=== PATIENT | female | born 1990 | race Two or more races ===

== ENCOUNTER 2018-09-12 17:07 | Inpatient (IN) | payer MEDICAID ==
[~2018-09-12] VITALS: Ht 157.5 cm; Wt 115.7 kg
[2018-09-12 17:20] VITALS: BP 163/92
--- NOTE | 2018-09-12 17:20 | NUR ---
ED Nurse Note: pt walked in c/o abd pain radiating to back x 5 days, pt reports n/v and pain on urination as well, denies diarrhea, states she can't have BM because she hasn't been eating. pt AA&ox4, gcs=15, skin warm and dry, resp even and unlabored on RA, active BS, abd soft tender, noted nausea, vss, will cont monitor.
[2018-09-12] MEDS ORDERED: Lidocaine 2% Visc 15ml soln ORAL ONE (17:45)
[2018-09-12] MEDS ORDERED: Dicyclomine HCl 10mg/5ml oral soln ORAL ONE (17:45)
--- NOTE | 2018-09-12 17:45 | Emergency Room Report ---
History of Present Illness General Chief Complaint: Abdominal Pain Source: Patient Present Illness HPI Patient is a 28-year-old female presented after increased epigastric pain for approximately sharp epigastric pain which radiates to her back for 5 days. Patient had not been vomiting. She reports having increased nausea. She states that she has not had bowel movements for several days. She denies any fever. She had not been having any diarrhea. She reports having prior history of hernia. 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 Allergies: Coded Allergies: No Known Allergies (Unverified , 09/12/18) Patient History Past Medical History: see triage record Last Menstrual Period: 08/31/18 Now: No Reviewed Nursing Documentation: PMH: Agreed; PSxH: Agreed Nursing Documentation-PMH Past Medical History: No History, Except For Review of Systems All Other Systems: negative except mentioned in HPI Physical Exam Vital Signs Date Time Temp Pulse Resp B/P (MAP) Pulse Ox O2 Delivery O2 Flow Rate FiO2 09/12/18 17:12 98.4 79 19 152/93 (112) 100 Room Air Sp02 EP Interpretation: reviewed, normal General Appearance: normal inspection, well appearing, no apparent distress, alert, GCS 15, obese Head: atraumatic ENT: normal ENT inspection, hearing grossly normal, normal voice Neck: normal inspection, full range of motion, supple, no bony tend Respiratory: normal inspection, lungs clear, normal breath sounds, no respiratory distress, no retraction, no wheezing Cardiovascular #1: regular rate, rhythm, no edema Gastrointestinal: normal inspection, normal bowel sounds, non tender, soft, no guarding, tenderness - epigastric tenderness Genitourinary: no CVA tenderness Musculoskeletal: normal inspection, back normal, normal range of motion Neurologic: normal inspection, alert, oriented x3, responsive, hide buffer III-XII nml as tested, speech normal Psychiatric: normal inspection, judgement/insight normal, mood/affect normal Skin: normal inspection, normal color, no rash Medical Decision Making Diagnostic Impression: Primary Impression: Abdominal pain Additional Impressions: Anemia Cholelithiasis ER Course Patient presented for abdominal pain. Differential diagnoses included ischemic bowel, appendicitis, perforated viscus, abdominal aortic aneurysm, inferior myocardial infarction, viral gastroenteritis among others. Because of complexity of patient's case laboratory testing and imaging studies were ordered.CT the abdomen pelvis read by radiology showed no acute findings. Patient was noted to have prior history of deep venous thrombosis. She apparently is hypotherapeutic on her anticoagulation with Coumadin due to noncompliance. Patient was given IV pain medications as well as acid blockers without any improvement. Patient was discussed with [facility] physician for further inpatient evaluation and treatment. Laboratory Tests Test 09/12/18 17:36 09/13/18 05:20 White Blood Count 10.7 K/UL (4.8-10.8) 9.5 K/UL (4.8-10.8) Red Blood Count 4.45 M/UL (4.20-5.40) 4.15 M/UL (4.20-5.40) L Hemoglobin 9.2 G/DL (12.0-16.0) L 8.7 G/DL (12.0-16.0) L Hematocrit 30.2 % (37.0-47.0) L 28.7 % (37.0-47.0) L Mean Corpuscular Volume 68 FL (80-99) L 69 FL (80-99) L Mean Corpuscular Hemoglobin 20.8 PG (27.0-31.0) L 20.9 PG (27.0-31.0) L Mean Corpuscular Hemoglobin Concent 30.6 G/DL (32.0-36.0) L 30.2 G/DL (32.0-36.0) L Red Cell Distribution Width 13.3 % (11.6-14.8) 14.4 % (11.6-14.8) Platelet Count 156 K/UL (150-450) 134 K/UL (150-450) L Mean Platelet Volume 7.3 FL (6.5-10.1) 8.7 FL (6.5-10.1) Neutrophils (%) (Auto) 86.8 % (45.0-75.0) H % (45.0-75.0) Lymphocytes (%) (Auto) 8.0 % (20.0-45.0) L % (20.0-45.0) Monocytes (%) (Auto) 4.6 % (1.0-10.0) % (1.0-10.0) Eosinophils (%) (Auto) 0.1 % (0.0-3.0) % (0.0-3.0) Basophils (%) (Auto) 0.6 % (0.0-2.0) % (0.0-2.0) Prothrombin Time 10.7 SEC (9.30-11.50) Prothrombin Time INR 1.0 (0.9-1.1) PTT 45 SEC (23-33) H D-Dimer 1.08 mg/L FEU (0.00-0.49) H Urine Color Pale yellow Urine Appearance Clear Urine pH 8 (4.5-8.0) Urine Specific [place]s 1.010 (1.005-1.035) Urine Protein 2+ (NEGATIVE) H Urine Glucose (UA) Negative (NEGATIVE) Urine Ketones 3+ (NEGATIVE) H Urine Blood Negative (NEGATIVE) Urine Nitrite Negative (NEGATIVE) Urine Bilirubin Negative (NEGATIVE) Urine Urobilinogen Normal MG/DL (0.0-1.0) Urine Leukocyte Esterase Negative (NEGATIVE) Urine RBC 0-2 /HPF (0 - 2) Urine WBC 2-4 /HPF (0 - 2) Urine Squamous Epithelial Cells Moderate /LPF (NONE/OCC) H Urine Bacteria Occasional /HPF (NONE) Urine HCG, Qualitative Negative (NEGATIVE) Sodium Level 134 MMOL/L (136-145) L 135 MMOL/L (136-145) L Potassium Level 3.5 MMOL/L (3.5-5.1) 3.4 MMOL/L (3.5-5.1) L Chloride Level 98 MMOL/L (98-107) 100 MMOL/L (98-107) Carbon Dioxide Level 22 MMOL/L (21-32) 24 MMOL/L (21-32) Anion Gap 14 mmol/L (5-15) 11 mmol/L (5-15) Blood Urea Nitrogen 6 mg/dL (7-18) L 7 mg/dL (7-18) Creatinine 0.7 MG/DL (0.55-1.30) 0.7 MG/DL (0.55-1.30) Estimate Glomerular Filtration Rate > 60 mL/min (>60) > 60 mL/min (>60) Glucose Level 123 MG/DL (74-106) H 126 MG/DL (74-106) H Calcium Level 9.6 MG/DL (8.5-10.1) 9.2 MG/DL (8.5-10.1) Total Bilirubin 0.7 MG/DL (0.2-1.0) Aspartate Amino Transferase (AST) 25 U/L (15-37) Alanine Aminotransferase (ALT) 31 U/L (12-78) Alkaline Phosphatase 132 U/L (46-116) H Total Protein 8.7 G/DL (6.4-8.2) H Albumin 4.2 G/DL (3.4-5.0) Globulin 4.5 g/dL Albumin/Globulin Ratio 0.9 (1.0-2.7) L Lipase 113 U/L (73-393) Differential Total Cells Counted 100 Neutrophils % (Manual) 84 % (45-75) H Lymphocytes % (Manual) 13 % (20-45) L Monocytes % (Manual) 3 % (1-10) Eosinophils % (Manual) 0 % (0-3) Basophils % (Manual) 0 % (0-2) Band Neutrophils 0 % (0-8) Platelet Estimate Decreased L Platelet Morphology Normal Hypochromasia 2+ Anisocytosis 1+ Microcytosis 2+ Last Vital Signs Date Time Temp Pulse Resp B/P (MAP) Pulse Ox O2 Delivery O2 Flow Rate FiO2 09/12/18 17:12 98.4 79 19 152/93 (112) 100 Room Air Status: unchanged Disposition: ADMITTED INPATIENT Condition: Stable Cornell Seaman MD September 12, 2018 17:45
[2018-09-12 17:59] LABS: HEMATOCRIT 30.2 % (37.0-47.0); HEMOGLOBIN 9.2 G/DL (12.0-16.0); MEAN CORPUSCULAR VOLUME 68 FL (80-99); PLATELET COUNT 156 K/UL (150-450); RED BLOOD COUNT 4.45 M/UL (4.20-5.40); RED CELL DISTRIBUTION WIDTH 13.3 % (11.6-14.8); WHITE BLOOD COUNT 10.7 K/UL (4.8-10.8)
[2018-09-12 18:00] LABS: APPEARANCE,URINE CLEAR; BILIRUBIN, URINE NEGATIVE (NEGATIVE); COLOR,URINE PALE YELLOW; GLUCOSE, URINE (UA) NEGATIVE (NEGATIVE); KETONES,URINE 3+ (NEGATIVE); LEUKOCYTE ESTERASE ,URINE NEGATIVE (NEGATIVE); NITRITE,URINE NEGATIVE (NEGATIVE); PH,URINE 8 (4.5-8.0); PROTEIN,URINE 2+ (NEGATIVE); UROBILINOGEN,URINE NORMAL MG/DL (0.0-1.0)
[2018-09-12] MEDS ORDERED: Morphine Sulfate 4mg/ml Inj (IV USE ONLY) IVP ONE ×2 (18:00→20:00)
--- NOTE | 2018-09-12 18:00 | NUR ---
ED Nurse Note: pt resting at this time, vss, resp even and unlabored on RA, iv intact and patent, provided extra blanket for comfort, advised pt to notify staff if needed assist.
[2018-09-12 18:01] LABS: BASOPHILS % (AUTO) 0.6 % (0.0-2.0); EOSINOPHILS % (AUTO) 0.1 % (0.0-3.0); MONOCYTES % (AUTO) 4.6 % (1.0-10.0); NEUTROPHILS % (AUTO) 86.8 % (45.0-75.0)
[2018-09-12 18:12] LABS: ANION GAP 14 mmol/L (5-15); BLOOD UREA NITROGEN 6 mg/dL (7-18); CALCIUM 9.6 MG/DL (8.5-10.1); CARBON DIOXIDE 22 MMOL/L (21-32); CHLORIDE 98 MMOL/L (98-107); CREATININE 0.7 MG/DL (0.55-1.30); POTASSIUM 3.5 MMOL/L (3.5-5.1); SODIUM 134 MMOL/L (136-145)
[2018-09-12 18:16] LABS: ALANINE AMINOTRANSFERASE 31 U/L (12-78); ALBUMIN 4.2 G/DL (3.4-5.0); ALBUMIN/GLOBULIN RATIO 0.9 (1.0-2.7); ALKALINE PHOSPHATASE 132 U/L (46-116); ASPARTATE AMINO TRANSFERASE 25 U/L (15-37); BILIRUBIN,TOTAL 0.7 MG/DL (0.2-1.0)
[2018-09-12 18:20] VITALS: BP 166/92
[2018-09-12] MEDS ORDERED: Isovue-300 100ml vial INJ PRN (18:30)
--- NOTE | 2018-09-12 19:05 | NUR ---
ED Nurse Note: pt back from CT.
--- NOTE | 2018-09-12 19:06 | NUR ---
ED Nurse Note: report given to RN jeet and endorsed care, pt vss, resp even and unlabored on RA, reports abd pain, notified ERMD.
[2018-09-12 19:28] VITALS: BP 167/96
--- NOTE | 2018-09-12 20:55 | NUR ---
ED Nurse Note: US AT THE BEDSIDE
--- NOTE | 2018-09-12 21:25 | NUR ---
NURSE NOTES: Report taken from FASHION PATTERNMAKERMalathi.
--- NOTE | 2018-09-12 21:25 | NUR ---
ED Nurse Note: TELEPHONE REPORT GIVEN TO ANTONIO MARTINEZ
[2018-09-12] MEDS ORDERED: WARFARIN SODIUM5 MG ORAL (21:27)
[2018-09-12 21:35] VITALS: BP 176/101
--- NOTE | 2018-09-12 21:35 | NUR ---
ED Nurse Note: PT SENT UP WITH JUAN ALBERTO NIEVES. PT BELONINGS SENT HOME WITH FAMILY MEMEBER, MEENA FITZPATRICK. PT IS AOX4, ON ROOM AIR, NO ACUTES SIGNS OF DISTRESS NOTABLE PRIOR TO DEPARTURE. PT SKIN INTACT.
--- NOTE | 2018-09-12 21:35 | NUR ---
NURSE NOTES: Patient brought to floor via hospital bed. Ambulatory. Awake and alert, speaks Bel[place]ian primarily, A&Ox4. Grimacing with guarding of abdominal pain site. Complaints of 10/10 pain, some minor radiating pain to her low back. No signs of distress on room air. Skin intact. IV c/d/i and patent. Called MD for admit orders, awaiting call back. Bed in lowest position, call light within reach.
[2018-09-12] MEDS ORDERED: HydrALAZINE 10mg Tab ORAL PRN (22:15)
[2018-09-12] MEDS: Morphine Sulfate 4mg/ml Inj (IV USE ONLY) IVP PRN (22:55)
--- NOTE | 2018-09-12 23:50 | History and Physical ---
History of Present Illness General Date patient seen: September 12, 2018 Time patient seen: 23:35 Reason for Hospitalization: Abdominal Pain Present Illness HPI Patient is a 28-year-old female presented after increased epigastric pain for approximately sharp epigastric pain which radiates to her back for 5 days. Patient had not been vomiting. She reports having increased nausea. She states that she has not had bowel movements for several days. She denies any fever. She had not been having any diarrhea. She reports having prior history of hernia. 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 seen with staff- namibian speaking but able to converse. no other abd surgeries except tubal ligation. has 4 boys/1 girl - 5 kids. last DVT in left leg 3 years ago Allergies: Coded Allergies: No Known Allergies (Unverified , 09/12/18) Medication History Scheduled Warfarin Sod* (Warfarin Sod*), 5 MG ORAL DAILY, (Reported) Patient History Limited by: language barrier, other History Provided By: Patient, Medical Record Healthcare decision maker Resuscitation status Full Code Advanced Directive on File Review of Systems Constitutional: Reports: malaise, other Eye: Reports: no symptoms ENT: Reports: no symptoms Respiratory: Reports: no symptoms Cardiovascular: Reports: no symptoms Gastrointestinal: Reports: abdominal pain, vomiting Genitourinary: Reports: no symptoms Musculoskeletal: Reports: no symptoms Skin: Reports: no symptoms Psychiatric: Reports: no symptoms Neurological: Reports: no symptoms Endocrine: Reports: no symptoms Hematologic/Lymphatic: Reports: no symptoms ROS Narrative abd pain gen for 4-5 days. some nausea/vomiting. no other symptoms. hx tubal ligation Physical Exam General Appearance: WD/WN, no apparent distress, alert Lines, tubes and drains: peripheral HEENT: normocephalic, atraumatic, anicteric, mucous membranes moist, PERRL, EOMI Neck: non-tender, supple Respiratory/Chest: chest wall non-tender, lungs clear, normal breath sounds Cardiovascular/Chest: normal rate, regular rhythm, no gallop/murmur, tachycardia Abdomen: normal bowel sounds, soft, no organomegaly, no mass, tender Extremities: normal range of motion, non-tender, no calf tenderness Skin Exam: normal pigmentation, warm/dry Neurologic: rn charge II-XII grossly normal, no motor/sensory deficits, alert, oriented x 3 Physical Exam Narrative obese female with no distress. abd pain generalized with no guarding or rigidity. no viramontes sign Last 24 Hour Vital Signs Date Time Temp Pulse Resp B/P (MAP) Pulse Ox O2 Delivery O2 Flow Rate FiO2 09/12/18 23:24 Room Air 09/12/18 21:35 97.9 79 18 176/101 (126) 100 09/12/18 21:32 98.4 09/12/18 21:30 98.4 98 22 155/104 99 Room Air 09/12/18 19:28 98.4 82 16 167/96 100 Room Air 09/12/18 19:26 98.4 09/12/18 18:20 98.4 91 19 166/92 100 Room Air 09/12/18 17:20 80 16 Room Air 09/12/18 17:20 98.4 97 19 163/92 100 Room Air 09/12/18 17:12 98.4 79 19 152/93 (112) 100 Room Air Laboratory Tests Test 09/12/18 17:36 White Blood Count 10.7 K/UL (4.8-10.8) Red Blood Count 4.45 M/UL (4.20-5.40) Hemoglobin 9.2 G/DL (12.0-16.0) L Hematocrit 30.2 % (37.0-47.0) L Mean Corpuscular Volume 68 FL (80-99) L Mean Corpuscular Hemoglobin 20.8 PG (27.0-31.0) L Mean Corpuscular Hemoglobin Concent 30.6 G/DL (32.0-36.0) L Red Cell Distribution Width 13.3 % (11.6-14.8) Platelet Count 156 K/UL (150-450) Mean Platelet Volume 7.3 FL (6.5-10.1) Neutrophils (%) (Auto) 86.8 % (45.0-75.0) H Lymphocytes (%) (Auto) 8.0 % (20.0-45.0) L Monocytes (%) (Auto) 4.6 % (1.0-10.0) Eosinophils (%) (Auto) 0.1 % (0.0-3.0) Basophils (%) (Auto) 0.6 % (0.0-2.0) Prothrombin Time 10.7 SEC (9.30-11.50) Prothromb Time International Ratio 1.0 (0.9-1.1) Activated Partial Thromboplast Time 45 SEC (23-33) H D-Dimer 1.08 mg/L FEU (0.00-0.49) H Urine Color Pale yellow Urine Appearance Clear Urine pH 8 (4.5-8.0) Urine Specific [place] 1.010 (1.005-1.035) Urine Protein 2+ (NEGATIVE) H Urine Glucose (UA) Negative (NEGATIVE) Urine Ketones 3+ (NEGATIVE) H Urine Blood Negative (NEGATIVE) Urine Nitrite Negative (NEGATIVE) Urine Bilirubin Negative (NEGATIVE) Urine Urobilinogen Normal MG/DL (0.0-1.0) Urine Leukocyte Esterase Negative (NEGATIVE) Urine RBC 0-2 /HPF (0 - 2) Urine WBC 2-4 /HPF (0 - 2) Urine Squamous Epithelial Cells Moderate /LPF (NONE/OCC) H Urine Bacteria Occasional /HPF (NONE) Urine HCG, Qualitative Negative (NEGATIVE) Sodium Level 134 MMOL/L (136-145) L Potassium Level 3.5 MMOL/L (3.5-5.1) Chloride Level 98 MMOL/L (98-107) Carbon Dioxide Level 22 MMOL/L (21-32) Anion Gap 14 mmol/L (5-15) Blood Urea Nitrogen 6 mg/dL (7-18) L Creatinine 0.7 MG/DL (0.55-1.30) Estimat Glomerular Filtration Rate > 60 mL/min (>60) Glucose Level 123 MG/DL (74-106) H Calcium Level 9.6 MG/DL (8.5-10.1) Total Bilirubin 0.7 MG/DL (0.2-1.0) Aspartate Amino Transf (AST/SGOT) 25 U/L (15-37) Alanine Aminotransferase (ALT/SGPT) 31 U/L (12-78) Alkaline Phosphatase 132 U/L (46-116) H Total Protein 8.7 G/DL (6.4-8.2) H Albumin 4.2 G/DL (3.4-5.0) Globulin 4.5 g/dL Albumin/Globulin Ratio 0.9 (1.0-2.7) L Lipase 113 U/L (73-393) Height (Feet): 5 Height (Inches): 2.00 Weight (Pounds): 260 Medications Current Medications Medications (Trade) Dose Ordered Sig/Makayla Route PRN Reason Start Time Stop Time Status Last Admin Dose Admin Al Hydroxide/Mg Hydroxide (Mylanta) 30 ml Q6H PRN ORAL Abdominal cramps 09/12/18 22:15 10/12/18 22:14 Heparin Sodium (Porcine) (Heparin 5000 units/ml) 5,000 units EVERY 12 HOURS SUBQ 09/13/18 09:00 10/13/18 08:59 Hydralazine HCl (Apresoline) 10 mg Q6HR PRN ORAL For High Blood Pressure 09/12/18 22:15 10/12/18 22:14 Morphine Sulfate (Morphine Sulfate) 4 mg Q4H PRN IVP For Pain 09/12/18 22:15 09/19/18 22:14 09/12/18 22:55 Ondansetron HCl (Zofran) 4 mg Q6H PRN IVP Nausea & Vomiting 09/12/18 22:15 10/12/18 22:14 09/12/18 22:54 Sodium Chloride 1,000 ml @ 100 mls/hr Q10H IV 09/12/18 22:15 10/12/18 22:14 09/12/18 22:15 Assessment/Plan Assessment/Plan: Patient is a 28-year-old female presented after increased epigastric pain for approximately sharp epigastric pain which radiates to her back for 5 days. Patient had not been vomiting. She reports having increased nausea. She states that she has not had bowel movements for several days. She denies any fever. She had not been having any diarrhea. She reports having prior history of hernia. 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 admitted for abd pain with US showing small wall adherent gallstone vs polyp. no wall thickening. CBD normal. Mild splenomegaly ?etiology. hx Hypercoagulable disorder- last DVT 3 years ago plan: admit to hospit keep npo iv ppi/ as protonix not available- pepcid. IV Fluids, pain management. denies any alcohol/smoking, GI consult for anemia/ abd pain - ER doc to call dr. Chi ok ?Cholelithiasis pain- NPO, consider surgery consult vs HIDA scan Hold coumadin with hx last DVT 3 years ago but keep DVT prophylaxis dose- closely monitor. resume as soon when stable no gross need antibiotics as normal wbc anemia workup Ed Garcia MD September 12, 2018 23:50
[2018-09-13] VITALS (9 sets, daily range): BP systolic 167–182; BP diastolic 95–113
[2018-09-13] MEDS: Morphine Sulfate 4mg/ml Inj (IV USE ONLY) IVP PRN ×6 (02:57→23:49)
--- NOTE | 2018-09-13 04:33 | NUR ---
NURSE NOTES: Patient continues to have elevated BP, most recent reading 171/104. Given hydralizine at 0046 for elevated pressure. Contacted MD awaiting return call.
[2018-09-13] MEDS ORDERED: HydrALAZINE 10mg Tab ORAL PRN (04:45)
[2018-09-13] MEDS: HydrALAZINE 10mg Tab ORAL PRN ×4 (05:10→21:10)
[2018-09-13 06:27] LABS: HEMATOCRIT 28.7 % (37.0-47.0); HEMOGLOBIN 8.7 G/DL (12.0-16.0); MEAN CORPUSCULAR VOLUME 69 FL (80-99); PLATELET COUNT 134 K/UL (150-450); RED BLOOD COUNT 4.15 M/UL (4.20-5.40); RED CELL DISTRIBUTION WIDTH 14.4 % (11.6-14.8); WHITE BLOOD COUNT 9.5 K/UL (4.8-10.8)
[2018-09-13 06:56] LABS: ANION GAP 11 mmol/L (5-15); BLOOD UREA NITROGEN 7 mg/dL (7-18); CALCIUM 9.2 MG/DL (8.5-10.1); CARBON DIOXIDE 24 MMOL/L (21-32); CHLORIDE 100 MMOL/L (98-107); CREATININE 0.7 MG/DL (0.55-1.30); POTASSIUM 3.4 MMOL/L (3.5-5.1); SODIUM 135 MMOL/L (136-145)
--- NOTE | 2018-09-13 07:30 | NUR ---
NURSE NOTES: Report received from Mark ALVAREZ, rounds made. Patient sleeping in high fowlers position in bed, easily arousable. IVF infusing to LAC at 100 ml/hr, site asymptomatic. Denies NV or SOB on RA or pain at this time. Call light in reach, bed in lowest position, will continue to monitor.
--- NOTE | 2018-09-13 07:30 | NUR ---
HAND-OFF: Report given to ANTONIO Lambert. Patient is fatigued in bed, VS stable. US called will be up to take more images.
--- NOTE | 2018-09-13 08:39 | Diagnostic Imaging Report ---
Indication: Abdominal pain Technique: Grayscale and duplex Doppler imaging of the abdomen performed. Comparison: None Findings: The liver is echogenic consistent with fatty infiltration. There is a 2.3 cm hyperechogenic focus in the right lobe consistent with a hemangioma. This was confirmed by CT. Doppler interrogation of the main portal vein shows patency with hepatopedal, monophasic flow. There is no biliary ductal dilitation identified. The gallbladder is notable for a small gallbladder polyp versus wall adherent stone. Sonographic viramontes's sign was negative per technologist. The demonstrated part of the pancreas, aorta and IVC show no abnormalities. Both kidneys appear unremarkable. There is no hydronephrosis. The spleen is prominent but normal in contour and echogenicity. There is no free fluid identified. IMPRESSION: Fatty liver. Mild spinal ligaments Hemangioma in the liver Gallbladder polyp versus wall adherent stone
--- NOTE | 2018-09-13 09:20 | NUR ---
NURSE NOTES: Dr. Bangura notified that patient complains of abdominal pain 01/23, last dose of Morphine was at 0703, requesting additional pain medication, no further orders received. Notified Dr. Bangura of K level 3.4 and platelets 134, see order for okay to give Heparin SQ.
[2018-09-13] MEDS: Heparin 5000 units/ml inj SUBQ SCH ×2 (09:24→21:00)
--- NOTE | 2018-09-13 09:25 | Diagnostic Imaging Report ---
Indication: Chest and abdominal pain Technique: Continuous helical transaxial imaging of the chest, abdomen and pelvis was obtained from the lung bases to the pubic symphysis during intravenous contrast administration. Multiple phases of enhancement obtained. Coronal 2-D reformats were also obtained. Study obtained in a Siemens sensation [address] Automatic Exposure Control was utilized. Total Dose length Product (DLP): 2014.[address] Dose Index Volume (CTDIvol): 21.4,24.91 mGy Comparison: None Findings: CT chest: The lungs are clear. No adenopathy, pleural effusion identified. The heart is unremarkable. There is mild posterior basal atelectasis. Aorta appears unremarkable. CT abdomen pelvis: There is a 2.5 cm hypodensity in the right lobe of the liver. This shows nodular enhancement at the periphery of the lesion and is consistent with a hemangioma. The spleen is borderline enlarged measures about 13 cm on this exam. Gallbladder is unremarkable. Pancreas kidneys appear unremarkable. There is no hydronephrosis. Bowel gas pattern is nonobstructive. There is a small umbilical hernia containing fat. Bladder is unremarkable. There is no free fluid. Uterus is unremarkable. Normal appendix noted. IMPRESSION: No acute findings within the chest, abdomen or pelvis. Borderline splenomegaly. Liver hemangioma. The CT scanner at [facility] is accredited by the [employer] and the scans are performed using dose optimization techniques as appropriate to a performed exam including Automatic Exposure control.
--- NOTE | 2018-09-13 11:02 | GI Initial Consult Note ---
History of Present Illness General Date patient seen: September 13, 2018 Time patient seen: 11:01 Reason for Hospitalization: Abdominal Pain Referring physician: GIORGI Reason for Consultation: ABDOMINAL PAIN Present Illness HPI Patient is a 28-year-old female presented after increased epigastric pain for approximately sharp epigastric pain which radiates to her back for 5 days. Patient had not been vomiting. She reports having increased nausea. She states that she has not had bowel movements for several days. She denies any fever. She had not been having any diarrhea. She reports having prior history of hernia. 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 GI consulted for abdominal pain. Patient seen, awake alert and oriented x4. The patient has complaint of generalized abdominal pain. The abdomen is soft, nontender, nondistended. The patient reported earlier episodes of vomiting. She denied any coffee grounds or amount of emesis. The patient denies any diarrhea. Patient denies any recent travels or changes in dietary habits. The patient denies any alcohol, drug, tobacco use. 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 Abdominal pelvic CT was negative. Patient presents today with hemoglobin 8.7 and alkaline phosphatase of 132. No leukocytosis and no transaminitis. Lipase levels within normal limits. The patient has no history of endoscopic or colonoscopy. Home Meds Reported Medications Warfarin Sod* (WARFARIN SOD*) 5 Mg Tablet, 5 MG ORAL DAILY, TAB 09/12/18 Med list reviewed/reconciled: Yes Allergies: Coded Allergies: No Known Allergies (Unverified , 09/12/18) Patient History History Provided By: Patient, Medical Record PMH Narrative Past Medical History: see triage record Last Menstrual Period: 08/31/18 Now: No Reviewed Nursing Documentation: PMH: Agreed; PSxH: Agreed Nursing Documentation-PMH Past Medical History: No History, Except For Past Surgical History: none Social History: Denies: smoking, alcohol use, drug use, other Review of Systems All Other Systems: negative except mentioned in HPI Physical Exam Vital Signs Date Time Temp Pulse Resp B/P (MAP) Pulse Ox O2 Delivery O2 Flow Rate FiO2 09/12/18 17:12 98.4 79 19 152/93 (112) 100 Room Air Sp02 EP Interpretation: reviewed, normal Labs Laboratory Tests Test 09/12/18 17:36 09/13/18 05:20 White Blood Count 10.7 K/UL (4.8-10.8) 9.5 K/UL (4.8-10.8) Red Blood Count 4.45 M/UL (4.20-5.40) 4.15 M/UL (4.20-5.40) L Hemoglobin 9.2 G/DL (12.0-16.0) L 8.7 G/DL (12.0-16.0) L Hematocrit 30.2 % (37.0-47.0) L 28.7 % (37.0-47.0) L Mean Corpuscular Volume 68 FL (80-99) L 69 FL (80-99) L Mean Corpuscular Hemoglobin 20.8 PG (27.0-31.0) L 20.9 PG (27.0-31.0) L Mean Corpuscular Hemoglobin Concent 30.6 G/DL (32.0-36.0) L 30.2 G/DL (32.0-36.0) L Red Cell Distribution Width 13.3 % (11.6-14.8) 14.4 % (11.6-14.8) Platelet Count 156 K/UL (150-450) 134 K/UL (150-450) L Mean Platelet Volume 7.3 FL (6.5-10.1) 8.7 FL (6.5-10.1) Neutrophils (%) (Auto) 86.8 % (45.0-75.0) H % (45.0-75.0) Lymphocytes (%) (Auto) 8.0 % (20.0-45.0) L % (20.0-45.0) Monocytes (%) (Auto) 4.6 % (1.0-10.0) % (1.0-10.0) Eosinophils (%) (Auto) 0.1 % (0.0-3.0) % (0.0-3.0) Basophils (%) (Auto) 0.6 % (0.0-2.0) % (0.0-2.0) Prothrombin Time 10.7 SEC (9.30-11.50) Prothromb Time International Ratio 1.0 (0.9-1.1) Activated Partial Thromboplast Time 45 SEC (23-33) H D-Dimer 1.08 mg/L FEU (0.00-0.49) H Urine Color Pale yellow Urine Appearance Clear Urine pH 8 (4.5-8.0) Urine Specific [place] 1.010 (1.005-1.035) Urine Protein 2+ (NEGATIVE) H Urine Glucose (UA) Negative (NEGATIVE) Urine Ketones 3+ (NEGATIVE) H Urine Blood Negative (NEGATIVE) Urine Nitrite Negative (NEGATIVE) Urine Bilirubin Negative (NEGATIVE) Urine Urobilinogen Normal MG/DL (0.0-1.0) Urine Leukocyte Esterase Negative (NEGATIVE) Urine RBC 0-2 /HPF (0 - 2) Urine WBC 2-4 /HPF (0 - 2) Urine Squamous Epithelial Cells Moderate /LPF (NONE/OCC) H Urine Bacteria Occasional /HPF (NONE) Urine HCG, Qualitative Negative (NEGATIVE) Sodium Level 134 MMOL/L (136-145) L 135 MMOL/L (136-145) L Potassium Level 3.5 MMOL/L (3.5-5.1) 3.4 MMOL/L (3.5-5.1) L Chloride Level 98 MMOL/L (98-107) 100 MMOL/L (98-107) Carbon Dioxide Level 22 MMOL/L (21-32) 24 MMOL/L (21-32) Anion Gap 14 mmol/L (5-15) 11 mmol/L (5-15) Blood Urea Nitrogen 6 mg/dL (7-18) L 7 mg/dL (7-18) Creatinine 0.7 MG/DL (0.55-1.30) 0.7 MG/DL (0.55-1.30) Estimat Glomerular Filtration Rate > 60 mL/min (>60) > 60 mL/min (>60) Glucose Level 123 MG/DL (74-106) H 126 MG/DL (74-106) H Calcium Level 9.6 MG/DL (8.5-10.1) 9.2 MG/DL (8.5-10.1) Total Bilirubin 0.7 MG/DL (0.2-1.0) Aspartate Amino Transf (AST/SGOT) 25 U/L (15-37) Alanine Aminotransferase (ALT/SGPT) 31 U/L (12-78) Alkaline Phosphatase 132 U/L (46-116) H Total Protein 8.7 G/DL (6.4-8.2) H Albumin 4.2 G/DL (3.4-5.0) Globulin 4.5 g/dL Albumin/Globulin Ratio 0.9 (1.0-2.7) L Lipase 113 U/L (73-393) Differential Total Cells Counted 100 Neutrophils % (Manual) 84 % (45-75) H Lymphocytes % (Manual) 13 % (20-45) L Monocytes % (Manual) 3 % (1-10) Eosinophils % (Manual) 0 % (0-3) Basophils % (Manual) 0 % (0-2) Band Neutrophils 0 % (0-8) Platelet Estimate Decreased L Platelet Morphology Normal Hypochromasia 2+ Anisocytosis 1+ Microcytosis 2+ General Appearance: well appearing, no apparent distress, alert, obese Head: normocephalic EENT: PERRL/EOMI, normal ENT inspection Neck: supple Respiratory: normal breath sounds, no respiratory distress Cardiovascular: normal rate Gastrointestinal: normal inspection, non tender, soft, normal bowel sounds, non -distended Rectal: deferred Genitourinary: no CVA tenderness Musculoskeletal: normal inspection, back normal Neurologic: normal inspection, alert, oriented x3, responsive Psychiatric: normal inspection, judgement/insight normal, memory normal Skin: normal inspection, normal color, no rash, warm/dry, palpation normal, well hydrated Lymphatic: normal inspection, no adenopathy Current Medications Current Medications Medications (Trade) Dose Ordered Sig/Makayla Route PRN Reason Start Time Stop Time Status Last Admin Dose Admin Al Hydroxide/Mg Hydroxide (Mylanta) 30 ml Q6H PRN ORAL Abdominal cramps 09/12/18 22:15 10/12/18 22:14 Heparin Sodium (Porcine) (Heparin 5000 units/ml) 5,000 units EVERY 12 HOURS SUBQ 09/13/18 09:00 10/13/18 08:59 09/13/18 09:24 Hydralazine HCl (Apresoline) 10 mg Q4H PRN ORAL For High Blood Pressure 09/13/18 04:45 10/13/18 04:44 09/13/18 09:24 Morphine Sulfate (Morphine Sulfate) 4 mg Q4H PRN IVP For Pain 09/12/18 22:15 09/19/18 22:14 09/13/18 07:03 Ondansetron HCl (Zofran) 4 mg Q6H PRN IVP Nausea & Vomiting 09/12/18 22:15 10/12/18 22:14 09/12/18 22:54 Sodium Chloride 1,000 ml @ 100 mls/hr Q10H IV 09/12/18 22:15 10/12/18 22:14 09/13/18 09:24 GI: Plan Problems: (1) Abdominal pain (2) Anemia Plan Abdominal ultrasound reviewed, fatty liver. Abdominal pelvis CT reviewed, negative findings. Microcytic anemia Elevated alkaline phosphatase No plans for GI procedures at this time Symptomatic treatment Pain management Zofran as needed Clear liquid diet, advance as tolerated anemia work up OB stool r/o GI bleed monitor H&H, prn transfusions bowel regimen ppi fu labs Discussed with Dr. Phillip. Thank you for this patient referral, we will follow. The patient was seen and examined at bedside and all new and available data was reviewed in the patients chart. I agree with the above findings, impression and plan. (Patient seen earlier today. Signature stamp does not reflect patient encounter time.). - MD Paula Smith,[facility] AD OPERATIONS SPECIALIST September 13, 2018 11:02
--- NOTE | 2018-09-13 11:36 | Consultation ---
History of Present Illness General Date patient seen: September 13, 2018 Chief Complaint: Abdominal Pain Referring physician: GIORGI Reason for Consultation: ABDOMINAL PAIN Present Illness Allergies: Coded Allergies: No Known Allergies (Unverified , 09/12/18) Medication History Scheduled Warfarin Sod* (Warfarin Sod*), 5 MG ORAL DAILY, (Reported) Patient History Healthcare decision maker Resuscitation status Full Code Advanced Directive on File Physical Exam Last 24 Hour Vital Signs Date Time Temp Pulse Resp B/P (MAP) Pulse Ox O2 Delivery O2 Flow Rate FiO2 09/13/18 09:24 182/95 09/13/18 08:00 98.1 89 19 182/95 (124) 97 09/13/18 05:10 171/104 09/13/18 04:00 98.4 88 20 171/104 (126) 100 09/13/18 00:46 172/102 09/13/18 00:00 98.7 96 18 172/102 (125) 100 09/12/18 23:24 Room Air 09/12/18 21:35 97.9 79 18 176/101 (126) 100 09/12/18 21:32 98.4 09/12/18 21:30 98.4 98 22 155/104 99 Room Air 09/12/18 19:28 98.4 82 16 167/96 100 Room Air 09/12/18 19:26 98.4 09/12/18 18:20 98.4 91 19 166/92 100 Room Air 09/12/18 17:20 80 16 Room Air 09/12/18 17:20 98.4 97 19 163/92 100 Room Air 09/12/18 17:12 98.4 79 19 152/93 (112) 100 Room Air Intake and Output 09/12/18 09/13/18 19:00 07:00 Intake Total 10 ml 100 ml Balance 10 ml 100 ml Intake Oral 0 ml IV Total 10 ml 100 ml # Voids 2 Laboratory Tests Test 09/12/18 17:36 09/13/18 05:20 White Blood Count 10.7 K/UL (4.8-10.8) 9.5 K/UL (4.8-10.8) Red Blood Count 4.45 M/UL (4.20-5.40) 4.15 M/UL (4.20-5.40) L Hemoglobin 9.2 G/DL (12.0-16.0) L 8.7 G/DL (12.0-16.0) L Hematocrit 30.2 % (37.0-47.0) L 28.7 % (37.0-47.0) L Mean Corpuscular Volume 68 FL (80-99) L 69 FL (80-99) L Mean Corpuscular Hemoglobin 20.8 PG (27.0-31.0) L 20.9 PG (27.0-31.0) L Mean Corpuscular Hemoglobin Concent 30.6 G/DL (32.0-36.0) L 30.2 G/DL (32.0-36.0) L Red Cell Distribution Width 13.3 % (11.6-14.8) 14.4 % (11.6-14.8) Platelet Count 156 K/UL (150-450) 134 K/UL (150-450) L Mean Platelet Volume 7.3 FL (6.5-10.1) 8.7 FL (6.5-10.1) Neutrophils (%) (Auto) 86.8 % (45.0-75.0) H % (45.0-75.0) Lymphocytes (%) (Auto) 8.0 % (20.0-45.0) L % (20.0-45.0) Monocytes (%) (Auto) 4.6 % (1.0-10.0) % (1.0-10.0) Eosinophils (%) (Auto) 0.1 % (0.0-3.0) % (0.0-3.0) Basophils (%) (Auto) 0.6 % (0.0-2.0) % (0.0-2.0) Prothrombin Time 10.7 SEC (9.30-11.50) Prothromb Time International Ratio 1.0 (0.9-1.1) Activated Partial Thromboplast Time 45 SEC (23-33) H D-Dimer 1.08 mg/L FEU (0.00-0.49) H Urine Color Pale yellow Urine Appearance Clear Urine pH 8 (4.5-8.0) Urine Specific [place] 1.010 (1.005-1.035) Urine Protein 2+ (NEGATIVE) H Urine Glucose (UA) Negative (NEGATIVE) Urine Ketones 3+ (NEGATIVE) H Urine Blood Negative (NEGATIVE) Urine Nitrite Negative (NEGATIVE) Urine Bilirubin Negative (NEGATIVE) Urine Urobilinogen Normal MG/DL (0.0-1.0) Urine Leukocyte Esterase Negative (NEGATIVE) Urine RBC 0-2 /HPF (0 - 2) Urine WBC 2-4 /HPF (0 - 2) Urine Squamous Epithelial Cells Moderate /LPF (NONE/OCC) H Urine Bacteria Occasional /HPF (NONE) Urine HCG, Qualitative Negative (NEGATIVE) Sodium Level 134 MMOL/L (136-145) L 135 MMOL/L (136-145) L Potassium Level 3.5 MMOL/L (3.5-5.1) 3.4 MMOL/L (3.5-5.1) L Chloride Level 98 MMOL/L (98-107) 100 MMOL/L (98-107) Carbon Dioxide Level 22 MMOL/L (21-32) 24 MMOL/L (21-32) Anion Gap 14 mmol/L (5-15) 11 mmol/L (5-15) Blood Urea Nitrogen 6 mg/dL (7-18) L 7 mg/dL (7-18) Creatinine 0.7 MG/DL (0.55-1.30) 0.7 MG/DL (0.55-1.30) Estimat Glomerular Filtration Rate > 60 mL/min (>60) > 60 mL/min (>60) Glucose Level 123 MG/DL (74-106) H 126 MG/DL (74-106) H Calcium Level 9.6 MG/DL (8.5-10.1) 9.2 MG/DL (8.5-10.1) Total Bilirubin 0.7 MG/DL (0.2-1.0) Aspartate Amino Transf (AST/SGOT) 25 U/L (15-37) Alanine Aminotransferase (ALT/SGPT) 31 U/L (12-78) Alkaline Phosphatase 132 U/L (46-116) H Total Protein 8.7 G/DL (6.4-8.2) H Albumin 4.2 G/DL (3.4-5.0) Globulin 4.5 g/dL Albumin/Globulin Ratio 0.9 (1.0-2.7) L Lipase 113 U/L (73-393) Differential Total Cells Counted 100 Neutrophils % (Manual) 84 % (45-75) H Lymphocytes % (Manual) 13 % (20-45) L Monocytes % (Manual) 3 % (1-10) Eosinophils % (Manual) 0 % (0-3) Basophils % (Manual) 0 % (0-2) Band Neutrophils 0 % (0-8) Platelet Estimate Decreased L Platelet Morphology Normal Hypochromasia 2+ Anisocytosis 1+ Microcytosis 2+ Height (Feet): 5 Height (Inches): 2.00 Weight (Pounds): 260 Medications Current Medications Medications (Trade) Dose Ordered Sig/Makayla Route PRN Reason Start Time Stop Time Status Last Admin Dose Admin Al Hydroxide/Mg Hydroxide (Mylanta) 30 ml Q6H PRN ORAL Abdominal cramps 09/12/18 22:15 10/12/18 22:14 Heparin Sodium (Porcine) (Heparin 5000 units/ml) 5,000 units EVERY 12 HOURS SUBQ 09/13/18 09:00 10/13/18 08:59 09/13/18 09:24 Hydralazine HCl (Apresoline) 10 mg Q4H PRN ORAL For High Blood Pressure 09/13/18 04:45 10/13/18 04:44 09/13/18 09:24 Morphine Sulfate (Morphine Sulfate) 4 mg Q4H PRN IVP For Pain 09/12/18 22:15 09/19/18 22:14 09/13/18 11:09 Ondansetron HCl (Zofran) 4 mg Q6H PRN IVP Nausea & Vomiting 09/12/18 22:15 10/12/18 22:14 09/12/18 22:54 Pantoprazole (Protonix) 40 mg DAILY ORAL 09/14/18 09:00 10/14/18 08:59 UNV Sodium Chloride 1,000 ml @ 100 mls/hr Q10H IV 09/12/18 22:15 10/12/18 22:14 09/13/18 09:24 Assessment/Plan Status: stable Assessment/Plan: HEMATOLOGY/ONCOLOGY CONSULTATION DATE OF CONSULT: 09/13/2018 REFERRING PHYSICIAN: Ronnell Smith REASON FOR CONSULT: R/O DVT, anemia, thrombocytopenia HPI Patient is a 28-year-old female presented after increased epigastric pain for approximately sharp epigastric pain which radiates to her back for 5 days. Patient had not been vomiting. She reports having increased nausea. She states that she has not had bowel movements for several days. She denies any fever. She had not been having any diarrhea. She reports having prior history of hernia. 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 CBC revealed an Hgb of 8.7 and Plt count of 134k. Hematology services have been consulted for the evaluation of anemia and thrombocytopenia. Past Medical History: DVT Past Surgical History: None Social History: Denies: smoking, alcohol use, drug use, other Family History: Noncontributory Allergies: Coded Allergies: No Known Allergies (Unverified , 09/12/18) Medication History Scheduled Warfarin Sod* (Warfarin Sod*), 5 MG ORAL DAILY, (Reported) Review of Systems Constitutional: Reports: malaise, other Eye: Reports: no symptoms ENT: Reports: no symptoms Respiratory: Reports: no symptoms Cardiovascular: Reports: no symptoms Gastrointestinal: Reports: abdominal pain, vomiting Genitourinary: Reports: no symptoms Musculoskeletal: Reports: no symptoms Skin: Reports: no symptoms Psychiatric: Reports: no symptoms Neurological: Reports: no symptoms Endocrine: Reports: no symptoms Hematologic/Lymphatic: Reports: no symptoms ROS Narrative abd pain gen for 4-5 days. some nausea/vomiting. no other symptoms. hx tubal ligation Physical Exam General Appearance: WD/WN, no apparent distress, alert Lines, tubes and drains: peripheral HEENT: normocephalic, atraumatic, anicteric, mucous membranes moist, PERRL, EOMI Neck: non-tender, supple Respiratory/Chest: chest wall non-tender, lungs clear, normal breath sounds Cardiovascular/Chest: normal rate, regular rhythm, no gallop/murmur, tachycardia Abdomen: normal bowel sounds, soft, no organomegaly, no mass, tender Extremities: normal range of motion, non-tender, no calf tenderness Skin Exam: normal pigmentation, warm/dry Neurologic: glass presser II-XII grossly normal, no motor/sensory deficits, alert, oriented x 3 Physical Exam Narrative obese female with no distress. abd pain generalized with no guarding or rigidity. no viramontes sign Imagin/30: US abd --> Fatty liver. Mild spinal ligaments. Hemangioma in the liver. Gallbladder polyp versus wall adherent stone. 09/12: CT abd --> No acute findings within the chest, abdomen or pelvis. Borderline splenomegaly. Liver hemangioma. Labs: 09/13: wbc 9.5 hgb 8.7 plt 134 INR 1 Assessment/Plan: # Anemia of chronic disease (or of iron deficiency) due to underlying chronic medical issues, multifactorial --> Anemia workup has been ordered, rule out gi bleed --> No evidence of hemolysis is noted, peripheral smear has been reviewed. --> Hgb goal >7. Transfuse prn. --> Epogen or iron at this time is not particularly indicated --> Medications have been reviewed --> low threshold for gi evaluation in case has occult + --> bone marrow biopsy is not indicated given the other more likely causes # Thrombocytopenia - potential causes multifactorial, evaluate liver and viral etiologies to begin, also could be related to underlying medications patient has received. --> Hep panel and HIV ordered --> US abd --> Fatty liver. Mild spinal ligaments. Hemangioma in the liver. Gallbladder polyp versus wall adherent stone. --> CT abd --> No acute findings within the chest, abdomen or pelvis. Borderline splenomegaly. Liver hemangioma. --> Peripheral smear ordered to evaluate for blasts /schistocytes --> abx and other meds have been reviewed --> ok for ppx if plt >50k w/ either heparin or lovenox --> Transfuse if Plt < 20k and fever, or if Plt < 10k without fever # Abd pain. GI is following, appreciate recs. --> Abdominal ultrasound reviewed, fatty liver. --> Abdominal pelvis CT reviewed, negative findings. --> No plans for GI procedures at this time --> Symptomatic treatment --> Clear liquid diet, advance as tolerated --> OB stool r/o GI bleed # Elevated alk phosphatase # Hypokalemia Time note entered does not reflect time of patient examination. GREATLY APPRECIATE CONSULTATION. Ha Avila MD September 13, 2018 11:36
--- NOTE | 2018-09-13 16:23 | General Progress Note ---
Assessment/Plan Status: stable Assessment/Plan: #Abdominal pain, nausea with constipation. Negative CT C/A/P -continue symptomatic care -GI eval -Bowel regimen #Chronic anemia #Thrombocytopenia #History of anti-phospholipid antibody with 3 prior DVTs #Subtherapeutic INR -Hematology eval -May need to be bridged with Lovenox, defer to Hemeatology VTE PPx SCD Full Code Subjective Date patient seen: September 13, 2018 Time patient seen: 13:22 ROS Limited/Unobtainable: No Constitutional: Denies: chills, fever Cardiovascular: Denies: chest pain Respiratory: Denies: cough Gastrointestinal/Abdominal: Denies: abdomen distended, abdominal pain, black stools Allergies: Coded Allergies: No Known Allergies (Unverified , 09/12/18) Subjective Medicine follow up for abdominal pain, anti-phospholipid syndrome with subtherapeutic INR Pain better control Constipation reported Objective Last 24 Hour Vital Signs Date Time Temp Pulse Resp B/P (MAP) Pulse Ox O2 Delivery O2 Flow Rate FiO2 09/13/18 15:24 174/106 09/13/18 12:00 98.0 92 20 177/113 (134) 97 09/13/18 09:24 182/95 09/13/18 09:00 Room Air 09/13/18 08:00 98.1 89 19 182/95 (124) 97 09/13/18 05:10 171/104 09/13/18 04:00 98.4 88 20 171/104 (126) 100 09/13/18 00:46 172/102 09/13/18 00:00 98.7 96 18 172/102 (125) 100 09/12/18 23:24 Room Air 09/12/18 21:35 97.9 79 18 176/101 (126) 100 09/12/18 21:32 98.4 09/12/18 21:30 98.4 98 22 155/104 99 Room Air 09/12/18 19:28 98.4 82 16 167/96 100 Room Air 09/12/18 19:26 98.4 09/12/18 18:20 98.4 91 19 166/92 100 Room Air 09/12/18 17:20 80 16 Room Air 09/12/18 17:20 98.4 97 19 163/92 100 Room Air 09/12/18 17:12 98.4 79 19 152/93 (112) 100 Room Air Intake and Output 09/12/18 09/13/18 19:00 07:00 Intake Total 10 ml 100 ml Balance 10 ml 100 ml Intake Oral 0 ml IV Total 10 ml 100 ml # Voids 2 Laboratory Tests 09/12/18 17:36: White Blood Count 10.7, Red Blood Count 4.45, Hemoglobin 9.2L, Hematocrit 30.2L , Mean Corpuscular Volume 68L, Mean Corpuscular Hemoglobin 20.8L, Mean Corpuscular Hemoglobin Concent 30.6L, Red Cell Distribution Width 13.3, Platelet Count 156, Mean Platelet Volume 7.3, Neutrophils (%) (Auto) 86.8H, Lymphocytes (%) (Auto) 8.0L, Monocytes (%) (Auto) 4.6, Eosinophils (%) (Auto) 0.1, Basophils (%) (Auto) 0.6, Prothrombin Time 10.7, Prothromb Time International Ratio 1.0, Activated Partial Thromboplast Time 45H, D-Dimer 1.08H , Urine Color Pale yellow, Urine Appearance Clear, Urine pH 8, Urine Specific [place] 1.010, Urine Protein 2+H, Urine Glucose (UA) Negative, Urine Ketones 3+H , Urine Blood Negative, Urine Nitrite Negative, Urine Bilirubin Negative, Urine Urobilinogen Normal, Urine Leukocyte Esterase Negative, Urine RBC 0-2, Urine WBC 2-4, Urine Squamous Epithelial Cells ModerateH, Urine Bacteria Occasional, Urine HCG, Qualitative Negative, Sodium Level 134L, Potassium Level 3.5, Chloride Level 98, Carbon Dioxide Level 22, Anion Gap 14, Blood Urea Nitrogen 6L , Creatinine 0.7, Estimat Glomerular Filtration Rate > 60, Glucose Level 123H, Calcium Level 9.6, Total Bilirubin 0.7, Aspartate Amino Transf (AST/SGOT) 25, Alanine Aminotransferase (ALT/SGPT) 31, Alkaline Phosphatase 132H, Total Protein 8.7H, Albumin 4.2, Globulin 4.5, Albumin/Globulin Ratio 0.9L, Lipase 113 09/13/18 05:20: White Blood Count 9.5, Red Blood Count 4.15L, Hemoglobin 8.7L, Hematocrit 28.7L , Mean Corpuscular Volume 69L, Mean Corpuscular Hemoglobin 20.9L, Mean Corpuscular Hemoglobin Concent 30.2L, Red Cell Distribution Width 14.4, Platelet Count 134L, Mean Platelet Volume 8.7, Neutrophils (%) (Auto) , Lymphocytes (%) (Auto) , Monocytes (%) (Auto) , Eosinophils (%) (Auto) , Basophils (%) (Auto) , Sodium Level 135L, Potassium Level 3.4L, Chloride Level 100, Carbon Dioxide Level 24, Anion Gap 11, Blood Urea Nitrogen 7, Creatinine 0.7, Estimat Glomerular Filtration Rate > 60, Glucose Level 126H, Calcium Level 9.2, Differential Total Cells Counted 100, Neutrophils % (Manual) 84H, Lymphocytes % (Manual) 13L, Monocytes % (Manual) 3, Eosinophils % (Manual) 0, Basophils % (Manual) 0, Band Neutrophils 0, Platelet Estimate DecreasedL, Platelet Morphology Normal, Hypochromasia 2+, Anisocytosis 1+, Microcytosis 2+ 09/13/18 15:20: Lupus Anticoagulant [Pending], Lupus Anticoagulant PTT Baseline [Pending], Lupus Anticoag DRVVT Screen Ratio [Pending], DRVVT Confirmation Interpretation [ Pending], Hexagonal Phase Comment [Pending], Lactate Dehydrogenase 293H, Anti- Cardiolipin IgM Antibody [Pending], Hepatitis A IgM Antibody [Pending], Hepatitis B Surface Antigen [Pending], Hepatitis B Core IgM Antibody [Pending], Hepatitis C Antibody [Pending] Height (Feet): 5 Height (Inches): 2.00 Weight (Pounds): 260 General Appearance: no apparent distress, alert Neck: normal alignment, supple Cardiovascular: normal rate, regular rhythm Respiratory/Chest: lungs clear, normal breath sounds Abdomen: non tender, soft, no organomegaly, no mass Extremities: normal range of motion, non-tender Neurologic: interpreter II-XII grossly normal, no motor/sensory deficits, alert Matthew Govea MD September 13, 2018 16:23
--- NOTE | 2018-09-13 16:30 | NUR ---
NURSE NOTES: Patient reported that she was unable to move bilateral arms and was having pain 10/10 with tingling sensation and tightness to her arms. Upon assessment, generalized skin warm, all pulses palpable, bilateral hands with slight wiggle, hand grasps equal/weak 3/5, pedal pushes equal/strong 5/5. Able to move bilateral legs and feet. Speech clear. Swallow is intact. No edema noted. No visual impairment. Smile is equal. Vitals obtained T 98.1 P 95 R 18 BP 174/106 98% RA. Medicated with Morphine 4 mg IV and Hydralazine PO. Reassessed pain 8/10, patient able to move arms up, slowly, weak, and can touch her face. Messaged left for Dr. Bangura, awaiting further orders. Will continue to monitor.
--- NOTE | 2018-09-13 16:42 | NUR ---
CASE MANAGEMENT:REVIEW 28 YR OLD FEMALE PRESENTED TO ER CC; ABDOMINAL PAIN AND VOMITING SI: ABDOMINAL PAIN. ANEMIA 98.5 79 19 152/93 100% ON RA H/H-8.7/28.7 PLT-134 IS: IV ZOFRAN MYLANTA PO DICYCLOMINE PO LIDOCAINE PO IV MORPHINE X2 IV PEPCID CT CHEST/ABDOMEN NPO : TO MED/SURG 3 EAST INTERQUAL CRITERIA MET
--- NOTE | 2018-09-13 18:20 | NUR ---
CHARGE NURSE NOTES: LEFT MESSAGE TO DR OSMAN, FOLLOW-UP FOR ANY ORDERS REGARDING THE PT'S CONDITION W/C PT CAN'T MOVE HER BILATERAL ARMS ACTIVELY.
--- NOTE | 2018-09-13 19:17 | Consultation ---
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 She reports increased nausea and constipation but denies vomiting, fever, or diarrhea. She has previously been on anticoagulation for deep venous thrombosis secondary to antiphospholipid antibodies but is not currently taking anything. Her last DVT was 3 years ago. She is hypertensive and tachycardic and has also developed bilateral upper extremity weakness for which a neurological consultation has been ordered. Allergies: Coded Allergies: No Known Allergies (Unverified , 09/12/18) Medication History Scheduled Warfarin Sod* (Warfarin Sod*), 5 MG ORAL DAILY, (Reported) Patient History Healthcare decision maker Resuscitation status Full Code Advanced Directive on File Review of Systems Constitutional: Reports: malaise, weakness; Denies: no symptoms, see HPI, chills, sweats, fever, other Eye: Denies: no symptoms, see HPI, eye pain, blurred vision, tearing, double vision, nose pain, nose congestion, acuity changes, discharge, other ENT: Denies: no symptoms, see HPI, ear pain, ear discharge, nose pain, nose congestion, throat pain, throat swelling, mouth pain, hearing loss, nasal discharge, other Respiratory: Denies: no symptoms, see HPI, cough, orthopnea, shortness of breath, stridor, wheezing, BRADLEY, sputum, other Cardiovascular: Denies: no symptoms, see HPI, chest pain, edema, palpitations, syncope, PND, other Gastrointestinal: Reports: abdominal pain; Denies: no symptoms, see HPI, constipation, diarrhea, nausea, vomiting, melena, hematemesis, other Genitourinary: Denies: no symptoms, see HPI, discharge, dysuria, frequency, hematuria, pain, retention, incontinence, urgency, vag bleed/dc, other Musculoskeletal: Reports: other; Denies: no symptoms, see HPI, back pain, gout , joint pain, joint swelling, muscle pain, muscle stiffness Skin: Denies: no symptoms, see HPI, rash, change in color, change in hair/nails , dryness, lesions, other Psychiatric: Denies: no symptoms, see HPI, prior hx, anxiety, depressed feelings, emotional problems, SI, HI, hallucinations, other Neurological: Denies: no symptoms, see HPI, headache, numbness, paresthesia, seizure, tingling, tremors, focal weakness, syncope, dizziness, other Endocrine: Denies: no symptoms, see HPI, excessive sweating, flushing, intolerance to temperature, increased thirst, increased urine, unexplained weight loss, other Hematologic/Lymphatic: Denies: no symptoms, see HPI, anemia, blood clots, easy bleeding, easy bruising, swollen glands, diathesis, other Physical Exam General Appearance: WD/WN, alert, mild distress, moderate distress, overweight Lines, tubes and drains: peripheral HEENT: normocephalic, atraumatic, anicteric, mucous membranes moist, PERRL Neck: normal alignment, supple, normal inspection Respiratory/Chest: lungs clear, normal breath sounds, no respiratory distress, no accessory muscle use Cardiovascular/Chest: tachycardia Abdomen: hernia Extremities: non-tender, normal inspection, no calf tenderness, normal capillary refill, non-pitting Skin Exam: normal pigmentation, warm/dry 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, alert, oriented x 3, responsive, no Babinski, motor weakness Musculoskeletal: normal muscle bulk, no effusion Last 24 Hour Vital Signs Date Time Temp Pulse Resp B/P (MAP) Pulse Ox O2 Delivery O2 Flow Rate FiO2 09/13/18 16:00 98.1 95 20 174/106 (128) 97 09/13/18 15:24 174/106 09/13/18 12:00 98.0 92 20 177/113 (134) 97 09/13/18 09:24 182/95 09/13/18 09:00 Room Air 09/13/18 08:00 98.1 89 19 182/95 (124) 97 09/13/18 05:10 171/104 09/13/18 04:00 98.4 88 20 171/104 (126) 100 09/13/18 00:46 172/102 09/13/18 00:00 98.7 96 18 172/102 (125) 100 09/12/18 23:24 Room Air 09/12/18 21:35 97.9 79 18 176/101 (126) 100 09/12/18 21:32 98.4 09/12/18 21:30 98.4 98 22 155/104 99 Room Air 09/12/18 19:28 98.4 82 16 167/96 100 Room Air 09/12/18 19:26 98.4 Intake and Output 09/12/18 09/13/18 19:00 07:00 Intake Total 10 ml 100 ml Balance 10 ml 100 ml Intake Oral 0 ml IV Total 10 ml 100 ml # Voids 2 Laboratory Tests Test 09/13/18 05:20 09/13/18 15:20 White Blood Count 9.5 K/UL (4.8-10.8) Red Blood Count 4.15 M/UL (4.20-5.40) L Hemoglobin 8.7 G/DL (12.0-16.0) L Hematocrit 28.7 % (37.0-47.0) L Mean Corpuscular Volume 69 FL (80-99) L Mean Corpuscular Hemoglobin 20.9 PG (27.0-31.0) L Mean Corpuscular Hemoglobin Concent 30.2 G/DL (32.0-36.0) L Red Cell Distribution Width 14.4 % (11.6-14.8) Platelet Count 134 K/UL (150-450) L Mean Platelet Volume 8.7 FL (6.5-10.1) Neutrophils (%) (Auto) % (45.0-75.0) Lymphocytes (%) (Auto) % (20.0-45.0) Monocytes (%) (Auto) % (1.0-10.0) Eosinophils (%) (Auto) % (0.0-3.0) Basophils (%) (Auto) % (0.0-2.0) Differential Total Cells Counted 100 Neutrophils % (Manual) 84 % (45-75) H Lymphocytes % (Manual) 13 % (20-45) L Monocytes % (Manual) 3 % (1-10) Eosinophils % (Manual) 0 % (0-3) Basophils % (Manual) 0 % (0-2) Band Neutrophils 0 % (0-8) Platelet Estimate Decreased L Platelet Morphology Normal Hypochromasia 2+ Anisocytosis 1+ Microcytosis 2+ Sodium Level 135 MMOL/L (136-145) L Potassium Level 3.4 MMOL/L (3.5-5.1) L Chloride Level 100 MMOL/L (98-107) Carbon Dioxide Level 24 MMOL/L (21-32) Anion Gap 11 mmol/L (5-15) Blood Urea Nitrogen 7 mg/dL (7-18) Creatinine 0.7 MG/DL (0.55-1.30) Estimat Glomerular Filtration Rate > 60 mL/min (>60) Glucose Level 126 MG/DL (74-106) H Calcium Level 9.2 MG/DL (8.5-10.1) Lupus Anticoagulant Pending Lupus Anticoagulant PTT Baseline Pending Lupus Anticoag DRVVT Screen Ratio Pending DRVVT Confirmation Interpretation Pending Hexagonal Phase Comment Pending Lactate Dehydrogenase 293 U/L (81-234) H Anti-Cardiolipin IgM Antibody Pending Hepatitis A IgM Antibody Pending Hepatitis B Surface Antigen Pending Hepatitis B Core IgM Antibody Pending Hepatitis C Antibody Pending Height (Feet): 5 Height (Inches): 2.00 Weight (Pounds): 260 Medications Current Medications Medications (Trade) Dose Ordered Sig/Makayla Route PRN Reason Start Time Stop Time Status Last Admin Dose Admin Al Hydroxide/Mg Hydroxide (Mylanta) 30 ml Q6H PRN ORAL Abdominal cramps 09/12/18 22:15 10/12/18 22:14 Bisacodyl (Dulcolax) 10 mg DAILYPRN PRN RECTAL Constipation 09/13/18 16:30 10/13/18 16:29 Heparin Sodium (Porcine) (Heparin 5000 units/ml) 5,000 units EVERY 12 HOURS SUBQ 09/13/18 09:00 10/13/18 08:59 09/13/18 09:24 Hydralazine HCl (Apresoline) 10 mg Q4H PRN ORAL For High Blood Pressure 09/13/18 04:45 10/13/18 04:44 09/13/18 15:24 Morphine Sulfate (Morphine Sulfate) 4 mg Q4H PRN IVP For Pain 09/12/18 22:15 09/19/18 22:14 09/13/18 15:24 Ondansetron HCl (Zofran) 4 mg Q6H PRN IVP Nausea & Vomiting 09/12/18 22:15 10/12/18 22:14 09/12/18 22:54 Pantoprazole (Protonix) 40 mg ACBREAKFAST ORAL 09/14/18 06:30 10/14/18 06:29 Sodium Chloride 1,000 ml @ 100 mls/hr Q10H IV 09/12/18 22:15 10/12/18 22:14 09/13/18 09:24 Assessment/Plan Problem List: (1) Weakness of both arms ICD Codes: R29.898 - Other symptoms and signs involving the musculoskeletal system SNOMED: 65060492482455472 (2) Antiphospholipid antibody positive ICD Codes: R76.0 - Raised antibody titer SNOMED: 566478552 (3) Hyponatremia ICD Codes: E87.1 - Hypo-osmolality and hyponatremia SNOMED: 34483352 (4) Fatty liver ICD Codes: K76.0 - Fatty (change of) liver, not elsewhere classified SNOMED: 141548382 (5) Abdominal pain ICD Codes: R10.9 - Unspecified abdominal pain SNOMED: 33148827 (6) Anemia ICD Codes: D64.9 - Anemia, unspecified SNOMED: 092690124 Status: deteriorating Assessment/Plan: Q4 Hour Neuro Obs SBP<140 Add IV hydralazine as needed and move to telemetry Track / Trend CBC Maintain normothermia Maintain normoglycemia with ISS MRI Brain Echocardiogram. Check TSH Check LFTs Consider EEG Haley Dc N.P. September 13, 2018 19:17
--- NOTE | 2018-09-13 19:49 | NUR ---
NURSE NOTES: Patient was given pain med by day shift nurse, going now to MRI via bed. Received report from ANTONIO Lambert. Patient has been complaining of bilat arm pain, describes it as constant pressure. Note high BP, physician was notified by day shift and orders received. Patient is alert, oriented, coherent. bilat arm strength 3/5, equal. Will continue to monitor.
--- NOTE | 2018-09-13 20:30 | NUR ---
HAND-OFF: Report given to Luisa ALVAREZ.
--- NOTE | 2018-09-13 20:40 | Diagnostic Imaging Report ---
EXAM: MR Head Without Intravenous Contrast CLINICAL HISTORY: WEAK TECHNIQUE: Magnetic resonance images of the head/brain without intravenous contrast in multiple planes. COMPARISON: No relevant prior studies available. FINDINGS: Brain: Unremarkable. No mass. No hemorrhage. No acute infarct. Ventricles: Unremarkable. No ventriculomegaly. Bones/joints: Unremarkable. Sinuses: Mucous retention cyst noted in the maxillary sinuses bilaterally Mastoid air cells: Unremarkable as visualized. No mastoid effusion. Orbits: Unremarkable as visualized. IMPRESSION: Unremarkable MRI the brain
--- NOTE | 2018-09-13 21:15 | NUR ---
NURSE NOTES: Given report to ANTONIO Junior. Patient will be transferred to [facility].
--- NOTE | 2018-09-13 21:40 | NUR ---
NURSE NOTES: Assisted with bedpan, voided 400 cc clear yellow urine without difficulty. Linen and gown changed. Family at bedside. Aware of transfer.
--- NOTE | 2018-09-13 21:55 | NUR ---
HAND-OFF: Transferred to [facility] via bed accompanied by nurse and charge nurse. Report was previously given to ANTONIO Junior.
--- NOTE | 2018-09-13 22:00 | NUR ---
NURSE NOTES: BEDSIDE REPORT RECEIVED FROM ANTONIO CASON. PT IS X4, ABLE TO MAKE NEEDS KNOWN. SINUS TACHY ON THE MONITOR, PT STATES 10/10 PAIN, MORPHINE NOT DUE FOR A FEW HOURS, SEE EMAR. WILL CONTACT DOCTOR AFTER NEXT DOSE IF NOT THERAPEUTIC. SKIN IS CLEAN, DRY, INTACT. NO BOWEL MOVEMENT FOR SEVERAL DAYS, WILL FOLLOW UP ON PRN MEDS, AND CONTACT PHYSICIAN, SEE NOTE TO FOLLOW. LAC 20 ASYMPTOMATIC. BED IS LOCKED IN LOWEST POSITION, SR X3, CALL PURI W/ IN REACH, BED ALARM ON. WILL CONTINUE TO MONITOR AND FOLLOW W/ PLAN OF CARE.
--- NOTE | 2018-09-13 22:17 | Diagnostic Imaging Report ---
EXAM: CT Thoracic Spine Without Intravenous Contrast CLINICAL HISTORY: WEAK TECHNIQUE: Axial computed tomography images of the thoracic spine without intravenous contrast. CTDI is 35.0 mGy and DLP is 1183 mGy-cm. One or more of the following dose reduction techniques were used: automated exposure control, adjustment of the mA and/or kV according to patient size, use of iterative reconstruction technique. COMPARISON: No relevant prior studies available. FINDINGS: Vertebrae: Unremarkable. No acute fracture. Incidental note made of vertebral body hemangioma at T9 vertebral body Discs/spinal canal/neural foramina: No acute findings. No spinal canal stenosis. Soft tissues: Unremarkable. IMPRESSION: No evidence for fracture or malalignment of the thoracic spine
--- NOTE | 2018-09-13 22:55 | Diagnostic Imaging Report ---
EXAM: CT Cervical Spine Without Intravenous Contrast CLINICAL HISTORY: WEAK TECHNIQUE: Axial computed tomography images of the cervical spine without intravenous contrast. CTDI is 23.4 mGy and DLP is 5.6.2 mGy-cm. One or more of the following dose reduction techniques were used: automated exposure control, adjustment of the mA and/or kV according to patient size, use of iterative reconstruction technique. Coronal and sagittal reformatted images were created and reviewed. COMPARISON: No relevant prior studies available. FINDINGS: Vertebrae: Unremarkable. No acute fracture. Discs/spinal canal/neural foramina: No acute findings. No spinal canal stenosis. Soft tissues: Unremarkable. IMPRESSION: No evidence for fracture or malalignment of the cervical spine
[2018-09-14] VITALS: BP 171/100
[2018-09-14] MEDS ORDERED: HYDROmorphone 1mg/ml Carpuject IM PRN (00:15)
[2018-09-14] MEDS ORDERED: Lactulose 20gm/30ml UDC ORAL PRN (00:15)
[2018-09-14] MEDS ORDERED: HydrALAZINE 10mg Tab ORAL PRN (00:45)
[2018-09-14] MEDS ORDERED: Fleet's Mineral Oil Enema RECTAL SCH (01:00)
[2018-09-14] MEDS: HYDROmorphone 1mg/ml Carpuject IVP PRN ×5 (01:02→22:57)
[2018-09-14] MEDS: Morphine Sulfate 4mg/ml Inj (IV USE ONLY) IVP PRN ×4 (03:50→21:39)
[2018-09-14 04:00] VITALS: BP 158/71
--- NOTE | 2018-09-14 07:06 | NUR ---
HAND-OFF: Report given to ANTONIO COOK.
--- NOTE | 2018-09-14 07:24 | NUR ---
NURSE NOTES: Report received from ANTONIO Junior. Pt is lying comfortably in semi-fowlers with no signs of distress. A+Ox4, denies pain/SOB. Respirations are even and unlabored on room air. IV site is patent and running fluids at prescribed rate. Bed is at lowest position, brakes engaged, siderails x3, bed alarm on, and call light within reach. Pt is in stable condition; will continue to monitor.
--- NOTE | 2018-09-14 07:46 | General Progress Note ---
Assessment/Plan Problem List: (1) Fatty liver ICD Codes: K76.0 - Fatty (change of) liver, not elsewhere classified SNOMED: 265163446 (2) eleavted AP (3) Abdominal pain ICD Codes: R10.9 - Unspecified abdominal pain SNOMED: 54627719 (4) Anemia ICD Codes: D64.9 - Anemia, unspecified SNOMED: 674071058 Status: stable Assessment/Plan: anemia work up fu hem advance diet repeat LFTS in am Subjective ROS Limited/Unobtainable: Yes Allergies: Coded Allergies: No Known Allergies (Unverified , 09/12/18) Objective Last 24 Hour Vital Signs Date Time Temp Pulse Resp B/P (MAP) Pulse Ox O2 Delivery O2 Flow Rate FiO2 09/14/18 06:09 97.8 09/14/18 04:20 97.8 09/14/18 04:00 123 09/14/18 04:00 97.8 100 18 158/71 (100) 98 09/14/18 00:00 101 09/14/18 00:00 98.9 109 18 171/100 (123) 96 09/13/18 22:00 102 09/13/18 21:10 92 19 173/102 (125) 97 09/13/18 21:10 173/102 09/13/18 21:00 Room Air 09/13/18 19:45 98.1 108 18 173/99 (123) 97 09/13/18 16:00 98.1 95 20 174/106 (128) 97 09/13/18 15:24 174/106 09/13/18 12:00 98.0 92 20 177/113 (134) 97 09/13/18 11:10 84 167/102 (123) 09/13/18 09:24 182/95 09/13/18 09:00 Room Air 09/13/18 08:00 98.1 89 19 182/95 (124) 97 Intake and Output 09/13/18 09/14/18 18:59 06:59 Intake Total 2254 ml Output Total 400 ml Balance 2254 ml -400 ml Intake Oral 1254 ml IV Total 1000 ml Output Urine Total 400 ml # Voids 3 3 Laboratory Tests 09/13/18 15:20: Lupus Anticoagulant [Pending], Lupus Anticoagulant PTT Baseline [Pending], Lupus Anticoag DRVVT Screen Ratio [Pending], DRVVT Confirmation Interpretation [ Pending], Hexagonal Phase Comment [Pending], Lactate Dehydrogenase 293H, Anti- Cardiolipin IgM Antibody [Pending], Hepatitis A IgM Antibody Negative, Hepatitis B Surface Antigen Negative, Hepatitis B Core IgM Antibody Negative, Hepatitis C Antibody 0.1 Height (Feet): 5 Height (Inches): 2.00 Weight (Pounds): 260 General Appearance: alert EENT: normal ENT inspection Neck: supple Cardiovascular: normal rate Respiratory/Chest: decreased breath sounds Abdomen: normal bowel sounds, non tender, soft Extremities: non-tender Lorenzo Phillip MD Sep 14, 2018 07:46
[2018-09-14 08:00] VITALS: BP 169/105
[2018-09-14 08:12] LABS: HEMATOCRIT 31.3 % (37.0-47.0); HEMOGLOBIN 9.7 G/DL (12.0-16.0); MEAN CORPUSCULAR VOLUME 68 FL (80-99); PLATELET COUNT 133 K/UL (150-450); RED BLOOD COUNT 4.59 M/UL (4.20-5.40); RED CELL DISTRIBUTION WIDTH 14.1 % (11.6-14.8); WHITE BLOOD COUNT 13.3 K/UL (4.8-10.8)
[2018-09-14] MEDS: Docusate 100mg cap ORAL SCH ×3 (08:22→18:08)
[2018-09-14 08:40] LABS: ALANINE AMINOTRANSFERASE 82 U/L (12-78); ALBUMIN 3.5 G/DL (3.4-5.0); ALBUMIN/GLOBULIN RATIO 0.7 (1.0-2.7); ALKALINE PHOSPHATASE 132 U/L (46-116); ANION GAP 11 mmol/L (5-15); ASPARTATE AMINO TRANSFERASE 68 U/L (15-37); BILIRUBIN,TOTAL 0.8 MG/DL (0.2-1.0); BLOOD UREA NITROGEN 8 mg/dL (7-18); CALCIUM 9.6 MG/DL (8.5-10.1); CARBON DIOXIDE 25 MMOL/L (21-32); CHLORIDE 96 MMOL/L (98-107); CREATININE 0.8 MG/DL (0.55-1.30); FERRITIN 24 NG/ML (8-388); POTASSIUM 3.3 MMOL/L (3.5-5.1); SODIUM 132 MMOL/L (136-145)
[2018-09-14] MEDS ORDERED: Heparin 5000 units/ml inj SUBQ SCH (09:00)
--- NOTE | 2018-09-14 09:00 | NUR ---
NURSE NOTES: Pt complaining of bilateral arm pain. She also has increased resting heart rate at 130. With exertion, pt's heart rate is in the 170s. Made Dr. Jennings aware of patient's condition and he ordered STAT CTA.
[2018-09-14 09:05] LABS: % IRON SATURATION 4 % (15-50); IRON 11 ug/dL (50-175); TOTAL IRON BINDING CAPACITY 292 ug/dL (250-450)
--- NOTE | 2018-09-14 09:10 | NUR ---
NURSE NOTES: Consent for contrast received from patient with underground repairer at bedside.
[2018-09-14] MEDS ORDERED: Isovue-370 150ml vial INJ PRN ×2 (09:15→13:45)
--- NOTE | 2018-09-14 10:20 | NUR ---
NURSE NOTES: CT called to say IV is infiltrated. Went down to attempt IV insertion. Two nurses attempted insertion of 20 g needle needed for contrast and were unsuccessful. Let Dr. Jennings know and he said he would treat as if the test were positive. He ordered a VQ scan. Will try to insert smaller gauge IV.
[2018-09-14] MEDS: Enoxaparin 120 mg inj SUBQ SCH ×2 (11:05→21:38)
--- NOTE | 2018-09-14 11:35 | NUR ---
NURSE NOTES: Pt's heart rate and blood pressure continue to be eleveated. She is also complaining of chest pressure. Left message with Dr. Smith. He told me he is on his way to see the patient now. Addendum: 09/14/18 at 1136 by JOEY BRAND RN No new orders given.
[2018-09-14 12:00] VITALS: BP 170/100
--- NOTE | 2018-09-14 12:08 | Consultation ---
History of Present Illness General Date patient seen: Sep 14, 2018 Time patient seen: 11:48 Chief Complaint: Abdominal Pain Referring physician: GIORGI Reason for Consultation: ABDOMINAL PAIN Present Illness HPI Patient walked in c/o abd pain radiating to back x 5 days, pt reports n/v and pain on urination as well. She denies any fever. She had not been having any diarrhea. She reports having prior history of hernia. 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 No other abd surgeries except tubal ligation. has 4 boys/1 girl - 5 kids. last DVT in left leg [address] No acute findings within the chest, abdomen or pelvis. Borderline splenomegaly.Liver hemangioma. Unremarkable MRI the brain Allergies: Coded Allergies: No Known Allergies (Unverified , 09/12/18) Medication History Scheduled Warfarin Sod* (Warfarin Sod*), 5 MG ORAL DAILY, (Reported) Patient History Healthcare decision maker Resuscitation status Full Code Advanced Directive on File Review of Systems Constitutional: Reports: no symptoms Eye: Reports: no symptoms ENT: Reports: no symptoms Respiratory: Reports: no symptoms Cardiovascular: Reports: palpitations Gastrointestinal: Reports: abdominal pain Genitourinary: Reports: no symptoms Musculoskeletal: Reports: no symptoms Skin: Reports: no symptoms Psychiatric: Reports: no symptoms Neurological: Reports: no symptoms Endocrine: Reports: no symptoms Hematologic/Lymphatic: Reports: no symptoms Physical Exam General Appearance: no apparent distress, alert Lines, tubes and drains: peripheral HEENT: normocephalic, atraumatic, anicteric, mucous membranes moist, PERRL Neck: non-tender, normal alignment, supple, normal inspection Respiratory/Chest: chest wall non-tender, lungs clear Cardiovascular/Chest: tachycardia Abdomen: normal bowel sounds, non tender, soft, no organomegaly, no mass Extremities: normal range of motion, non-tender Skin Exam: normal pigmentation 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 normal, no motor/sensory deficits Last 24 Hour Vital Signs Date Time Temp Pulse Resp B/P (MAP) Pulse Ox O2 Delivery O2 Flow Rate FiO2 09/14/18 11:06 174/106 09/14/18 08:00 98.3 112 18 169/105 (126) 98 09/14/18 06:09 97.8 09/14/18 04:20 97.8 09/14/18 04:00 123 09/14/18 04:00 97.8 100 18 158/71 (100) 98 09/14/18 00:00 101 09/14/18 00:00 98.9 109 18 171/100 (123) 96 09/13/18 22:00 102 09/13/18 21:10 92 19 173/102 (125) 97 09/13/18 21:10 173/102 09/13/18 21:00 Room Air 09/13/18 19:45 98.1 108 18 173/99 (123) 97 09/13/18 16:00 98.1 95 20 174/106 (128) 97 09/13/18 15:24 174/106 09/13/18 12:00 98.0 92 20 177/113 (134) 97 Intake and Output 09/13/18 09/14/18 19:00 07:00 Intake Total 2154 ml Output Total 400 ml Balance 2154 ml -400 ml Intake Oral 1254 ml IV Total 900 ml Output Urine Total 400 ml # Voids 3 3 Laboratory Tests Test 09/13/18 15:20 09/14/18 07:45 Lupus Anticoagulant Pending Lupus Anticoagulant PTT Baseline Pending Lupus Anticoag DRVVT Screen Ratio Pending DRVVT Confirmation Interpretation Pending Hexagonal Phase Comment Pending Lactate Dehydrogenase 293 U/L (81-234) H Anti-Cardiolipin IgM Antibody Pending Hepatitis A IgM Antibody Negative (Negative) Hepatitis B Surface Antigen Negative (Negative) Hepatitis B Core IgM Antibody Negative (Negative) Hepatitis C Antibody 0.1 s/co ratio (0.0-0.9) White Blood Count 13.3 K/UL (4.8-10.8) H Red Blood Count 4.59 M/UL (4.20-5.40) Hemoglobin 9.7 G/DL (12.0-16.0) L Hematocrit 31.3 % (37.0-47.0) L Mean Corpuscular Volume 68 FL (80-99) L Mean Corpuscular Hemoglobin 21.1 PG (27.0-31.0) L Mean Corpuscular Hemoglobin Concent 31.0 G/DL (32.0-36.0) L Red Cell Distribution Width 14.1 % (11.6-14.8) Platelet Count 133 K/UL (150-450) L Mean Platelet Volume 8.3 FL (6.5-10.1) Neutrophils (%) (Auto) % (45.0-75.0) Lymphocytes (%) (Auto) % (20.0-45.0) Monocytes (%) (Auto) % (1.0-10.0) Eosinophils (%) (Auto) % (0.0-3.0) Basophils (%) (Auto) % (0.0-2.0) Differential Total Cells Counted 100 Neutrophils % (Manual) 88 % (45-75) H Lymphocytes % (Manual) 8 % (20-45) L Monocytes % (Manual) 3 % (1-10) Eosinophils % (Manual) 1 % (0-3) Basophils % (Manual) 0 % (0-2) Band Neutrophils 0 % (0-8) Platelet Estimate Decreased L Platelet Morphology Normal Polychromasia 1+ Hypochromasia 1+ Anisocytosis 1+ Reticulocyte Count 2.3 % (0.5-2.0) H Prothrombin Time 11.0 SEC (9.30-11.50) Prothromb Time International Ratio 1.0 (0.9-1.1) Activated Partial Thromboplast Time 54 SEC (23-33) H Sodium Level 132 MMOL/L (136-145) L Potassium Level 3.3 MMOL/L (3.5-5.1) L Chloride Level 96 MMOL/L (98-107) L Carbon Dioxide Level 25 MMOL/L (21-32) Anion Gap 11 mmol/L (5-15) Blood Urea Nitrogen 8 mg/dL (7-18) Creatinine 0.8 MG/DL (0.55-1.30) Estimat Glomerular Filtration Rate > 60 mL/min (>60) Glucose Level 137 MG/DL (74-106) H Calcium Level 9.6 MG/DL (8.5-10.1) Iron Level 11 ug/dL (50-175) L Total Iron Binding Capacity 292 ug/dL (250-450) Percent Iron Saturation 4 % (15-50) L Unsaturated Iron Binding 281 ug/dL (112-346) Ferritin 24 NG/ML (8-388) Total Bilirubin 0.8 MG/DL (0.2-1.0) Aspartate Amino Transf (AST/SGOT) 68 U/L (15-37) H Alanine Aminotransferase (ALT/SGPT) 82 U/L (12-78) H Alkaline Phosphatase 132 U/L (46-116) H Total Protein 8.3 G/DL (6.4-8.2) H Albumin 3.5 G/DL (3.4-5.0) Globulin 4.8 g/dL Albumin/Globulin Ratio 0.7 (1.0-2.7) L Vitamin B12 Level 1027 PG/ML (193-986) H Folate 12.2 NG/ML (8.6-58.9) Thyroid Stimulating Hormone (TSH) 0.650 uiU/mL (0.358-3.740) Free Thyroxine 1.04 NG/DL (0.76-1.46) Height (Feet): 5 Height (Inches): 2.00 Weight (Pounds): 260 Medications Current Medications Medications (Trade) Dose Ordered Sig/Makayla Route PRN Reason Start Time Stop Time Status Last Admin Dose Admin Al Hydroxide/Mg Hydroxide (Mylanta) 30 ml Q6H PRN ORAL Abdominal cramps 09/13/18 22:15 10/12/18 22:14 Bisacodyl (Dulcolax) 10 mg DAILYPRN PRN RECTAL Constipation 09/14/18 00:27 10/13/18 00:26 Docusate Sodium (Colace) 200 mg THREE TIMES A DAY ORAL 09/14/18 09:00 10/14/18 08:59 09/14/18 08:22 Enoxaparin Sodium (Lovenox) 120 mg EVERY 12 HOURS SUBQ 09/14/18 10:45 10/14/18 10:44 09/14/18 11:05 Hydralazine HCl (Apresoline) 10 mg Q4H PRN ORAL For High Blood Pressure 09/14/18 00:45 10/13/18 04:44 09/14/18 11:06 Hydromorphone HCl (Dilaudid) 0.5 mg Q4H PRN IVP For Pain 09/14/18 01:00 09/21/18 00:59 09/14/18 11:14 Iopamidol (Isovue-370 150ml) 150 ml NOW PRN INJ Radiology Procedure 09/14/18 09:15 09/16/18 09:07 Lactulose (Cephulac) 30 gm THREE TIMES A DAY PRN ORAL Constipation 09/14/18 00:15 10/14/18 00:14 09/14/18 00:37 Morphine Sulfate (Morphine Sulfate) 4 mg Q4H PRN IVP For Pain 09/13/18 22:15 09/19/18 22:14 09/14/18 08:22 Ondansetron HCl (Zofran) 4 mg Q6H PRN IVP Nausea & Vomiting 09/13/18 22:15 10/12/18 22:14 Pantoprazole (Protonix) 40 mg ACBREAKFAST ORAL 09/14/18 06:30 10/14/18 06:29 09/14/18 05:38 Sodium Chloride 1,000 ml @ 100 mls/hr Q10H IV 09/13/18 22:15 10/12/18 22:14 Assessment/Plan Status: stable Assessment/Plan: Assessment/Plan Abdominal pain, nausea with constipation. Negative CT C/A/P Chronic anemia Thrombocytopenia History of anti-phospholipid antibody with 3 prior DVTs Subtherapeutic INR Tachycardia Hypertension Recommendations CTA to evaluate for PE given hx of APA Lovenox - transition to Coumadin Start losartan for hypertension Check echocardiogram Anthony Smith MD Sep 14, 2018 12:08
--- NOTE | 2018-09-14 13:36 | General Progress Note ---
Assessment/Plan Status: stable Assessment/Plan: #Abdominal pain, nausea with constipation. Negative CT C/A/P -continue symptomatic care -GI following #Sinus tachy with pleuritic chest pain, need to rule out PE given history of anti-phospholipid and subtherapeutic INR -start Lovenox 1 mg/Kg bid -VQ scan as nursing unable to obtain 20g IV in the AC #Bilateral upper extremity weakness, MRI brain negative -neurology following #Chronic anemia #Thrombocytopenia #Subtherapeutic INR -Hematology following VTE PPx Lovenox Full Code Subjective Date patient seen: Sep 14, 2018 Time patient seen: 10:35 ROS Limited/Unobtainable: No Cardiovascular: Reports: chest pain Respiratory: Denies: cough, orthopnea, shortness of breath Gastrointestinal/Abdominal: Denies: abdomen distended, abdominal pain Allergies: Coded Allergies: No Known Allergies (Unverified , 09/12/18) Subjective Medicine follow up for abdominal pain, anti-phospholipid syndrome with subtherapeutic INR. Yesterday afternoon developed bilateral UE weakness, hypertensive urgency and sinus tachycardia. Transferred to telemetry. Today she reports pleuritic chest pain. Still with elevated blood pressure and sinus tachycardia Objective Last 24 Hour Vital Signs Date Time Temp Pulse Resp B/P (MAP) Pulse Ox O2 Delivery O2 Flow Rate FiO2 09/14/18 12:00 99.7 114 20 170/100 (123) 98 09/14/18 11:06 174/106 09/14/18 09:00 Room Air 09/14/18 08:00 98.3 112 18 169/105 (126) 98 09/14/18 06:09 97.8 09/14/18 04:20 97.8 09/14/18 04:00 123 09/14/18 04:00 97.8 100 18 158/71 (100) 98 09/14/18 00:00 101 09/14/18 00:00 98.9 109 18 171/100 (123) 96 09/13/18 22:00 102 09/13/18 21:10 92 19 173/102 (125) 97 09/13/18 21:10 173/102 09/13/18 21:00 Room Air 09/13/18 19:45 98.1 108 18 173/99 (123) 97 09/13/18 16:00 98.1 95 20 174/106 (128) 97 09/13/18 15:24 174/106 Intake and Output 09/13/18 09/14/18 19:00 07:00 Intake Total 2154 ml Output Total 400 ml Balance 2154 ml -400 ml Intake Oral 1254 ml IV Total 900 ml Output Urine Total 400 ml # Voids 3 3 Laboratory Tests 09/13/18 15:20: Lupus Anticoagulant [Pending], Lupus Anticoagulant PTT Baseline [Pending], Lupus Anticoag DRVVT Screen Ratio [Pending], DRVVT Confirmation Interpretation [ Pending], Hexagonal Phase Comment [Pending], Lactate Dehydrogenase 293H, Anti- Cardiolipin IgM Antibody [Pending], Hepatitis A IgM Antibody Negative, Hepatitis B Surface Antigen Negative, Hepatitis B Core IgM Antibody Negative, Hepatitis C Antibody 0.1 09/14/18 07:45: White Blood Count 13.3H, Red Blood Count 4.59, Hemoglobin 9.7L, Hematocrit 31.3L , Mean Corpuscular Volume 68L, Mean Corpuscular Hemoglobin 21.1L, Mean Corpuscular Hemoglobin Concent 31.0L, Red Cell Distribution Width 14.1, Platelet Count 133L, Mean Platelet Volume 8.3, Neutrophils (%) (Auto) , Lymphocytes (%) (Auto) , Monocytes (%) (Auto) , Eosinophils (%) (Auto) , Basophils (%) (Auto) , Differential Total Cells Counted 100, Neutrophils % ( Manual) 88H, Lymphocytes % (Manual) 8L, Monocytes % (Manual) 3, Eosinophils % ( Manual) 1, Basophils % (Manual) 0, Band Neutrophils 0, Platelet Estimate DecreasedL, Platelet Morphology Normal, Polychromasia 1+, Hypochromasia 1+, Anisocytosis 1+, Reticulocyte Count 2.3H, Prothrombin Time 11.0, Prothromb Time International Ratio 1.0, Activated Partial Thromboplast Time 54H, Sodium Level 132L, Potassium Level 3.3L, Chloride Level 96L, Carbon Dioxide Level 25, Anion Gap 11, Blood Urea Nitrogen 8, Creatinine 0.8, Estimat Glomerular Filtration Rate > 60, Glucose Level 137H, Calcium Level 9.6, Iron Level 11L, Total Iron Binding Capacity 292, Percent Iron Saturation 4L, Unsaturated Iron Binding 281, Ferritin 24, Total Bilirubin 0.8, Aspartate Amino Transf (AST/SGOT) 68H, Alanine Aminotransferase (ALT/SGPT) 82H, Alkaline Phosphatase 132H, Total Protein 8.3H, Albumin 3.5, Globulin 4.8, Albumin/Globulin Ratio 0.7L, Vitamin B12 Level 1027H, Folate 12.2, Thyroid Stimulating Hormone (TSH) 0.650, Free Thyroxine 1.04 Height (Feet): 5 Height (Inches): 2.00 Weight (Pounds): 260 General Appearance: no apparent distress, alert Neck: normal alignment, supple Cardiovascular: regular rhythm, tachycardia Respiratory/Chest: lungs clear, normal breath sounds, no respiratory distress Abdomen: non tender, soft Matthew Govea MD Sep 14, 2018 13:36
--- NOTE | 2018-09-14 16:03 | NUR ---
CASE MANAGEMENT: REVIEW 09/14/2018 SI: ABDOMINAL PAIN. ANEMIA T 99.7 HR 114 RR 20 B/P 170/100 SATS 98% ON TA WBC 13.3 NA 132 K 3.3 CL 96 GLU 137 AST 68 ALT 82 ALP 132 IS: IVF @ 100 mL/HR COZAAR PO Q12H PROTONIX PO QAM TELE STATUS
[2018-09-14 16:30] VITALS: BP 148/103
--- NOTE | 2018-09-14 17:29 | NUR ---
NURSE NOTES: Made Dr. Smith aware of patient's resting heart rate in the 150s and chest pain. He ordered metoprolol PO 50 mg BID. Order noted and carried out. Let Dr. Jennings know about pt's increasing pain in abdomen and chest and increased heart rate. He ordered one time dose of 1 mg dilaudid. Order noted and carried out.
[2018-09-14] MEDS ORDERED: HYDROmorphone 1mg/ml Carpuject IVP SCH (17:30)
--- NOTE | 2018-09-14 19:08 | NUR ---
NURSE NOTES: Left message with SIGIFREDO Dc about no [address]; awaiting response.
--- NOTE | 2018-09-14 19:12 | NUR ---
NURSE NOTES: Report given to ANTONIO Richards. Plan of care endorsed; plan of care endorsed.
--- NOTE | 2018-09-14 19:25 | Diagnostic Imaging Report ---
EXAM: NM Lung Perfusion and Ventilation Scan CLINICAL HISTORY: CP TECHNIQUE: Nuclear Medicine ventilation and perfusion images of the lungs were obtained in multiple projections following radiopharmaceutical inhalation followed by injection of Tc99m MAA. COMPARISON: No relevant prior studies available. FINDINGS: Ventilation: Unremarkable. No ventilation defects. Perfusion: Unremarkable. No perfusion defects. IMPRESSION: No findings to suggest pulmonary embolism.
--- NOTE | 2018-09-14 19:30 | NUR ---
NURSE NOTES: received pt form day shift nurse. pt in bed. no acute distress noted. bed locked and lowest position, bed side rail up x2. call light within reach. will monitor pt to ensure pt's safety and monitor for any change in condition.
[2018-09-14 20:00] VITALS: BP 156/111
[2018-09-14] MEDS: Losartan 50mg tab ORAL SCH (21:36)
[2018-09-14] MEDS: Metoprolol Tartrate 50mg tab ORAL SCH (21:36)
[2018-09-15] VITALS: BP 155/113
--- NOTE | 2018-09-15 00:24 | NUR ---
NURSE NOTES: pt in bed resting, no change in condition, will continue to monitor pt for any change in condition.
[2018-09-15] MEDS: Morphine Sulfate 4mg/ml Inj (IV USE ONLY) IVP PRN ×2 (02:49→09:49)
[2018-09-15 04:00] VITALS: BP 126/73
--- NOTE | 2018-09-15 04:00 | NUR ---
NURSE NOTES: no change in condition. will continue to monitor for any change in condition
[2018-09-15] MEDS: HYDROmorphone 1mg/ml Carpuject IVP PRN (04:01)
--- NOTE | 2018-09-15 06:56 | NUR ---
pt remains stable, no change in condition. all needs met during my shift. bed locked and lowest position. side rail upx2. call light within reach. will endorse plan of care to incoming nurse.
--- NOTE | 2018-09-15 06:56 | NUR ---
NURSE NOTES: pt remains stable, will continue to monitor for any change in condition.
--- NOTE | 2018-09-15 07:09 | General Progress Note ---
Assessment/Plan Problem List: (1) Fatty liver ICD Codes: K76.0 - Fatty (change of) liver, not elsewhere classified SNOMED: 284340161 (2) eleavted AP (3) Abdominal pain ICD Codes: R10.9 - Unspecified abdominal pain SNOMED: 12048980 (4) Anemia ICD Codes: D64.9 - Anemia, unspecified SNOMED: 786201630 Status: stable Assessment/Plan: anemia work up>>iron def start iv iron fu hem CT and us reviewed neg hepatitis panel repeat LFTS in am EGD if needed Subjective ROS Limited/Unobtainable: Yes Allergies: Coded Allergies: No Known Allergies (Unverified , 09/12/18) Objective Last 24 Hour Vital Signs Date Time Temp Pulse Resp B/P (MAP) Pulse Ox O2 Delivery O2 Flow Rate FiO2 09/15/18 04:00 134 09/15/18 04:00 98.6 128 20 126/73 (90) 100 09/15/18 00:00 99.0 158 20 155/113 (127) 96 09/15/18 00:00 100.0 158 20 155/113 (127) 96 09/15/18 00:00 141 09/14/18 21:36 143 156/111 09/14/18 21:36 156/111 09/14/18 21:00 Room Air 09/14/18 20:00 98.4 147 19 156/111 (126) 96 09/14/18 20:00 143 09/14/18 17:54 119 09/14/18 16:30 97.3 125 20 148/103 (118) 99 09/14/18 14:01 174/119 09/14/18 12:00 119 09/14/18 12:00 99.7 114 20 170/100 (123) 98 09/14/18 11:06 174/106 09/14/18 09:00 Room Air 09/14/18 08:00 134 09/14/18 08:00 98.3 112 18 169/105 (126) 98 Intake and Output 09/14/18 09/15/18 18:59 06:59 Intake Total 360 ml Output Total 500 ml Balance -140 ml Intake Oral 360 ml Output Urine Total 500 ml # Voids 1 1 Laboratory Tests 09/14/18 07:45: White Blood Count 13.3H, Red Blood Count 4.59, Hemoglobin 9.7L, Hematocrit 31.3L , Mean Corpuscular Volume 68L, Mean Corpuscular Hemoglobin 21.1L, Mean Corpuscular Hemoglobin Concent 31.0L, Red Cell Distribution Width 14.1, Platelet Count 133L, Mean Platelet Volume 8.3, Neutrophils (%) (Auto) , Lymphocytes (%) (Auto) , Monocytes (%) (Auto) , Eosinophils (%) (Auto) , Basophils (%) (Auto) , Differential Total Cells Counted 100, Neutrophils % ( Manual) 88H, Lymphocytes % (Manual) 8L, Monocytes % (Manual) 3, Eosinophils % ( Manual) 1, Basophils % (Manual) 0, Band Neutrophils 0, Platelet Estimate DecreasedL, Platelet Morphology Normal, Polychromasia 1+, Hypochromasia 1+, Anisocytosis 1+, Reticulocyte Count 2.3H, Prothrombin Time 11.0, Prothromb Time International Ratio 1.0, Activated Partial Thromboplast Time 54H, Sodium Level 132L, Potassium Level 3.3L, Chloride Level 96L, Carbon Dioxide Level 25, Anion Gap 11, Blood Urea Nitrogen 8, Creatinine 0.8, Estimat Glomerular Filtration Rate > 60, Glucose Level 137H, Calcium Level 9.6, Iron Level 11L, Total Iron Binding Capacity 292, Percent Iron Saturation 4L, Unsaturated Iron Binding 281, Ferritin 24, Total Bilirubin 0.8, Aspartate Amino Transf (AST/SGOT) 68H, Alanine Aminotransferase (ALT/SGPT) 82H, Alkaline Phosphatase 132H, Total Protein 8.3H, Albumin 3.5, Globulin 4.8, Albumin/Globulin Ratio 0.7L, Vitamin B12 Level 1027H, Folate 12.2, Thyroid Stimulating Hormone (TSH) 0.650, Free Thyroxine 1.04 Procedure: US ABD Complete Indication: Abdominal pain Technique: Grayscale and duplex Doppler imaging of the abdomen performed. Comparison: None Findings: The liver is echogenic consistent with fatty infiltration. There is a 2.3 cm hyperechogenic focus in the right lobe consistent with a hemangioma. This was confirmed by CT. Doppler interrogation of the main portal vein shows patency with hepatopedal, monophasic flow. There is no biliary ductal dilitation identified. The gallbladder is notable for a small gallbladder polyp versus wall adherent stone. Sonographic viramontes's sign was negative per technologist. The demonstrated part of the pancreas, aorta and IVC show no abnormalities. Both kidneys appear unremarkable. There is no hydronephrosis. The spleen is prominent but normal in contour and echogenicity. There is no free fluid identified. IMPRESSION: Fatty liver. Mild spinal ligaments Hemangioma in the liver Gallbladder polyp versus wall adherent stone Height (Feet): 5 Height (Inches): 2.00 Weight (Pounds): 260 General Appearance: alert EENT: normal ENT inspection Neck: supple Cardiovascular: normal rate Respiratory/Chest: decreased breath sounds Abdomen: normal bowel sounds, non tender, soft Lorenzo Phillip MD Sep 15, 2018 07:09
--- NOTE | 2018-09-15 07:28 | NUR ---
HAND-OFF: Report given to ANTONIO Daly.
--- NOTE | 2018-09-15 07:28 | NUR ---
NURSE NOTES: Received report from Donna ALVAREZ. AO X4. Pt lying in bed. IV in right wrist with 22G SL intact and patent able to flush well. On room air. No signs of distress noted. Bed in its lowest position and locked. Bilateral side rails x2 up. Call light within easy reach. Will continue to plan of care.
[2018-09-15 08:00] VITALS: BP_SYST 134; BP_SYST 154; BP_DIAS 84; BP_DIAS 99
[2018-09-15 08:40] LABS: BASOPHILS % (AUTO) 0.5 % (0.0-2.0); EOSINOPHILS % (AUTO) 0.2 % (0.0-3.0); HEMATOCRIT 31.9 % (37.0-47.0); HEMOGLOBIN 9.9 G/DL (12.0-16.0); LYMPHOCYTES % (AUTO) 7.2 % (20.0-45.0); MEAN CORPUSCULAR VOLUME 68 FL (80-99); MONOCYTES % (AUTO) 7.1 % (1.0-10.0); NEUTROPHILS % (AUTO) 84.9 % (45.0-75.0); PLATELET COUNT 109 K/UL (150-450); RED BLOOD COUNT 4.71 M/UL (4.20-5.40); RED CELL DISTRIBUTION WIDTH 14.4 % (11.6-14.8); WHITE BLOOD COUNT 15.6 K/UL (4.8-10.8)
[2018-09-15] MEDS: Docusate 100mg cap ORAL SCH ×3 (09:00→17:42)
[2018-09-15 09:11] LABS: ALANINE AMINOTRANSFERASE 117 U/L (12-78); ALBUMIN/GLOBULIN RATIO 0.6 (1.0-2.7); ALKALINE PHOSPHATASE 138 U/L (46-116); ANION GAP 11 mmol/L (5-15); ASPARTATE AMINO TRANSFERASE 73 U/L (15-37); BILIRUBIN,TOTAL 0.8 MG/DL (0.2-1.0); BLOOD UREA NITROGEN 11 mg/dL (7-18); CALCIUM 9.4 MG/DL (8.5-10.1); CARBON DIOXIDE 25 MMOL/L (21-32); CHLORIDE 93 MMOL/L (98-107); CREATININE 0.7 MG/DL (0.55-1.30); POTASSIUM 3.7 MMOL/L (3.5-5.1); SODIUM 129 MMOL/L (136-145)
[2018-09-15] MEDS: Losartan 50mg tab ORAL SCH (09:15)
[2018-09-15] MEDS: Metoprolol Tartrate 50mg tab ORAL SCH ×2 (09:15→20:12)
[2018-09-15 09:17] LABS: % IRON SATURATION 6 % (15-50); IRON 14 ug/dL (50-175); TOTAL IRON BINDING CAPACITY 248 ug/dL (250-450)
[2018-09-15] MEDS: Enoxaparin 120 mg inj SUBQ SCH ×2 (09:17→20:16)
--- NOTE | 2018-09-15 10:05 | Cardiology Progress Note ---
Assessment/Plan Status: stable Assessment/Plan Assessment/Plan Status: stable Assessment/Plan: Assessment/Plan Abdominal pain, nausea with constipation. Negative CT C/A/P Chronic anemia Thrombocytopenia History of anti-phospholipid antibody with 3 prior DVTs Subtherapeutic INR Tachycardia Hypertension Recommendations V/Q negative d/c anticoagulation Continue losartan - BP stable Patient remains tachycardic Transfer to [facility] for closer observation TTE reviewed, normal LV function and mild PAH Check ESR/CRP for pericarditis Subjective Cardiovascular: Reports: no symptoms Respiratory: Reports: no symptoms Gastrointestinal/Abdominal: Reports: no symptoms Genitourinary: Reports: no symptoms Subjective BP stable but tachycardic, c/o sob and pain. VQ negative for PE. Has rub on exam. Low grade fever Objective Last 24 Hour Vital Signs Date Time Temp Pulse Resp B/P (MAP) Pulse Ox O2 Delivery O2 Flow Rate FiO2 09/15/18 09:15 125 134/84 09/15/18 09:15 134/84 09/15/18 08:00 97.7 125 18 134/84 (101) 97 09/15/18 04:00 134 09/15/18 04:00 98.6 128 20 126/73 (90) 100 09/15/18 00:00 99.0 158 20 155/113 (127) 96 09/15/18 00:00 100.0 158 20 155/113 (127) 96 09/15/18 00:00 141 09/14/18 21:36 143 156/111 09/14/18 21:36 156/111 09/14/18 21:00 Room Air 09/14/18 20:00 98.4 147 19 156/111 (126) 96 09/14/18 20:00 143 09/14/18 17:54 119 09/14/18 16:30 97.3 125 20 148/103 (118) 99 09/14/18 14:01 174/119 09/14/18 12:00 119 09/14/18 12:00 99.7 114 20 170/100 (123) 98 09/14/18 11:06 174/106 General Appearance: mild distress EENT: PERRL/EOMI, normal ENT inspection Neck: non-tender, normal alignment, supple, normal inspection, no JVD Rhythm: ST Cardiovascular: tachycardia Respiratory/Chest: chest wall non-tender, lungs clear Abdomen: normal bowel sounds, non tender Extremities: normal range of motion, non-tender 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, no motor/sensory deficits Intake and Output 09/14/18 09/15/18 18:59 06:59 Intake Total 360 ml Output Total 500 ml Balance -140 ml Intake Oral 360 ml Output Urine Total 500 ml # Voids 1 1 Laboratory Tests Test 09/15/18 07:57 White Blood Count 15.6 K/UL (4.8-10.8) H Red Blood Count 4.71 M/UL (4.20-5.40) Hemoglobin 9.9 G/DL (12.0-16.0) L Hematocrit 31.9 % (37.0-47.0) L Mean Corpuscular Volume 68 FL (80-99) L Mean Corpuscular Hemoglobin 21.1 PG (27.0-31.0) L Mean Corpuscular Hemoglobin Concent 31.1 G/DL (32.0-36.0) L Red Cell Distribution Width 14.4 % (11.6-14.8) Platelet Count 109 K/UL (150-450) L Mean Platelet Volume 9.1 FL (6.5-10.1) Neutrophils (%) (Auto) 84.9 % (45.0-75.0) H Lymphocytes (%) (Auto) 7.2 % (20.0-45.0) L Monocytes (%) (Auto) 7.1 % (1.0-10.0) Eosinophils (%) (Auto) 0.2 % (0.0-3.0) Basophils (%) (Auto) 0.5 % (0.0-2.0) Sodium Level 129 MMOL/L (136-145) L Potassium Level 3.7 MMOL/L (3.5-5.1) Chloride Level 93 MMOL/L (98-107) L Carbon Dioxide Level 25 MMOL/L (21-32) Anion Gap 11 mmol/L (5-15) Blood Urea Nitrogen 11 mg/dL (7-18) Creatinine 0.7 MG/DL (0.55-1.30) Estimat Glomerular Filtration Rate > 60 mL/min (>60) Glucose Level 127 MG/DL (74-106) H Calcium Level 9.4 MG/DL (8.5-10.1) Iron Level 14 ug/dL (50-175) L Total Iron Binding Capacity 248 ug/dL (250-450) L Percent Iron Saturation 6 % (15-50) L Unsaturated Iron Binding 234 ug/dL (112-346) Total Bilirubin 0.8 MG/DL (0.2-1.0) Aspartate Amino Transf (AST/SGOT) 73 U/L (15-37) H Alanine Aminotransferase (ALT/SGPT) 117 U/L (12-78) H Alkaline Phosphatase 138 U/L (46-116) H Total Protein 8.0 G/DL (6.4-8.2) Albumin 3.0 G/DL (3.4-5.0) L Globulin 5.0 g/dL Albumin/Globulin Ratio 0.6 (1.0-2.7) L Anthony Smith MD Sep 15, 2018 10:05
[2018-09-15] MEDS ORDERED: Heparin1,000 units/500ml Premix(Conc:2 units/ml) IV PRN ×2 (10:30→12:45)
[2018-09-15] MEDS ORDERED: Lidocaine 1% Plain 30 ml INJ PRN ×2 (10:39→12:45)
--- NOTE | 2018-09-15 11:28 | General Progress Note ---
Assessment/Plan Status: stable Assessment/Plan: #Abdominal pain, nausea with constipation. Negative CT C/A/P. Pain improved after having BM this morning -continue symptomatic care -GI following #Sinus tachy with pleuritic chest pain. VQ scan negative #Elevated CRP, ? pericarditis -Cardiology follow up appreciated, may benefit from NSAIDS -Will order TTE #Hyponatremia -IV hydration -Nephrology eval #Bilateral upper extremity weakness, MRI brain negative -neurology following #Chronic anemia #Thrombocytopenia #Subtherapeutic INR -Hematology following VTE PPx Lovenox Full Code Subjective Date patient seen: Sep 15, 2018 Time patient seen: 11:22 ROS Limited/Unobtainable: No Constitutional: Denies: chills, fever Cardiovascular: Reports: chest pain Respiratory: Denies: cough, orthopnea Gastrointestinal/Abdominal: Reports: abdominal pain Neurologic/Psychiatric: Denies: anxiety Allergies: Coded Allergies: No Known Allergies (Unverified , 09/12/18) Subjective Medicine follow up for chest and abdominal pain, anti-phospholipid syndrome with subtherapeutic INR. Also with bilateral UE weakness, hypertensive urgency and sinus tachycardia. Today she reports pleuritic chest pain. BP better controlled. Objective Last 24 Hour Vital Signs Date Time Temp Pulse Resp B/P (MAP) Pulse Ox O2 Delivery O2 Flow Rate FiO2 09/15/18 09:15 125 134/84 09/15/18 09:15 134/84 09/15/18 09:00 Room Air 09/15/18 08:00 97.7 125 18 134/84 (101) 97 09/15/18 08:00 144 09/15/18 04:00 134 09/15/18 04:00 98.6 128 20 126/73 (90) 100 09/15/18 00:00 99.0 158 20 155/113 (127) 96 09/15/18 00:00 100.0 158 20 155/113 (127) 96 09/15/18 00:00 141 09/14/18 21:36 143 156/111 09/14/18 21:36 156/111 09/14/18 21:00 Room Air 09/14/18 20:00 98.4 147 19 156/111 (126) 96 09/14/18 20:00 143 09/14/18 17:54 119 09/14/18 16:30 97.3 125 20 148/103 (118) 99 09/14/18 14:01 174/119 09/14/18 12:00 119 09/14/18 12:00 99.7 114 20 170/100 (123) 98 Intake and Output 09/14/18 09/15/18 18:59 06:59 Intake Total 360 ml Output Total 500 ml Balance -140 ml Intake Oral 360 ml Output Urine Total 500 ml # Voids 1 1 Laboratory Tests 09/15/18 07:57: White Blood Count 15.6H, Red Blood Count 4.71, Hemoglobin 9.9L, Hematocrit 31.9L , Mean Corpuscular Volume 68L, Mean Corpuscular Hemoglobin 21.1L, Mean Corpuscular Hemoglobin Concent 31.1L, Red Cell Distribution Width 14.4, Platelet Count 109L, Mean Platelet Volume 9.1, Neutrophils (%) (Auto) 84.9H, Lymphocytes (%) (Auto) 7.2L, Monocytes (%) (Auto) 7.1, Eosinophils (%) (Auto) 0.2, Basophils (%) (Auto) 0.5, Erythrocyte Sedimentation Rate [Pending], Sodium Level 129L, Potassium Level 3.7, Chloride Level 93L, Carbon Dioxide Level 25, Anion Gap 11, Blood Urea Nitrogen 11, Creatinine 0.7, Estimat Glomerular Filtration Rate > 60, Glucose Level 127H, Calcium Level 9.4, Iron Level 14L, Total Iron Binding Capacity 248L, Percent Iron Saturation 6L, Unsaturated Iron Binding 234, Total Bilirubin 0.8, Aspartate Amino Transf (AST/SGOT) 73H, Alanine Aminotransferase (ALT/SGPT) 117H, Alkaline Phosphatase 138H, C-Reactive Protein, Quantitative 27.1H, Total Protein 8.0, Albumin 3.0L, Globulin 5.0, Albumin/Globulin Ratio 0.6L Height (Feet): 5 Height (Inches): 2.00 Weight (Pounds): 260 General Appearance: no apparent distress, alert Neck: normal alignment, supple Cardiovascular: regular rhythm, tachycardia Respiratory/Chest: lungs clear, normal breath sounds Abdomen: non tender, soft, no organomegaly, no mass 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
[2018-09-15] MEDS ORDERED: Ketorolac 30mg Inj IM SCH (11:30)
[2018-09-15 12:00] VITALS: BP 122/64
--- NOTE | 2018-09-15 12:15 | NUR ---
NURSE NOTES: Addendum: 09/15/18 at 1244 by Traci Daly RN NURSE NOTES: Patient returned back from radiology dept. C/o pain in chest. IM ketorac 30mg given as ordered.
--- NOTE | 2018-09-15 12:35 | NUR ---
HAND-OFF: Report given to Lucía ALVAREZ. pt remains stable,
--- NOTE | 2018-09-15 12:36 | NUR ---
NURSE NOTES: RECEIVED PATIENT FROM Yasmin PALACIO RN. PATIENT IS LYING IN BED, AWAKE, ALERT, UZBEK SPEAKING. 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 ON ROOM AIR. IV ON R W G22 WITH IVF RUNNING NS AT 100ML/HR AN DL AC G20, SL. CALL LIGHT WITHIN REACH. BED AT LOWEST POSITION. SIDE RAIL SUP. WILL CONTINUE TO MONITOR.
--- NOTE | 2018-09-15 12:40 | NUR ---
NURSE NOTES: Made Dr. Jennings aware of T: 99.6F and no order for ABX for the patient regarding leukocytosis and elevated ESR/CRP. No new order noted. Per doctor Michaela, he will directly speak to nurse at [facility] since patient transferred to [facility] already.
[2018-09-15] MEDS ORDERED: Isovue-370 150ml vial INJ PRN ×2 (12:45→13:45)
[2018-09-15] MEDS ORDERED: Ketorolac 30mg Inj IM ONE (12:45)
--- NOTE | 2018-09-15 12:45 | Cardiology Report ---
APPROVED REPORT EXAM: Two-dimensional and M-mode echocardiogram with Doppler and color Doppler. INDICATION LV FUNCTION M-Mode DIMENSIONS IVSd1.3 (0.7-1.1cm)Left Atrium (MM)3.2 (1.6-4.0cm) LVDd4.9 (3.5-5.6cm)Aortic Root3.2 (2.0-3.7cm) PWd0.9 (0.7-1.1cm)Aortic Cusp Exc.2.6 (1.5-2.0cm) IVSs1.5 cm LVDs2.9 (2.5-4.0cm) PWs1.2 cm Normal left ventricular chamber size, systolic function and wall motion . Left ventricular ejection fraction estimated to be 60-65%. No evidence of left ventricular hypertrophy . No evidence of pericardial effusion . All other cardiac chamber sizes are within normal limits. Aortic valve calcification with normal cusp excursion . Mildly thickened mitral valve leaflets with normal excursion. Mild mitral annulus and aortic root calcification. Pulmonic valve not well visualized. A color flow and spectral Doppler study was performed and revealed: No aortic insufficiency . Mitral diastolic velocities suggest reduced left ventricular relaxation c/w mild LV diastolic dysfunction (Grade I ). Trace mitral regurgitation. Mild tricuspid regurgitation. Tricuspid systolic velocities suggests peak right ventricular systolic pressure of 43mmHg,consistent with mild pulmonary HTN.
[2018-09-15 12:49] LABS: CHOLESTEROL 180 MG/DL (< 200); HDL CHOLESTEROL 72 MG/DL (40-60); TRIGLYCERIDES 63 MG/DL (30-150)
[2018-09-15] MEDS: Hydromorphone 0.5mg/0.5ml inj IVP PRN ×2 (12:55→20:16)
[2018-09-15] MEDS ORDERED: Lactulose 20gm/30ml UDC ORAL PRN (13:00)
[2018-09-15] MEDS ORDERED: HydrALAZINE 10mg Tab ORAL PRN (13:00)
--- NOTE | 2018-09-15 13:30 | NUR ---
NURSE NOTES: DR MERCEDES SEEN AND EXAMINED PATIENT WITH NEW ORDERS AND CARRIED OUT. DR NÚÑEZ MADE AWARE OF TEMP BUT MO NEW ORDER. WILL CONTINUE TO MONITOR.
--- NOTE | 2018-09-15 13:30 | NUR ---
NURSE NOTES: FRITZ CATHETER F16 INSERTED PER MD REQUEST.
--- NOTE | 2018-09-15 13:31 | Diagnostic Imaging Report ---
CT Angiogram of the Head INDICATION: Weakness COMPARISON: None TECHNIQUE: Multiple contiguous axial images were obtained from the skull base through vertex following the administration of IV contrast. Multiplanar maximal intensity projection and 3-D reformatted images were generated. One or more of the following dose reduction techniques were used: automated exposure control, adjustment of the mA and/or kV according to patient size, use of iterative reconstruction technique. FINDINGS: Bilateral vertebral arteries are normal in size, course and caliber. The basilar artery is normal in size, course and caliber. There is origin of the left posterior cerebral artery. The Bilateral internal carotid arteries to are normal in size, course and caliber. Bilateral middle and anterior cerebral arteries are normal in size, course and caliber. No aneurysm or vascular malformation. Bilateral maxillary sinus mucous retention cysts are seen measuring 22 mm maximally on the right. IMPRESSION: No stenosis. No aneurysm or vascular malformation. CTDI: 66.02 mGy DLP: 3428 mGycm
--- NOTE | 2018-09-15 13:53 | Hematology/Onc Progress Note ---
Assessment/Plan Assessment/Plan Assessment/Plan: # Anemia of iron deficiency due to underlying chronic medical issues, multifactorial --> Anemia workup has been reviewed, rule out gi bleed. Ferritin 24 --> No evidence of hemolysis is noted, peripheral smear has been reviewed. --> Hgb goal >7. Transfuse prn. --> Epogen or iron at this time is not particularly indicated --> Medications have been reviewed --> low threshold for gi evaluation in case has occult + --> bone marrow biopsy is not indicated given the other more likely causes --> Hgb trend: 9.9 # Leukocytosis/elevated white blood cell count, unspecified likely related to underlying stress reaction, smoking v more likely infection --> have reviewed peripheral smear and bandemia/neutrophilia noted --> continue antibiotics if they have been started by ID team --> monitor for resolution --> WBC trend: 15.6 # Thrombocytopenia - potential causes multifactorial, evaluate liver and viral etiologies to begin, also could be related to underlying medications patient has received. --> Hep panel negative and HIV pending --> US abd --> Fatty liver. Mild spinal ligaments. Hemangioma in the liver. Gallbladder polyp versus wall adherent stone. --> CT abd --> No acute findings within the chest, abdomen or pelvis. Borderline splenomegaly. Liver hemangioma. --> Peripheral smear ordered to evaluate for blasts /schistocytes --> abx and other meds have been reviewed --> ok for ppx if plt >50k w/ either heparin or lovenox --> Transfuse if Plt < 20k and fever, or if Plt < 10k without fever --> Plt trend: 109k # Abd pain. GI is following, appreciate recs. --> Abdominal ultrasound reviewed, fatty liver. --> Abdominal pelvis CT reviewed, negative findings. --> No plans for GI procedures at this time --> Symptomatic treatment --> Clear liquid diet, advance as tolerated --> OB stool r/o GI bleed # Elevated alk phosphatase # Hypokalemia Time note entered does not reflect time of patient examination. GREATLY APPRECIATE CONSULTATION. Subjective Allergies: Coded Allergies: No Known Allergies (Unverified , 09/12/18) All Systems: reviewed and negative except above Subjective 09/15: Pt awake and alert. T: 99.6F and no order for ABX for the patient regarding leukocytosis and elevated ESR/CRP. Objective Objective Current Medications Medications (Trade) Dose Ordered Sig/Makayla Route PRN Reason Start Time Stop Time Status Last Admin Dose Admin Al Hydroxide/Mg Hydroxide (Mylanta) 30 ml Q6H PRN ORAL Abdominal cramps 09/15/18 16:15 10/12/18 22:14 Bisacodyl (Dulcolax) 10 mg DAILYPRN PRN RECTAL Constipation 09/15/18 13:00 10/15/18 12:59 Chlorhexidine Gluconate (Jannette-Hex 2%) 1 applic DAILY@1999 TOPIC 09/15/18 20:00 10/15/18 19:59 Colchicine (Colchicine) 0.6 mg BID ORAL 09/15/18 18:00 10/15/18 11:44 Docusate Sodium (Colace) 200 mg THREE TIMES A DAY ORAL 09/15/18 13:00 10/14/18 08:59 09/15/18 12:55 Enoxaparin Sodium (Lovenox) 120 mg EVERY 12 HOURS SUBQ 09/15/18 21:00 10/14/18 10:44 Heparin Sodium/ Sodium Chloride (Heparin 1000 units/500ml Premix) 1,000 unit ONCE PRN IV PICC LINE 09/15/18 12:45 09/16/18 18:00 Hydralazine HCl (Apresoline) 10 mg Q4H PRN IV SBP > 160 09/15/18 13:00 10/14/18 12:59 Hydralazine HCl (Apresoline) 10 mg Q4H PRN ORAL For High Blood Pressure 09/15/18 13:00 10/13/18 12:59 Hydromorphone HCl (Dilaudid) 0.5 mg Q4H PRN IVP For Pain 09/15/18 13:00 09/21/18 00:59 09/15/18 12:55 Iopamidol (Isovue-370 150ml) 150 ml NOW PRN INJ radiology 09/15/18 12:45 09/16/18 18:00 Iopamidol (Isovue-370 150ml) 150 ml NOW PRN INJ Radiology Procedure 09/15/18 13:45 09/16/18 18:00 Lactulose (Cephulac) 30 gm TIDPRN PRN ORAL Constipation 09/15/18 13:00 10/15/18 12:59 Lidocaine HCl (Xylocaine 1% 30ml) 30 ml ONCE PRN INJ PICC LINE 09/15/18 12:45 09/16/18 18:00 Losartan Potassium (Cozaar) 50 mg EVERY 12 HOURS ORAL 09/15/18 21:00 10/14/18 20:59 Metoprolol Tartrate (Lopressor) 50 mg Q12HR ORAL 09/15/18 21:00 10/14/18 20:59 Morphine Sulfate (Morphine Sulfate) 4 mg Q4H PRN IVP For Pain 09/15/18 14:15 09/19/18 22:14 Ondansetron HCl (Zofran) 4 mg Q6H PRN IVP Nausea & Vomiting 09/15/18 13:00 10/12/18 12:59 Pantoprazole (Protonix) 40 mg ACBREAKFAST ORAL 09/16/18 06:30 10/14/18 06:29 Sodium Chloride 1,000 ml @ 100 mls/hr Q10H IV 09/15/18 13:00 10/12/18 12:59 09/15/18 12:58 Last 24 Hour Vital Signs Date Time Temp Pulse Resp B/P (MAP) Pulse Ox O2 Delivery O2 Flow Rate FiO2 09/15/18 12:00 110 09/15/18 12:00 99.6 122 18 122/64 (83) 96 09/15/18 09:15 125 134/84 09/15/18 09:15 134/84 09/15/18 09:00 Room Air 09/15/18 08:00 97.7 125 18 134/84 (101) 97 09/15/18 08:00 144 09/15/18 04:00 134 09/15/18 04:00 98.6 128 20 126/73 (90) 100 09/15/18 00:00 99.0 158 20 155/113 (127) 96 09/15/18 00:00 100.0 158 20 155/113 (127) 96 09/15/18 00:00 141 09/14/18 21:36 143 156/111 09/14/18 21:36 156/111 09/14/18 21:00 Room Air 09/14/18 20:00 98.4 147 19 156/111 (126) 96 09/14/18 20:00 143 09/14/18 17:54 119 09/14/18 16:30 97.3 125 20 148/103 (118) 99 09/14/18 14:01 174/119 09/14/18 12:00 119 09/14/18 12:00 99.7 114 20 170/100 (123) 98 09/14/18 11:06 174/106 09/14/18 09:00 Room Air 09/14/18 08:00 134 09/14/18 08:00 98.3 112 18 169/105 (126) 98 09/14/18 06:09 97.8 09/14/18 04:20 97.8 09/14/18 04:00 123 09/14/18 04:00 97.8 100 18 158/71 (100) 98 09/14/18 00:00 101 09/14/18 00:00 98.9 109 18 171/100 (123) 96 09/13/18 22:00 102 09/13/18 21:10 92 19 173/102 (125) 97 09/13/18 21:10 173/102 09/13/18 21:00 Room Air 09/13/18 19:45 98.1 108 18 173/99 (123) 97 09/13/18 16:00 98.1 95 20 174/106 (128) 97 09/13/18 15:24 174/106 Intake and Output 09/14/18 09/15/18 18:59 06:59 Intake Total 360 ml Output Total 500 ml Balance -140 ml Intake Oral 360 ml Output Urine Total 500 ml # Voids 1 1 Labs Test 09/12/18 17:36 09/13/18 05:20 09/13/18 15:20 09/14/18 07:45 White Blood Count 10.7 K/UL (4.8-10.8) 9.5 K/UL (4.8-10.8) 13.3 K/UL (4.8-10.8) Red Blood Count 4.45 M/UL (4.20-5.40) 4.15 M/UL (4.20-5.40) 4.59 M/UL (4.20-5.40) Hemoglobin 9.2 G/DL (12.0-16.0) 8.7 G/DL (12.0-16.0) 9.7 G/DL (12.0-16.0) Hematocrit 30.2 % (37.0-47.0) 28.7 % (37.0-47.0) 31.3 % (37.0-47.0) Mean Corpuscular Volume 68 FL (80-99) 69 FL (80-99) 68 FL (80-99) Mean Corpuscular Hemoglobin 20.8 PG (27.0-31.0) 20.9 PG (27.0-31.0) 21.1 PG (27.0-31.0) Mean Corpuscular Hemoglobin Concent 30.6 G/DL (32.0-36.0) 30.2 G/DL (32.0-36.0) 31.0 G/DL (32.0-36.0) Red Cell Distribution Width 13.3 % (11.6-14.8) 14.4 % (11.6-14.8) 14.1 % (11.6-14.8) Platelet Count 156 K/UL (150-450) 134 K/UL (150-450) 133 K/UL (150-450) Mean Platelet Volume 7.3 FL (6.5-10.1) 8.7 FL (6.5-10.1) 8.3 FL (6.5-10.1) Neutrophils (%) (Auto) 86.8 % (45.0-75.0) % (45.0-75.0) % (45.0-75.0) Lymphocytes (%) (Auto) 8.0 % (20.0-45.0) % (20.0-45.0) % (20.0-45.0) Monocytes (%) (Auto) 4.6 % (1.0-10.0) % (1.0-10.0) % (1.0-10.0) Eosinophils (%) (Auto) 0.1 % (0.0-3.0) % (0.0-3.0) % (0.0-3.0) Basophils (%) (Auto) 0.6 % (0.0-2.0) % (0.0-2.0) % (0.0-2.0) Prothrombin Time 10.7 SEC (9.30-11.50) 11.0 SEC (9.30-11.50) Prothromb Time International Ratio 1.0 (0.9-1.1) 1.0 (0.9-1.1) Activated Partial Thromboplast Time 45 SEC (23-33) 54 SEC (23-33) D-Dimer 1.08 mg/L FEU (0.00-0.49) Urine Color Pale yellow Urine Appearance Clear Urine pH 8 (4.5-8.0) Urine Specific Lafe 1.010 (1.005-1.035) Urine Protein 2+ (NEGATIVE) Urine Glucose (UA) Negative (NEGATIVE) Urine Ketones 3+ (NEGATIVE) Urine Blood Negative (NEGATIVE) Urine Nitrite Negative (NEGATIVE) Urine Bilirubin Negative (NEGATIVE) Urine Urobilinogen Normal MG/DL (0.0-1.0) Urine Leukocyte Esterase Negative (NEGATIVE) Urine RBC 0-2 /HPF (0 - 2) Urine WBC 2-4 /HPF (0 - 2) Urine Squamous Epithelial Cells Moderate /LPF (NONE/OCC) Urine Bacteria Occasional /HPF (NONE) Urine HCG, Qualitative Negative (NEGATIVE) Sodium Level 134 MMOL/L (136-145) 135 MMOL/L (136-145) 132 MMOL/L (136-145) Potassium Level 3.5 MMOL/L (3.5-5.1) 3.4 MMOL/L (3.5-5.1) 3.3 MMOL/L (3.5-5.1) Chloride Level 98 MMOL/L (98-107) 100 MMOL/L (98-107) 96 MMOL/L (98-107) Carbon Dioxide Level 22 MMOL/L (21-32) 24 MMOL/L (21-32) 25 MMOL/L (21-32) Anion Gap 14 mmol/L (5-15) 11 mmol/L (5-15) 11 mmol/L (5-15) Blood Urea Nitrogen 6 mg/dL (7-18) 7 mg/dL (7-18) 8 mg/dL (7-18) Creatinine 0.7 MG/DL (0.55-1.30) 0.7 MG/DL (0.55-1.30) 0.8 MG/DL (0.55-1.30) Estimat Glomerular Filtration Rate > 60 mL/min (>60) > 60 mL/min (>60) > 60 mL/min (>60) Glucose Level 123 MG/DL (74-106) 126 MG/DL (74-106) 137 MG/DL (74-106) Calcium Level 9.6 MG/DL (8.5-10.1) 9.2 MG/DL (8.5-10.1) 9.6 MG/DL (8.5-10.1) Total Bilirubin 0.7 MG/DL (0.2-1.0) 0.8 MG/DL (0.2-1.0) Aspartate Amino Transf (AST/SGOT) 25 U/L (15-37) 68 U/L (15-37) Alanine Aminotransferase (ALT/SGPT) 31 U/L (12-78) 82 U/L (12-78) Alkaline Phosphatase 132 U/L (46-116) 132 U/L (46-116) Total Protein 8.7 G/DL (6.4-8.2) 8.3 G/DL (6.4-8.2) Albumin 4.2 G/DL (3.4-5.0) 3.5 G/DL (3.4-5.0) Globulin 4.5 g/dL 4.8 g/dL Albumin/Globulin Ratio 0.9 (1.0-2.7) 0.7 (1.0-2.7) Lipase 113 U/L (73-393) Differential Total Cells Counted 100 100 Neutrophils % (Manual) 84 % (45-75) 88 % (45-75) Lymphocytes % (Manual) 13 % (20-45) 8 % (20-45) Monocytes % (Manual) 3 % (1-10) 3 % (1-10) Eosinophils % (Manual) 0 % (0-3) 1 % (0-3) Basophils % (Manual) 0 % (0-2) 0 % (0-2) Band Neutrophils 0 % (0-8) 0 % (0-8) Platelet Estimate Decreased Decreased Platelet Morphology Normal Normal Hypochromasia 2+ 1+ Anisocytosis 1+ 1+ Microcytosis 2+ Lactate Dehydrogenase 293 U/L (81-234) Hepatitis A IgM Antibody Negative (Negative) Hepatitis B Surface Antigen Negative (Negative) Hepatitis B Core IgM Antibody Negative (Negative) Hepatitis C Antibody 0.1 s/co ratio (0.0-0.9) Polychromasia 1+ Reticulocyte Count 2.3 % (0.5-2.0) Iron Level 11 ug/dL (50-175) Total Iron Binding Capacity 292 ug/dL (250-450) Percent Iron Saturation 4 % (15-50) Unsaturated Iron Binding 281 ug/dL (112-346) Ferritin 24 NG/ML (8-388) Vitamin B12 Level 1027 PG/ML (193-986) Folate 12.2 NG/ML (8.6-58.9) Thyroid Stimulating Hormone (TSH) 0.650 uiU/mL (0.358-3.740) Free Thyroxine 1.04 NG/DL (0.76-1.46) Test 09/15/18 07:57 09/15/18 09:00 White Blood Count 15.6 K/UL (4.8-10.8) Red Blood Count 4.71 M/UL (4.20-5.40) Hemoglobin 9.9 G/DL (12.0-16.0) Hematocrit 31.9 % (37.0-47.0) Mean Corpuscular Volume 68 FL (80-99) Mean Corpuscular Hemoglobin 21.1 PG (27.0-31.0) Mean Corpuscular Hemoglobin Concent 31.1 G/DL (32.0-36.0) Red Cell Distribution Width 14.4 % (11.6-14.8) Platelet Count 109 K/UL (150-450) Mean Platelet Volume 9.1 FL (6.5-10.1) Neutrophils (%) (Auto) 84.9 % (45.0-75.0) Lymphocytes (%) (Auto) 7.2 % (20.0-45.0) Monocytes (%) (Auto) 7.1 % (1.0-10.0) Eosinophils (%) (Auto) 0.2 % (0.0-3.0) Basophils (%) (Auto) 0.5 % (0.0-2.0) Erythrocyte Sedimentation Rate 48 MM/HR (0-20) Sodium Level 129 MMOL/L (136-145) Potassium Level 3.7 MMOL/L (3.5-5.1) Chloride Level 93 MMOL/L (98-107) Carbon Dioxide Level 25 MMOL/L (21-32) Anion Gap 11 mmol/L (5-15) Blood Urea Nitrogen 11 mg/dL (7-18) Creatinine 0.7 MG/DL (0.55-1.30) Estimat Glomerular Filtration Rate > 60 mL/min (>60) Glucose Level 127 MG/DL (74-106) Osmolality 269 mOsm/kg (297-317) Uric Acid 2.5 MG/DL (2.6-7.2) Calcium Level 9.4 MG/DL (8.5-10.1) Iron Level 14 ug/dL (50-175) Total Iron Binding Capacity 248 ug/dL (250-450) Percent Iron Saturation 6 % (15-50) Unsaturated Iron Binding 234 ug/dL (112-346) Total Bilirubin 0.8 MG/DL (0.2-1.0) Aspartate Amino Transf (AST/SGOT) 73 U/L (15-37) Alanine Aminotransferase (ALT/SGPT) 117 U/L (12-78) Alkaline Phosphatase 138 U/L (46-116) C-Reactive Protein, Quantitative 27.1 mg/dL (0.00-0.90) Total Protein 8.0 G/DL (6.4-8.2) Albumin 3.0 G/DL (3.4-5.0) Globulin 5.0 g/dL Albumin/Globulin Ratio 0.6 (1.0-2.7) Triglycerides Level 63 MG/DL (30-150) Cholesterol Level 180 MG/DL (< 200) LDL Cholesterol 80 mg/dL (<100) HDL Cholesterol 72 MG/DL (40-60) Cholesterol/HDL Ratio 2.5 (3.3-4.4) Height (Feet): 5 Height (Inches): 2.00 Weight (Pounds): 260 Objective General Appearance: WD/WN, no apparent distress, alert Lines, tubes and drains: peripheral HEENT: normocephalic, atraumatic, anicteric, mucous membranes moist, PERRL, EOMI Neck: non-tender, supple Respiratory/Chest: chest wall non-tender, lungs clear, normal breath sounds Cardiovascular/Chest: normal rate, regular rhythm, no gallop/murmur, tachycardia Abdomen: normal bowel sounds, soft, no organomegaly, no mass, tender Extremities: normal range of motion, non-tender, no calf tenderness Skin Exam: normal pigmentation, warm/dry Neurologic: cigarette tipper II-XII grossly normal, no motor/sensory deficits, alert, oriented x 3 Physical Exam Narrative obese female with no distress. abd pain generalized with no guarding or rigidity. no viramontes sign Ha Avila MD Sep 15, 2018 13:53
--- NOTE | 2018-09-15 14:30 | Consultation ---
Consult Note Consult Note asked to evaluate at the request of Dr Jennings ( [facility]) for hyponatremia patient romansh speaker ER note: Patient is a 28-year-old female presented after increased epigastric pain for approximately sharp epigastric pain which radiates to her back for 5 days. Patient had not been vomiting. She reports having increased nausea. She states that she has not had bowel movements for several days. She denies any fever. She had not been having any diarrhea. She reports having prior history of hernia. 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 patient examined data reviewed no edema tachycardic . Assessment/Plan HypoNatremia , likely SIADH further comments after lab results #Abdominal pain, nausea with constipation. Negative CT C/A/P. Sinus tachy with pleuritic chest pain. VQ scan negative Elevated CRP, ? pericarditis Bilateral upper extremity weakness, MRI brain negative Chronic anemia Thrombocytopenia Subtherapeutic INR U Os S Os Uric Acid Lipid panel Keep I&O negative per consultants BP parameters rFancisco Javier Cervantes MD Sep 15, 2018 14:30
--- NOTE | 2018-09-15 15:10 | NUR ---
NURSE NOTES: MD MADE AWARE OF TROPONIN RESULT. NO NEW ORDER. WILL CONTINUE TO MONITOR.
[2018-09-15 16:00] VITALS: BP 95/46
--- NOTE | 2018-09-15 16:45 | Electroencephalogram ---
DATE OF TRACIN09/14/2018 REQUESTING PHYSICIAN: Ravin Jeff M.D. READING PHYSICIAN: Hany North M.D. PROCEDURE PERFORMED: Electroencephalogram. HISTORY: This EEG was performed on a 28-year-old lady with a history of multiple medical problems including an alteration in her mental state. The purpose of this EEG was to evaluate the patient for the degree and type of cerebral dysfunction. TECHNICAL NOTE: This EEG was performed on 32-channel [employer] Unit with electrodes placed on the scalp according to the International 10-20 system. [id number] and [id number] montages were used. The EEG was technically satisfactory and was performed in the awake, drowsy, and sleep states. OBSERVATIONS: In the best awake state, the background activity consisted of 6.5-7 Hz rhythmic theta activity. Drowsiness was characterized by irregular 4-5 Hz theta with intermixed delta frequencies. Stage II sleep was characterized by further slowing of the background in the delta and theta range, the presence of vertex waves, and 12 Hz sleep spindles. No definite focal abnormalities or epileptiform discharges were seen. IMPRESSION: This is an abnormal EEG characterized by slowing of the background in the 6.5-7 Hz theta range in the best awake state. COMMENT: This study is consistent with an encephalopathy of a moderate degree. Clinical correlation is recommended. Hany North M.D., M.S.P.H. DR: WARD JOB#: [id number] [facility] HOSPITALNicanor
--- NOTE | 2018-09-15 19:06 | NUR ---
HAND-OFF: Report given to Vinh Murillo RN.
--- NOTE | 2018-09-15 19:07 | NUR ---
NURSE NOTES: Received bedside report from ANTONIO Castrejon.Patient stable,A&O x4,no respiratory distress noted,Lungs diminished sound in an auscultation,BS active in all quadrants,IV asymptomatic,intact R wrist 22G SL and L AC G 20 running with NS @ 100ml/hr,troponin 0.772 MD aware,bed secured in a low safety position,call light within a reach,sister at bedside,will continue to monitor and follow POC.
[2018-09-15 20:00] VITALS: BP 86/50
[2018-09-15] MEDS ORDERED: Dyna-Hex 2% Top Sol 2oz TOPIC SCH ×2 (20:00)
[2018-09-15] MEDS ORDERED: Losartan 50mg tab ORAL SCH ×2 (21:00)
--- NOTE | 2018-09-15 22:00 | NUR ---
NURSE NOTES: Received bedside report from ANTONIO Flowers. A&OX4. In no apparent distress. IV to Rt wrist G#22 SL and Lt AC G#20 running NS @ 100ml/hr. Call light within a reach. [facility] on campus monitor. Denies pain or discomfort. Will continue POC.
--- NOTE | 2018-09-15 22:45 | NUR ---
HAND-OFF: Report given to Grupo Velasco RN.Patient stable,sleeping.
--- NOTE | 2018-09-15 23:49 | Neurology Progress Note ---
Interim History Interim History ROS Limited/Unobtainable: No Complaints: Weakness/ Pain Events: Still very HTN with Tachycardia and arm weakness / pain Interim History This visit was performed on September 14, [address] Ravin Jeff. Objective Physical Exam Last Vital Signs Date Time Temp Pulse Resp B/P (MAP) Pulse Ox O2 Delivery O2 Flow Rate FiO2 09/15/18 21:00 Room Air 09/15/18 20:12 110 83/56 09/15/18 20:00 98.4 18 96 Laboratory Tests Test 09/15/18 07:57 09/15/18 09:00 09/15/18 14:25 09/15/18 14:30 White Blood Count 15.6 K/UL (4.8-10.8) H Red Blood Count 4.71 M/UL (4.20-5.40) Hemoglobin 9.9 G/DL (12.0-16.0) L Hematocrit 31.9 % (37.0-47.0) L Mean Corpuscular Volume 68 FL (80-99) L Mean Corpuscular Hemoglobin 21.1 PG (27.0-31.0) L Mean Corpuscular Hemoglobin Concent 31.1 G/DL (32.0-36.0) L Red Cell Distribution Width 14.4 % (11.6-14.8) Platelet Count 109 K/UL (150-450) L Mean Platelet Volume 9.1 FL (6.5-10.1) Neutrophils (%) (Auto) 84.9 % (45.0-75.0) H Lymphocytes (%) (Auto) 7.2 % (20.0-45.0) L Monocytes (%) (Auto) 7.1 % (1.0-10.0) Eosinophils (%) (Auto) 0.2 % (0.0-3.0) Basophils (%) (Auto) 0.5 % (0.0-2.0) Erythrocyte Sedimentation Rate 48 MM/HR (0-20) H Sodium Level 129 MMOL/L (136-145) L Potassium Level 3.7 MMOL/L (3.5-5.1) Chloride Level 93 MMOL/L (98-107) L Carbon Dioxide Level 25 MMOL/L (21-32) Anion Gap 11 mmol/L (5-15) Blood Urea Nitrogen 11 mg/dL (7-18) Creatinine 0.7 MG/DL (0.55-1.30) Estimat Glomerular Filtration Rate > 60 mL/min (>60) Glucose Level 127 MG/DL (74-106) H Osmolality 269 mOsm/kg (297-317) L Uric Acid 2.5 MG/DL (2.6-7.2) L Calcium Level 9.4 MG/DL (8.5-10.1) Iron Level 14 ug/dL (50-175) L Total Iron Binding Capacity 248 ug/dL (250-450) L Percent Iron Saturation 6 % (15-50) L Unsaturated Iron Binding 234 ug/dL (112-346) Total Bilirubin 0.8 MG/DL (0.2-1.0) Aspartate Amino Transf (AST/SGOT) 73 U/L (15-37) H Alanine Aminotransferase (ALT/SGPT) 117 U/L (12-78) H Alkaline Phosphatase 138 U/L (46-116) H C-Reactive Protein, Quantitative 27.1 mg/dL (0.00-0.90) H Total Protein 8.0 G/DL (6.4-8.2) Albumin 3.0 G/DL (3.4-5.0) L Globulin 5.0 g/dL Albumin/Globulin Ratio 0.6 (1.0-2.7) L Triglycerides Level 63 MG/DL (30-150) Cholesterol Level 180 MG/DL (< 200) LDL Cholesterol 80 mg/dL (<100) HDL Cholesterol 72 MG/DL (40-60) H Cholesterol/HDL Ratio 2.5 (3.3-4.4) L Stool Occult Blood Pending Lactic Acid Level 1.50 mmol/L (0.4-2.0) Troponin I 0.772 ng/mL (0.000-0.056) Urine Osmolality 526 mOsm/kg (429-449) H Urine Random Sodium < 20 mmol/L (20-110) L General: well developed, well nourished Head: normocophalic Neck: no rigidity EENT: benign Neurologic Exam Mental Status: awake, alert, oriented x4 Speech: normal speech, no dysarthia Language: normal language, no aphasia Cranial Nerve II: fundus normal, visual izaguirre, no papilledema Cranial Nerves III, IV, : PERRLA, EOMI, pupils Cranial Nerve V: normal facial sensations, temporales function normal, masseters function normal, pterygoids function normal Cranial Nerve VII: no facial asymmetry, normal facial expressions Cranial Nerve VIII: normal hearing, no nystagmus Cranial Nerve IX: normal palate elevation, gag response Cranial Nerve X: no voice hoarseness Cranial Nerve XI: SCM symmetric, trapezii function normal Cranial Nerve XII: tongue midline, no tongue atrophy/fasciculations Motor System: normal muscle tone, no involuntary movement, no muscle wasting Sensory: normal pinprick, normal light touch, normal position sense, normal graphesthesia Deep Tendon Reflexes: 1+ bicep (L), 1+ bicep (R), 1+ tricep (L), 1+ tricep (R) , 1+ brachioradialis (L), 1+ brachioradialis (R); 2+ knee (L), 2+ knee (R), 2+ ankle (L), 2+ ankle (R) Reflexes: flexor plantar (L), flexor plantar (R); extensor plantar (L), extensor plantar (R) Gait: other Impression/Recommendations Problems: (1) Anemia (2) Abdominal pain (3) Fatty liver (4) eleavted AP (5) Hyponatremia (6) Antiphospholipid antibody positive (7) Weakness of both arms Status: stable Haley Dc N.P. Sep 15, 2018 23:49
--- NOTE | 2018-09-15 23:50 | Neurology Progress Note ---
Interim History Interim History ROS Limited/Unobtainable: No Interim History This visit was performed on September 15, [address] Ravin Jeff. Objective Physical Exam Last Vital Signs Date Time Temp Pulse Resp B/P (MAP) Pulse Ox O2 Delivery O2 Flow Rate FiO2 09/15/18 21:00 Room Air 09/15/18 20:12 110 83/56 09/15/18 20:00 98.4 18 96 Laboratory Tests Test 09/15/18 07:57 09/15/18 09:00 09/15/18 14:25 09/15/18 14:30 White Blood Count 15.6 K/UL (4.8-10.8) H Red Blood Count 4.71 M/UL (4.20-5.40) Hemoglobin 9.9 G/DL (12.0-16.0) L Hematocrit 31.9 % (37.0-47.0) L Mean Corpuscular Volume 68 FL (80-99) L Mean Corpuscular Hemoglobin 21.1 PG (27.0-31.0) L Mean Corpuscular Hemoglobin Concent 31.1 G/DL (32.0-36.0) L Red Cell Distribution Width 14.4 % (11.6-14.8) Platelet Count 109 K/UL (150-450) L Mean Platelet Volume 9.1 FL (6.5-10.1) Neutrophils (%) (Auto) 84.9 % (45.0-75.0) H Lymphocytes (%) (Auto) 7.2 % (20.0-45.0) L Monocytes (%) (Auto) 7.1 % (1.0-10.0) Eosinophils (%) (Auto) 0.2 % (0.0-3.0) Basophils (%) (Auto) 0.5 % (0.0-2.0) Erythrocyte Sedimentation Rate 48 MM/HR (0-20) H Sodium Level 129 MMOL/L (136-145) L Potassium Level 3.7 MMOL/L (3.5-5.1) Chloride Level 93 MMOL/L (98-107) L Carbon Dioxide Level 25 MMOL/L (21-32) Anion Gap 11 mmol/L (5-15) Blood Urea Nitrogen 11 mg/dL (7-18) Creatinine 0.7 MG/DL (0.55-1.30) Estimat Glomerular Filtration Rate > 60 mL/min (>60) Glucose Level 127 MG/DL (74-106) H Osmolality 269 mOsm/kg (297-317) L Uric Acid 2.5 MG/DL (2.6-7.2) L Calcium Level 9.4 MG/DL (8.5-10.1) Iron Level 14 ug/dL (50-175) L Total Iron Binding Capacity 248 ug/dL (250-450) L Percent Iron Saturation 6 % (15-50) L Unsaturated Iron Binding 234 ug/dL (112-346) Total Bilirubin 0.8 MG/DL (0.2-1.0) Aspartate Amino Transf (AST/SGOT) 73 U/L (15-37) H Alanine Aminotransferase (ALT/SGPT) 117 U/L (12-78) H Alkaline Phosphatase 138 U/L (46-116) H C-Reactive Protein, Quantitative 27.1 mg/dL (0.00-0.90) H Total Protein 8.0 G/DL (6.4-8.2) Albumin 3.0 G/DL (3.4-5.0) L Globulin 5.0 g/dL Albumin/Globulin Ratio 0.6 (1.0-2.7) L Triglycerides Level 63 MG/DL (30-150) Cholesterol Level 180 MG/DL (< 200) LDL Cholesterol 80 mg/dL (<100) HDL Cholesterol 72 MG/DL (40-60) H Cholesterol/HDL Ratio 2.5 (3.3-4.4) L Stool Occult Blood Pending Lactic Acid Level 1.50 mmol/L (0.4-2.0) Troponin I 0.772 ng/mL (0.000-0.056) Urine Osmolality 526 mOsm/kg (429-449) H Urine Random Sodium < 20 mmol/L (20-110) L Impression/Recommendations Status: stable Haley Dc N.P. Sep 15, 2018 23:50
[2018-09-16] VITALS: BP 85/41
[2018-09-16 04:00] VITALS: BP 102/65
[2018-09-16 04:49] LABS: BASOPHILS % (AUTO) 0.9 % (0.0-2.0); EOSINOPHILS % (AUTO) 2.5 % (0.0-3.0); HEMATOCRIT 28.2 % (37.0-47.0); HEMOGLOBIN 8.6 G/DL (12.0-16.0); LYMPHOCYTES % (AUTO) 33.3 % (20.0-45.0); MEAN CORPUSCULAR VOLUME 68 FL (80-99); MONOCYTES % (AUTO) 6.7 % (1.0-10.0); NEUTROPHILS % (AUTO) 56.6 % (45.0-75.0); PLATELET COUNT 116 K/UL (150-450); RED BLOOD COUNT 4.14 M/UL (4.20-5.40); RED CELL DISTRIBUTION WIDTH 14.4 % (11.6-14.8); WHITE BLOOD COUNT 8.6 K/UL (4.8-10.8)
[2018-09-16] MEDS: Hydromorphone 0.5mg/0.5ml inj IVP PRN ×2 (04:51→22:33)
[2018-09-16 05:39] LABS: ALANINE AMINOTRANSFERASE 82 U/L (12-78); ALBUMIN 2.6 G/DL (3.4-5.0); ALBUMIN/GLOBULIN RATIO 0.6 (1.0-2.7); ALKALINE PHOSPHATASE 115 U/L (46-116); ANION GAP 9 mmol/L (5-15); ASPARTATE AMINO TRANSFERASE 40 U/L (15-37); BILIRUBIN,TOTAL 0.3 MG/DL (0.2-1.0); BLOOD UREA NITROGEN 28 mg/dL (7-18); CALCIUM 8.8 MG/DL (8.5-10.1); CARBON DIOXIDE 25 MMOL/L (21-32); CHLORIDE 99 MMOL/L (98-107); CREATININE 1.1 MG/DL (0.55-1.30); POTASSIUM 3.4 MMOL/L (3.5-5.1); SODIUM 133 MMOL/L (136-145)
[2018-09-16 07:24] LABS: PHOSPHORUS 3.6 MG/DL (2.5-4.9)
--- NOTE | 2018-09-16 07:50 | NUR ---
NURSE NOTES: Report received from Grupo Velasco RN.Pt resting quietly in bed asleep ,awakens easily with verbal command ,in no resp distress,states she's still with CP but not much, denies any abdominal pain,SR on the monitor,IV sites x2 RH Heplock and LAC with NS at 100ml/hr,both intact,skin warm and dry,SR up x2 HOB elevated,call blandon within reach at bedside,bed lock in lowest position,will continue with plans of care.
[2018-09-16 08:00] VITALS: BP 109/59
--- NOTE | 2018-09-16 08:35 | Cardiology Progress Note ---
Assessment/Plan Assessment/Plan Assessment/Plan Status: stable Assessment/Plan: Assessment/Plan Abdominal pain, nausea with constipation. Negative CT C/A/P Chronic anemia Thrombocytopenia History of anti-phospholipid antibody with 3 prior DVTs Subtherapeutic INR Tachycardia Hypertension Recommendations V/Q negative d/c anticoagulation Continue losartan - BP stable Patient remains tachycardic Transfer to [facility] for closer observation TTE reviewed, normal LV function and mild PAH Check ESR/CRP for pericarditis Subjective Cardiovascular: Reports: no symptoms Respiratory: Reports: no symptoms Gastrointestinal/Abdominal: Reports: no symptoms Genitourinary: Reports: no symptoms Subjective No acute events, no fevers, BP low, heart rate now normal. ESR elevated, colchicine started. CTA no abnormalities, still has chest pain Objective Last 24 Hour Vital Signs Date Time Temp Pulse Resp B/P (MAP) Pulse Ox O2 Delivery O2 Flow Rate FiO2 09/16/18 04:00 97.9 96 18 102/65 (77) 99 09/16/18 04:00 95 09/16/18 00:00 97.6 93 18 85/41 (56) 96 09/16/18 00:00 93 09/15/18 21:00 Room Air 09/15/18 20:12 110 83/56 09/15/18 20:11 83/56 09/15/18 20:00 98.4 110 18 86/50 (62) 96 09/15/18 19:35 116 09/15/18 16:00 98.4 103 20 95/46 (62) 99 09/15/18 16:00 105 09/15/18 16:00 Room Air 09/15/18 12:00 110 09/15/18 12:00 99.6 122 18 122/64 (83) 96 09/15/18 09:15 125 134/84 09/15/18 09:15 134/84 09/15/18 09:00 Room Air Intake and Output 09/15/18 09/16/18 19:00 07:00 Intake Total 2020 ml 1200 ml Output Total 500 ml 350 ml Balance 1520 ml 850 ml Intake Oral 220 ml IV Total 1800 ml 1200 ml Output Urine Total 500 ml 350 ml # Bowel Movements 3 Laboratory Tests Test 09/15/18 09:00 09/15/18 14:25 09/15/18 14:30 09/16/18 03:45 Stool Occult Blood Pending Lactic Acid Level 1.50 mmol/L (0.4-2.0) Troponin I 0.772 ng/mL (0.000-0.056) Urine Osmolality 526 mOsm/kg (429-449) H Urine Random Sodium < 20 mmol/L (20-110) L White Blood Count 8.6 K/UL (4.8-10.8) Red Blood Count 4.14 M/UL (4.20-5.40) L Hemoglobin 8.6 G/DL (12.0-16.0) L Hematocrit 28.2 % (37.0-47.0) L Mean Corpuscular Volume 68 FL (80-99) L Mean Corpuscular Hemoglobin 20.7 PG (27.0-31.0) L Mean Corpuscular Hemoglobin Concent 30.3 G/DL (32.0-36.0) L Red Cell Distribution Width 14.4 % (11.6-14.8) Platelet Count 116 K/UL (150-450) L Mean Platelet Volume 12.5 FL (6.5-10.1) H Neutrophils (%) (Auto) 56.6 % (45.0-75.0) Lymphocytes (%) (Auto) 33.3 % (20.0-45.0) Monocytes (%) (Auto) 6.7 % (1.0-10.0) Eosinophils (%) (Auto) 2.5 % (0.0-3.0) Basophils (%) (Auto) 0.9 % (0.0-2.0) Sodium Level 133 MMOL/L (136-145) L Potassium Level 3.4 MMOL/L (3.5-5.1) L Chloride Level 99 MMOL/L (98-107) Carbon Dioxide Level 25 MMOL/L (21-32) Anion Gap 9 mmol/L (5-15) Blood Urea Nitrogen 28 mg/dL (7-18) H Creatinine 1.1 MG/DL (0.55-1.30) # Estimat Glomerular Filtration Rate 58.3 mL/min (>60) Glucose Level 87 MG/DL (74-106) Uric Acid 5.0 MG/DL (2.6-7.2) Calcium Level 8.8 MG/DL (8.5-10.1) Phosphorus Level 3.6 MG/DL (2.5-4.9) Magnesium Level 2.5 MG/DL (1.8-2.4) H Total Bilirubin 0.3 MG/DL (0.2-1.0) Aspartate Amino Transf (AST/SGOT) 40 U/L (15-37) H Alanine Aminotransferase (ALT/SGPT) 82 U/L (12-78) H Alkaline Phosphatase 115 U/L (46-116) Total Protein 6.9 G/DL (6.4-8.2) Albumin 2.6 G/DL (3.4-5.0) L Globulin 4.3 g/dL Albumin/Globulin Ratio 0.6 (1.0-2.7) L Anthony Smith MD Sep 16, 2018 08:35
[2018-09-16] MEDS ORDERED: Nitroglycerin 50mg/250ml btl 250 ML IV SCH (09:00)
[2018-09-16] MEDS: Metoprolol Tartrate 50mg tab ORAL SCH ×2 (09:07→21:21)
[2018-09-16] MEDS: Docusate 100mg cap ORAL SCH ×3 (09:07→18:31)
[2018-09-16] MEDS: Enoxaparin 120 mg inj SUBQ SCH ×2 (09:08→21:23)
--- NOTE | 2018-09-16 09:24 | Nephrology Progress Note ---
Assessment/Plan Problem List: (1) Hyponatremia (2) eleavted AP (3) Anemia (4) Abdominal pain (5) Fatty liver Assessment HypoNatremia , likely SIADH further comments after lab results HTN , today BP low #Abdominal pain, nausea with constipation. Negative CT C/A/P. Sinus tachy with pleuritic chest pain. VQ scan negative Elevated CRP, ? pericarditis Bilateral upper extremity weakness, MRI brain negative Chronic anemia Thrombocytopenia Subtherapeutic INR Plan U Os, S Os, Uric Acid, Lipid panel Keep I&O negative per consultants BP parameters- adjust BP meds 3% saline and Lasix K supplements Subjective ROS Limited/Unobtainable: No Constitutional: Reports: malaise Objective Objective Last 24 Hour Vital Signs Date Time Temp Pulse Resp B/P (MAP) Pulse Ox O2 Delivery O2 Flow Rate FiO2 09/16/18 09:07 107 109/59 09/16/18 08:00 98.9 107 20 109/59 (76) 96 107 09/16/18 04:00 97.9 96 18 102/65 (77) 99 09/16/18 04:00 95 09/16/18 00:00 97.6 93 18 85/41 (56) 96 09/16/18 00:00 93 09/15/18 21:00 Room Air 09/15/18 20:12 110 83/56 09/15/18 20:11 83/56 09/15/18 20:00 98.4 110 18 86/50 (62) 96 09/15/18 19:35 116 09/15/18 16:00 98.4 103 20 95/46 (62) 99 09/15/18 16:00 105 09/15/18 16:00 Room Air 09/15/18 12:00 110 09/15/18 12:00 99.6 122 18 122/64 (83) 96 Intake and Output 09/15/18 09/16/18 19:00 07:00 Intake Total 2020 ml 1200 ml Output Total 500 ml 350 ml Balance 1520 ml 850 ml Intake Oral 220 ml IV Total 1800 ml 1200 ml Output Urine Total 500 ml 350 ml # Bowel Movements 3 Laboratory Tests 09/15/18 14:25: Lactic Acid Level 1.50, Troponin I 0.772H 09/15/18 14:30: Urine Osmolality 526H, Urine Random Sodium < 20L 09/16/18 03:45: White Blood Count 8.6, Red Blood Count 4.14L, Hemoglobin 8.6L, Hematocrit 28.2L , Mean Corpuscular Volume 68L, Mean Corpuscular Hemoglobin 20.7L, Mean Corpuscular Hemoglobin Concent 30.3L, Red Cell Distribution Width 14.4, Platelet Count 116L, Mean Platelet Volume 12.5H, Neutrophils (%) (Auto) 56.6, Lymphocytes (%) (Auto) 33.3, Monocytes (%) (Auto) 6.7, Eosinophils (%) (Auto) 2.5, Basophils (%) (Auto) 0.9, Sodium Level 133L, Potassium Level 3.4L, Chloride Level 99, Carbon Dioxide Level 25, Anion Gap 9, Blood Urea Nitrogen 28H , Creatinine 1.1#, Estimat Glomerular Filtration Rate 58.3, Glucose Level 87, Uric Acid 5.0, Calcium Level 8.8, Phosphorus Level 3.6, Magnesium Level 2.5H, Total Bilirubin 0.3, Aspartate Amino Transf (AST/SGOT) 40H, Alanine Aminotransferase (ALT/SGPT) 82H, Alkaline Phosphatase 115, Total Protein 6.9, Albumin 2.6L, Globulin 4.3, Albumin/Globulin Ratio 0.6L Height (Feet): 5 Height (Inches): 2.00 Weight (Pounds): 260 General Appearance: no apparent distress Cardiovascular: tachycardia Respiratory/Chest: decreased breath sounds Abdomen: soft Francisco Javier Cervantes MD Sep 16, 2018 09:24
[2018-09-16] MEDS: Morphine Sulfate 4mg/ml Inj (IV USE ONLY) IVP PRN ×2 (09:25→14:46)
--- NOTE | 2018-09-16 09:42 | GI Progress Note ---
Assessment/Plan Problems: (1) Fatty liver ICD Codes: K76.0 - Fatty (change of) liver, not elsewhere classified SNOMED: 131816204 (2) eleavted AP (3) Abdominal pain ICD Codes: R10.9 - Unspecified abdominal pain SNOMED: 97884080 (4) Anemia ICD Codes: D64.9 - Anemia, unspecified SNOMED: 996299659 (5) Cholelithiasis ICD Codes: K80.20 - Calculus of gallbladder without cholecystitis without obstruction SNOMED: 545862218 Status: unchanged Status Narrative Discussed with Dr. Phillip. Assessment/Plan CT and us reviewed neg hepatitis panel iron deficient start iv iron fu hem ppi repeat LFTS in am, downtrending EGD if patient has persistent abdominal pain The patient was seen and examined at bedside and all new and available data was reviewed in the patients chart. I agree with the above findings, impression and plan. (Patient seen earlier today. Signature stamp does not reflect patient encounter time.). - Lorenzo Phillip MD Subjective Subjective c/o of CP, denies abdominal pain Objective Last 24 Hour Vital Signs Date Time Temp Pulse Resp B/P (MAP) Pulse Ox O2 Delivery O2 Flow Rate FiO2 09/16/18 09:07 107 109/59 09/16/18 08:00 98.9 107 20 109/59 (76) 96 107 09/16/18 04:00 97.9 96 18 102/65 (77) 99 09/16/18 04:00 95 09/16/18 00:00 97.6 93 18 85/41 (56) 96 09/16/18 00:00 93 09/15/18 21:00 Room Air 09/15/18 20:12 110 83/56 09/15/18 20:11 83/56 09/15/18 20:00 98.4 110 18 86/50 (62) 96 09/15/18 19:35 116 09/15/18 16:00 98.4 103 20 95/46 (62) 99 09/15/18 16:00 105 09/15/18 16:00 Room Air 09/15/18 12:00 110 09/15/18 12:00 99.6 122 18 122/64 (83) 96 Intake and Output 09/15/18 09/16/18 18:59 06:59 Intake Total 1920 ml 1300 ml Output Total 500 ml 350 ml Balance 1420 ml 950 ml Intake Oral 220 ml IV Total 1700 ml 1300 ml Output Urine Total 500 ml 350 ml # Bowel Movements 3 Laboratory Tests Test 09/15/18 14:25 09/15/18 14:30 09/16/18 03:45 Lactic Acid Level 1.50 mmol/L (0.4-2.0) Troponin I 0.772 ng/mL (0.000-0.056) Urine Osmolality 526 mOsm/kg (429-449) H Urine Random Sodium < 20 mmol/L (20-110) L White Blood Count 8.6 K/UL (4.8-10.8) Red Blood Count 4.14 M/UL (4.20-5.40) L Hemoglobin 8.6 G/DL (12.0-16.0) L Hematocrit 28.2 % (37.0-47.0) L Mean Corpuscular Volume 68 FL (80-99) L Mean Corpuscular Hemoglobin 20.7 PG (27.0-31.0) L Mean Corpuscular Hemoglobin Concent 30.3 G/DL (32.0-36.0) L Red Cell Distribution Width 14.4 % (11.6-14.8) Platelet Count 116 K/UL (150-450) L Mean Platelet Volume 12.5 FL (6.5-10.1) H Neutrophils (%) (Auto) 56.6 % (45.0-75.0) Lymphocytes (%) (Auto) 33.3 % (20.0-45.0) Monocytes (%) (Auto) 6.7 % (1.0-10.0) Eosinophils (%) (Auto) 2.5 % (0.0-3.0) Basophils (%) (Auto) 0.9 % (0.0-2.0) Sodium Level 133 MMOL/L (136-145) L Potassium Level 3.4 MMOL/L (3.5-5.1) L Chloride Level 99 MMOL/L (98-107) Carbon Dioxide Level 25 MMOL/L (21-32) Anion Gap 9 mmol/L (5-15) Blood Urea Nitrogen 28 mg/dL (7-18) H Creatinine 1.1 MG/DL (0.55-1.30) # Estimat Glomerular Filtration Rate 58.3 mL/min (>60) Glucose Level 87 MG/DL (74-106) Uric Acid 5.0 MG/DL (2.6-7.2) Calcium Level 8.8 MG/DL (8.5-10.1) Phosphorus Level 3.6 MG/DL (2.5-4.9) Magnesium Level 2.5 MG/DL (1.8-2.4) H Total Bilirubin 0.3 MG/DL (0.2-1.0) Aspartate Amino Transf (AST/SGOT) 40 U/L (15-37) H Alanine Aminotransferase (ALT/SGPT) 82 U/L (12-78) H Alkaline Phosphatase 115 U/L (46-116) Total Protein 6.9 G/DL (6.4-8.2) Albumin 2.6 G/DL (3.4-5.0) L Globulin 4.3 g/dL Albumin/Globulin Ratio 0.6 (1.0-2.7) L Height (Feet): 5 Height (Inches): 2.00 Weight (Pounds): 260 General Appearance: WD/WN, no apparent distress, alert Cardiovascular: normal rate Respiratory/Chest: normal breath sounds, no respiratory distress Abdominal Exam: normal bowel sounds, non tender, soft Extremities: normal range of motion, non-tender Ashley Mitchell NP Sep 16, 2018 09:42
[2018-09-16] MEDS ORDERED: NaCl 3% 500ml 500 ML IV ONE (10:00)
--- NOTE | 2018-09-16 10:00 | NUR ---
NURSE NOTES: Pt noted with little blood coming from rectum when she tried to do bowel movement,denies that she is on her menses.
--- NOTE | 2018-09-16 11:45 | General Progress Note ---
Assessment/Plan Status: unchanged Assessment/Plan: #Abdominal pain, nausea with constipation. Resolved -continue symptomatic care -GI following #Sinus tachy with pleuritic chest pain. VQ scan negative #Presumptive acute paericarditis -continue colchicine + Indocin #Hyponatremia -continue to monitor -Nephrology eval appreciated #Bilateral upper extremity weakness, MRI brain negative -neurology following #Antiphospholipid antibody syndrome #Chronic anemia #Thrombocytopenia #Subtherapeutic INR -Hematology following -resume warfarin with Lovenox bridge VTE PPx Lovenox Full Code Subjective Date patient seen: Sep 16, 2018 Time patient seen: 08:12 ROS Limited/Unobtainable: No Constitutional: Denies: chills, fever Cardiovascular: Denies: chest pain Respiratory: Denies: cough Gastrointestinal/Abdominal: Denies: abdominal pain Allergies: Coded Allergies: No Known Allergies (Unverified , 09/12/18) Subjective Medicine follow up for chest pain, presumptive acute pericarditis. Feels better today, less chest pain Objective Last 24 Hour Vital Signs Date Time Temp Pulse Resp B/P (MAP) Pulse Ox O2 Delivery O2 Flow Rate FiO2 09/16/18 09:07 107 109/59 09/16/18 08:00 98.9 107 20 109/59 (76) 96 107 09/16/18 04:00 97.9 96 18 102/65 (77) 99 09/16/18 04:00 95 09/16/18 00:00 97.6 93 18 85/41 (56) 96 09/16/18 00:00 93 09/15/18 21:00 Room Air 09/15/18 20:12 110 83/56 09/15/18 20:11 83/56 09/15/18 20:00 98.4 110 18 86/50 (62) 96 09/15/18 19:35 116 09/15/18 16:00 98.4 103 20 95/46 (62) 99 09/15/18 16:00 105 09/15/18 16:00 Room Air 09/15/18 12:00 110 09/15/18 12:00 99.6 122 18 122/64 (83) 96 Intake and Output 09/15/18 09/16/18 18:59 06:59 Intake Total 1920 ml 1300 ml Output Total 500 ml 350 ml Balance 1420 ml 950 ml Intake Oral 220 ml IV Total 1700 ml 1300 ml Output Urine Total 500 ml 350 ml # Bowel Movements 3 Laboratory Tests 09/15/18 14:25: Lactic Acid Level 1.50, Troponin I 0.772H 09/15/18 14:30: Urine Osmolality 526H, Urine Random Sodium < 20L 09/16/18 03:45: White Blood Count 8.6, Red Blood Count 4.14L, Hemoglobin 8.6L, Hematocrit 28.2L , Mean Corpuscular Volume 68L, Mean Corpuscular Hemoglobin 20.7L, Mean Corpuscular Hemoglobin Concent 30.3L, Red Cell Distribution Width 14.4, Platelet Count 116L, Mean Platelet Volume 12.5H, Neutrophils (%) (Auto) 56.6, Lymphocytes (%) (Auto) 33.3, Monocytes (%) (Auto) 6.7, Eosinophils (%) (Auto) 2.5, Basophils (%) (Auto) 0.9, Sodium Level 133L, Potassium Level 3.4L, Chloride Level 99, Carbon Dioxide Level 25, Anion Gap 9, Blood Urea Nitrogen 28H , Creatinine 1.1#, Estimat Glomerular Filtration Rate 58.3, Glucose Level 87, Uric Acid 5.0, Calcium Level 8.8, Phosphorus Level 3.6, Magnesium Level 2.5H, Total Bilirubin 0.3, Aspartate Amino Transf (AST/SGOT) 40H, Alanine Aminotransferase (ALT/SGPT) 82H, Alkaline Phosphatase 115, Total Protein 6.9, Albumin 2.6L, Globulin 4.3, Albumin/Globulin Ratio 0.6L Height (Feet): 5 Height (Inches): 2.00 Weight (Pounds): 260 General Appearance: no apparent distress, alert Neck: normal alignment, supple Cardiovascular: normal rate, regular rhythm Respiratory/Chest: lungs clear, normal breath sounds, no respiratory distress Matthew Govea MD Sep 16, 2018 11:45
[2018-09-16 12:00] VITALS: BP 101/51
--- NOTE | 2018-09-16 12:42 | Hematology/Onc Progress Note ---
Assessment/Plan Assessment/Plan Assessment/Plan: # Anemia of iron deficiency due to underlying chronic medical issues, multifactorial --> Anemia workup has been reviewed, rule out gi bleed. Ferritin 24 --> No evidence of hemolysis is noted, peripheral smear has been reviewed. --> Hgb goal >7. Transfuse prn. 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 --> agree to obtain antiphospholipid ab, cardiolipin ab to confirm disease --> start on lovenox 1mg/kg sq bid --> coumadin to begin with inr goal 2-3 # Leukocytosis/elevated white blood cell count, unspecified likely related to underlying stress reaction, smoking v more likely infection --> have reviewed peripheral smear and bandemia/neutrophilia noted --> continue antibiotics if they have been started by ID team --> monitor for resolution --> WBC trend: 15.6 # Thrombocytopenia - potential causes multifactorial, evaluate liver and viral etiologies to begin, also could be related to underlying medications patient has received. --> Hep panel negative and HIV pending --> US abd --> Fatty liver. Mild spinal ligaments. Hemangioma in the liver. Gallbladder polyp versus wall adherent stone. --> CT abd --> No acute findings within the chest, abdomen or pelvis. Borderline splenomegaly. Liver hemangioma. --> Peripheral smear ordered to evaluate for blasts /schistocytes --> abx and other meds have been reviewed --> ok for ppx if plt >50k w/ either heparin or lovenox --> Transfuse if Plt < 20k and fever, or if Plt < 10k without fever --> Plt trend: 109k -->116k # Abd pain. GI is following, appreciate recs. --> Abdominal ultrasound reviewed, fatty liver. --> Abdominal pelvis CT reviewed, negative findings. --> No plans for GI procedures at this time --> Symptomatic treatment --> Clear liquid diet, advance as tolerated --> OB stool r/o GI bleed # Elevated alk phosphatase # Hypokalemia --> replete with K po as needed Time note entered does not reflect time of patient examination. GREATLY APPRECIATE CONSULTATION. Subjective Constitutional: Denies: no symptoms, chills, fever, malaise, weakness, other HEENT: Denies: no symptoms, eye pain, blurred vision, tearing, double vision, ear pain, ear discharge, nose pain, nose congestion, throat pain, throat swelling, mouth pain, mouth swelling, other Cardiovascular: Denies: no symptoms, chest pain, edema, irregular heart rate, lightheadedness, palpitations, syncope, other Respiratory: Denies: no symptoms, cough, shortness of breath, SOB with excertion, SOB at rest, sputum, wheezing, other Gastrointestinal/Abdominal: Denies: no symptoms, abdomen distended, abdominal pain, black stools, tarry stools, blood in stool, constipated, diarrhea, difficulty swallowing, nausea, poor appetite, poor fluid intake, rectal bleeding , vomiting, other Genitourinary: Denies: no symptoms, burning, discharge, frequency, flank pain, hematuria, incontinence, pain, urgency, other Neurologic/Psychiatric: Denies: no symptoms, anxiety, depressed, emotional problems, headache, numbness, paresthesia, pre-existing deficit, seizure, tingling, tremors, weakness, other Endocrine: Denies: no symptoms, excessive sweating, flushing, intolerance to cold, intolerance to heat, increased hunger, increased thirst, increased urine, unexplained weight gain, unexplained weight loss, other Hematologic/Lymphatic: Denies: no symptoms, anemia, easy bleeding, easy bruising, adenopathy, other Allergies: Coded Allergies: No Known Allergies (Unverified , 09/12/18) Subjective 09/15: Pt awake and alert. T: 99.6F and no order for ABX for the patient regarding leukocytosis and elevated ESR/CRP. Objective Objective Current Medications Medications (Trade) Dose Ordered Sig/Makayla Route PRN Reason Start Time Stop Time Status Last Admin Dose Admin Bisacodyl (Dulcolax) 10 mg DAILYPRN PRN RECTAL Constipation 09/15/18 13:00 10/15/18 12:59 Clonidine HCl (Catapres Tab) 0.1 mg Q4H PRN ORAL bp over 160 syst 09/15/18 14:15 10/15/18 14:14 Colchicine (Colchicine) 0.6 mg BID ORAL 09/15/18 18:00 10/15/18 11:44 09/16/18 09:07 Docusate Sodium (Colace) 200 mg THREE TIMES A DAY ORAL 09/15/18 13:00 10/14/18 08:59 09/16/18 09:07 Enoxaparin Sodium (Lovenox) 120 mg EVERY 12 HOURS SUBQ 09/15/18 21:00 10/14/18 10:44 09/16/18 09:08 Famotidine (Pepcid I.v.) 20 mg Q12HR IVP 09/15/18 21:00 10/15/18 20:59 09/16/18 11:10 Furosemide (Lasix) 10 mg EVERY 8 HOURS IV 09/15/18 14:27 10/15/18 14:26 09/16/18 06:44 Heparin Sodium/ Sodium Chloride (Heparin 1000 units/500ml Premix) 1,000 unit ONCE PRN IV PICC LINE 09/15/18 12:45 09/16/18 18:00 Hydromorphone HCl (Dilaudid) 0.5 mg Q4H PRN IVP For Pain 09/15/18 13:00 09/21/18 00:59 09/16/18 04:51 Indomethacin (Indocin) 25 mg THREE TIMES A DAY ORAL 09/16/18 13:00 10/16/18 12:59 Iopamidol (Isovue-370 150ml) 150 ml NOW PRN INJ radiology 09/15/18 12:45 09/16/18 18:00 Iopamidol (Isovue-370 150ml) 150 ml NOW PRN INJ Radiology Procedure 09/15/18 13:45 09/16/18 18:00 Iron Sucrose 100 mg/Sodium Chloride 60 ml @ 240 mls/hr BEDTIME IV 09/16/18 21:00 09/20/18 21:14 Lactulose (Cephulac) 30 gm TIDPRN PRN ORAL Constipation 09/15/18 13:00 10/15/18 12:59 Lidocaine HCl (Xylocaine 1% 30ml) 30 ml ONCE PRN INJ PICC LINE 09/15/18 12:45 09/16/18 18:00 Metoprolol Tartrate (Lopressor) 50 mg Q12HR ORAL 09/15/18 21:00 10/14/18 20:59 09/16/18 09:07 Morphine Sulfate (Morphine Sulfate) 4 mg Q4H PRN IVP For Pain 09/15/18 14:15 09/19/18 22:14 09/16/18 09:25 Ondansetron HCl (Zofran) 4 mg Q6H PRN IVP Nausea & Vomiting 09/15/18 13:00 10/12/18 12:59 Pantoprazole (Protonix) 40 mg DAILY ORAL 09/16/18 09:00 10/16/18 08:59 09/16/18 09:06 Potassium Chloride (K-Dur) 40 meq TWICE A DAY ORAL 09/17/18 09:00 10/17/18 08:59 Sodium Chloride 500 ml @ 30 mls/hr ONCE ONCE IV 09/16/18 10:00 09/17/18 02:39 09/16/18 11:44 Warfarin Sodium (Coumadin per pharmacy) 1 ea DAILY PRN MISC Per rx protocol 09/16/18 11:45 10/16/18 11:44 UNV Last 24 Hour Vital Signs Date Time Temp Pulse Resp B/P (MAP) Pulse Ox O2 Delivery O2 Flow Rate FiO2 09/16/18 09:07 107 109/59 09/16/18 08:00 98.9 107 20 109/59 (76) 96 107 09/16/18 04:00 97.9 96 18 102/65 (77) 99 09/16/18 04:00 95 09/16/18 00:00 97.6 93 18 85/41 (56) 96 09/16/18 00:00 93 09/15/18 21:00 Room Air 09/15/18 20:12 110 83/56 09/15/18 20:11 83/56 09/15/18 20:00 98.4 110 18 86/50 (62) 96 09/15/18 19:35 116 09/15/18 16:00 98.4 103 20 95/46 (62) 99 09/15/18 16:00 105 09/15/18 16:00 Room Air 09/15/18 12:00 110 09/15/18 12:00 99.6 122 18 122/64 (83) 96 09/15/18 09:15 125 134/84 09/15/18 09:15 134/84 09/15/18 09:00 Room Air 09/15/18 08:00 97.7 125 18 134/84 (101) 97 09/15/18 08:00 144 09/15/18 04:00 134 09/15/18 04:00 98.6 128 20 126/73 (90) 100 09/15/18 00:00 99.0 158 20 155/113 (127) 96 09/15/18 00:00 100.0 158 20 155/113 (127) 96 09/15/18 00:00 141 09/14/18 21:36 143 156/111 09/14/18 21:36 156/111 09/14/18 21:00 Room Air 09/14/18 20:00 98.4 147 19 156/111 (126) 96 09/14/18 20:00 143 09/14/18 17:54 119 09/14/18 16:30 97.3 125 20 148/103 (118) 99 09/14/18 14:01 174/119 Intake and Output 09/15/18 09/16/18 18:59 06:59 Intake Total 1920 ml 1300 ml Output Total 500 ml 350 ml Balance 1420 ml 950 ml Intake Oral 220 ml IV Total 1700 ml 1300 ml Output Urine Total 500 ml 350 ml # Bowel Movements 3 Labs Test 09/13/18 15:20 09/14/18 07:45 09/15/18 07:57 09/15/18 09:00 Lactate Dehydrogenase 293 U/L (81-234) Hepatitis A IgM Antibody Negative (Negative) Hepatitis B Surface Antigen Negative (Negative) Hepatitis B Core IgM Antibody Negative (Negative) Hepatitis C Antibody 0.1 s/co ratio (0.0-0.9) White Blood Count 13.3 K/UL (4.8-10.8) 15.6 K/UL (4.8-10.8) Red Blood Count 4.59 M/UL (4.20-5.40) 4.71 M/UL (4.20-5.40) Hemoglobin 9.7 G/DL (12.0-16.0) 9.9 G/DL (12.0-16.0) Hematocrit 31.3 % (37.0-47.0) 31.9 % (37.0-47.0) Mean Corpuscular Volume 68 FL (80-99) 68 FL (80-99) Mean Corpuscular Hemoglobin 21.1 PG (27.0-31.0) 21.1 PG (27.0-31.0) Mean Corpuscular Hemoglobin Concent 31.0 G/DL (32.0-36.0) 31.1 G/DL (32.0-36.0) Red Cell Distribution Width 14.1 % (11.6-14.8) 14.4 % (11.6-14.8) Platelet Count 133 K/UL (150-450) 109 K/UL (150-450) Mean Platelet Volume 8.3 FL (6.5-10.1) 9.1 FL (6.5-10.1) Neutrophils (%) (Auto) % (45.0-75.0) 84.9 % (45.0-75.0) Lymphocytes (%) (Auto) % (20.0-45.0) 7.2 % (20.0-45.0) Monocytes (%) (Auto) % (1.0-10.0) 7.1 % (1.0-10.0) Eosinophils (%) (Auto) % (0.0-3.0) 0.2 % (0.0-3.0) Basophils (%) (Auto) % (0.0-2.0) 0.5 % (0.0-2.0) Differential Total Cells Counted 100 Neutrophils % (Manual) 88 % (45-75) Lymphocytes % (Manual) 8 % (20-45) Monocytes % (Manual) 3 % (1-10) Eosinophils % (Manual) 1 % (0-3) Basophils % (Manual) 0 % (0-2) Band Neutrophils 0 % (0-8) Platelet Estimate Decreased Platelet Morphology Normal Polychromasia 1+ Hypochromasia 1+ Anisocytosis 1+ Reticulocyte Count 2.3 % (0.5-2.0) Prothrombin Time 11.0 SEC (9.30-11.50) Prothromb Time International Ratio 1.0 (0.9-1.1) Activated Partial Thromboplast Time 54 SEC (23-33) Sodium Level 132 MMOL/L (136-145) 129 MMOL/L (136-145) Potassium Level 3.3 MMOL/L (3.5-5.1) 3.7 MMOL/L (3.5-5.1) Chloride Level 96 MMOL/L (98-107) 93 MMOL/L (98-107) Carbon Dioxide Level 25 MMOL/L (21-32) 25 MMOL/L (21-32) Anion Gap 11 mmol/L (5-15) 11 mmol/L (5-15) Blood Urea Nitrogen 8 mg/dL (7-18) 11 mg/dL (7-18) Creatinine 0.8 MG/DL (0.55-1.30) 0.7 MG/DL (0.55-1.30) Estimat Glomerular Filtration Rate > 60 mL/min (>60) > 60 mL/min (>60) Glucose Level 137 MG/DL (74-106) 127 MG/DL (74-106) Calcium Level 9.6 MG/DL (8.5-10.1) 9.4 MG/DL (8.5-10.1) Iron Level 11 ug/dL (50-175) 14 ug/dL (50-175) Total Iron Binding Capacity 292 ug/dL (250-450) 248 ug/dL (250-450) Percent Iron Saturation 4 % (15-50) 6 % (15-50) Unsaturated Iron Binding 281 ug/dL (112-346) 234 ug/dL (112-346) Ferritin 24 NG/ML (8-388) Total Bilirubin 0.8 MG/DL (0.2-1.0) 0.8 MG/DL (0.2-1.0) Aspartate Amino Transf (AST/SGOT) 68 U/L (15-37) 73 U/L (15-37) Alanine Aminotransferase (ALT/SGPT) 82 U/L (12-78) 117 U/L (12-78) Alkaline Phosphatase 132 U/L (46-116) 138 U/L (46-116) Total Protein 8.3 G/DL (6.4-8.2) 8.0 G/DL (6.4-8.2) Albumin 3.5 G/DL (3.4-5.0) 3.0 G/DL (3.4-5.0) Globulin 4.8 g/dL 5.0 g/dL Albumin/Globulin Ratio 0.7 (1.0-2.7) 0.6 (1.0-2.7) Vitamin B12 Level 1027 PG/ML (193-986) Folate 12.2 NG/ML (8.6-58.9) Thyroid Stimulating Hormone (TSH) 0.650 uiU/mL (0.358-3.740) Free Thyroxine 1.04 NG/DL (0.76-1.46) Erythrocyte Sedimentation Rate 48 MM/HR (0-20) Osmolality 269 mOsm/kg (297-317) Uric Acid 2.5 MG/DL (2.6-7.2) C-Reactive Protein, Quantitative 27.1 mg/dL (0.00-0.90) Triglycerides Level 63 MG/DL (30-150) Cholesterol Level 180 MG/DL (< 200) LDL Cholesterol 80 mg/dL (<100) HDL Cholesterol 72 MG/DL (40-60) Cholesterol/HDL Ratio 2.5 (3.3-4.4) Stool Occult Blood Negative (NEGATIVE) Test 09/15/18 14:25 09/15/18 14:30 09/16/18 03:45 Lactic Acid Level 1.50 mmol/L (0.4-2.0) Troponin I 0.772 ng/mL (0.000-0.056) Urine Osmolality 526 mOsm/kg (429-449) Urine Random Sodium < 20 mmol/L (20-110) White Blood Count 8.6 K/UL (4.8-10.8) Red Blood Count 4.14 M/UL (4.20-5.40) Hemoglobin 8.6 G/DL (12.0-16.0) Hematocrit 28.2 % (37.0-47.0) Mean Corpuscular Volume 68 FL (80-99) Mean Corpuscular Hemoglobin 20.7 PG (27.0-31.0) Mean Corpuscular Hemoglobin Concent 30.3 G/DL (32.0-36.0) Red Cell Distribution Width 14.4 % (11.6-14.8) Platelet Count 116 K/UL (150-450) Mean Platelet Volume 12.5 FL (6.5-10.1) Neutrophils (%) (Auto) 56.6 % (45.0-75.0) Lymphocytes (%) (Auto) 33.3 % (20.0-45.0) Monocytes (%) (Auto) 6.7 % (1.0-10.0) Eosinophils (%) (Auto) 2.5 % (0.0-3.0) Basophils (%) (Auto) 0.9 % (0.0-2.0) Sodium Level 133 MMOL/L (136-145) Potassium Level 3.4 MMOL/L (3.5-5.1) Chloride Level 99 MMOL/L (98-107) Carbon Dioxide Level 25 MMOL/L (21-32) Anion Gap 9 mmol/L (5-15) Blood Urea Nitrogen 28 mg/dL (7-18) Creatinine 1.1 MG/DL (0.55-1.30) Estimat Glomerular Filtration Rate 58.3 mL/min (>60) Glucose Level 87 MG/DL (74-106) Uric Acid 5.0 MG/DL (2.6-7.2) Calcium Level 8.8 MG/DL (8.5-10.1) Phosphorus Level 3.6 MG/DL (2.5-4.9) Magnesium Level 2.5 MG/DL (1.8-2.4) Total Bilirubin 0.3 MG/DL (0.2-1.0) Aspartate Amino Transf (AST/SGOT) 40 U/L (15-37) Alanine Aminotransferase (ALT/SGPT) 82 U/L (12-78) Alkaline Phosphatase 115 U/L (46-116) Total Protein 6.9 G/DL (6.4-8.2) Albumin 2.6 G/DL (3.4-5.0) Globulin 4.3 g/dL Albumin/Globulin Ratio 0.6 (1.0-2.7) Height (Feet): 5 Height (Inches): 2.00 Weight (Pounds): 260 Objective General Appearance: WD/WN, no apparent distress, alert Lines, tubes and drains: peripheral HEENT: normocephalic, atraumatic, anicteric, mucous membranes moist, PERRL, EOMI Neck: non-tender, supple Respiratory/Chest: chest wall non-tender, lungs clear, normal breath sounds Cardiovascular/Chest: normal rate, regular rhythm, no gallop/murmur, tachycardia Abdomen: normal bowel sounds, soft, no organomegaly, no mass, tender Extremities: normal range of motion, non-tender, no calf tenderness Skin Exam: normal pigmentation, warm/dry Neurologic: evp marketing II-XII grossly normal, no motor/sensory deficits, alert, oriented x 3 Physical Exam Narrative obese female with no distress. abd pain generalized with no guarding or rigidity. no viramontes sign Ha Avila MD Sep 16, 2018 12:42
[2018-09-16] MEDS: Indomethacin 25mg cap ORAL SCH ×2 (14:32→18:30)
--- NOTE | 2018-09-16 14:48 | NUR ---
CASE MANAGEMENT:REVIEW 09/16/18 SI: PRESUMPTIVE ACUTE PERICARDITIS 98.9 107 20 109/59 96% ON RA H/H-8.6/28.2 PLT-116 IS: K-DUR PO BID IV VENOFER QHS COUMADIN 5MG PO X1 INDOMETHACIN PO TID IVF@30/HR PROTONIX PO QD LOVENOX SQ Q12 LOPRESSOR PO Q12 IV PEPCID Q12 : STEP DOWN UNIT DCP: HOME
--- NOTE | 2018-09-16 15:00 | NUR ---
NURSE NOTES: Pt c/o chest pain again,given morphine 4mg IV.
[2018-09-16 16:00] VITALS: BP 122/66
--- NOTE | 2018-09-16 16:00 | NUR ---
NURSE NOTES: Pt had another BM but this time no episode of rectal bleed noted.
[2018-09-16] MEDS ORDERED: Warfarin Sodium 5mg ORAL SCH (17:00)
--- NOTE | 2018-09-16 18:00 | NUR ---
NURSE NOTES: Pt resting quietly in bed verbalized with slight chest pain but bearable.
--- NOTE | 2018-09-16 19:52 | NUR ---
HAND-OFF: Report given Bruna Marx RN.
[2018-09-16 20:00] VITALS: BP 104/53
--- NOTE | 2018-09-16 20:00 | NUR ---
NURSE NOTES: ALERT ORIENTED X 4,BREATHING UNLABORED AT ROOM AIR WITH GOOD O2 SATURATION.C/O MILD PAIN ON HYPOGASTRIUM AND UPPER CHEST ESPECIALLY WHEN TAKING A DEEP BREATH.PLACED PATIENT HOB AT 35 DEGREES,INSTRUCTED TO TAKE A DEEP BREATH X 10,WELL TOLERATED AND SHE CLAIMS THAT SHE FEELS BETTER.ASSISTED PATIENT TO THE BATHROOM,HAD A MODERATE NORMAL SOFT BOWEL MOVEMENT,NO BLOOD NOTED.NOTED PATIENT HAD A MONTHLY PERIOD.3% SODIUM CHLORIDE RUNNING AT 30 CC/HR TO LEFT AC.WILL CONTINUE PLAN OF CARE.
[2018-09-16] MEDS ORDERED: Iron Sucrose 100 MG in NS 55 ML IV SCH (21:00)
--- NOTE | 2018-09-16 23:58 | Neurology Progress Note ---
Interim History Interim History ROS Limited/Unobtainable: No Complaints: Weakness BUE Events: Significant improvement of symptoms with resolution of HTN Interim History September [address] Ravin Jeff Review of Systems Neuro Review of Systems Feeling better today- both arms are antigravity with improving strength. Headache has also resolved as well as blurry vision . All Systems: reviewed and negative except above Objective Physical Exam Last Vital Signs Date Time Temp Pulse Resp B/P (MAP) Pulse Ox O2 Delivery O2 Flow Rate FiO2 09/16/18 21:21 111 126/66 09/16/18 16:00 98.3 23 97 09/16/18 09:00 Room Air Laboratory Tests Test 09/16/18 03:45 09/16/18 13:35 White Blood Count 8.6 K/UL (4.8-10.8) Red Blood Count 4.14 M/UL (4.20-5.40) L Hemoglobin 8.6 G/DL (12.0-16.0) L Hematocrit 28.2 % (37.0-47.0) L Mean Corpuscular Volume 68 FL (80-99) L Mean Corpuscular Hemoglobin 20.7 PG (27.0-31.0) L Mean Corpuscular Hemoglobin Concent 30.3 G/DL (32.0-36.0) L Red Cell Distribution Width 14.4 % (11.6-14.8) Platelet Count 116 K/UL (150-450) L Mean Platelet Volume 12.5 FL (6.5-10.1) H Neutrophils (%) (Auto) 56.6 % (45.0-75.0) Lymphocytes (%) (Auto) 33.3 % (20.0-45.0) Monocytes (%) (Auto) 6.7 % (1.0-10.0) Eosinophils (%) (Auto) 2.5 % (0.0-3.0) Basophils (%) (Auto) 0.9 % (0.0-2.0) Sodium Level 133 MMOL/L (136-145) L Potassium Level 3.4 MMOL/L (3.5-5.1) L Chloride Level 99 MMOL/L (98-107) Carbon Dioxide Level 25 MMOL/L (21-32) Anion Gap 9 mmol/L (5-15) Blood Urea Nitrogen 28 mg/dL (7-18) H Creatinine 1.1 MG/DL (0.55-1.30) # Estimat Glomerular Filtration Rate 58.3 mL/min (>60) Glucose Level 87 MG/DL (74-106) Uric Acid 5.0 MG/DL (2.6-7.2) Calcium Level 8.8 MG/DL (8.5-10.1) Phosphorus Level 3.6 MG/DL (2.5-4.9) Magnesium Level 2.5 MG/DL (1.8-2.4) H Total Bilirubin 0.3 MG/DL (0.2-1.0) Aspartate Amino Transf (AST/SGOT) 40 U/L (15-37) H Alanine Aminotransferase (ALT/SGPT) 82 U/L (12-78) H Alkaline Phosphatase 115 U/L (46-116) Total Protein 6.9 G/DL (6.4-8.2) Albumin 2.6 G/DL (3.4-5.0) L Globulin 4.3 g/dL Albumin/Globulin Ratio 0.6 (1.0-2.7) L Prothrombin Time 10.7 SEC (9.30-11.50) Prothromb Time International Ratio 1.0 (0.9-1.1) General: well nourished, no acute distress Head: normocophalic, atraumatic Neck: no rigidity EENT: benign Neurologic Exam Mental Status: awake, alert, oriented x4, normal cognition, good mathematical skills, normal recent memory, normal remote memory, preserved visuospatial function Speech: normal speech, no dysarthia Language: normal language, no aphasia Cranial Nerve II: fundus normal, visual izaguirre, no papilledema Cranial Nerves III, IV, : PERRLA, EOMI, pupils Cranial Nerve V: normal facial sensations, temporales function normal, masseters function normal, pterygoids function normal Cranial Nerve VII: no facial asymmetry, normal facial expressions Cranial Nerve VIII: normal hearing, no nystagmus Cranial Nerve IX: normal palate elevation, gag response Cranial Nerve X: no voice hoarseness Cranial Nerve XI: SCM symmetric, trapezii function normal Cranial Nerve XII: tongue midline, no tongue atrophy/fasciculations Motor System: normal muscle tone, no involuntary movement, no muscle wasting, other - BUE now 4/5 Sensory: normal pinprick, normal light touch, normal position sense, normal graphesthesia Coordination: other Deep Tendon Reflexes: 1+ bicep (L), 1+ bicep (R), 1+ tricep (L), 1+ tricep (R) , 1+ brachioradialis (L), 1+ brachioradialis (R), 1+ knee (L), 1+ knee (R), 1+ ankle (L), 1+ ankle (R) Objective Not yet ambulated Impression/Recommendations Status: unchanged Haley Dc N.P. Sep 16, 2018 23:58
[2018-09-17] VITALS: BP 105/61
[2018-09-17] MEDS: Hydromorphone 0.5mg/0.5ml inj IVP PRN ×2 (03:24→21:47)
[2018-09-17 04:00] VITALS: BP 109/56
[2018-09-17 06:34] LABS: BASOPHILS % (AUTO) 1.7 % (0.0-2.0); EOSINOPHILS % (AUTO) 1.8 % (0.0-3.0); HEMATOCRIT 28.4 % (37.0-47.0); HEMOGLOBIN 8.5 G/DL (12.0-16.0); LYMPHOCYTES % (AUTO) 32.7 % (20.0-45.0); MEAN CORPUSCULAR VOLUME 69 FL (80-99); MONOCYTES % (AUTO) 6.8 % (1.0-10.0); PLATELET COUNT 127 K/UL (150-450); RED CELL DISTRIBUTION WIDTH 14.5 % (11.6-14.8); WHITE BLOOD COUNT 8.3 K/UL (4.8-10.8)
[2018-09-17 07:03] LABS: ANION GAP 8 mmol/L (5-15); BLOOD UREA NITROGEN 19 mg/dL (7-18); CARBON DIOXIDE 26 MMOL/L (21-32); CHLORIDE 105 MMOL/L (98-107); CREATININE 0.7 MG/DL (0.55-1.30); POTASSIUM 3.4 MMOL/L (3.5-5.1); SODIUM 139 MMOL/L (136-145)
--- NOTE | 2018-09-17 07:04 | Cardiology Progress Note ---
Assessment/Plan Status: stable Assessment/Plan Assessment/Plan Abdominal pain, nausea with constipation. Negative CT C/A/P Chronic anemia Thrombocytopenia History of anti-phospholipid antibody with 3 prior DVTs Subtherapeutic INR Tachycardia Hypertension Pericarditis Pleurisy RECOMMENDATINOS: MyoPericarditis:ESR elevated - etiology likely viral Continue colchicine/indomethacin for 2 weeks total Repeat ESR/CRP/Troponin today d/c morphine -> transition to PO medications Outpatient cardiac MRI - will arrange in clinic Hypertension TTE reviewed, normal LV function and mild PA continue losartan Tachycardia - resolved V/Q negative for PE d/c metoprolol DVT Hematology work up Lovenox -> Coumadin Subjective Cardiovascular: Reports: no symptoms Respiratory: Reports: no symptoms Gastrointestinal/Abdominal: Reports: no symptoms Genitourinary: Reports: no symptoms Subjective No acute events, no fevers, BP low, heart rate now normal. ESR elevated, colchicine started. CTA no abnormalities, still has chest pain when taking deep breaths, morphine given Objective Last 24 Hour Vital Signs Date Time Temp Pulse Resp B/P (MAP) Pulse Ox O2 Delivery O2 Flow Rate FiO2 09/17/18 04:00 64 09/17/18 04:00 98.0 64 20 109/56 (73) 99 64 09/17/18 04:00 Room Air 09/17/18 03:55 98.0 09/17/18 00:00 98.6 70 20 105/61 (76) 99 70 09/17/18 00:00 Room Air 09/17/18 00:00 84 09/16/18 21:21 111 126/66 09/16/18 21:00 Room Air 09/16/18 20:00 97.6 81 20 104/53 (70) 97 81 09/16/18 20:00 84 09/16/18 16:00 98.3 88 23 122/66 (84) 97 88 09/16/18 16:00 84 09/16/18 12:00 98.6 97 17 101/51 (68) 97 97 09/16/18 12:00 84 09/16/18 09:07 107 109/59 09/16/18 09:00 Room Air 09/16/18 08:00 98.9 107 20 109/59 (76) 96 107 09/16/18 08:00 95 General Appearance: no apparent distress, alert EENT: PERRL/EOMI, normal ENT inspection, TMs normal, pharynx normal Neck: non-tender, normal alignment, normal inspection, no JVD Rhythm: NSR Cardiovascular: normal peripheral pulses, normal rate, regular rhythm, friction rub Respiratory/Chest: chest wall non-tender, pleural rub Abdomen: normal bowel sounds, non tender, soft Extremities: normal range of motion, non-tender, normal inspection Neurologic: motor and generator brush maker II-XII grossly normal, no motor/sensory deficits Intake and Output 09/16/18 09/17/18 19:00 07:00 Intake Total 1200 ml 930 ml Output Total 3000 ml 1600 ml Balance -1800 ml -670 ml Intake Oral 960 ml 600 ml IV Total 240 ml 330 ml Output Urine Total 3000 ml 1600 ml # Bowel Movements 3 4 Laboratory Tests Test 09/16/18 13:35 09/17/18 05:30 Prothrombin Time 10.7 SEC (9.30-11.50) 10.8 SEC (9.30-11.50) Prothromb Time International Ratio 1.0 (0.9-1.1) 1.0 (0.9-1.1) White Blood Count 8.3 K/UL (4.8-10.8) Red Blood Count 4.10 M/UL (4.20-5.40) L Hemoglobin 8.5 G/DL (12.0-16.0) L Hematocrit 28.4 % (37.0-47.0) L Mean Corpuscular Volume 69 FL (80-99) L Mean Corpuscular Hemoglobin 20.8 PG (27.0-31.0) L Mean Corpuscular Hemoglobin Concent 30.1 G/DL (32.0-36.0) L Red Cell Distribution Width 14.5 % (11.6-14.8) Platelet Count 127 K/UL (150-450) L Mean Platelet Volume 12.6 FL (6.5-10.1) H Neutrophils (%) (Auto) 57.0 % (45.0-75.0) Lymphocytes (%) (Auto) 32.7 % (20.0-45.0) Monocytes (%) (Auto) 6.8 % (1.0-10.0) Eosinophils (%) (Auto) 1.8 % (0.0-3.0) Basophils (%) (Auto) 1.7 % (0.0-2.0) Sodium Level Pending Potassium Level Pending Chloride Level Pending Carbon Dioxide Level Pending Blood Urea Nitrogen Pending Creatinine Pending Estimat Glomerular Filtration Rate Pending Glucose Level Pending Calcium Level Pending Microbiology Date/Time Source Procedure Growth Status 09/15/18 14:40 Blood Blood Culture - Preliminary NO GROWTH AFTER 24 HOURS Resulted 09/15/18 14:25 Blood Blood Culture - Preliminary NO GROWTH AFTER 24 HOURS Resulted Anthony Smith MD Sep 17, 2018 07:04
--- NOTE | 2018-09-17 07:20 | NUR ---
NURSE NOTES: RECEIVED BED SIDE REPORT FROM [facility] RN IN CHARGE .PT RECEIVED IN BED AWAKE AND ALERT ORIENTED X4. PT C/O,S OF MILD CHEST PAIN ,RATING 3/10 .DR VILLAR CAME TO SEE THE PT AND MADE AWARE AND NOTIFIED THAT PT STILL C/O,S OF MILD CP.M.D STATING THAT PT SEEMS BETTER.FULL BODY ASSESSMENT DONE.WILL CONT TO MONITOR.
[2018-09-17 08:00] VITALS: BP 100/47
--- NOTE | 2018-09-17 09:00 | NUR ---
NURSE NOTES:PT K+ LEVEL IS 3.4,DR VILLAR ORDER TO GIVE KCL 40MEQ P.O. PT MEDICATED WITH KCL 40MEQ P.O AND D/C F/C PER M.D ORDERS.WILL CONT TO MONITOR.
[2018-09-17] MEDS: Enoxaparin 120 mg inj SUBQ SCH ×2 (09:14→21:16)
[2018-09-17] MEDS: Docusate 100mg cap ORAL SCH ×3 (09:15→17:12)
[2018-09-17] MEDS: Indomethacin 25mg cap ORAL SCH ×3 (09:15→18:43)
--- NOTE | 2018-09-17 10:16 | GI Progress Note ---
Assessment/Plan Problems: (1) Fatty liver ICD Codes: K76.0 - Fatty (change of) liver, not elsewhere classified SNOMED: 387343824 (2) eleavted AP (3) Abdominal pain ICD Codes: R10.9 - Unspecified abdominal pain SNOMED: 54393934 (4) Anemia ICD Codes: D64.9 - Anemia, unspecified SNOMED: 741052991 (5) Cholelithiasis ICD Codes: K80.20 - Calculus of gallbladder without cholecystitis without obstruction SNOMED: 907951525 Status: unchanged Status Narrative Discussed with Dr. Phillip Assessment/Plan CT and us reviewed neg hepatitis panel iron deficient venofer fu hem ppi Zofran as needed repeat LFTS in am, downtrending Deferred EEG at this time The patient was seen and examined at bedside and all new and available data was reviewed in the patients chart. I agree with the above findings, impression and plan. (Patient seen earlier today. Signature stamp does not reflect patient encounter time.). - Lorenzo Phillip MD Subjective Subjective c/o of CP, has minimal abdominal pain Is on her menstrual cycle Denies any nausea vomiting Denies diarrhea Objective Last 24 Hour Vital Signs Date Time Temp Pulse Resp B/P (MAP) Pulse Ox O2 Delivery O2 Flow Rate FiO2 09/17/18 04:00 64 09/17/18 04:00 98.0 64 20 109/56 (73) 99 64 09/17/18 04:00 Room Air 09/17/18 03:55 98.0 09/17/18 00:00 98.6 70 20 105/61 (76) 99 70 09/17/18 00:00 Room Air 09/17/18 00:00 84 09/16/18 21:21 111 126/66 09/16/18 21:00 Room Air 09/16/18 20:00 97.6 81 20 104/53 (70) 97 81 09/16/18 20:00 84 09/16/18 16:00 98.3 88 23 122/66 (84) 97 88 09/16/18 16:00 84 09/16/18 12:00 98.6 97 17 101/51 (68) 97 97 09/16/18 12:00 84 Intake and Output 09/16/18 09/17/18 19:00 07:00 Intake Total 1200 ml 930 ml Output Total 3000 ml 1600 ml Balance -1800 ml -670 ml Intake Oral 960 ml 600 ml IV Total 240 ml 330 ml Output Urine Total 3000 ml 1600 ml # Bowel Movements 3 4 Laboratory Tests Test 09/16/18 13:35 09/17/18 05:30 09/17/18 07:28 Prothrombin Time 10.7 SEC (9.30-11.50) 10.8 SEC (9.30-11.50) Prothromb Time International Ratio 1.0 (0.9-1.1) 1.0 (0.9-1.1) White Blood Count 8.3 K/UL (4.8-10.8) Red Blood Count 4.10 M/UL (4.20-5.40) L Hemoglobin 8.5 G/DL (12.0-16.0) L Hematocrit 28.4 % (37.0-47.0) L Mean Corpuscular Volume 69 FL (80-99) L Mean Corpuscular Hemoglobin 20.8 PG (27.0-31.0) L Mean Corpuscular Hemoglobin Concent 30.1 G/DL (32.0-36.0) L Red Cell Distribution Width 14.5 % (11.6-14.8) Platelet Count 127 K/UL (150-450) L Mean Platelet Volume 12.6 FL (6.5-10.1) H Neutrophils (%) (Auto) 57.0 % (45.0-75.0) Lymphocytes (%) (Auto) 32.7 % (20.0-45.0) Monocytes (%) (Auto) 6.8 % (1.0-10.0) Eosinophils (%) (Auto) 1.8 % (0.0-3.0) Basophils (%) (Auto) 1.7 % (0.0-2.0) Sodium Level 139 MMOL/L (136-145) Potassium Level 3.4 MMOL/L (3.5-5.1) L Chloride Level 105 MMOL/L (98-107) Carbon Dioxide Level 26 MMOL/L (21-32) Anion Gap 8 mmol/L (5-15) Blood Urea Nitrogen 19 mg/dL (7-18) H Creatinine 0.7 MG/DL (0.55-1.30) Estimat Glomerular Filtration Rate > 60 mL/min (>60) Glucose Level 93 MG/DL (74-106) Calcium Level 9.0 MG/DL (8.5-10.1) Troponin I 0.795 ng/mL (0.000-0.056) C-Reactive Protein, Quantitative 6.9 mg/dL (0.00-0.90) H Erythrocyte Sedimentation Rate 112 MM/HR (0-20) H Height (Feet): 5 Height (Inches): 2.00 Weight (Pounds): 260 General Appearance: WD/WN, no apparent distress, alert, overweight Cardiovascular: normal rate Respiratory/Chest: normal breath sounds, no respiratory distress Abdominal Exam: normal bowel sounds, non tender, soft Extremities: normal range of motion, non-tender Ashley Mitchell NP Sep 17, 2018 10:16
--- NOTE | 2018-09-17 11:22 | Nephrology Progress Note ---
Assessment/Plan Problem List: (1) Hyponatremia (2) eleavted AP (3) Anemia (4) Abdominal pain (5) Fatty liver Assessment HypoNatremia , likely SIADH further comments after lab results HTN , today BP low #Abdominal pain, nausea with constipation. Negative CT C/A/P. Sinus tachy with pleuritic chest pain. VQ scan negative Elevated CRP, ? pericarditis Bilateral upper extremity weakness, MRI brain negative Chronic anemia Thrombocytopenia Subtherapeutic INR Plan 3% saline and Lasix given K supplements previously: U Os, S Os, Uric Acid, Lipid panel Keep I&O negative per consultants BP parameters- adjust BP meds Subjective ROS Limited/Unobtainable: No Constitutional: Reports: malaise Objective Objective Last 24 Hour Vital Signs Date Time Temp Pulse Resp B/P (MAP) Pulse Ox O2 Delivery O2 Flow Rate FiO2 09/17/18 08:00 97.0 82 21 100/47 (64) 97 82 09/17/18 08:00 Room Air 09/17/18 08:00 73 09/17/18 04:00 64 09/17/18 04:00 98.0 64 20 109/56 (73) 99 64 09/17/18 04:00 Room Air 09/17/18 03:55 98.0 09/17/18 00:00 98.6 70 20 105/61 (76) 99 70 09/17/18 00:00 Room Air 09/17/18 00:00 84 09/16/18 21:21 111 126/66 09/16/18 21:00 Room Air 09/16/18 20:00 97.6 81 20 104/53 (70) 97 81 09/16/18 20:00 84 09/16/18 16:00 98.3 88 23 122/66 (84) 97 88 09/16/18 16:00 84 09/16/18 12:00 98.6 97 17 101/51 (68) 97 97 09/16/18 12:00 84 Intake and Output 09/16/18 09/17/18 19:00 07:00 Intake Total 1200 ml 930 ml Output Total 3000 ml 1600 ml Balance -1800 ml -670 ml Intake Oral 960 ml 600 ml IV Total 240 ml 330 ml Output Urine Total 3000 ml 1600 ml # Bowel Movements 3 4 Current Medications Medications (Trade) Dose Ordered Sig/Makayla Route PRN Reason Start Time Stop Time Status Last Admin Dose Admin Bisacodyl (Dulcolax) 10 mg DAILYPRN PRN RECTAL Constipation 09/15/18 13:00 10/15/18 12:59 Clonidine HCl (Catapres Tab) 0.1 mg Q4H PRN ORAL bp over 160 syst 09/15/18 14:15 10/15/18 14:14 Docusate Sodium (Colace) 200 mg THREE TIMES A DAY ORAL 09/15/18 13:00 10/14/18 08:59 09/17/18 09:15 Enoxaparin Sodium (Lovenox) 120 mg EVERY 12 HOURS SUBQ 09/15/18 21:00 10/14/18 10:44 09/17/18 09:14 Hydromorphone HCl (Dilaudid) 0.5 mg Q4H PRN IVP For Pain 09/15/18 13:00 09/21/18 00:59 09/17/18 03:24 Indomethacin (Indocin) 25 mg THREE TIMES A DAY ORAL 09/16/18 13:00 10/16/18 12:59 09/17/18 09:15 Iron Sucrose 100 mg/Sodium Chloride 60 ml @ 240 mls/hr BEDTIME IV 09/16/18 21:00 09/20/18 21:14 09/16/18 21:20 Lactulose (Cephulac) 30 gm TIDPRN PRN ORAL Constipation 09/15/18 13:00 10/15/18 12:59 Morphine Sulfate (Morphine Sulfate) 4 mg Q4H PRN IVP For Pain 09/15/18 14:15 09/19/18 22:14 09/16/18 14:46 Ondansetron HCl (Zofran) 4 mg Q6H PRN IVP Nausea & Vomiting 09/15/18 13:00 10/12/18 12:59 Pantoprazole (Protonix) 40 mg Q12HR ORAL 09/17/18 09:00 10/17/18 08:59 09/17/18 09:15 Potassium Chloride (K-Dur) 40 meq TWICE A DAY ORAL 09/17/18 09:00 10/17/18 08:59 09/17/18 09:16 Warfarin Sodium (Coumadin per pharmacy) 1 ea DAILY PRN MISC Per rx protocol 09/16/18 11:45 7/3/19 11:44 Warfarin Sodium (Coumadin) 7.5 mg COUMADIN ORAL 09/17/18 17:00 09/17/18 18:00 Laboratory Tests 09/16/18 13:35: Prothrombin Time 10.7, Prothromb Time International Ratio 1.0 09/17/18 05:30: Prothrombin Time 10.8, Prothromb Time International Ratio 1.0, White Blood Count 8.3, Red Blood Count 4.10L, Hemoglobin 8.5L, Hematocrit 28.4L, Mean Corpuscular Volume 69L, Mean Corpuscular Hemoglobin 20.8L, Mean Corpuscular Hemoglobin Concent 30.1L, Red Cell Distribution Width 14.5, Platelet Count 127L , Mean Platelet Volume 12.6H, Neutrophils (%) (Auto) 57.0, Lymphocytes (%) (Auto ) 32.7, Monocytes (%) (Auto) 6.8, Eosinophils (%) (Auto) 1.8, Basophils (%) ( Auto) 1.7, Sodium Level 139, Potassium Level 3.4L, Chloride Level 105, Carbon Dioxide Level 26, Anion Gap 8, Blood Urea Nitrogen 19H, Creatinine 0.7, Estimat Glomerular Filtration Rate > 60, Glucose Level 93, Calcium Level 9.0, Troponin I 0.795H, C-Reactive Protein, Quantitative 6.9H 09/17/18 07:28: Erythrocyte Sedimentation Rate 112H Height (Feet): 5 Height (Inches): 2.00 Weight (Pounds): 260 General Appearance: no apparent distress Cardiovascular: normal rate Respiratory/Chest: lungs clear Abdomen: soft Objective no change Francisco Javier Cervantes MD Sep 17, 2018 11:22
[2018-09-17 12:00] VITALS: BP 115/69
--- NOTE | 2018-09-17 12:47 | General Progress Note ---
Assessment/Plan Status: unchanged Assessment/Plan: #Abdominal pain, nausea with constipation. Resolved -continue symptomatic care -GI following #Sinus tachy with pleuritic chest pain. VQ scan negative #Presumptive acute paericarditis -continue colchicine + Indocin #Hyponatremia -continue to monitor -Nephrology eval appreciated #Bilateral upper extremity weakness, MRI brain negative -neurology following #Antiphospholipid antibody syndrome #Chronic anemia #Thrombocytopenia #Subtherapeutic INR -Hematology following -resume warfarin with Lovenox bridge VTE PPx Lovenox Full Code Subjective Date patient seen: Sep 17, 2018 Time patient seen: 07:23 Cardiovascular: Denies: chest pain, edema Respiratory: Denies: cough Gastrointestinal/Abdominal: Denies: abdomen distended, abdominal pain Allergies: Coded Allergies: No Known Allergies (Unverified , 09/12/18) Subjective Medicine follow up for chest pain, presumptive acute pericarditis. Continues to improve. CRP decreased Objective Last 24 Hour Vital Signs Date Time Temp Pulse Resp B/P (MAP) Pulse Ox O2 Delivery O2 Flow Rate FiO2 09/17/18 08:00 97.0 82 21 100/47 (64) 97 82 09/17/18 08:00 Room Air 09/17/18 08:00 73 09/17/18 04:00 64 09/17/18 04:00 98.0 64 20 109/56 (73) 99 64 09/17/18 04:00 Room Air 09/17/18 03:55 98.0 09/17/18 00:00 98.6 70 20 105/61 (76) 99 70 09/17/18 00:00 Room Air 09/17/18 00:00 84 09/16/18 21:21 111 126/66 09/16/18 21:00 Room Air 09/16/18 20:00 97.6 81 20 104/53 (70) 97 81 09/16/18 20:00 84 09/16/18 16:00 98.3 88 23 122/66 (84) 97 88 09/16/18 16:00 84 Intake and Output 09/16/18 09/17/18 19:00 07:00 Intake Total 1200 ml 930 ml Output Total 3000 ml 1600 ml Balance -1800 ml -670 ml Intake Oral 960 ml 600 ml IV Total 240 ml 330 ml Output Urine Total 3000 ml 1600 ml # Bowel Movements 3 4 Laboratory Tests 09/16/18 13:35: Prothrombin Time 10.7, Prothromb Time International Ratio 1.0 09/17/18 05:30: Prothrombin Time 10.8, Prothromb Time International Ratio 1.0, White Blood Count 8.3, Red Blood Count 4.10L, Hemoglobin 8.5L, Hematocrit 28.4L, Mean Corpuscular Volume 69L, Mean Corpuscular Hemoglobin 20.8L, Mean Corpuscular Hemoglobin Concent 30.1L, Red Cell Distribution Width 14.5, Platelet Count 127L , Mean Platelet Volume 12.6H, Neutrophils (%) (Auto) 57.0, Lymphocytes (%) (Auto ) 32.7, Monocytes (%) (Auto) 6.8, Eosinophils (%) (Auto) 1.8, Basophils (%) ( Auto) 1.7, Sodium Level 139, Potassium Level 3.4L, Chloride Level 105, Carbon Dioxide Level 26, Anion Gap 8, Blood Urea Nitrogen 19H, Creatinine 0.7, Estimat Glomerular Filtration Rate > 60, Glucose Level 93, Calcium Level 9.0, Troponin I 0.795H, C-Reactive Protein, Quantitative 6.9H 09/17/18 07:28: Erythrocyte Sedimentation Rate 112H Height (Feet): 5 Height (Inches): 2.00 Weight (Pounds): 260 General Appearance: no apparent distress, alert Neck: normal alignment, supple Cardiovascular: normal rate, regular rhythm Respiratory/Chest: lungs clear, normal breath sounds Matthew Govea MD Sep 17, 2018 12:47
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
--- NOTE | 2018-09-17 15:00 | NUR ---
NURSE NOTES: pt transfered via bed on stable conditions to [address] [place] [address] bed 1.Report given to Martha ALVAREZ STAFF.
--- NOTE | 2018-09-17 15:14 | NUR ---
CASE MANAGEMENT:REVIEW 09/17/18 SI: PRESUMPTIVE ACUTE PERICARDITIS 98.1 76 23 115/69 100% ON RA H/H-8.5/28.4 PLT-127 TROPONIN(+) 0.795 IS: IV VENOFER QHS COUMADIN 5MG PO X1 INDOMETHACIN PO TID IVF@30/HR PROTONIX PO QD LOVENOX SQ Q12 LOPRESSOR PO Q12 IV PEPCID Q12 K-DUR PO BID : STEP DOWN UNIT DCP: HOME
--- NOTE | 2018-09-17 15:20 | NUR ---
NURSE NOTES: Patient received to unit at 1505 via bed. Report received from Markus RN. Patient is awake alert and oriented x4, no acute distress noted, reporting no pain. Oriented to room and unit. Side rails upx3, bed low and locked, call light in reach. Will continue to monitor.
--- NOTE | 2018-09-17 15:26 | NUR ---
RD ASSESSMENT & RECOMMENDATIONS SEE CARE ACTIVITY FOR COMPLETE ASSESSMENT DAILY ESTIMATED NEEDS: Needs based on liver dysfunction, cardiac/ 61kg abw 25-30 kcals/kg 2502-7363 total kcals 1-1.5 g protein/kg 61-92 g total protein 25-30 mL/kg 2149-4883 total fluid mLs NUTRITION DIAGNOSIS: * Altered nutrition related lab values R/T liver dysfunction, cardiac dx as evidenced by elev LFTs, elev Trop. CURRENT DIET:regular PO DIET RECOMMENDATIONS: LOW NA ADDITIONAL RECOMMENDATIONS: * Standing wt as able for accurate CBW * Monitor lytes, replete as needed (low K) * Monitor PO intake and tolerace -> improved appetite and tolerance per pt * Coumadin DNI ed provided on 09/17
[2018-09-17] MEDS ORDERED: Lactulose 20gm/30ml UDC ORAL PRN (15:30)
[2018-09-17 16:09] VITALS: BP 111/61
[2018-09-17] MEDS ORDERED: WARFARIN SOD ORAL ONE ×2 (17:00)
[2018-09-17] MEDS ORDERED: Warfarin Sodium 7.5mg ORAL SCH ×3 (17:00)
--- NOTE | 2018-09-17 19:30 | NUR ---
HAND-OFF: Report given to Poli ALVAREZ. Patient is in stable condition .
[2018-09-17 20:00] VITALS: BP 115/65
--- NOTE | 2018-09-17 20:00 | NUR ---
NURSE NOTES: Patient in bed awake and oriented. VSS. No SOB noted. Family at bedside. PRN pain medication given for 7/10 abdominal pain. No signs of distress noted. Needs attended. Due meds given. Call light within reach. Bed is locked and in low position. In stable condition.
[2018-09-17] MEDS: Morphine Sulfate 4mg/ml Inj (IV USE ONLY) IVP PRN (20:27)
[2018-09-17] MEDS ORDERED: Iron Sucrose 100 MG in NS 55 ML IV SCH (21:00)
--- NOTE | 2018-09-17 23:35 | Neurology Progress Note ---
Interim History Interim History ROS Limited/Unobtainable: No Complaints: Weakness BUE Events: Significant improvement of symptoms with resolution of HTN Objective Physical Exam Last Vital Signs Date Time Temp Pulse Resp B/P (MAP) Pulse Ox O2 Delivery O2 Flow Rate FiO2 09/17/18 21:00 Room Air 09/17/18 20:00 97.8 73 16 115/65 (82) 99 Laboratory Tests Test 09/17/18 05:30 09/17/18 07:28 White Blood Count 8.3 K/UL (4.8-10.8) Red Blood Count 4.10 M/UL (4.20-5.40) L Hemoglobin 8.5 G/DL (12.0-16.0) L Hematocrit 28.4 % (37.0-47.0) L Mean Corpuscular Volume 69 FL (80-99) L Mean Corpuscular Hemoglobin 20.8 PG (27.0-31.0) L Mean Corpuscular Hemoglobin Concent 30.1 G/DL (32.0-36.0) L Red Cell Distribution Width 14.5 % (11.6-14.8) Platelet Count 127 K/UL (150-450) L Mean Platelet Volume 12.6 FL (6.5-10.1) H Neutrophils (%) (Auto) 57.0 % (45.0-75.0) Lymphocytes (%) (Auto) 32.7 % (20.0-45.0) Monocytes (%) (Auto) 6.8 % (1.0-10.0) Eosinophils (%) (Auto) 1.8 % (0.0-3.0) Basophils (%) (Auto) 1.7 % (0.0-2.0) Prothrombin Time 10.8 SEC (9.30-11.50) Prothromb Time International Ratio 1.0 (0.9-1.1) Sodium Level 139 MMOL/L (136-145) Potassium Level 3.4 MMOL/L (3.5-5.1) L Chloride Level 105 MMOL/L (98-107) Carbon Dioxide Level 26 MMOL/L (21-32) Anion Gap 8 mmol/L (5-15) Blood Urea Nitrogen 19 mg/dL (7-18) H Creatinine 0.7 MG/DL (0.55-1.30) Estimat Glomerular Filtration Rate > 60 mL/min (>60) Glucose Level 93 MG/DL (74-106) Calcium Level 9.0 MG/DL (8.5-10.1) Troponin I 0.795 ng/mL (0.000-0.056) C-Reactive Protein, Quantitative 6.9 mg/dL (0.00-0.90) H Erythrocyte Sedimentation Rate 112 MM/HR (0-20) H General: well nourished, no acute distress Head: normocophalic, atraumatic Neck: no rigidity EENT: benign Neurologic Exam Mental Status: awake, alert, oriented x4, normal cognition, good mathematical skills, normal recent memory, normal remote memory, preserved visuospatial function Speech: normal speech, no dysarthia Language: normal language, no aphasia Cranial Nerve II: fundus normal, visual izaguirre, no papilledema Cranial Nerves III, IV, : PERRLA, EOMI, pupils Cranial Nerve V: normal facial sensations, temporales function normal, masseters function normal, pterygoids function normal Cranial Nerve VII: no facial asymmetry, normal facial expressions Cranial Nerve VIII: normal hearing, no nystagmus Cranial Nerve IX: normal palate elevation, gag response Cranial Nerve X: no voice hoarseness Cranial Nerve XI: SCM symmetric, trapezii function normal Cranial Nerve XII: tongue midline, no tongue atrophy/fasciculations Motor System: normal muscle tone, no involuntary movement, no muscle wasting, other - BUE now 4/5 Sensory: normal pinprick, normal light touch, normal position sense, normal graphesthesia Coordination: other Deep Tendon Reflexes: 1+ bicep (L), 1+ bicep (R), 1+ tricep (L), 1+ tricep (R) , 1+ brachioradialis (L), 1+ brachioradialis (R), 1+ knee (L), 1+ knee (R), 1+ ankle (L), 1+ ankle (R) Objective Not yet ambulated Impression/Recommendations Status: unchanged Haley Dc N.P. Sep 17, 2018 23:35
[2018-09-18] VITALS (9 sets, daily range): BP systolic 102–123; BP diastolic 57–76
[2018-09-18] MEDS: Morphine Sulfate 4mg/ml Inj (IV USE ONLY) IVP PRN ×3 (01:01→23:39)
[2018-09-18] MEDS: Hydromorphone 0.5mg/0.5ml inj IVP PRN ×2 (05:31→20:23)
[2018-09-18 06:05] LABS: HEMATOCRIT 24.6 % (37.0-47.0); HEMOGLOBIN 7.4 G/DL (12.0-16.0); MEAN CORPUSCULAR VOLUME 69 FL (80-99); PLATELET COUNT 161 K/UL (150-450); RED BLOOD COUNT 3.59 M/UL (4.20-5.40); RED CELL DISTRIBUTION WIDTH 14.5 % (11.6-14.8); WHITE BLOOD COUNT 4.4 K/UL (4.8-10.8)
[2018-09-18 06:06] LABS: INR 1.5 (0.9-1.1)
[2018-09-18 06:58] LABS: ALANINE AMINOTRANSFERASE 45 U/L (12-78); ALBUMIN/GLOBULIN RATIO 0.8 (1.0-2.7); ALKALINE PHOSPHATASE 98 U/L (46-116); ANION GAP 7 mmol/L (5-15); ASPARTATE AMINO TRANSFERASE 17 U/L (15-37); BILIRUBIN,TOTAL 0.2 MG/DL (0.2-1.0); BLOOD UREA NITROGEN 17 mg/dL (7-18); CALCIUM 9.2 MG/DL (8.5-10.1); CARBON DIOXIDE 26 MMOL/L (21-32); CHLORIDE 106 MMOL/L (98-107); CREATININE 0.8 MG/DL (0.55-1.30); POTASSIUM 4.1 MMOL/L (3.5-5.1); SODIUM 139 MMOL/L (136-145)
--- NOTE | 2018-09-18 07:30 | NUR ---
NURSE NOTES: Received report from Poli ALVAREZ. Patient is awake alert and oriented x4, no acute distress noted. Patient reporting no pain at this time. IV intact and asymptomatic. All needs met, updated on plan of care. Side rails upx2, bed low and locked, call light in reach. Will continue to monitor.
--- NOTE | 2018-09-18 08:53 | Cardiology Progress Note ---
Assessment/Plan Status: stable Assessment/Plan Assessment/Plan Abdominal pain, nausea with constipation. Negative CT C/A/P Chronic anemia Thrombocytopenia History of anti-phospholipid antibody with 3 prior DVTs Subtherapeutic INR Tachycardia Hypertension Pericarditis Pleurisy RECOMMENDATINOS: MyoPericarditis:ESR elevated - etiology likely viral Continue colchicine/indomethacin for 4 weeks total d/c morphine -> transition to PO medications Outpatient cardiac MRI - will arrange in clinic Repeat CRP/ESR levels in 1-2 weeks outpatient Hypertension TTE reviewed, normal LV function and mild PA Controlled off medications now Tachycardia - resolved V/Q negative for PE d/c metoprolol DVT Hematology work up Lovenox -> Coumadin Subjective Cardiovascular: Reports: no symptoms Respiratory: Reports: no symptoms Gastrointestinal/Abdominal: Reports: no symptoms Genitourinary: Reports: no symptoms Subjective No acute events, repeat ESR elevated, CP better controlled, tolerating PO Objective Last 24 Hour Vital Signs Date Time Temp Pulse Resp B/P (MAP) Pulse Ox O2 Delivery O2 Flow Rate FiO2 09/18/18 08:00 97.8 72 17 105/63 (77) 99 09/18/18 04:00 97.8 73 16 112/60 (77) 99 09/18/18 00:00 97.6 70 17 110/67 (81) 100 09/17/18 21:00 Room Air 09/17/18 20:00 97.8 73 16 115/65 (82) 99 09/17/18 16:09 98.4 73 17 111/61 (78) 99 09/17/18 12:00 Room Air 09/17/18 12:00 66 09/17/18 12:00 98.1 76 23 115/69 (84) 100 76 General Appearance: no apparent distress, alert EENT: PERRL/EOMI, normal ENT inspection, TMs normal Neck: non-tender, normal alignment, supple, normal inspection, no JVD Rhythm: NSR Cardiovascular: normal peripheral pulses, normal rate, regular rhythm, friction rub Respiratory/Chest: chest wall non-tender, lungs clear Abdomen: normal bowel sounds, non tender, soft, no organomegaly, no mass Extremities: normal range of motion, non-tender, normal inspection Neurologic: reservations clerk II-XII grossly normal, no motor/sensory deficits Intake and Output 09/17/18 09/18/18 19:00 07:00 Intake Total 1000 ml 600 ml Balance 1000 ml 600 ml Intake Oral 1000 ml 600 ml # Voids 1 2 # Bowel Movements 2 Laboratory Tests Test 09/18/18 05:30 White Blood Count 4.4 K/UL (4.8-10.8) L Red Blood Count 3.59 M/UL (4.20-5.40) L Hemoglobin 7.4 G/DL (12.0-16.0) L Hematocrit 24.6 % (37.0-47.0) L Mean Corpuscular Volume 69 FL (80-99) L Mean Corpuscular Hemoglobin 20.7 PG (27.0-31.0) L Mean Corpuscular Hemoglobin Concent 30.2 G/DL (32.0-36.0) L Red Cell Distribution Width 14.5 % (11.6-14.8) Platelet Count 161 K/UL (150-450) Mean Platelet Volume 10.6 FL (6.5-10.1) H Neutrophils (%) (Auto) % (45.0-75.0) Lymphocytes (%) (Auto) % (20.0-45.0) Monocytes (%) (Auto) % (1.0-10.0) Eosinophils (%) (Auto) % (0.0-3.0) Basophils (%) (Auto) % (0.0-2.0) Prothrombin Time 16.0 SEC (9.30-11.50) H Prothromb Time International Ratio 1.5 (0.9-1.1) H Sodium Level 139 MMOL/L (136-145) Potassium Level 4.1 MMOL/L (3.5-5.1) Chloride Level 106 MMOL/L (98-107) Carbon Dioxide Level 26 MMOL/L (21-32) Anion Gap 7 mmol/L (5-15) Blood Urea Nitrogen 17 mg/dL (7-18) Creatinine 0.8 MG/DL (0.55-1.30) Estimat Glomerular Filtration Rate > 60 mL/min (>60) Glucose Level 91 MG/DL (74-106) Calcium Level 9.2 MG/DL (8.5-10.1) Total Bilirubin 0.2 MG/DL (0.2-1.0) Aspartate Amino Transf (AST/SGOT) 17 U/L (15-37) Alanine Aminotransferase (ALT/SGPT) 45 U/L (12-78) Alkaline Phosphatase 98 U/L (46-116) Total Protein 6.9 G/DL (6.4-8.2) Albumin 3.0 G/DL (3.4-5.0) L Globulin 3.9 g/dL Albumin/Globulin Ratio 0.8 (1.0-2.7) L Anti-Nuclear Antibody Screen Pending Microbiology Date/Time Source Procedure Growth Status 09/15/18 14:40 Blood Blood Culture - Preliminary NO GROWTH AFTER 48 HOURS Resulted 09/15/18 14:25 Blood Blood Culture - Preliminary NO GROWTH AFTER 48 HOURS Resulted Anthony Smith MD Sep 18, 2018 08:53
--- NOTE | 2018-09-18 08:59 | Hematology/Onc Progress Note ---
Assessment/Plan Assessment/Plan Assessment/Plan: # Anemia of iron deficiency due to underlying chronic medical issues, multifactorial --> Anemia workup has been reviewed, rule out gi bleed. Ferritin 24 --> No evidence of hemolysis is noted, peripheral smear has been reviewed. --> Hgb goal >7. Transfuse prn. --> IV iron has been started, 5 days a week --> Medications have been reviewed --> low threshold for gi evaluation in case has occult + --> bone marrow biopsy is not indicated given the other more likely causes --> Hgb trend: 9.9-->8.6-->8.5-->7.4 # Antiphospholipid antibody apparently she has had over 3 dvts in her leg before as well as PULMONARY EMBOLI --> agree to obtain antiphospholipid ab, cardiolipin ab to confirm disease --> Anticardiolipin IgM Ab at 14 --> continue on lovenox 1mg/kg sq bid --> coumadin to begin with inr goal 2-3 --> Current INR 1.5 # Leukopenia # Thrombocytopenia - potential causes multifactorial, evaluate liver and viral etiologies to begin, also could be related to underlying medications patient has received. --> Hep panel negative and HIV pending --> US abd --> Fatty liver. Mild spinal ligaments. Hemangioma in the liver. Gallbladder polyp versus wall adherent stone. --> CT abd --> No acute findings within the chest, abdomen or pelvis. Borderline splenomegaly. Liver hemangioma. --> Peripheral smear ordered to evaluate for blasts /schistocytes --> abx and other meds have been reviewed --> ok for ppx if plt >50k w/ either heparin or lovenox --> Plt trend: 109k -->116k-->127k-->161 # Abd pain. GI is following, appreciate recs. --> Abdominal ultrasound reviewed, fatty liver. --> Abdominal pelvis CT reviewed, negative findings. --> No plans for GI procedures at this time --> Clear liquid diet, advance as tolerated --> OB stool r/o GI bleed # Elevated alk phosphatase # Hypokalemia --> replete with K po as needed Time note entered does not reflect time of patient examination. GREATLY APPRECIATE CONSULTATION. Subjective Hematologic/Lymphatic: Reports: anemia Allergies: Coded Allergies: No Known Allergies (Unverified , 09/12/18) All Systems: reviewed and negative except above Subjective 09/15: Pt awake and alert. T: 99.6F and no order for ABX for the patient regarding leukocytosis and elevated ESR/CRP. 09/16: no events noted, on coumadin 09/17: feeling better, on coumadin and lovenox sq 09/18: wbc 4.4 and hgb 7.4 trended down over night. Current INR at 1.5. Objective Objective Current Medications Medications (Trade) Dose Ordered Sig/Makayla Route PRN Reason Start Time Stop Time Status Last Admin Dose Admin Bisacodyl (Dulcolax) 10 mg DAILYPRN PRN RECTAL Constipation 09/17/18 15:30 10/17/18 15:29 Clonidine HCl (Catapres Tab) 0.1 mg Q4H PRN ORAL bp over 160 syst 09/17/18 16:00 10/15/18 15:59 Docusate Sodium (Colace) 200 mg THREE TIMES A DAY ORAL 09/17/18 18:00 10/14/18 08:59 09/17/18 17:12 Enoxaparin Sodium (Lovenox) 120 mg EVERY 12 HOURS SUBQ 09/17/18 21:00 10/14/18 10:44 09/17/18 21:16 Hydromorphone HCl (Dilaudid) 0.5 mg Q4H PRN IVP For Breakthrough Pain 4-10 09/17/18 17:00 09/21/18 00:59 09/18/18 05:31 Indomethacin (Indocin) 25 mg THREE TIMES A DAY ORAL 09/17/18 18:00 10/16/18 12:59 09/17/18 18:43 Iron Sucrose 100 mg/Sodium Chloride 60 ml @ 240 mls/hr BEDTIME IV 09/17/18 21:00 09/20/18 21:14 09/17/18 21:14 Lactulose (Cephulac) 30 gm TIDPRN PRN ORAL Constipation 09/17/18 15:30 10/17/18 15:29 Morphine Sulfate (Morphine Sulfate) 4 mg Q4H PRN IVP PAIN 4-10 09/17/18 18:15 09/19/18 22:14 09/18/18 01:01 Ondansetron HCl (Zofran) 4 mg Q6H PRN IVP Nausea & Vomiting 09/17/18 15:15 10/12/18 15:14 Pantoprazole (Protonix) 40 mg Q12HR ORAL 09/17/18 21:00 10/17/18 08:59 09/17/18 21:15 Potassium Chloride (K-Dur) 40 meq TWICE A DAY ORAL 09/17/18 18:00 10/17/18 08:59 09/17/18 17:12 Warfarin Sodium (Coumadin per pharmacy) 1 ea DAILY PRN MISC Per rx protocol 09/17/18 15:30 10/17/18 15:29 Last 24 Hour Vital Signs Date Time Temp Pulse Resp B/P (MAP) Pulse Ox O2 Delivery O2 Flow Rate FiO2 09/18/18 08:00 97.8 72 17 105/63 (77) 99 09/18/18 04:00 97.8 73 16 112/60 (77) 99 09/18/18 00:00 97.6 70 17 110/67 (81) 100 09/17/18 21:00 Room Air 09/17/18 20:00 97.8 73 16 115/65 (82) 99 09/17/18 16:09 98.4 73 17 111/61 (78) 99 09/17/18 12:00 Room Air 09/17/18 12:00 66 09/17/18 12:00 98.1 76 23 115/69 (84) 100 76 09/17/18 08:00 97.0 82 21 100/47 (64) 97 82 09/17/18 08:00 Room Air 09/17/18 08:00 73 09/17/18 04:00 64 09/17/18 04:00 98.0 64 20 109/56 (73) 99 64 09/17/18 04:00 Room Air 09/17/18 03:55 98.0 09/17/18 00:00 98.6 70 20 105/61 (76) 99 70 09/17/18 00:00 Room Air 09/17/18 00:00 84 09/16/18 21:21 111 126/66 09/16/18 21:00 Room Air 09/16/18 20:00 97.6 81 20 104/53 (70) 97 81 09/16/18 20:00 84 09/16/18 16:00 98.3 88 23 122/66 (84) 97 88 09/16/18 16:00 84 09/16/18 12:00 98.6 97 17 101/51 (68) 97 97 09/16/18 12:00 84 09/16/18 09:07 107 109/59 09/16/18 09:00 Room Air Intake and Output 09/17/18 09/18/18 19:00 07:00 Intake Total 1000 ml 600 ml Balance 1000 ml 600 ml Intake Oral 1000 ml 600 ml # Voids 1 2 # Bowel Movements 2 Labs Test 09/15/18 09:00 09/15/18 14:25 09/15/18 14:30 09/16/18 03:45 Stool Occult Blood Negative (NEGATIVE) Lactic Acid Level 1.50 mmol/L (0.4-2.0) Troponin I 0.772 ng/mL (0.000-0.056) Urine Osmolality 526 mOsm/kg (429-449) Urine Random Sodium < 20 mmol/L (20-110) White Blood Count 8.6 K/UL (4.8-10.8) Red Blood Count 4.14 M/UL (4.20-5.40) Hemoglobin 8.6 G/DL (12.0-16.0) Hematocrit 28.2 % (37.0-47.0) Mean Corpuscular Volume 68 FL (80-99) Mean Corpuscular Hemoglobin 20.7 PG (27.0-31.0) Mean Corpuscular Hemoglobin Concent 30.3 G/DL (32.0-36.0) Red Cell Distribution Width 14.4 % (11.6-14.8) Platelet Count 116 K/UL (150-450) Mean Platelet Volume 12.5 FL (6.5-10.1) Neutrophils (%) (Auto) 56.6 % (45.0-75.0) Lymphocytes (%) (Auto) 33.3 % (20.0-45.0) Monocytes (%) (Auto) 6.7 % (1.0-10.0) Eosinophils (%) (Auto) 2.5 % (0.0-3.0) Basophils (%) (Auto) 0.9 % (0.0-2.0) Sodium Level 133 MMOL/L (136-145) Potassium Level 3.4 MMOL/L (3.5-5.1) Chloride Level 99 MMOL/L (98-107) Carbon Dioxide Level 25 MMOL/L (21-32) Anion Gap 9 mmol/L (5-15) Blood Urea Nitrogen 28 mg/dL (7-18) Creatinine 1.1 MG/DL (0.55-1.30) Estimat Glomerular Filtration Rate 58.3 mL/min (>60) Glucose Level 87 MG/DL (74-106) Uric Acid 5.0 MG/DL (2.6-7.2) Calcium Level 8.8 MG/DL (8.5-10.1) Phosphorus Level 3.6 MG/DL (2.5-4.9) Magnesium Level 2.5 MG/DL (1.8-2.4) Total Bilirubin 0.3 MG/DL (0.2-1.0) Aspartate Amino Transf (AST/SGOT) 40 U/L (15-37) Alanine Aminotransferase (ALT/SGPT) 82 U/L (12-78) Alkaline Phosphatase 115 U/L (46-116) Total Protein 6.9 G/DL (6.4-8.2) Albumin 2.6 G/DL (3.4-5.0) Globulin 4.3 g/dL Albumin/Globulin Ratio 0.6 (1.0-2.7) Test 09/16/18 13:35 09/17/18 05:30 09/17/18 07:28 09/18/18 05:30 Prothrombin Time 10.7 SEC (9.30-11.50) 10.8 SEC (9.30-11.50) 16.0 SEC (9.30-11.50) Prothromb Time International Ratio 1.0 (0.9-1.1) 1.0 (0.9-1.1) 1.5 (0.9-1.1) White Blood Count 8.3 K/UL (4.8-10.8) 4.4 K/UL (4.8-10.8) Red Blood Count 4.10 M/UL (4.20-5.40) 3.59 M/UL (4.20-5.40) Hemoglobin 8.5 G/DL (12.0-16.0) 7.4 G/DL (12.0-16.0) Hematocrit 28.4 % (37.0-47.0) 24.6 % (37.0-47.0) Mean Corpuscular Volume 69 FL (80-99) 69 FL (80-99) Mean Corpuscular Hemoglobin 20.8 PG (27.0-31.0) 20.7 PG (27.0-31.0) Mean Corpuscular Hemoglobin Concent 30.1 G/DL (32.0-36.0) 30.2 G/DL (32.0-36.0) Red Cell Distribution Width 14.5 % (11.6-14.8) 14.5 % (11.6-14.8) Platelet Count 127 K/UL (150-450) 161 K/UL (150-450) Mean Platelet Volume 12.6 FL (6.5-10.1) 10.6 FL (6.5-10.1) Neutrophils (%) (Auto) 57.0 % (45.0-75.0) % (45.0-75.0) Lymphocytes (%) (Auto) 32.7 % (20.0-45.0) % (20.0-45.0) Monocytes (%) (Auto) 6.8 % (1.0-10.0) % (1.0-10.0) Eosinophils (%) (Auto) 1.8 % (0.0-3.0) % (0.0-3.0) Basophils (%) (Auto) 1.7 % (0.0-2.0) % (0.0-2.0) Sodium Level 139 MMOL/L (136-145) 139 MMOL/L (136-145) Potassium Level 3.4 MMOL/L (3.5-5.1) 4.1 MMOL/L (3.5-5.1) Chloride Level 105 MMOL/L (98-107) 106 MMOL/L (98-107) Carbon Dioxide Level 26 MMOL/L (21-32) 26 MMOL/L (21-32) Anion Gap 8 mmol/L (5-15) 7 mmol/L (5-15) Blood Urea Nitrogen 19 mg/dL (7-18) 17 mg/dL (7-18) Creatinine 0.7 MG/DL (0.55-1.30) 0.8 MG/DL (0.55-1.30) Estimat Glomerular Filtration Rate > 60 mL/min (>60) > 60 mL/min (>60) Glucose Level 93 MG/DL (74-106) 91 MG/DL (74-106) Calcium Level 9.0 MG/DL (8.5-10.1) 9.2 MG/DL (8.5-10.1) Troponin I 0.795 ng/mL (0.000-0.056) C-Reactive Protein, Quantitative 6.9 mg/dL (0.00-0.90) Erythrocyte Sedimentation Rate 112 MM/HR (0-20) Total Bilirubin 0.2 MG/DL (0.2-1.0) Aspartate Amino Transf (AST/SGOT) 17 U/L (15-37) Alanine Aminotransferase (ALT/SGPT) 45 U/L (12-78) Alkaline Phosphatase 98 U/L (46-116) Total Protein 6.9 G/DL (6.4-8.2) Albumin 3.0 G/DL (3.4-5.0) Globulin 3.9 g/dL Albumin/Globulin Ratio 0.8 (1.0-2.7) Height (Feet): 5 Height (Inches): 2.00 Weight (Pounds): 255 Objective General Appearance: WD/WN, no apparent distress, alert Lines, tubes and drains: peripheral HEENT: normocephalic, atraumatic, anicteric, mucous membranes moist, PERRL, EOMI Neck: non-tender, supple Respiratory/Chest: chest wall non-tender, lungs clear, normal breath sounds Cardiovascular/Chest: normal rate, regular rhythm, no gallop/murmur, tachycardia Abdomen: normal bowel sounds, soft, no organomegaly, no mass, tender Extremities: normal range of motion, non-tender, no calf tenderness Skin Exam: normal pigmentation, warm/dry Neurologic: hard tile setter II-XII grossly normal, no motor/sensory deficits, alert, oriented x 3 Physical Exam Narrative obese female with no distress. abd pain generalized with no guarding or rigidity. no viramontes sign aH Avila MD Sep 18, 2018 08:59
[2018-09-18] MEDS: Indomethacin 25mg cap ORAL SCH ×3 (09:00→17:30)
[2018-09-18] MEDS: Enoxaparin 120 mg inj SUBQ SCH ×2 (09:00→20:22)
[2018-09-18] MEDS: Docusate 100mg cap ORAL SCH ×3 (09:01→17:30)
--- NOTE | 2018-09-18 12:16 | General Progress Note ---
Assessment/Plan Problem List: (1) Fatty liver ICD Codes: K76.0 - Fatty (change of) liver, not elsewhere classified SNOMED: 728532840 (2) eleavted AP (3) Abdominal pain ICD Codes: R10.9 - Unspecified abdominal pain SNOMED: 65486253 (4) Anemia ICD Codes: D64.9 - Anemia, unspecified SNOMED: 381358308 Status: stable Assessment/Plan: CT and us reviewed neg hepatitis panel normal LFTS now Subjective ROS Limited/Unobtainable: Yes Allergies: Coded Allergies: No Known Allergies (Unverified , 09/12/18) Objective Last 24 Hour Vital Signs Date Time Temp Pulse Resp B/P (MAP) Pulse Ox O2 Delivery O2 Flow Rate FiO2 09/18/18 08:00 97.8 72 17 105/63 (77) 99 09/18/18 04:00 97.8 73 16 112/60 (77) 99 09/18/18 00:00 97.6 70 17 110/67 (81) 100 09/17/18 21:00 Room Air 09/17/18 20:00 97.8 73 16 115/65 (82) 99 09/17/18 16:09 98.4 73 17 111/61 (78) 99 Intake and Output 09/17/18 09/18/18 19:00 07:00 Intake Total 1000 ml 600 ml Balance 1000 ml 600 ml Intake Oral 1000 ml 600 ml # Voids 1 2 # Bowel Movements 2 Laboratory Tests 09/18/18 05:30: White Blood Count 4.4L, Red Blood Count 3.59L, Hemoglobin 7.4L, Hematocrit 24.6L , Mean Corpuscular Volume 69L, Mean Corpuscular Hemoglobin 20.7L, Mean Corpuscular Hemoglobin Concent 30.2L, Red Cell Distribution Width 14.5, Platelet Count 161, Mean Platelet Volume 10.6H, Neutrophils (%) (Auto) , Lymphocytes (%) (Auto) , Monocytes (%) (Auto) , Eosinophils (%) (Auto) , Basophils (%) (Auto) , Prothrombin Time 16.0H, Prothromb Time International Ratio 1.5H, Sodium Level 139, Potassium Level 4.1, Chloride Level 106, Carbon Dioxide Level 26, Anion Gap 7, Blood Urea Nitrogen 17, Creatinine 0.8, Estimat Glomerular Filtration Rate > 60, Glucose Level 91, Calcium Level 9.2, Total Bilirubin 0.2, Aspartate Amino Transf (AST/SGOT) 17, Alanine Aminotransferase ( ALT/SGPT) 45, Alkaline Phosphatase 98, Total Protein 6.9, Albumin 3.0L, Globulin 3.9, Albumin/Globulin Ratio 0.8L, Anti-Nuclear Antibody Screen [Pending ] Height (Feet): 5 Height (Inches): 2.00 Weight (Pounds): 255 General Appearance: alert EENT: normal ENT inspection Neck: supple Cardiovascular: normal rate Respiratory/Chest: lungs clear Abdomen: normal bowel sounds, non tender, soft Extremities: non-tender Lorenzo Phillip MD Sep 18, 2018 12:16
--- NOTE | 2018-09-18 12:21 | NUR ---
NURSE NOTES: Blood transfusion started @ 75mL/hr. Pre-transfusion VS: T: 98, HR: 90, RR: 17, BP: 123/72, O2 saturation: 100%. Patient in stable condition, will remain at bedside to monitor for 15 minutes.
--- NOTE | 2018-09-18 12:28 | NUR ---
NURSE NOTES: 5 minutes after start of transfusion VS: T: 97.8, P: 85, BP: 112/64. No signs of transfusion reaction noted.
--- NOTE | 2018-09-18 12:38 | NUR ---
NURSE NOTES: 15 minutes after start of transfusion VS: T: 97.6, HR: 74, O2 Saturation: 99%, BP: 110/63. No signs of transfusion reaction noted, patient reporting no symptoms of transfusion reaction. Increased transfusion rate to 110mL/hr. Will continue to monitorl.
--- NOTE | 2018-09-18 12:51 | General Progress Note ---
Assessment/Plan Status: stable Assessment/Plan: #Abdominal pain, nausea with constipation. Resolved -continue symptomatic care -GI following #Sinus tachy with pleuritic chest pain. VQ scan negative #Presumptive acute paericarditis -continue colchicine + Indocin #Hyponatremia -continue to monitor -Nephrology eval appreciated #Bilateral upper extremity weakness, MRI brain negative -neurology following #Antiphospholipid antibody syndrome #Acute on Chronic anemia, no evidence of bleeding #Thrombocytopenia #Subtherapeutic INR -Hematology following -continue warfarin with Lovenox bridge -check CBC and INR in AM VTE PPx Lovenox Full Code Subjective Date patient seen: Sep 18, 2018 Time patient seen: 10:45 Constitutional: Denies: chills, fever Cardiovascular: Denies: chest pain Respiratory: Denies: cough Gastrointestinal/Abdominal: Denies: abdomen distended Hematologic/Lymphatic: Denies: easy bleeding, easy bruising Allergies: Coded Allergies: No Known Allergies (Unverified , 09/12/18) Subjective Medicine follow up for chest pain, presumptive acute pericarditis. Mild chest pain overnight. Hb down 1 gram Objective Last 24 Hour Vital Signs Date Time Temp Pulse Resp B/P (MAP) Pulse Ox O2 Delivery O2 Flow Rate FiO2 09/18/18 12:36 97.6 74 16 110/63 (79) 99 09/18/18 12:26 97.8 85 16 112/64 (80) 09/18/18 12:00 98.0 90 17 123/72 (89) 100 09/18/18 08:00 97.8 72 17 105/63 (77) 99 09/18/18 04:00 97.8 73 16 112/60 (77) 99 09/18/18 00:00 97.6 70 17 110/67 (81) 100 09/17/18 21:00 Room Air 09/17/18 20:00 97.8 73 16 115/65 (82) 99 09/17/18 16:09 98.4 73 17 111/61 (78) 99 Intake and Output 09/17/18 09/18/18 19:00 07:00 Intake Total 1000 ml 600 ml Balance 1000 ml 600 ml Intake Oral 1000 ml 600 ml # Voids 1 2 # Bowel Movements 2 Laboratory Tests 09/18/18 05:30: White Blood Count 4.4L, Red Blood Count 3.59L, Hemoglobin 7.4L, Hematocrit 24.6L , Mean Corpuscular Volume 69L, Mean Corpuscular Hemoglobin 20.7L, Mean Corpuscular Hemoglobin Concent 30.2L, Red Cell Distribution Width 14.5, Platelet Count 161, Mean Platelet Volume 10.6H, Neutrophils (%) (Auto) , Lymphocytes (%) (Auto) , Monocytes (%) (Auto) , Eosinophils (%) (Auto) , Basophils (%) (Auto) , Prothrombin Time 16.0H, Prothromb Time International Ratio 1.5H, Sodium Level 139, Potassium Level 4.1, Chloride Level 106, Carbon Dioxide Level 26, Anion Gap 7, Blood Urea Nitrogen 17, Creatinine 0.8, Estimat Glomerular Filtration Rate > 60, Glucose Level 91, Calcium Level 9.2, Total Bilirubin 0.2, Aspartate Amino Transf (AST/SGOT) 17, Alanine Aminotransferase ( ALT/SGPT) 45, Alkaline Phosphatase 98, Total Protein 6.9, Albumin 3.0L, Globulin 3.9, Albumin/Globulin Ratio 0.8L, Anti-Nuclear Antibody Screen [Pending ] Height (Feet): 5 Height (Inches): 2.00 Weight (Pounds): 255 General Appearance: no apparent distress, alert Neck: normal alignment, supple Cardiovascular: normal rate, regular rhythm Respiratory/Chest: lungs clear, normal breath sounds Abdomen: non tender, soft Matthew Govea MD Sep 18, 2018 12:51
--- NOTE | 2018-09-18 14:40 | Nephrology Progress Note ---
Assessment/Plan Problem List: (1) Hyponatremia (2) eleavted AP (3) Anemia (4) Abdominal pain (5) Fatty liver Assessment HypoNatremia , likely SIADH further comments after lab results HTN , today BP low #Abdominal pain, nausea with constipation. Negative CT C/A/P. Sinus tachy with pleuritic chest pain. VQ scan negative Elevated CRP, ? pericarditis Bilateral upper extremity weakness, MRI brain negative Chronic anemia Thrombocytopenia Subtherapeutic INR Plan stable electrolytes- due transfusion previously: 3% saline and Lasix given K supplements as needed previously: U Os, S Os, Uric Acid, Lipid panel Keep I&O negative per consultants BP parameters- adjust BP meds Objective Objective Last 24 Hour Vital Signs Date Time Temp Pulse Resp B/P (MAP) Pulse Ox O2 Delivery O2 Flow Rate FiO2 09/18/18 12:36 97.6 74 16 110/63 (79) 99 09/18/18 12:26 97.8 85 16 112/64 (80) 09/18/18 12:00 98.0 90 17 123/72 (89) 100 09/18/18 09:00 Room Air 09/18/18 08:00 97.8 72 17 105/63 (77) 99 09/18/18 04:00 97.8 73 16 112/60 (77) 99 09/18/18 00:00 97.6 70 17 110/67 (81) 100 09/17/18 21:00 Room Air 09/17/18 20:00 97.8 73 16 115/65 (82) 99 09/17/18 16:09 98.4 73 17 111/61 (78) 99 Intake and Output 09/17/18 09/18/18 19:00 07:00 Intake Total 1000 ml 600 ml Balance 1000 ml 600 ml Intake Oral 1000 ml 600 ml # Voids 1 2 # Bowel Movements 2 Laboratory Tests 09/18/18 05:30: White Blood Count 4.4L, Red Blood Count 3.59L, Hemoglobin 7.4L, Hematocrit 24.6L , Mean Corpuscular Volume 69L, Mean Corpuscular Hemoglobin 20.7L, Mean Corpuscular Hemoglobin Concent 30.2L, Red Cell Distribution Width 14.5, Platelet Count 161, Mean Platelet Volume 10.6H, Neutrophils (%) (Auto) , Lymphocytes (%) (Auto) , Monocytes (%) (Auto) , Eosinophils (%) (Auto) , Basophils (%) (Auto) , Prothrombin Time 16.0H, Prothromb Time International Ratio 1.5H, Sodium Level 139, Potassium Level 4.1, Chloride Level 106, Carbon Dioxide Level 26, Anion Gap 7, Blood Urea Nitrogen 17, Creatinine 0.8, Estimat Glomerular Filtration Rate > 60, Glucose Level 91, Calcium Level 9.2, Total Bilirubin 0.2, Aspartate Amino Transf (AST/SGOT) 17, Alanine Aminotransferase ( ALT/SGPT) 45, Alkaline Phosphatase 98, Total Protein 6.9, Albumin 3.0L, Globulin 3.9, Albumin/Globulin Ratio 0.8L, Anti-Nuclear Antibody Screen [Pending ] Height (Feet): 5 Height (Inches): 2.00 Weight (Pounds): 255 General Appearance: no apparent distress Objective no change Francisco Javier Cervantes MD Sep 18, 2018 14:40
--- NOTE | 2018-09-18 14:57 | NUR ---
CASE MANAGEMENT:REVIEW 09/18/18 SI: HYPONATREMIA. ABDOMINAL PAIN ANTIPHOSPHOLIPID ANTIBODY SYNDROME 97.6 74 16 110/63 99% ON RA H/H-7.4/24.6 IS: TRANSFUSE 1 UNIT PRBC'S COUMADIN 3MG PO X1 INDOMETHACIN PO TID IVF@30/HR PROTONIX PO QD LOVENOX SQ Q12 LOPRESSOR PO Q12 IV PEPCID Q12 K-DUR PO BID : MED/SURG STATUS 3 EAST DCP: FROM HOME
--- NOTE | 2018-09-18 15:20 | NUR ---
NURSE NOTES: Blood transfusion complete. Patient did not have transfusion reaction. Post transfusion VS documented in VS intervention. No signs of acute bleeding, patient reports she had menstrual bleeding yesterday, but is no longer bleeding. Dr. Bangura is aware.
[2018-09-18] MEDS ORDERED: Warfarin Sodium 3mg ORAL SCH (17:00)
--- NOTE | 2018-09-18 19:28 | NUR ---
HAND-OFF: Report given to Idris ALVAREZ. Patient is in stable condition.
--- NOTE | 2018-09-18 20:00 | NUR ---
NURSE NOTES: Patient received in bed, awake alert. No acute distress at this time. IV intact and patent. Call light in reach. Will monitor.
[2018-09-18] MEDS ORDERED: Tubing IV Secondary IV ONE (20:51)
--- NOTE | 2018-09-18 23:50 | Neurology Progress Note ---
Interim History Interim History ROS Limited/Unobtainable: Yes Complaints: Weakness/ Pain Events: Still very HTN with Tachycardia and arm weakness / pain Objective Physical Exam Last Vital Signs Date Time Temp Pulse Resp B/P (MAP) Pulse Ox O2 Delivery O2 Flow Rate FiO2 09/18/18 21:00 Room Air 09/18/18 20:53 97.1 09/18/18 20:00 74 18 112/76 (88) 100 Laboratory Tests Test 09/18/18 05:30 White Blood Count 4.4 K/UL (4.8-10.8) L Red Blood Count 3.59 M/UL (4.20-5.40) L Hemoglobin 7.4 G/DL (12.0-16.0) L Hematocrit 24.6 % (37.0-47.0) L Mean Corpuscular Volume 69 FL (80-99) L Mean Corpuscular Hemoglobin 20.7 PG (27.0-31.0) L Mean Corpuscular Hemoglobin Concent 30.2 G/DL (32.0-36.0) L Red Cell Distribution Width 14.5 % (11.6-14.8) Platelet Count 161 K/UL (150-450) Mean Platelet Volume 10.6 FL (6.5-10.1) H Neutrophils (%) (Auto) % (45.0-75.0) Lymphocytes (%) (Auto) % (20.0-45.0) Monocytes (%) (Auto) % (1.0-10.0) Eosinophils (%) (Auto) % (0.0-3.0) Basophils (%) (Auto) % (0.0-2.0) Prothrombin Time 16.0 SEC (9.30-11.50) H Prothromb Time International Ratio 1.5 (0.9-1.1) H Sodium Level 139 MMOL/L (136-145) Potassium Level 4.1 MMOL/L (3.5-5.1) Chloride Level 106 MMOL/L (98-107) Carbon Dioxide Level 26 MMOL/L (21-32) Anion Gap 7 mmol/L (5-15) Blood Urea Nitrogen 17 mg/dL (7-18) Creatinine 0.8 MG/DL (0.55-1.30) Estimat Glomerular Filtration Rate > 60 mL/min (>60) Glucose Level 91 MG/DL (74-106) Calcium Level 9.2 MG/DL (8.5-10.1) Total Bilirubin 0.2 MG/DL (0.2-1.0) Aspartate Amino Transf (AST/SGOT) 17 U/L (15-37) Alanine Aminotransferase (ALT/SGPT) 45 U/L (12-78) Alkaline Phosphatase 98 U/L (46-116) Total Protein 6.9 G/DL (6.4-8.2) Albumin 3.0 G/DL (3.4-5.0) L Globulin 3.9 g/dL Albumin/Globulin Ratio 0.8 (1.0-2.7) L Anti-Nuclear Antibody Screen Pending General: well developed, well nourished Head: normocophalic Neck: no rigidity EENT: benign Neurologic Exam Mental Status: awake, alert, oriented x4 Speech: normal speech, no dysarthia Language: normal language, no aphasia Cranial Nerve II: fundus normal, visual izaguirre, no papilledema Cranial Nerves III, IV, : PERRLA, EOMI, pupils Cranial Nerve V: normal facial sensations, temporales function normal, masseters function normal, pterygoids function normal Cranial Nerve VII: no facial asymmetry, normal facial expressions Cranial Nerve VIII: normal hearing, no nystagmus Cranial Nerve IX: normal palate elevation, gag response Cranial Nerve X: no voice hoarseness Cranial Nerve XI: SCM symmetric, trapezii function normal Cranial Nerve XII: tongue midline, no tongue atrophy/fasciculations Motor System: normal muscle tone, no involuntary movement, no muscle wasting Sensory: normal pinprick, normal light touch, normal position sense, normal graphesthesia Coordination: other Deep Tendon Reflexes: 1+ bicep (L), 1+ bicep (R), 1+ tricep (L), 1+ tricep (R) , 1+ brachioradialis (L), 1+ brachioradialis (R); 2+ knee (L), 2+ knee (R), 2+ ankle (L), 2+ ankle (R) Reflexes: flexor plantar (L), flexor plantar (R); extensor plantar (L), extensor plantar (R) Gait: other Objective Not yet ambulated Impression/Recommendations Problems: (1) Anemia (2) Abdominal pain (3) Fatty liver (4) eleavted AP (5) Hyponatremia (6) Antiphospholipid antibody positive (7) Weakness of both arms Status: Haley Faye N.P. Sep 18, 2018 23:49
[2018-09-19] MEDS: Morphine Sulfate 4mg/ml Inj (IV USE ONLY) IVP PRN ×2 (03:39→10:03)
[2018-09-19 04:00] VITALS: BP 101/58
[2018-09-19 06:54] LABS: BASOPHILS % (AUTO) 1.8 % (0.0-2.0); EOSINOPHILS % (AUTO) 4.6 % (0.0-3.0); HEMATOCRIT 29.3 % (37.0-47.0); LYMPHOCYTES % (AUTO) 44.2 % (20.0-45.0); MEAN CORPUSCULAR VOLUME 71 FL (80-99); MONOCYTES % (AUTO) 7.8 % (1.0-10.0); NEUTROPHILS % (AUTO) 41.7 % (45.0-75.0); PLATELET COUNT 205 K/UL (150-450); RED BLOOD COUNT 4.14 M/UL (4.20-5.40); RED CELL DISTRIBUTION WIDTH 15.7 % (11.6-14.8)
--- NOTE | 2018-09-19 07:25 | NUR ---
NURSE NOTES: Report received from Idris RN rounds made. Patient up in bathroom, will return to assess patient.
--- NOTE | 2018-09-19 07:34 | NUR ---
HAND-OFF: Report given to Petra ALVAREZ.
--- NOTE | 2018-09-19 07:39 | Cardiology Progress Note ---
Assessment/Plan Status: stable Assessment/Plan Assessment/Plan Abdominal pain, nausea with constipation. Negative CT C/A/P Chronic anemia Thrombocytopenia History of anti-phospholipid antibody with 3 prior DVTs Subtherapeutic INR Tachycardia Hypertension Pericarditis Pleurisy RECOMMENDATINOS: MyoPericarditis:ESR elevated - etiology likely viral Continue colchicine/indomethacin for 4 weeks total d/c morphine -> transition to PO medications Outpatient cardiac MRI - will arrange in clinic Repeat CRP/ESR levels in 1-2 weeks outpatient Hypertension TTE reviewed, normal LV function and mild PA Controlled off medications now Tachycardia - resolved V/Q negative for PE d/c metoprolol DVT Hematology work up Lovenox -> Coumadin - now therapeutic Hyponatremia - resolved Appreciate nephrology Elevated troponin -From myopericarditis -Outpatient stress test Subjective Cardiovascular: Reports: no symptoms Respiratory: Reports: no symptoms Gastrointestinal/Abdominal: Reports: no symptoms Genitourinary: Reports: no symptoms Subjective No acute events, repeat ESR elevated, CP better controlled, tolerating PO Coumadin therapeutic now. Objective Last 24 Hour Vital Signs Date Time Temp Pulse Resp B/P (MAP) Pulse Ox O2 Delivery O2 Flow Rate FiO2 09/19/18 04:00 97.5 66 18 101/58 (72) 98 09/19/18 00:09 98.4 09/18/18 23:58 98.4 75 18 121/71 (88) 98 09/18/18 21:00 Room Air 09/18/18 20:53 97.1 09/18/18 20:00 97.1 74 18 112/76 (88) 100 09/18/18 15:20 98.0 65 16 102/57 (72) 100 09/18/18 12:36 97.6 74 16 110/63 (79) 99 09/18/18 12:26 97.8 85 16 112/64 (80) 09/18/18 12:00 98.0 90 17 123/72 (89) 100 09/18/18 09:00 Room Air 09/18/18 08:00 97.8 72 17 105/63 (77) 99 General Appearance: no apparent distress, alert EENT: PERRL/EOMI, normal ENT inspection, TMs normal, pharynx normal Neck: non-tender, normal alignment, supple, normal inspection, no JVD Rhythm: NSR Cardiovascular: normal peripheral pulses, normal rate, regular rhythm, friction rub Respiratory/Chest: chest wall non-tender, lungs clear, normal breath sounds, no respiratory distress, no accessory muscle use Abdomen: normal bowel sounds, non tender, soft, no organomegaly, no mass Extremities: normal range of motion, non-tender, normal inspection, no calf tenderness, no swelling 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, no motor/sensory deficits Intake and Output 09/18/18 09/19/18 19:00 07:00 Intake Total 908 ml Balance 908 ml Intake Oral 658 ml Blood Product 250 ml # Voids 2 2 # Bowel Movements 1 Laboratory Tests Test 09/19/18 05:55 White Blood Count 5.0 K/UL (4.8-10.8) Red Blood Count 4.14 M/UL (4.20-5.40) L Hemoglobin 9.0 G/DL (12.0-16.0) L Hematocrit 29.3 % (37.0-47.0) L Mean Corpuscular Volume 71 FL (80-99) L Mean Corpuscular Hemoglobin 21.7 PG (27.0-31.0) L Mean Corpuscular Hemoglobin Concent 30.7 G/DL (32.0-36.0) L Red Cell Distribution Width 15.7 % (11.6-14.8) H Platelet Count 205 K/UL (150-450) Mean Platelet Volume 11.1 FL (6.5-10.1) H Neutrophils (%) (Auto) 41.7 % (45.0-75.0) L Lymphocytes (%) (Auto) 44.2 % (20.0-45.0) Monocytes (%) (Auto) 7.8 % (1.0-10.0) Eosinophils (%) (Auto) 4.6 % (0.0-3.0) H Basophils (%) (Auto) 1.8 % (0.0-2.0) Prothrombin Time 21.0 SEC (9.30-11.50) H Prothromb Time International Ratio 2.0 (0.9-1.1) H Anthony Smith MD Sep 19, 2018 07:39
[2018-09-19 08:00] VITALS: BP 109/53
--- NOTE | 2018-09-19 09:24 | Hematology/Onc Progress Note ---
Assessment/Plan Assessment/Plan Assessment/Plan: # Anemia of iron deficiency due to underlying chronic medical issues, multifactorial --> Anemia workup has been reviewed, rule out gi bleed. Ferritin 24 --> No evidence of hemolysis is noted, peripheral smear has been reviewed. --> Hgb goal >7. Transfuse prn. --> IV iron has been started, 5 days a week --> Medications have been reviewed --> low threshold for gi evaluation in case has occult + --> bone marrow biopsy is not indicated given the other more likely causes --> Hgb trend: 9.9-->8.6-->8.5-->7.4-->9 --> Blood tx hx: 1 unit on 09/18/2018 # Antiphospholipid antibody apparently she has had over 3 dvts in her leg before as well as PULMONARY EMBOLI --> agree to obtain antiphospholipid ab, cardiolipin ab to confirm disease --> Anticardiolipin IgM Ab at 14 --> continue on lovenox 1mg/kg sq bid --> coumadin to begin with inr goal 2-3 --> Current INR 1.5 # Leukopenia -- multiple etiologies could be related to underlying liver disease , medication-induced, infection versus viral syndrome --> Currently resolved --> peripheral smear has been ordered and does not show significant abnormalities --> Medications have been reviewed --> Continue to monitor for improvement, trend cbc --> Hep panel negative and HIV pending --> US abd: Fatty liver. Mild spinal ligaments. Hemangioma in the liver. Gallbladder polyp versus wall adherent stone --> reverse isolation if ANC is <2000 --> Give neupogen if ANC <1000 --> WBC trend: 4.4-->5 # Thrombocytopenia - potential causes multifactorial, evaluate liver and viral etiologies to begin, also could be related to underlying medications patient has received. --> Hep panel negative and HIV pending --> US abd --> Fatty liver. Mild spinal ligaments. Hemangioma in the liver. Gallbladder polyp versus wall adherent stone. --> CT abd --> No acute findings within the chest, abdomen or pelvis. Borderline splenomegaly. Liver hemangioma. --> Peripheral smear ordered to evaluate for blasts /schistocytes --> abx and other meds have been reviewed --> ok for ppx if plt >50k w/ either heparin or lovenox --> Plt trend: 109k -->116k-->127k-->161 # Abd pain. GI is following, appreciate recs. --> Abdominal ultrasound reviewed, fatty liver. --> Abdominal pelvis CT reviewed, negative findings. --> No plans for GI procedures at this time --> Clear liquid diet, advance as tolerated --> OB stool r/o GI bleed # Elevated alk phosphatase # Hypokalemia --> replete with K po as needed Time note entered does not reflect time of patient examination. GREATLY APPRECIATE CONSULTATION. Subjective Hematologic/Lymphatic: Reports: anemia Allergies: Coded Allergies: No Known Allergies (Unverified , 09/12/18) All Systems: reviewed and negative except above Subjective 09/15: Pt awake and alert. T: 99.6F and no order for ABX for the patient regarding leukocytosis and elevated ESR/CRP. 09/16: no events noted, on coumadin 09/17: feeling better, on coumadin and lovenox sq 09/18: wbc 4.4 and hgb 7.4 trended down over night. Current INR at 1.5. 09/19: S/P 1 unit PRBC, Hgb improved to 9. Repeat ESR negative. Objective Objective Current Medications Medications (Trade) Dose Ordered Sig/Makayla Route PRN Reason Start Time Stop Time Status Last Admin Dose Admin Bisacodyl (Dulcolax) 10 mg DAILYPRN PRN RECTAL Constipation 09/17/18 15:30 10/17/18 15:29 Clonidine HCl (Catapres Tab) 0.1 mg Q4H PRN ORAL bp over 160 syst 09/17/18 16:00 10/15/18 15:59 Docusate Sodium (Colace) 200 mg THREE TIMES A DAY ORAL 09/17/18 18:00 10/14/18 08:59 09/18/18 17:30 Enoxaparin Sodium (Lovenox) 120 mg EVERY 12 HOURS SUBQ 09/17/18 21:00 10/14/18 10:44 09/18/18 20:22 Hydromorphone HCl (Dilaudid) 0.5 mg Q4H PRN IVP For Breakthrough Pain 4-10 09/17/18 17:00 09/21/18 00:59 09/18/18 20:23 Indomethacin (Indocin) 25 mg THREE TIMES A DAY ORAL 09/17/18 18:00 10/16/18 12:59 09/18/18 17:30 Lactulose (Cephulac) 30 gm TIDPRN PRN ORAL Constipation 09/17/18 15:30 10/17/18 15:29 Morphine Sulfate (Morphine Sulfate) 4 mg Q4H PRN IVP PAIN 4-10 09/17/18 18:15 09/19/18 22:14 09/19/18 03:39 Ondansetron HCl (Zofran) 4 mg Q6H PRN IVP Nausea & Vomiting 09/17/18 15:15 10/12/18 15:14 Pantoprazole (Protonix) 40 mg Q12HR ORAL 09/17/18 21:00 10/17/18 08:59 09/18/18 20:21 Potassium Chloride (K-Dur) 40 meq TWICE A DAY ORAL 09/17/18 18:00 10/17/18 08:59 09/18/18 17:30 Warfarin Sodium (Coumadin per pharmacy) 1 ea DAILY PRN MISC Per rx protocol 09/17/18 15:30 10/17/18 15:29 Warfarin Sodium (Coumadin) 2 mg COUMADIN ORAL 09/19/18 17:00 09/19/18 18:00 Last 24 Hour Vital Signs Date Time Temp Pulse Resp B/P (MAP) Pulse Ox O2 Delivery O2 Flow Rate FiO2 09/19/18 04:00 97.5 66 18 101/58 (72) 98 09/19/18 00:09 98.4 09/18/18 23:58 98.4 75 18 121/71 (88) 98 09/18/18 21:00 Room Air 09/18/18 20:53 97.1 09/18/18 20:00 97.1 74 18 112/76 (88) 100 09/18/18 15:20 98.0 65 16 102/57 (72) 100 09/18/18 12:36 97.6 74 16 110/63 (79) 99 09/18/18 12:26 97.8 85 16 112/64 (80) 09/18/18 12:00 98.0 90 17 123/72 (89) 100 09/18/18 09:00 Room Air 09/18/18 08:00 97.8 72 17 105/63 (77) 99 09/18/18 04:00 97.8 73 16 112/60 (77) 99 09/18/18 00:00 97.6 70 17 110/67 (81) 100 09/17/18 21:00 Room Air 09/17/18 20:00 97.8 73 16 115/65 (82) 99 09/17/18 16:09 98.4 73 17 111/61 (78) 99 09/17/18 12:00 Room Air 09/17/18 12:00 66 09/17/18 12:00 98.1 76 23 115/69 (84) 100 76 Intake and Output 09/18/18 09/19/18 19:00 07:00 Intake Total 908 ml Balance 908 ml Intake Oral 658 ml Blood Product 250 ml # Voids 2 2 # Bowel Movements 1 Labs Test 09/16/18 13:35 09/17/18 05:30 09/17/18 07:28 09/18/18 05:30 Prothrombin Time 10.7 SEC (9.30-11.50) 10.8 SEC (9.30-11.50) 16.0 SEC (9.30-11.50) Prothromb Time International Ratio 1.0 (0.9-1.1) 1.0 (0.9-1.1) 1.5 (0.9-1.1) White Blood Count 8.3 K/UL (4.8-10.8) 4.4 K/UL (4.8-10.8) Red Blood Count 4.10 M/UL (4.20-5.40) 3.59 M/UL (4.20-5.40) Hemoglobin 8.5 G/DL (12.0-16.0) 7.4 G/DL (12.0-16.0) Hematocrit 28.4 % (37.0-47.0) 24.6 % (37.0-47.0) Mean Corpuscular Volume 69 FL (80-99) 69 FL (80-99) Mean Corpuscular Hemoglobin 20.8 PG (27.0-31.0) 20.7 PG (27.0-31.0) Mean Corpuscular Hemoglobin Concent 30.1 G/DL (32.0-36.0) 30.2 G/DL (32.0-36.0) Red Cell Distribution Width 14.5 % (11.6-14.8) 14.5 % (11.6-14.8) Platelet Count 127 K/UL (150-450) 161 K/UL (150-450) Mean Platelet Volume 12.6 FL (6.5-10.1) 10.6 FL (6.5-10.1) Neutrophils (%) (Auto) 57.0 % (45.0-75.0) % (45.0-75.0) Lymphocytes (%) (Auto) 32.7 % (20.0-45.0) % (20.0-45.0) Monocytes (%) (Auto) 6.8 % (1.0-10.0) % (1.0-10.0) Eosinophils (%) (Auto) 1.8 % (0.0-3.0) % (0.0-3.0) Basophils (%) (Auto) 1.7 % (0.0-2.0) % (0.0-2.0) Sodium Level 139 MMOL/L (136-145) 139 MMOL/L (136-145) Potassium Level 3.4 MMOL/L (3.5-5.1) 4.1 MMOL/L (3.5-5.1) Chloride Level 105 MMOL/L (98-107) 106 MMOL/L (98-107) Carbon Dioxide Level 26 MMOL/L (21-32) 26 MMOL/L (21-32) Anion Gap 8 mmol/L (5-15) 7 mmol/L (5-15) Blood Urea Nitrogen 19 mg/dL (7-18) 17 mg/dL (7-18) Creatinine 0.7 MG/DL (0.55-1.30) 0.8 MG/DL (0.55-1.30) Estimat Glomerular Filtration Rate > 60 mL/min (>60) > 60 mL/min (>60) Glucose Level 93 MG/DL (74-106) 91 MG/DL (74-106) Calcium Level 9.0 MG/DL (8.5-10.1) 9.2 MG/DL (8.5-10.1) Troponin I 0.795 ng/mL (0.000-0.056) C-Reactive Protein, Quantitative 6.9 mg/dL (0.00-0.90) Erythrocyte Sedimentation Rate 112 MM/HR (0-20) Total Bilirubin 0.2 MG/DL (0.2-1.0) Aspartate Amino Transf (AST/SGOT) 17 U/L (15-37) Alanine Aminotransferase (ALT/SGPT) 45 U/L (12-78) Alkaline Phosphatase 98 U/L (46-116) Total Protein 6.9 G/DL (6.4-8.2) Albumin 3.0 G/DL (3.4-5.0) Globulin 3.9 g/dL Albumin/Globulin Ratio 0.8 (1.0-2.7) Test 09/19/18 05:55 White Blood Count 5.0 K/UL (4.8-10.8) Red Blood Count 4.14 M/UL (4.20-5.40) Hemoglobin 9.0 G/DL (12.0-16.0) Hematocrit 29.3 % (37.0-47.0) Mean Corpuscular Volume 71 FL (80-99) Mean Corpuscular Hemoglobin 21.7 PG (27.0-31.0) Mean Corpuscular Hemoglobin Concent 30.7 G/DL (32.0-36.0) Red Cell Distribution Width 15.7 % (11.6-14.8) Platelet Count 205 K/UL (150-450) Mean Platelet Volume 11.1 FL (6.5-10.1) Neutrophils (%) (Auto) 41.7 % (45.0-75.0) Lymphocytes (%) (Auto) 44.2 % (20.0-45.0) Monocytes (%) (Auto) 7.8 % (1.0-10.0) Eosinophils (%) (Auto) 4.6 % (0.0-3.0) Basophils (%) (Auto) 1.8 % (0.0-2.0) Prothrombin Time 21.0 SEC (9.30-11.50) Prothromb Time International Ratio 2.0 (0.9-1.1) Height (Feet): 5 Height (Inches): 2.00 Weight (Pounds): 255 Objective General Appearance: WD/WN, no apparent distress, alert Lines, tubes and drains: peripheral HEENT: normocephalic, atraumatic, anicteric, mucous membranes moist, PERRL, EOMI Neck: non-tender, supple Respiratory/Chest: chest wall non-tender, lungs clear, normal breath sounds Cardiovascular/Chest: normal rate, regular rhythm, no gallop/murmur, tachycardia Abdomen: normal bowel sounds, soft, no organomegaly, no mass, tender Extremities: normal range of motion, non-tender, no calf tenderness Skin Exam: normal pigmentation, warm/dry 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 abd pain generalized with no guarding or rigidity. no viramontes sign Ha Avila MD Sep 19, 2018 09:24
[2018-09-19] MEDS: Docusate 100mg cap ORAL SCH ×3 (09:38→17:35)
[2018-09-19] MEDS: Indomethacin 25mg cap ORAL SCH ×3 (09:39→17:34)
[2018-09-19] MEDS: Enoxaparin 120 mg inj SUBQ SCH (09:40)
--- NOTE | 2018-09-19 10:06 | GI Progress Note ---
Assessment/Plan Problems: (1) Fatty liver ICD Codes: K76.0 - Fatty (change of) liver, not elsewhere classified SNOMED: 019926530 (2) eleavted AP (3) Abdominal pain ICD Codes: R10.9 - Unspecified abdominal pain SNOMED: 75054853 (4) Anemia ICD Codes: D64.9 - Anemia, unspecified SNOMED: 426379421 (5) Cholelithiasis ICD Codes: K80.20 - Calculus of gallbladder without cholecystitis without obstruction SNOMED: 426297468 Status: stable Status Narrative Discussed with Dr. Phillip Assessment/Plan CT and us reviewed neg hepatitis panel iron deficient elevated LFTs, no within normal limits symptomatic treatment venofer fu hem ppi Zofran as needed defer EGD at this time The patient was seen and examined at bedside and all new and available data was reviewed in the patients chart. I agree with the above findings, impression and plan. (Patient seen earlier today. Signature stamp does not reflect patient encounter time.). - Lorenzo Phillip MD Subjective Subjective Has complaint of right neck pain Denies any abdominal pain Is on her menstrual cycle Denies any nausea vomiting Denies diarrhea Objective Last 24 Hour Vital Signs Date Time Temp Pulse Resp B/P (MAP) Pulse Ox O2 Delivery O2 Flow Rate FiO2 09/19/18 04:00 97.5 66 18 101/58 (72) 98 09/19/18 00:09 98.4 09/18/18 23:58 98.4 75 18 121/71 (88) 98 09/18/18 21:00 Room Air 09/18/18 20:53 97.1 09/18/18 20:00 97.1 74 18 112/76 (88) 100 09/18/18 15:20 98.0 65 16 102/57 (72) 100 09/18/18 12:36 97.6 74 16 110/63 (79) 99 09/18/18 12:26 97.8 85 16 112/64 (80) 09/18/18 12:00 98.0 90 17 123/72 (89) 100 Intake and Output 09/18/18 09/19/18 19:00 07:00 Intake Total 908 ml Balance 908 ml Intake Oral 658 ml Blood Product 250 ml # Voids 2 2 # Bowel Movements 1 Laboratory Tests Test 09/19/18 05:55 White Blood Count 5.0 K/UL (4.8-10.8) Red Blood Count 4.14 M/UL (4.20-5.40) L Hemoglobin 9.0 G/DL (12.0-16.0) L Hematocrit 29.3 % (37.0-47.0) L Mean Corpuscular Volume 71 FL (80-99) L Mean Corpuscular Hemoglobin 21.7 PG (27.0-31.0) L Mean Corpuscular Hemoglobin Concent 30.7 G/DL (32.0-36.0) L Red Cell Distribution Width 15.7 % (11.6-14.8) H Platelet Count 205 K/UL (150-450) Mean Platelet Volume 11.1 FL (6.5-10.1) H Neutrophils (%) (Auto) 41.7 % (45.0-75.0) L Lymphocytes (%) (Auto) 44.2 % (20.0-45.0) Monocytes (%) (Auto) 7.8 % (1.0-10.0) Eosinophils (%) (Auto) 4.6 % (0.0-3.0) H Basophils (%) (Auto) 1.8 % (0.0-2.0) Prothrombin Time 21.0 SEC (9.30-11.50) H Prothromb Time International Ratio 2.0 (0.9-1.1) H Height (Feet): 5 Height (Inches): 2.00 Weight (Pounds): 255 General Appearance: WD/WN, no apparent distress, alert, obese Cardiovascular: normal rate Respiratory/Chest: normal breath sounds, no respiratory distress Abdominal Exam: normal bowel sounds, non tender, soft Extremities: normal range of motion, non-tender Ashley Mitchell NP Sep 19, 2018 10:06
--- NOTE | 2018-09-19 10:45 | NUR ---
NURSE NOTES: Patient sitting in semi-fowlers position in bed. C/o feeling cold, temperature reassessed 97.4, provided additional blanket. Denies SOB on RA, no NV. Neuro checks done, intact, no NT, skin warm, wiggles, bilateral hand grasps/pedal pushes equal strong. Right posterior neck pain 9/10, medicated with Morphine 4 mg IV, applied ice pack to neck, reassessed 10. No signs of active bleeding or bruising noted. Call light in reach, bed in lowest position, will continue to monitor.
--- NOTE | 2018-09-19 10:52 | Nephrology Progress Note ---
Assessment/Plan Problem List: (1) Hyponatremia (2) eleavted AP (3) Anemia (4) Abdominal pain (5) Fatty liver Assessment HypoNatremia , likely SIADH further comments after lab results HTN , today BP low #Abdominal pain, nausea with constipation. Negative CT C/A/P. Sinus tachy with pleuritic chest pain. VQ scan negative Elevated CRP, ? pericarditis Bilateral upper extremity weakness, MRI brain negative Chronic anemia Thrombocytopenia Subtherapeutic INR Plan transfused- stable electrolytes- no labs today previously: 3% saline and Lasix given K supplements as needed previously: U Os, S Os, Uric Acid, Lipid panel Keep I&O negative per consultants BP parameters- adjust BP meds Subjective ROS Limited/Unobtainable: No Constitutional: Reports: malaise Objective Objective Last 24 Hour Vital Signs Date Time Temp Pulse Resp B/P (MAP) Pulse Ox O2 Delivery O2 Flow Rate FiO2 09/19/18 08:00 97.5 69 17 109/53 (71) 100 09/19/18 04:00 97.5 66 18 101/58 (72) 98 09/19/18 00:09 98.4 09/18/18 23:58 98.4 75 18 121/71 (88) 98 09/18/18 21:00 Room Air 09/18/18 20:53 97.1 09/18/18 20:00 97.1 74 18 112/76 (88) 100 09/18/18 15:20 98.0 65 16 102/57 (72) 100 09/18/18 12:36 97.6 74 16 110/63 (79) 99 09/18/18 12:26 97.8 85 16 112/64 (80) 09/18/18 12:00 98.0 90 17 123/72 (89) 100 Intake and Output 09/18/18 09/19/18 19:00 07:00 Intake Total 908 ml Balance 908 ml Intake Oral 658 ml Blood Product 250 ml # Voids 2 2 # Bowel Movements 1 Laboratory Tests 09/19/18 05:55: White Blood Count 5.0, Red Blood Count 4.14L, Hemoglobin 9.0L, Hematocrit 29.3L , Mean Corpuscular Volume 71L, Mean Corpuscular Hemoglobin 21.7L, Mean Corpuscular Hemoglobin Concent 30.7L, Red Cell Distribution Width 15.7H, Platelet Count 205, Mean Platelet Volume 11.1H, Neutrophils (%) (Auto) 41.7L, Lymphocytes (%) (Auto) 44.2, Monocytes (%) (Auto) 7.8, Eosinophils (%) (Auto) 4.6H, Basophils (%) (Auto) 1.8, Prothrombin Time 21.0H, Prothromb Time International Ratio 2.0H Height (Feet): 5 Height (Inches): 2.00 Weight (Pounds): 255 General Appearance: no apparent distress Objective no change Francisco Javier Cervantes MD Sep 19, 2018 10:52
[2018-09-19] MEDS ORDERED: INDOMETHACIN25 MG ORAL (11:03)
[2018-09-19] MEDS ORDERED: COLCHICINE0.6 M1 PO (11:03)
--- NOTE | 2018-09-19 11:10 | Discharge Summary ---
Discharge Summary Hospital Course Date of Admission September 12, 2018 at 20:50 Date of Discharge 09/19/18 Admitting Diagnosis abdominal pain, anemia Reason for Hospitalization: Acute pericarditis HPI Isamar Holt is a 28 year old female who was admitted on September 12, 2018 at 20: 50 for Abdominal Pain, Anemia Consultations Cardiology,GI,Hematology Hospital Course Patient presented with abdominal pain and chest pain, subtherapeutic INR. Admitted to telemetry due to uncontrolled HTN due to pain. Seen by GI and Cardiology, CRP markedly elevated. She was treated with colchicine and Indocin with resolution in symptoms. S/p 1 unit PRBC for acute on chronic anemia. She was restarted on warfarin, bridged with therapeutic Lovenox with INR 2.0 today. D/c home colchicine and Indocin. Follow up with Dr Smith as outpatient #Abdominal pain, nausea with constipation. Resolved #Sinus tachy with pleuritic chest pain. VQ scan negative #Acute pericarditis -continue colchicine + Indocin as outpatient -Follow up with Cardiology as outpatient #Hyponatremia, resolved #Bilateral upper extremity weakness, MRI brain negative -cleared by neurology #Antiphospholipid antibody syndrome #Acute on Chronic anemia, no evidence of bleeding #Thrombocytopenia -continue warfarin as outpatient Discharge Medications New Medications: Colchicine (Colchicine) 0.6 Mg Capsule 0.6 MG PO BID for 90 Days, #180 CAP Indomethacin (Indomethacin) 25 Mg Capsule 25 MG ORAL THREE TIMES A DAY for 5 Days, #15 CAP Continued Medications: Warfarin Sod* (Warfarin Sod*) 5 Mg Tablet 5 MG ORAL DAILY, TAB (This prescription has been renewed) Discharge Condition Upon Discharge: stable Discharge Disposition Patient was discharged to Home Discharge Diagnoses: (1) Acute pericarditis Matthew Govea MD Sep 19, 2018 11:10
[2018-09-19] MEDS ORDERED: NS 500ML ONE (11:11)
[2018-09-19] MEDS ORDERED: Tubing IV Secondary IV ONE (11:11)
[2018-09-19 12:00] VITALS: BP 98/62
[2018-09-19 16:00] VITALS: BP 101/66
[2018-09-19] MEDS ORDERED: Warfarin Sodium 1mg ORAL SCH (17:00)
--- NOTE | 2018-09-19 17:00 | NUR ---
NURSE NOTES: Patient started her menstrual cycle today, medium bloody saturation on pad noted, no clots, lucas-pads provided. Denies abdominal cramps. Will continue to monitor.
--- NOTE | 2018-09-19 17:15 | NUR ---
NURSE NOTES: Notified Dr. Bangura that [facility] was unable to fill prescriptions x2 due to new software issues and that prescriptions will be given to patient to fill at her own pharmacy. Patient cleared for discharge, no further clearance needed from consulting MDs per Dr. Bangura.
--- NOTE | 2018-09-19 17:40 | NUR ---
NURSE NOTES: Discharge instructions and prescriptions x2 reviewed with patient, verbalized understanding. IV discontinued, no active bleeding. Patient does not have any belongings. Instructed on diet with Warfarin precautions, provided written teaching in [place]. Provided Dr. Anthony Smith office number and address, instructed patient to call tomorrow to schedule follow up appointment, verbalized understanding. Awaiting on family member to bring patient clothing and take patient home.
--- NOTE | 2018-09-19 18:50 | NUR ---
NURSE NOTES: Patient discharged home with family at 1850. Patient ambulated down to lobby in stable condition.
== END 2018-09-19 18:50 | disposition home or self-care (01) | DRG 207 ==
LOC: EMR 18:35 → 3E 20:50 → EDBEDREQ 21:02 → 2E 09-13 22:00 → 2W 09-15 12:39 → 3E 09-17 15:09
DX: I30.8 Other forms of acute pericarditis (principal); D68.61 Antiphospholipid syndrome; D69.6 Thrombocytopenia, unspecified; E87.1 Hypo-osmolality and hyponatremia; K59.00 Constipation, unspecified; D64.9 Anemia, unspecified; R09.1 Pleurisy; R00.0 Tachycardia, unspecified; R53.1 Weakness; Z86.718 Personal history of other venous thrombosis and embolism; E87.6 Hypokalemia; K76.0 Fatty (change of) liver, not elsewhere classified; I10 Essential (primary) hypertension; K80.20 Calculus of gallbladder without cholecystitis without obstruction
CPT/HCPCS: 36415; 70496; 70551; 71260; 72125; 72128; 74177; 76700; 78579; 78580; 80048; 80053; 80061; 81003; 81025; 82270; 82607; 82728; 82746; 83540; 83550; 83605; 83615; 83690; 83735; 83930; 83935; 84100; 84300; 84439; 84443; 84484; 84550; 85007; 85025; 85044; 85060; 85379; 85610; 85613; 85651; 85730; 86039; 86140; 86147; 86705; 86709; 86803; 86850; 86900; 86901; 86920; 87040; 87340; 93306; 95819; 96374; 96375; 96376; 99285; A9503; J2405; J8499

== ENCOUNTER 2018-11-09 02:39 | Emergency (ER) | payer MEDICAID ==
[~2018-11-09] VITALS: Ht 157.5 cm; Wt 90.7 kg
[~2018-11-09 02:39] MED LIST: COLCHICINE0.6 M1 PO; INDOMETHACIN25 MG ORAL; WARFARIN SODIUM5 MG ORAL
[2018-11-09 03:02] VITALS: BP 119/77
--- NOTE | 2018-11-09 03:04 | NUR ---
ED Nurse Note: Patient walked in to ER c/o lower abdominal pain 09/23, vaginal DC bright red spotting. AAO x4, VSS at this time, skin is dry warm to touch.
[2018-11-09 03:06] LABS: APPEARANCE,URINE CLEAR; BILIRUBIN, URINE NEGATIVE (NEGATIVE); COLOR,URINE PALE YELLOW; GLUCOSE, URINE (UA) NEGATIVE (NEGATIVE); KETONES,URINE NEGATIVE (NEGATIVE); LEUKOCYTE ESTERASE ,URINE 1+ (NEGATIVE); NITRITE,URINE NEGATIVE (NEGATIVE); PH,URINE 6 (4.5-8.0); PROTEIN,URINE NEGATIVE (NEGATIVE); UROBILINOGEN,URINE NORMAL MG/DL (0.0-1.0)
--- NOTE | 2018-11-09 03:17 | Emergency Room Report ---
History of Present Illness General Chief Complaint: Female Urogenital Problems Source: Patient Present Illness HPI This is a 28-year-old female with no past medical history. She presents with chief complaint of onset for last 3 days. Pain is to the bilateral lower thoracic/upper lumbar area laterally. Pain is 8 out of 10. She also has some vaginal spotting. Her last menstruation was about 8 to 10 days ago. Bleeding is brownish in color with wiping. No fever chills but no nausea no vomiting. Worse with movement. Allergies: Coded Allergies: No Known Allergies (Unverified , 09/12/18) Patient History Past Medical History: see triage record, old chart reviewed Past Surgical History: other Pertinent Family History: none Social History: Denies: smoking Last Menstrual Period: october 31 2018 Now: No Immunizations: other Reviewed Nursing Documentation: PMH: Agreed; PSxH: Agreed Nursing Documentation-PMH Past Medical History: No History, Except For Hx Cancer: No Hx Gastrointestinal Problems: Yes - abdominal pain Review of Systems Eye: Denies: eye pain, blurred vision ENT: Denies: ear pain, nose congestion, throat swelling Respiratory: Denies: cough, shortness of breath Cardiovascular: Denies: chest pain, palpitations Gastrointestinal: Denies: abdominal pain, diarrhea, nausea, vomiting Musculoskeletal: Reports: back pain; Denies: joint pain Skin: Denies: rash Neurological: Denies: headache, numbness Endocrine: Denies: increased thirst, increased urine Hematologic/Lymphatic: Denies: easy bruising All Other Systems: negative except mentioned in HPI Physical Exam Vital Signs Date Time Temp Pulse Resp B/P (MAP) Pulse Ox O2 Delivery O2 Flow Rate FiO2 11/09/18 02:44 98.8 79 18 119/77 (91) 99 Room Air Vitals normal Sp02 EP Interpretation: reviewed, normal General Appearance: well appearing, no apparent distress, alert Head: normocephalic, atraumatic Eyes: bilateral eye PERRL, bilateral eye EOMI ENT: hearing grossly normal, normal pharynx Neck: full range of motion, supple, no meningismus Respiratory: chest non-tender, lungs clear, normal breath sounds Cardiovascular #1: regular rate, rhythm, no murmur Gastrointestinal: normal bowel sounds, non tender, no mass, no organomegaly, no bruit, non-distended Musculoskeletal: back normal - Tenderness over the lateral mid back area. No bony tenderness., gait/station normal, normal range of motion Psychiatric: mood/affect normal Medical Decision Making Diagnostic Impression: Primary Impression: Back pain Qualified Codes: M54.6 - Pain in thoracic spine Additional Impression: Supratherapeutic INR ER Course Patient presents with back pain. No trauma. No evidence of hematoma. No evidence of cauda equina syndrome, spinal epidural abscess or neoplastic process. Will discharge home. Her INR is supratherapeutic. Will hold off for today. She had INR done 2 weeks ago and had an increase to 10 mg on Sunday and Sunday. The rest of the days are [address]/MRI/US Diagnostic Results CT/MRI/US Diagnostic Results : Imaging Test Ordered: CT abdomen and pelvis Impression Read by radiologist. No acute process. Last Vital Signs Date Time Temp Pulse Resp B/P (MAP) Pulse Ox O2 Delivery O2 Flow Rate FiO2 11/09/18 03:02 98.8 18 119/77 99 Room Air 11/09/18 02:44 79 Status: improved Disposition: HOME, SELF-CARE Condition: Stable Referrals: NOT CHOSEN IPA/,REFERRING (PCP) Additional Instructions: Hold Coumadin for today. Take Coumadin 10mg on Sunday. The rest of the other days, take 5 mg of Coumadin. Follow-up with your doctor in 7 days. Return if worse. Kojo Mitchell MD Nov 09, 2018 03:17
[2018-11-09 03:44] LABS: BASOPHILS % (AUTO) 1.3 % (0.0-2.0); EOSINOPHILS % (AUTO) 2.8 % (0.0-3.0); HEMATOCRIT 31.4 % (37.0-47.0); HEMOGLOBIN 9.5 G/DL (12.0-16.0); LYMPHOCYTES % (AUTO) 32.8 % (20.0-45.0); MEAN CORPUSCULAR VOLUME 75 FL (80-99); MONOCYTES % (AUTO) 2.9 % (1.0-10.0); NEUTROPHILS % (AUTO) 60.2 % (45.0-75.0); PLATELET COUNT 334 K/UL (150-450); RED BLOOD COUNT 4.21 M/UL (4.20-5.40); RED CELL DISTRIBUTION WIDTH 17.4 % (11.6-14.8); WHITE BLOOD COUNT 8.6 K/UL (4.8-10.8)
[2018-11-09 03:50] LABS: ANION GAP 10 mmol/L (5-15); BLOOD UREA NITROGEN 16 mg/dL (7-18); CALCIUM 8.9 MG/DL (8.5-10.1); CARBON DIOXIDE 24 MMOL/L (21-32); CHLORIDE 103 MMOL/L (98-107); CREATININE 0.8 MG/DL (0.55-1.30); POTASSIUM 4.1 MMOL/L (3.5-5.1); SODIUM 137 MMOL/L (136-145)
[2018-11-09 03:58] LABS: INR 4.8 (0.9-1.1)
--- NOTE | 2018-11-09 04:47 | Diagnostic Imaging Report ---
EXAM: CT Abdomen and Pelvis Without Intravenous Contrast CLINICAL HISTORY: ABD PAIN TECHNIQUE: Axial computed tomography images of the abdomen and pelvis without intravenous contrast. CTDI is 32.69 mGy and DLP is 1790 mGy-cm. One or more of the following dose reduction techniques were used: automated exposure control, adjustment of the mA and/or kV according to patient size, use of iterative reconstruction technique. COMPARISON: Ultrasound abdomen 09/12/18. FINDINGS: Lung bases: Unremarkable. No mass. No consolidation. ABDOMEN: Liver: Hypodense 3.3 cm lesion involving the posterior segment of the right hepatic lobe. Gallbladder and bile ducts: Unremarkable. No calcified stones. No ductal dilation. Pancreas: Unremarkable. No ductal dilation. Spleen: Unremarkable. No splenomegaly. Adrenals: Unremarkable. No mass. Kidneys and ureters: Unremarkable. No obstructing stones. No hydronephrosis. Stomach and bowel: Unremarkable. No obstruction. No mucosal thickening. PELVIS: Appendix: No findings to suggest acute appendicitis. Bladder: Unremarkable. No stones. Reproductive: Unremarkable as visualized. ABDOMEN and PELVIS: Intraperitoneal space: Unremarkable. No free air. No significant fluid collection. Bones/joints: No acute fracture. No dislocation. Soft tissues: Small fat-containing umbilical hernia. Vasculature: Unremarkable. No abdominal aortic aneurysm. Lymph nodes: Unremarkable. No enlarged lymph nodes. IMPRESSION: No acute or inflammatory disease or bowel obstruction. Hypodense 3.3 cm lesion involving the posterior segment of the right hepatic lobe. Consider further evaluation with dedicated liver CT or MRI.
[2018-11-09 05:09] VITALS: BP 119/77
--- NOTE | 2018-11-09 05:09 | NUR ---
ED Nurse Note: Pt cleared by health care Provider for discharge. DC instructions/prescription was given and explained to pt and verbalized understanding of teachings. All medical deviecs such as ID band removed. Pt is AAO x4, ambulatory and left with all personal belongings.
== END 2018-11-09 05:10 | disposition home or self-care (01) ==
LOC: EMR 02:58
DX: M54.6 Pain in thoracic spine (principal); R79.1 Abnormal coagulation profile; N93.9 Abnormal uterine and vaginal bleeding, unspecified
CPT/HCPCS: 36415; 74176; 80048; 81003; 81025; 85025; 85610; 85730; 99284

== ENCOUNTER 2018-12-20 18:45 | Inpatient (IN) | payer MEDICAID ==
[~2018-12-20] VITALS: Ht 157.5 cm; Wt 97.8 kg
--- NOTE | 2018-12-20 19:05 | NUR ---
ED Nurse Note: received report from Rn Sabrina, pt walked in c/o headache and nausea with vomiting, pt states she takes coumadin. pt AA&ox4, gcs=15, skin warm and dry, resp even and unlabored on RA, no active dry heaves nor vomiting at this time, vss, sinus rhythm on the estimator lumber, pt provided w/ warm blanket for comfort, will cont monitor.
[2018-12-20] MEDS ORDERED: Isovue-370 150ml vial INJ PRN (19:15)
[2018-12-20] MEDS ORDERED: Metoclopramide 10mg/2ml Inj IVP ONE (19:15)
[2018-12-20] MEDS ORDERED: Morphine Sulfate 4mg/ml Inj (IV USE ONLY) IVP ONE (19:15)
[2018-12-20 19:40] VITALS: BP 110/86
[2018-12-20 20:20] LABS: BASOPHILS % (AUTO) 0.9 % (0.0-2.0); EOSINOPHILS % (AUTO) 3.8 % (0.0-3.0); HEMATOCRIT 30.6 % (37.0-47.0); HEMOGLOBIN 9.6 G/DL (12.0-16.0); LYMPHOCYTES % (AUTO) 24.4 % (20.0-45.0); MEAN CORPUSCULAR VOLUME 69 FL (80-99); MONOCYTES % (AUTO) 4.2 % (1.0-10.0); NEUTROPHILS % (AUTO) 66.6 % (45.0-75.0); PLATELET COUNT 226 K/UL (150-450); RED BLOOD COUNT 4.44 M/UL (4.20-5.40); RED CELL DISTRIBUTION WIDTH 14.6 % (11.6-14.8); WHITE BLOOD COUNT 5.2 K/UL (4.8-10.8)
[2018-12-20 20:24] LABS: INR 1.1 (0.9-1.1)
[2018-12-20 20:30] LABS: ANION GAP 13 mmol/L (5-15); BLOOD UREA NITROGEN 12 mg/dL (7-18); CALCIUM 8.8 MG/DL (8.5-10.1); CARBON DIOXIDE 22 MMOL/L (21-32); CHLORIDE 108 MMOL/L (98-107); CREATININE 0.7 MG/DL (0.55-1.30); POTASSIUM 4.1 MMOL/L (3.5-5.1); SODIUM 143 MMOL/L (136-145)
[2018-12-20 20:40] VITALS: BP 110/78
[2018-12-20 20:43] LABS: ALANINE AMINOTRANSFERASE 23 U/L (12-78); ALBUMIN 3.9 G/DL (3.4-5.0); ALKALINE PHOSPHATASE 126 U/L (46-116); ASPARTATE AMINO TRANSFERASE 14 U/L (15-37); BILIRUBIN,TOTAL 0.3 MG/DL (0.2-1.0); CKMB < 0.5 NG/ML (0.0-3.6); CREATINE KINASE 56 U/L (26-308)
--- NOTE | 2018-12-20 20:49 | Diagnostic Imaging Report ---
EXAM: XR Chest, 1 View CLINICAL HISTORY: CP TECHNIQUE: Frontal view of the chest. COMPARISON: No relevant prior studies available. FINDINGS: Lungs: Probable mild atelectasis at the left lung base. The lungs are otherwise grossly clear. Pleural space: No plain film evidence for pneumothorax. Heart: Unremarkable. No cardiomegaly. Mediastinum: Unremarkable. Bones/joints: The bones are grossly unremarkable. IMPRESSION: Probable mild atelectasis at the left lung base.
--- NOTE | 2018-12-20 20:50 | NUR ---
ED Nurse Note: pt off to CT, consent form signed.
--- NOTE | 2018-12-20 21:07 | NUR ---
ED Nurse Note: pt reports her headache came back, ermd notified regarding pt's condition. pt vss, resp even and unlabored.
[2018-12-20] MEDS ORDERED: Tylenol #3 tab (300mg/30mg) ORAL ONE (21:15)
[2018-12-20 21:40] VITALS: BP 115/75
--- NOTE | 2018-12-20 22:09 | Diagnostic Imaging Report ---
EXAM: CT Angiography Chest With Intravenous Contrast CLINICAL HISTORY: CP TECHNIQUE: Axial computed tomographic angiography images of the chest with intravenous contrast using pulmonary embolism protocol. CTDI is 0.17, 12. 62, 12.62, 12.62, 36.25 mGy and DLP is 1161 mGy-cm. One or more of the following dose reduction techniques were used: automated exposure control, adjustment of the mA and/or kV according to patient size, use of iterative reconstruction technique. MIP reconstructed images were created and reviewed. Coronal and sagittal reformatted images were created and reviewed. COMPARISON: 09/12/18 FINDINGS: Pulmonary arteries: A small filling defect is seen within a left lower lobe pulmonary artery branch (image 110 of series 7) which is suspicious for a small pulmonary embolism. No evidence for saddle pulmonary embolism. Aorta: Evaluation of the ascending aorta is limited secondary to motion artifact. The aorta is grossly unremarkable. No thoracic aortic aneurysm. Lungs: Small nonspecific 3 mm soft tissue density nodule in the left lower lobe (image 123 of series 7). This was likely present on the prior exam and is grossly unchanged. For low-risk patients, no follow-up is necessary. For high-risk patients (smoking history or other known risk factors) an optional chest CT at 12 months could be performed. Pleural space: Unremarkable. No significant effusion. No pneumothorax. Heart: Unremarkable. No cardiomegaly. No significant pericardial effusion. No evidence of RV dysfunction. Mediastinum: Small hiatal hernia. Mild infiltration of the anterior mediastinal fat which is likely related to residual thymic tissue. Bones/joints: Sclerotic lesion in the T8 vertebral body which has a similar appearance compared to the prior exam. No acute fracture. No dislocation. Soft tissues: Unremarkable. Lymph nodes: Small nonspecific axillary lymph nodes. Liver: A 3.2 x 2.7 cm low-density lesion is again seen in the posterior segment of the right lobe of the liver which has a similar appearance compared to the prior exam. IMPRESSION: 1. A small filling defect is seen within a left lower lobe pulmonary artery branch (image 110 of series 7) which is suspicious for a small pulmonary embolism. 2. Small hiatal hernia. 3. Small nonspecific 3 mm soft tissue density nodule in the left lower lobe (image 123 of series 7). This was likely present on the prior exam and is grossly unchanged. For low-risk patients, no follow-up is necessary. For high-risk patients (smoking history or other known risk factors) an optional chest CT at 12 months could be performed. <MYCVCSECTION> [employer] 12/20/18 22:13 Call Doctor Regarding Above results, called Johan WADE on 12/20 22:12 (-07:00)
[2018-12-20] MEDS ORDERED: Heparin 25,000u/D5W 500ml 500 ML IV SCH (22:15)
[2018-12-20] MEDS ORDERED: Heparin 5000 units/ml inj IV ONE (22:15)
[2018-12-20 22:40] VITALS: BP 121/76
--- NOTE | 2018-12-20 22:52 | Emergency Room Report ---
History of Present Illness General Chief Complaint: Headache Source: Patient Present Illness HPI 28-year-old female presents ED for evaluation. Complaining of chest pain and headache since yesterday. Pain is sharp, 7 out of 10, nonradiating. Difficult with deep breaths. States she has history of DVT and takes Coumadin. States she is compliant with her medications. Denies smoking or drug use. No other aggravating relieving factors. Denies any other associated symptoms Allergies: Coded Allergies: No Known Allergies (Unverified , 09/12/18) Patient History Past Medical History: other - DVT Past Surgical History: none Pertinent Family History: none Social History: Denies: smoking, alcohol use, drug use Last Menstrual Period: 11/29/2018 Now: No Immunizations: UTD Reviewed Nursing Documentation: PMH: Agreed; PSxH: Agreed Nursing Documentation-PMH Past Medical History: No History, Except For Hx Hypertension: No Hx Pacemaker: No Hx Asthma: No Hx COPD: No Hx Diabetes: No Hx Cancer: No Hx Gastrointestinal Problems: Yes - gastritis Hx Dialysis: No History Of Psychiatric Problem: No Hx Neurological Problems: No Hx Cerebrovascular Accident: No Hx Seizures: No Review of Systems All Other Systems: negative except mentioned in HPI Physical Exam Vital Signs Date Time Temp Pulse Resp B/P (MAP) Pulse Ox O2 Delivery O2 Flow Rate FiO2 12/20/18 18:50 98.4 87 16 120/80 (93) 99 Room Air Sp02 EP Interpretation: reviewed, normal General Appearance: no apparent distress, alert, GCS 15, non-toxic Head: normocephalic, atraumatic Eyes: bilateral eye normal inspection, bilateral eye PERRL ENT: hearing grossly normal, normal pharynx, no angioedema, normal voice Neck: full range of motion, supple/symm/no masses Respiratory: chest non-tender, lungs clear, normal breath sounds, speaking full sentences Cardiovascular #1: regular rate, rhythm, no edema Cardiovascular #2: 2+ carotid (R), 2+ carotid (L), 2+ radial (R), 2+ radial (L) , 2+ dorsalis pedis (R), 2+ dorsalis pedis (L) Gastrointestinal: normal bowel sounds, non tender, soft, non-distended, no guarding, no rebound Rectal: deferred Genitourinary: normal inspection, no CVA tenderness Musculoskeletal: back normal, gait/station normal, normal range of motion, non- tender Neurologic: alert, oriented x3, responsive, motor strength/tone normal, sensory intact, speech normal Psychiatric: judgement/insight normal, memory normal, mood/affect normal, no suicidal/homicidal ideation Reflexes: 3+ bicep (R), 3+ bicep (L), 3+ tricep (R), 3+ tricep (L), 3+ knee (R) , 3+ knee (L) Lymphatic: no adenopathy Medical Decision Making Diagnostic Impression: Primary Impression: Pulmonary embolism Qualified Codes: I26.99 - Other pulmonary embolism without acute cor pulmonale Additional Impression: Chest pain Qualified Codes: R07.9 - Chest pain, unspecified ER Course Hospital Course 28-year-old female presents ED complaining of chest pain. h/o DVT Differential diagnoses include: RI/unstable angina, PE, bronchitis, asthma Clinical course Patient placed on stretcher. on color television console monitor. After initial history and physical I ordered labs, EKG, chest x-ray, CTA chest labs reviewed- no leukocytosis, hemoglobin/hematocrit stable, electrolytes ok, troponins negative, INR normal EKG - NSR, no acute ischemic changes interpreted by me Chest x-ray- unremarkable CT chest- PE Noted heparin given. Did not compliant with her Coumadin. This has been documented in the past. Case discussed with Dr. Gotti and he agreed to accept the patient to his service for further care and support I. I feel this is a highly complex case requiring extensive working including EKG/Rhythm strip, Xray/CT/US, Blood/urine lab work, repeat exams while in ED, and administration of strong opiates/narcotics for pain control, admission to hospital or close patient follow up. Diagnosis - PE, chest pain admitted to telemetry in serious condition Labs Test 12/20/18 19:21 White Blood Count 5.2 K/UL (4.8-10.8) Red Blood Count 4.44 M/UL (4.20-5.40) Hemoglobin 9.6 G/DL (12.0-16.0) Hematocrit 30.6 % (37.0-47.0) Mean Corpuscular Volume 69 FL (80-99) Mean Corpuscular Hemoglobin 21.6 PG (27.0-31.0) Mean Corpuscular Hemoglobin Concent 31.3 G/DL (32.0-36.0) Red Cell Distribution Width 14.6 % (11.6-14.8) Platelet Count 226 K/UL (150-450) Mean Platelet Volume 7.4 FL (6.5-10.1) Neutrophils (%) (Auto) 66.6 % (45.0-75.0) Lymphocytes (%) (Auto) 24.4 % (20.0-45.0) Monocytes (%) (Auto) 4.2 % (1.0-10.0) Eosinophils (%) (Auto) 3.8 % (0.0-3.0) Basophils (%) (Auto) 0.9 % (0.0-2.0) Prothrombin Time 11.5 SEC (9.30-11.50) Prothromb Time International Ratio 1.1 (0.9-1.1) Activated Partial Thromboplast Time 47 SEC (23-33) Urine HCG, Qualitative Negative (NEGATIVE) Sodium Level 143 MMOL/L (136-145) Potassium Level 4.1 MMOL/L (3.5-5.1) Chloride Level 108 MMOL/L (98-107) Carbon Dioxide Level 22 MMOL/L (21-32) Anion Gap 13 mmol/L (5-15) Blood Urea Nitrogen 12 mg/dL (7-18) Creatinine 0.7 MG/DL (0.55-1.30) Estimat Glomerular Filtration Rate > 60 mL/min (>60) Glucose Level 90 MG/DL (74-106) Calcium Level 8.8 MG/DL (8.5-10.1) Total Bilirubin 0.3 MG/DL (0.2-1.0) Aspartate Amino Transf (AST/SGOT) 14 U/L (15-37) Alanine Aminotransferase (ALT/SGPT) 23 U/L (12-78) Alkaline Phosphatase 126 U/L (46-116) Total Creatine Kinase 56 U/L (26-308) Creatine Kinase MB < 0.5 NG/ML (0.0-3.6) Creatine Kinase MB Relative Index 0.8 Troponin I 0.000 ng/mL (0.000-0.056) Pro-B-Type Natriuretic Peptide 86 pg/mL (0-125) Total Protein 7.7 G/DL (6.4-8.2) Albumin 3.9 G/DL (3.4-5.0) Globulin 3.8 g/dL Albumin/Globulin Ratio 1.0 (1.0-2.7) Human Chorionic Gonadotropin, Qual Negative (NEGATIVE) EKG Diagnostic Results Rate: normal Rhythm: NSR ST Segments: no acute changes ASA given to the pt in ED: No Rhythm Strip Diag. Results EP Interpretation: yes Rhythm: NSR, no PVC's, no ectopy Chest X-Ray Diagnostic Results Chest X-Ray Diagnostic Results : Chest X-Ray Ordered: Yes # of Views/Limited/Complete: 1 View Indication: Chest Pain EP Interpretation: Yes Interpretation: no consolidation, no effusion, no pneumothorax, no acute cardiopulmonary disease Impression: No acute disease Electronically Signed by: Electronically signed by Stanford Prado MD CT/MRI/US Diagnostic Results CT/MRI/US Diagnostic Results : Imaging Test Ordered: CTA Chest Impression IMPRESSION: 1. A small filling defect is seen within a left lower lobe pulmonary artery branch (image 110 of series 7) which is suspicious for a small pulmonary embolism. 2. Small hiatal hernia. 3. Small nonspecific 3 mm soft tissue density nodule in the left lower lobe ( image 123 of series 7). This was likely present on the prior exam and is grossly unchanged. For low-risk patients, no follow-up is necessary. For high- risk patients (smoking history or other known risk factors) an optional chest CT at 12 months could be performed. Last Vital Signs Date Time Temp Pulse Resp B/P (MAP) Pulse Ox O2 Delivery O2 Flow Rate FiO2 12/20/18 19:40 98.4 73 16 110/86 99 Room Air Status: improved Disposition: ADMITTED INPATIENT Condition: Serious Referrals: NOT CHOSEN IPA/,REFERRING (PCP) Stanford Prado MD Dec 20, 2018 22:52
--- NOTE | 2018-12-20 23:33 | NUR ---
ED Nurse Note: per protocol heparin drip increased 4 units/kr/hr, 22 units at this time.
--- NOTE | 2018-12-20 23:38 | NUR ---
ED Nurse Note: report given to ANTONIO esparza from Tele.
[2018-12-21] VITALS: BP 120/76
--- NOTE | 2018-12-21 | NUR ---
NURSE NOTES: Received patient from ER. Patient on heparin iv at 22units/kg/hr infusing via left ac 20gauge. Right hand 22 gauge piv intact and patent. Patient is alert and oriented x4. Ambulatory. Patient c/o headache and nausea. No c/o chest pain or SOB. Vitals 98.3-82-16-120/76-98% RA. Bed in low position, locked, bed alarm on, call light within reach.
[2018-12-21] MEDS ORDERED: Albuterol/Ipratropium 3ml neb HHN PRN (00:30)
[2018-12-21] MEDS ORDERED: Miralax 17gm pkt ORAL PRN (00:30)
[2018-12-21] MEDS ORDERED: Morphine Sulfate 2mg/ml Inj(IV/IM USE ONLY) IVP PRN (00:30)
[2018-12-21] MEDS ORDERED: Heparin 25,000u/D5W 500ml 500 ML IV SCH ×4 (00:30→20:00)
--- NOTE | 2018-12-21 00:30 | NUR ---
NURSE NOTES: Notified pipeline and informed them of patient on heparin at 22 units/kg/hr. Advised to draw ptt.
--- NOTE | 2018-12-21 02:43 | NUR ---
NURSE NOTES: Notified [facility] of pTT >150, instructed to hold for 1 hr, then start at 18units/kg/hr. Redraw pTT 6 hours after per protocol. Heparin stopped.
--- NOTE | 2018-12-21 03:45 | NUR ---
NURSE NOTES: Heparin restarted at 18units/kg/hr.
[2018-12-21 04:00] VITALS: BP 117/74
[2018-12-21] MEDS: Morphine Sulfate 2mg/ml Inj(IV/IM USE ONLY) IVP PRN ×4 (05:23→22:52)
--- NOTE | 2018-12-21 07:57 | NUR ---
NURSE NOTES: Received report from ANTONIO Wiley. Pt is laying in bed. No distress noted. Pt denies any bleeding. Bed is in lowest position, side rails up X2, and call light is within reach. Will continue to monitor.
[2018-12-21 08:00] VITALS: BP 121/81
[2018-12-21] MEDS: Docusate 100mg cap ORAL SCH ×2 (08:25→20:11)
[2018-12-21] MEDS: HYDROcodone/Acetamin 5/325 tab ORAL PRN (08:55)
--- NOTE | 2018-12-21 09:29 | History and Physical ---
History of Present Illness General Date patient seen: Dec 21, 2018 Reason for Hospitalization: Headache Present Illness HPI 28 year old female presented to the ED complaning of chest pain and headache of one day duration. chest pain is in the middle of her chest, non radiating. worse with deep inspiration. accompanies by mild sob.Nothing made it better or worse She is more concerned about her headache, holding her head. 8/10, in the center and around her head. light bothers her. She c/o associated n/v but not abdominal pain. She has a history og antiphospholipid syndrome that was discovered when she had her 5th child, and a dvt for which she is on Coumadin. She has had difficulties at home and has not been taking her Coumadin as she ran out. she feels a numbness in her right 4th digit since the headache came on Denies orthopnea, pnd, weakness, or recent travel. PMH/PSH: As above. Family history: No family history of antiphospholipid syndrome. Social history: Denies smoking, etoh or illicit drug use. of pneumonia in 2013. Has 5 children. Allergies: Coded Allergies: No Known Allergies (Unverified , 09/12/18) Medication History Scheduled Warfarin Sod* (Warfarin Sod*), 5 MG ORAL DAILY, (Reported) Patient History Healthcare decision maker Resuscitation status Full Code Advanced Directive on File Review of Systems All Other Systems: negative except mentioned in HPI Physical Exam Last 24 Hour Vital Signs Date Time Temp Pulse Resp B/P (MAP) Pulse Ox O2 Delivery O2 Flow Rate FiO2 12/21/18 08:00 97.9 88 14 121/81 (94) 99 12/21/18 04:00 73 12/21/18 04:00 81 16 117/74 (88) 97 12/21/18 00:30 Room Air 12/21/18 00:00 98.3 82 16 120/76 (91) 98 12/21/18 00:00 82 12/20/18 23:46 98.7 73 18 108/68 100 Room Air 12/20/18 22:40 98.2 78 16 121/76 99 Room Air 12/20/18 21:41 98.2 12/20/18 21:40 98.2 76 16 115/75 99 Room Air 12/20/18 20:40 98.2 75 16 110/78 99 Room Air 12/20/18 19:56 98.2 12/20/18 19:50 86 18 12/20/18 19:40 98.4 73 16 110/86 99 Room Air 12/20/18 18:50 98.4 87 16 120/80 (93) 99 Room Air Intake and Output 12/20/18 12/21/18 19:00 07:00 Intake Total 500 ml Balance 500 ml Intake IV Total 500 ml # Voids 1 Laboratory Tests Test 12/20/18 19:21 12/21/18 01:43 12/21/18 04:30 White Blood Count 5.2 K/UL (4.8-10.8) Red Blood Count 4.44 M/UL (4.20-5.40) Hemoglobin 9.6 G/DL (12.0-16.0) L Hematocrit 30.6 % (37.0-47.0) L Mean Corpuscular Volume 69 FL (80-99) L Mean Corpuscular Hemoglobin 21.6 PG (27.0-31.0) L Mean Corpuscular Hemoglobin Concent 31.3 G/DL (32.0-36.0) L Red Cell Distribution Width 14.6 % (11.6-14.8) Platelet Count 226 K/UL (150-450) Mean Platelet Volume 7.4 FL (6.5-10.1) Neutrophils (%) (Auto) 66.6 % (45.0-75.0) Lymphocytes (%) (Auto) 24.4 % (20.0-45.0) Monocytes (%) (Auto) 4.2 % (1.0-10.0) Eosinophils (%) (Auto) 3.8 % (0.0-3.0) H Basophils (%) (Auto) 0.9 % (0.0-2.0) Prothrombin Time 11.5 SEC (9.30-11.50) Prothromb Time International Ratio 1.1 (0.9-1.1) Activated Partial Thromboplast Time 47 SEC (23-33) H > 150 SEC (23-33) *H Urine HCG, Qualitative Negative (NEGATIVE) Sodium Level 143 MMOL/L (136-145) Potassium Level 4.1 MMOL/L (3.5-5.1) Chloride Level 108 MMOL/L (98-107) H Carbon Dioxide Level 22 MMOL/L (21-32) Anion Gap 13 mmol/L (5-15) Blood Urea Nitrogen 12 mg/dL (7-18) Creatinine 0.7 MG/DL (0.55-1.30) Estimat Glomerular Filtration Rate > 60 mL/min (>60) Glucose Level 90 MG/DL (74-106) Calcium Level 8.8 MG/DL (8.5-10.1) Total Bilirubin 0.3 MG/DL (0.2-1.0) Aspartate Amino Transf (AST/SGOT) 14 U/L (15-37) L Alanine Aminotransferase (ALT/SGPT) 23 U/L (12-78) Alkaline Phosphatase 126 U/L (46-116) H Total Creatine Kinase 56 U/L (26-308) Creatine Kinase MB < 0.5 NG/ML (0.0-3.6) Creatine Kinase MB Relative Index 0.8 Troponin I 0.000 ng/mL (0.000-0.056) 0.000 ng/mL (0.000-0.056) Pro-B-Type Natriuretic Peptide 86 pg/mL (0-125) Total Protein 7.7 G/DL (6.4-8.2) Albumin 3.9 G/DL (3.4-5.0) Globulin 3.8 g/dL Albumin/Globulin Ratio 1.0 (1.0-2.7) Human Chorionic Gonadotropin, Qual Negative (NEGATIVE) EKG - NSR, no acute ischemic changes interpreted personally by me Chest x-ray- unremarkable CTA: 1. A small filling defect is seen within a left lower lobe pulmonary artery branch (image 110 of series 7) which is suspicious for a small pulmonary embolism. 2. Small hiatal hernia. 3. Small nonspecific 3 mm soft tissue density nodule in the left lower lobe ( image 123 of series 7). This was likely present on the prior exam and is grossly unchanged. For low-risk patients, no follow-up is necessary. For high- risk patients (smoking history or other known risk factors) an optional chest CT at 12 months could be performed. Height (Feet): 5 Height (Inches): 2.00 Weight (Pounds): 217 Medications Current Medications Medications (Trade) Dose Ordered Sig/Makayla Route PRN Reason Start Time Stop Time Status Last Admin Dose Admin Acetaminophen (Tylenol) 650 mg Q4H PRN ORAL Mild Pain (Pain Scale 1-3) 12/21/18 00:30 01/20/19 00:29 Acetaminophen (Tylenol) 650 mg Q4H PRN ORAL fever 12/21/18 00:30 01/20/19 00:29 Acetaminophen/ Hydrocodone Bitart ([place] 10/325) 1 tab Q4H PRN ORAL severe pain 12/21/18 01:00 12/28/18 00:59 Acetaminophen/ Hydrocodone Bitart ([place] 5/325) 1 tab Q4H PRN ORAL Moderate Pain (Pain Scale 4-6) 12/21/18 01:00 12/28/18 00:59 12/21/18 08:55 Albuterol/ Ipratropium (Albuterol/ Ipratropium) 3 ml Q4H PRN HHN Shortness of Breath 12/21/18 00:30 12/26/18 00:29 Bisacodyl (Dulcolax) 10 mg DAILYPRN PRN RECTAL Constipation 12/21/18 00:30 01/20/19 00:29 Dextrose (Dextrose 50%) 25 ml Q30M PRN IV Hypoglycemia 12/21/18 00:30 01/20/19 00:29 Dextrose (Dextrose 50%) 50 ml Q30M PRN IV Hypoglycemia 12/21/18 00:30 01/20/19 00:29 Diphenhydramine HCl (Benadryl) 25 mg Q6H PRN ORAL Itching/Pruritis 12/21/18 00:30 01/20/19 00:29 Docusate Sodium (Colace) 100 mg EVERY 12 HOURS ORAL 12/21/18 09:00 01/20/19 08:59 12/21/18 08:25 Famotidine (Pepcid) 20 mg BID ORAL 12/21/18 09:00 01/20/19 08:59 12/21/18 08:25 Heparin Sodium/ Dextrose 500 ml @ 34.291 mls/ hr ADJUST PER PROTOCOL IV 12/21/18 03:45 01/20/19 03:44 12/21/18 03:48 Morphine Sulfate (Morphine Sulfate) 2 mg Q4H PRN IVP breakthrough pain 12/21/18 04:30 12/28/18 00:29 12/21/18 05:23 Ondansetron HCl (Zofran) 4 mg Q6H PRN IVP Nausea & Vomiting 12/21/18 00:30 01/20/19 00:29 12/21/18 00:54 Polyethylene Glycol (Miralax) 17 gm DAILYPRN PRN ORAL Constipation 12/21/18 00:30 01/20/19 00:29 Objective Narrative General Appearance: no apparent distress, speaks full sentences. Obese HEENT: normocephalic, atraumatic, bilateral eye PERRL Neck: full range of motion, supple/symm/no masses, no jvd Respiratory: chest non-tender, lungs clear, normal breath sounds, no wheezing or rales Cardiovascular:regular rate, rhythm, no edema Gastrointestinal: normal bowel sounds, non tender, soft, non-distended, no guarding, no rebound Musculoskeletal: normal range of motion Neurologic: alert, oriented x3, responsive, motor strength/tone normal, except for diminished sensation in 4th digit right hand, sensory intact, speech normal. 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 1. PE in the setting of APL and subtheraputic INR. small filling defect. negative troponin x 2, no ekg changes, normal pro bnp, no hemodynamic compromise ie hypotension. -started on heparin ggt. continue monitoring ppt -restart Coumadin. Dosing per pharmacy. At home take 10mg on M, and 5mg rest of the week -patient counseled reg importance of taking her medications 2. Headache. + photophobia. denies hx of migraine. she has some loss of sensation in 4th digit of R hand. Given history of APS, suspect CVA. -CT head stat -pain control -Antiemetics 3. obesity. Patient counselled on life style modifications ,diet, and exercise. I spent 70 minutes on this encounter. 50% spent on counselling and care coordination. time of this note may not reflect time of encounter. Sonu Pal M.D. Dec 21, 2018 09:29
--- NOTE | 2018-12-21 10:45 | Diagnostic Imaging Report ---
EXAM: CT Head Without Intravenous Contrast CLINICAL HISTORY: H/A TECHNIQUE: Axial computed tomography images of the head/brain without intravenous contrast. CTDI is 70.38 mGy and DLP is 1376 mGy-cm. One or more of the following dose reduction techniques were used: automated exposure control, adjustment of the mA and/or kV according to patient size, use of iterative reconstruction technique. COMPARISON: No relevant prior studies available. FINDINGS: Brain: No hemorrhage. No edema. Ventricles: No ventriculomegaly. Bones/joints: No acute fracture. Soft tissues: Unremarkable. Sinuses: No acute sinusitis. Sinus retention cyst/polyps. Mastoid air cells: No mastoid effusion. IMPRESSION: No acute intracranial process.
[2018-12-21 12:00] VITALS: BP 126/75
[2018-12-21 14:04] LABS: INR 1.3 (0.9-1.1)
[2018-12-21 16:00] VITALS: BP 119/77
[2018-12-21] MEDS ORDERED: Warfarin Sodium 5mg ORAL SCH (17:00)
--- NOTE | 2018-12-21 18:58 | NUR ---
NURSE NOTES: Stopped hep infusion.
--- NOTE | 2018-12-21 19:17 | NUR ---
NURSE NOTES: Received patient from Adry ALVAREZ. Patient asleep in bed, on room air, no s/s of respiratory distress. Heparin IV on hold since 1900 for 1 hour for apTT >150 per protocol. Left ac 20 gauge piv intact and patent, no signs of infiltration. Right hand 22 gauge piv intact, patent, no signs of infiltration. Bed in low position, locked, bed alarm on, call light within reach.
--- NOTE | 2018-12-21 19:17 | NUR ---
HAND-OFF: Report given to ANTONIO Wiley. Plan of care endorsed
[2018-12-21 20:00] VITALS: BP 118/73
--- NOTE | 2018-12-21 20:00 | NUR ---
NURSE NOTES: Heparin iv restarted at 10units/kg/hr per protocol, decreased from 14. apTT scheduled for 0200. Patient denies chest pain or SOB.
[2018-12-21] MEDS: HYDROcodone/Acetamin 10/325 tab ORAL PRN (20:12)
--- NOTE | 2018-12-22 01:45 | NUR ---
NURSE NOTES: Notified lab of timed apTT draw at 0200.
[2018-12-22 01:52] VITALS: BP 115/66
[2018-12-22 02:49] LABS: ANION GAP 4 mmol/L (5-15); BLOOD UREA NITROGEN 12 mg/dL (7-18); CALCIUM 8.9 MG/DL (8.5-10.1); CARBON DIOXIDE 23 MMOL/L (21-32); CHLORIDE 107 MMOL/L (98-107); CREATININE 0.8 MG/DL (0.55-1.30); POTASSIUM 3.9 MMOL/L (3.5-5.1); SODIUM 134 MMOL/L (136-145)
[2018-12-22 03:01] LABS: BASOPHILS % (AUTO) 1.2 % (0.0-2.0); HEMATOCRIT 30.4 % (37.0-47.0); HEMOGLOBIN 9.2 G/DL (12.0-16.0); LYMPHOCYTES % (AUTO) 34.4 % (20.0-45.0); MEAN CORPUSCULAR VOLUME 72 FL (80-99); MONOCYTES % (AUTO) 6.2 % (1.0-10.0); NEUTROPHILS % (AUTO) 54.3 % (45.0-75.0); PLATELET COUNT 203 K/UL (150-450); RED BLOOD COUNT 4.25 M/UL (4.20-5.40); RED CELL DISTRIBUTION WIDTH 16.1 % (11.6-14.8); WHITE BLOOD COUNT 5.2 K/UL (4.8-10.8)
[2018-12-22 03:10] LABS: INR 1.5 (0.9-1.1)
[2018-12-22 03:12] LABS: PARTIAL THROMBOPLASTIN TIME > 150 SEC (23-33)
--- NOTE | 2018-12-22 03:14 | NUR ---
NURSE NOTES: Received critical apTT >150. Stopped heparin per protocol.
--- NOTE | 2018-12-22 03:20 | NUR ---
NURSE NOTES: Notified pipeline about apTT. Instructed to hold for an hour and restart at 6units/kg/hr. Redraw apTT at 1015.
[2018-12-22 04:00] VITALS: BP 103/66
[2018-12-22] MEDS: Heparin 25,000u/D5W 500ml 500 ML IV SCH ×2 (04:13→18:47)
--- NOTE | 2018-12-22 04:15 | NUR ---
NURSE NOTES: Heparin restarted at 6units/kg/hr as ordered.
[2018-12-22] MEDS: Morphine Sulfate 2mg/ml Inj(IV/IM USE ONLY) IVP PRN ×4 (06:27→21:17)
[2018-12-22 08:00] VITALS: BP 108/58
[2018-12-22] MEDS: Docusate 100mg cap ORAL SCH ×2 (08:29→21:15)
[2018-12-22] MEDS ORDERED: Warfarin Sodium 5mg ORAL SCH ×2 (09:00→17:00)
--- NOTE | 2018-12-22 10:31 | NUR ---
NURSE NOTES: Received call from Alejandra in pharmacy. Rate will remain the same and ptt to bed ordered for 0400 tomorrow (12/23/17).
--- NOTE | 2018-12-22 10:59 | General Progress Note ---
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 1. PE in the setting of APL and subtheraputic INR. small filling defect. negative troponin x 2, no ekg changes, normal pro bnp, no hemodynamic compromise ie hypotension. -started on heparin ggt. continue monitoring ppt -restart Coumadin. Dosing per pharmacy. At home take 10mg on M,F and 5mg rest of the week. INR 1.5 -patient counseled reg importance of taking her medications 2. Headache. + photophobia. denies hx of migraine. she has some loss of sensation in 4th digit of R hand. Given history of APS, suspect CVA vs TIA. however CT head negative. Today has positional vertigo and headache. ?BPPV -CT head stat -negative for any acute process -pain control -Antiemetics w/ zofran -Add small dose meclezine 3. obesity. Patient counselled on life style modifications ,diet, and exercise. I spent 40 minutes on this encounter. 50% spent on counselling and care coordination. time of this note may not reflect time of encounter. Subjective Date patient seen: Dec 22, 2018 ROS Limited/Unobtainable: No Constitutional: Denies: no symptoms, chills, diaphoresis, fever, malaise, weakness, other HEENT: Denies: no symptoms, eye pain, blurred vision, tearing, double vision, ear pain, ear discharge, nose pain, nose congestion, throat pain, throat swelling, mouth pain, mouth swelling, other Cardiovascular: Denies: no symptoms, chest pain, edema, irregular heart rate, lightheadedness, palpitations, syncope, other Respiratory: Denies: no symptoms, cough, orthopnea, shortness of breath, SOB with excertion, SOB at rest, sputum, stridor, wheezing, other Gastrointestinal/Abdominal: Denies: no symptoms, abdomen distended, abdominal pain, black stools, tarry stools, blood in stool, constipated, diarrhea, difficulty swallowing, nausea, poor appetite, poor fluid intake, rectal bleeding , vomiting, other Genitourinary: Denies: no symptoms, burning, discharge, frequency, flank pain, hematuria, incontinence, pain, urgency, other Neurologic/Psychiatric: Reports: headache; Denies: no symptoms, anxiety, depressed, emotional problems, numbness, paresthesia, pre-existing deficit, seizure, tingling, tremors, weakness, other Endocrine: Denies: no symptoms, excessive sweating, flushing, intolerance to cold, intolerance to heat, increased hunger, increased thirst, increased urine, unexplained weight gain, unexplained weight loss, other Hematologic/Lymphatic: Denies: no symptoms, anemia, easy bleeding, easy bruising, other Allergies: Coded Allergies: No Known Allergies (Unverified , 09/12/18) Subjective seen and examined receiving heparin ggt + coumadin for PE Still has headache, worse when she turns her head in bed and + vertigo, + tinnitus, no hearing loss Objective Last 24 Hour Vital Signs Date Time Temp Pulse Resp B/P (MAP) Pulse Ox O2 Delivery O2 Flow Rate FiO2 12/22/18 09:00 Room Air 12/22/18 08:00 65 12/22/18 08:00 97.2 69 21 108/58 (75) 97 12/22/18 07:07 68 15 98 Room Air 21 12/22/18 06:57 98.5 12/22/18 04:00 98.5 75 16 103/66 (78) 97 12/22/18 04:00 68 12/22/18 01:52 98.5 73 16 115/66 (82) 98 12/22/18 00:00 68 12/21/18 21:00 Room Air 12/21/18 20:00 98.5 85 16 118/73 (88) 96 12/21/18 20:00 84 12/21/18 19:52 82 18 97 Room Air 21 12/21/18 16:00 98.6 78 18 119/77 (91) 99 12/21/18 16:00 80 12/21/18 12:00 98.4 92 16 126/75 (92) 99 12/21/18 12:00 73 Intake and Output 12/21/18 12/22/18 19:00 07:00 Intake Total 186.697 ml Balance 186.697 ml Intake IV Total 186.697 ml # Voids 3 Laboratory Tests 12/21/18 13:25: Prothrombin Time 13.5H, Prothromb Time International Ratio 1.3H 12/21/18 17:55: Activated Partial Thromboplast Time > 150*H 12/22/18 02:00: Prothrombin Time 15.8H, Prothromb Time International Ratio 1.5H, Activated Partial Thromboplast Time > 150*H, White Blood Count 5.2, Red Blood Count 4.25, Hemoglobin 9.2L, Hematocrit 30.4L, Mean Corpuscular Volume 72L, Mean Corpuscular Hemoglobin 21.6L, Mean Corpuscular Hemoglobin Concent 30.1L, Red Cell Distribution Width 16.1H, Platelet Count 203, Mean Platelet Volume 7.5, Neutrophils (%) (Auto) 54.3, Lymphocytes (%) (Auto) 34.4, Monocytes (%) (Auto) 6.2, Eosinophils (%) (Auto) 4.0H, Basophils (%) (Auto) 1.2, Sodium Level 134L, Potassium Level 3.9, Chloride Level 107, Carbon Dioxide Level 23, Anion Gap 4L, Blood Urea Nitrogen 12, Creatinine 0.8, Estimat Glomerular Filtration Rate > 60 , Glucose Level 94, Calcium Level 8.9, Magnesium Level 2.1, Pro-B-Type Natriuretic Peptide 29, Thyroid Stimulating Hormone (TSH) 1.188 12/22/18 10:10: Activated Partial Thromboplast Time 86H Height (Feet): 5 Height (Inches): 2.00 Weight (Pounds): 217 Objective General Appearance: no apparent distress, speaks full sentences. Obese HEENT: normocephalic, atraumatic, bilateral eye PERRL Neck: full range of motion, supple/symm/no masses, no jvd Respiratory: chest non-tender, lungs clear, normal breath sounds, no wheezing or rales Cardiovascular:regular rate, rhythm, no edema Gastrointestinal: normal bowel sounds, non tender, soft, non-distended, no guarding, no rebound Musculoskeletal: normal range of motion Neurologic: alert, oriented x3, responsive, motor strength/tone normal, no nystagmus Psychiatric: judgement/insight normal, memory normal, mood/affect normal, no suicidal/homicidal ideation skin: no ulcers or rashes Sonu Pal M.D. Dec 22, 2018 10:59
[2018-12-22 12:00] VITALS: BP 121/77
[2018-12-22] MEDS ORDERED: Meclizine 25mg tab ORAL PRN (12:39)
[2018-12-22 16:00] VITALS: BP 125/78
--- NOTE | 2018-12-22 19:52 | NUR ---
HAND-OFF: Report given to Stanley Solis. Plan of care endorsed
--- NOTE | 2018-12-22 19:53 | NUR ---
NURSE NOTES: Received patient awake, lying in semi simon's; resting comfortably. A/O x4. Denies pain at this time. No signs of acute cardiorespiratory distress noted. Checked IV site and flushed. No erythema, bleeding or infiltration noted. Bed at lowest position, brakes on, siderails x3. Call light within reach. Will continue to monitor.
[2018-12-22 20:00] VITALS: BP 159/84
[2018-12-23] VITALS: BP 120/74
--- NOTE | 2018-12-23 00:45 | NUR ---
NURSE NOTES: Resting throughout the night. No significant change of condition noted. Will continue to monitor.
[2018-12-23 04:00] VITALS: BP 142/84
[2018-12-23 04:59] LABS: INR 1.9 (0.9-1.1)
--- NOTE | 2018-12-23 05:24 | NUR ---
NURSE NOTES: Notified pipeline about apTT result. Instructed to continue heparin on same rate and redraw aPPT tomorrow 12/24/18 at 4am.
--- NOTE | 2018-12-23 07:25 | NUR ---
HAND-OFF: Report given to ANTONIO Hoyt. Plan of care endorsed.
--- NOTE | 2018-12-23 07:33 | NUR ---
NURSE NOTES: Received report from ANTONIO Solis. Patient in bed resting, no active s/s cardiac, respiratory distress noticed at this time. Patient AOx4, denies pain at this time, patient on room air. IV on left AC 20G, right hand 22G, asymptomatic, patent, intact. Heparin running as prescribed rate 11.43ml/h, 6unit/kg/hr. Bed in lowest position, side rails upx3, call light within reach. Will continue to monitor.
[2018-12-23 08:00] VITALS: BP 121/67
[2018-12-23] MEDS: Docusate 100mg cap ORAL SCH ×2 (08:06→21:19)
--- NOTE | 2018-12-23 08:55 | Cardiology Report ---
APPROVED REPORT EXAM: Two-dimensional and M-mode echocardiogram with Doppler and color Doppler. INDICATION Chest Pain M-Mode DIMENSIONS IVSd1.1 (0.7-1.1cm)Left Atrium (MM)2.6 (1.6-4.0cm) LVDd4.6 (3.5-5.6cm)Aortic Root3.9 (2.0-3.7cm) PWd1.1 (0.7-1.1cm)Aortic Cusp Exc.1.8 (1.5-2.0cm) IVSs1.6 cm LVDs3.1 (2.5-4.0cm) PWs1.4 cm Technically difficult study due to poor acoustical windows. Normal left ventricular chamber size, systolic function and wall motion to extent visualized. Left ventricular ejection fraction estimated to be 55-60%. No evidence left ventricular hypertrophy. No pericardial effusion. All other cardiac chamber sizes are within normal limits. Aortic valve calcification with normal cusp excursion . Mildly thickened mitral valve leaflets with normal excursion. Mild mitral annulus and aortic root calcification. Pulmonic valve not well visualized. IVC at normal size with physiologic collapse . A color flow and spectral Doppler study was performed and revealed: No aortic insufficiency . Mitral inflow indicates normal left ventricular diastolic function. Trace mitral regurgitation. Mild tricuspid regurgitation. Tricuspid systolic velocities suggests peak right ventricular systolic pressure of 37mmHg,consistent with mild pulmonary hypertension.
--- NOTE | 2018-12-23 09:30 | NUR ---
NURSE NOTES: Per Dr. Pal, patient okay to ambulate at this time.
--- NOTE | 2018-12-23 09:39 | General Progress Note ---
Assessment/Plan Problem List: (1) Pulmonary embolism ICD Codes: I26.99 - Other pulmonary embolism without acute cor pulmonale SNOMED: 87858796 Qualifiers: Qualified Codes: I26.99 - Other pulmonary embolism without acute cor pulmonale (2) Subtherapeutic international normalized ratio (INR) ICD Codes: R79.1 - Abnormal coagulation profile SNOMED: 509947783, 622062489 (3) Microcytic anemia ICD Codes: D50.9 - Iron deficiency anemia, unspecified SNOMED: 510123794 (4) Antiphospholipid antibody positive ICD Codes: R76.0 - Raised antibody titer SNOMED: 946481337 (5) Headache ICD Codes: R51 - Headache SNOMED: 03886930 Status: stable Assessment/Plan: 28 year old female, obese, with 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 1. PE in the setting of APL and subtheraputic INR. small filling defect. negative troponin x 2, no ekg changes, normal pro bnp, no hemodynamic compromise ie hypotension. -started on heparin ggt. continue monitoring ppt -restart Coumadin. Dosing per pharmacy. At home take 10mg on M,F and 5mg rest of the week. INR 1.9 -Echo: mild pum htn -patient counseled reg importance of taking her medications 2. Headache. + photophobia. denies hx of migraine. she has some loss of sensation in 4th digit of R hand. Given history of APS, suspect CVA vs TIA. however CT head negative. Today has positional vertigo and headache. ?BPPV -CT head stat -negative for any acute process -pain control -Antiemetics w/ zofran -Add small dose meclezine 3. obesity. Patient counselled on life style modifications ,diet, and exercise. 4. Microcytic Anemia. Iron panel. Ferritin. Per patient chronic and was told due to her antiphospholipid syndrome. I spent 40 minutes on this encounter. 50% spent on counselling and care coordination. time of this note may not reflect time of encounter. Subjective Date patient seen: Dec 23, 2018 Constitutional: Denies: no symptoms, chills, diaphoresis, fever, malaise, weakness, other Respiratory: Denies: no symptoms, cough, orthopnea, shortness of breath, SOB with excertion, SOB at rest, sputum, stridor, wheezing, other Gastrointestinal/Abdominal: Denies: no symptoms, abdomen distended, abdominal pain, black stools, tarry stools, blood in stool, constipated, diarrhea, difficulty swallowing, nausea, poor appetite, poor fluid intake, rectal bleeding , vomiting, other Neurologic/Psychiatric: Reports: headache; Denies: no symptoms, anxiety, depressed, emotional problems, numbness, paresthesia, pre-existing deficit, seizure, tingling, tremors, weakness, other Endocrine: Denies: no symptoms, excessive sweating, flushing, intolerance to cold, intolerance to heat, increased hunger, increased thirst, increased urine, unexplained weight gain, unexplained weight loss, other Hematologic/Lymphatic: Denies: no symptoms, anemia, easy bleeding, easy bruising, other Allergies: Coded Allergies: No Known Allergies (Unverified , 09/12/18) Subjective seen and examined receiving heparin ggt + coumadin for PE. INR 1.9 Still has headache, worse when she turns her head in bed and + vertigo, + tinnitus, no hearing loss, started on meclizine Echo: Mild pulm HTN, R ventricular systolic pressure 37 Objective Last 24 Hour Vital Signs Date Time Temp Pulse Resp B/P (MAP) Pulse Ox O2 Delivery O2 Flow Rate FiO2 12/23/18 09:00 Room Air 12/23/18 08:00 98.1 67 18 121/67 (85) 100 12/23/18 08:00 66 12/23/18 04:00 66 12/23/18 04:00 97.8 60 18 142/84 (103) 98 12/23/18 00:00 79 12/23/18 00:00 98.0 71 19 120/74 (89) 99 12/22/18 21:00 Room Air 12/22/18 20:07 70 18 98 Room Air 21 12/22/18 20:00 69 12/22/18 20:00 97.0 70 18 159/84 (109) 98 12/22/18 16:00 97.3 75 20 125/78 (94) 98 12/22/18 16:00 78 12/22/18 12:00 78 12/22/18 12:00 97.3 71 21 121/77 (92) 97 Intake and Output 12/22/18 12/23/18 19:00 07:00 Intake Total 139.64 ml Balance 139.64 ml Intake IV Total 139.64 ml # Voids 2 3 Laboratory Tests 12/22/18 10:10: Activated Partial Thromboplast Time 86H 12/23/18 04:05: Activated Partial Thromboplast Time 66H, Prothrombin Time 19.4H, Prothromb Time International Ratio 1.9H Height (Feet): 5 Height (Inches): 2.00 Weight (Pounds): 217 Objective General Appearance: no apparent distress, speaks full sentences. Obese HEENT: normocephalic, atraumatic, bilateral eye PERRL Neck: full range of motion, supple/symm/no masses, no jvd Respiratory: chest non-tender, lungs clear, normal breath sounds, no wheezing or rales Cardiovascular:regular rate, rhythm, no edema Gastrointestinal: normal bowel sounds, non tender, soft, non-distended, no guarding, no rebound Musculoskeletal: normal range of motion Neurologic: alert, oriented x3, responsive, motor strength/tone normal, no nystagmus Psychiatric: judgement/insight normal, memory normal, mood/affect normal, no suicidal/homicidal ideation skin: no ulcers or rashes Sonu Pal M.D. Dec 23, 2018 09:39
--- NOTE | 2018-12-23 11:32 | NUR ---
NURSE NOTES: Paged Dr. Smith regarding patient c/o new onset of tingling sensation on right leg, no radiation, cap refill <3sec, able to move and sense. Awaiting for callback.
--- NOTE | 2018-12-23 11:42 | NUR ---
CASE MANAGEMENT:REVIEW 28 YR OLD FEMALE TO ER CC: CHEST PAIN, HEADACHE, NAUSEA AND VOMITING SI: PULMONARY EMBOLI 98.5 87 16 120/80 99% ON RA PT+11.5 CR+1.1 APTT+47 IS: HEPARIN GTT 500CC NS BOLUS IV MORPHINE IV REGLAN TYLENOL #3 : TO TELEMETRY
--- NOTE | 2018-12-23 11:51 | NUR ---
NURSE NOTES: Per Dr. Pal, order venous duplex on lower extremities to r/o DVT. Order noted, entered, carried out. Will continue to monitor.
[2018-12-23 11:57] LABS: % IRON SATURATION 4 % (15-50); IRON 14 ug/dL (50-175); TOTAL IRON BINDING CAPACITY 344 ug/dL (250-450)
[2018-12-23 12:00] VITALS: BP 105/67
[2018-12-23 12:11] LABS: FERRITIN 11 NG/ML (8-388)
[2018-12-23 16:00] VITALS: BP 118/67
[2018-12-23] MEDS: Morphine Sulfate 2mg/ml Inj(IV/IM USE ONLY) IVP PRN (16:51)
[2018-12-23] MEDS ORDERED: Warfarin Sodium 2.5mg ORAL ONE (17:00)
--- NOTE | 2018-12-23 19:33 | NUR ---
HAND-OFF: Report given to ANTONIO Garcia.
--- NOTE | 2018-12-23 19:34 | NUR ---
NURSE NOTES: Received patient awake, lying in semi simon's; resting comfortably. Complains of pain at the nape area with a pain scale of 8/10. No signs of acute cardiorespiratory distress noted. Checked IV site and flushed. No erythema, bleeding or infiltration noted. Still on heparin drip running at 11.43ml/h, 6unit/kg/hr. Able to make needs known. Bed at lowest position, brakes on, siderailx3. Call light within reach. Comfort care provided. Will continue to monitor.
--- NOTE | 2018-12-23 19:34 | Consultation ---
Consult Note Consult Note NEUROLOGY CONSULTATION: Full note dictated #[id number] 28-year-old, right-handed, lady, who does have a past history of a fatty liver, antiphospholipid antibody syndrome, prior deep venous thrombi, who came into the hospital for chest discomfort and headache for approximately 1 week. She is supposed to be on chronic Coumadin therapy but apparently ran out of her Coumadin. On being evaluated at [facility] she was discovered to have pulmonary emboli and has since been restarted on her Coumadin. As mentioned earlier her headache started approximately 1 week prior to admission. The headache started off and occipital areas and then spread to involve the frontotemporal region of her scalp. The headache was a constant pressure- like headache for the first 4 days and then started to become a little more episodic but when the headache would occur it was much more severe. At this point in time the headache is better than when she came in but is still very bothersome. She denies any associated weakness on one side of the other numbness on one side of the other problems with speech problems with language problems with vision or problems with her memory. However when she came in she did complain of right ring finger numbness. In the past she has had minor headaches that go away with simple analgesics but nothing like what she is having right now. On examination: G 2/4 cervical paraspinal muscle and trapezius spasm. Awake and alert Fully oriented Memory 3/3-0, 1, 3. Able to remember presidents Trump and Obama only Mathematical skills preserved Visual-spatial function preserved Speech normal Language normal Cranial nerves II through XII intact Motor examination normal Sensory normal Reflexes: 1+ and bilaterally symmetrical at biceps triceps brachioradialis knees and ankles plantar responses flexor. Stance normal Gait normal IMPRESSION: Muscle contraction headache Antiphospholipid antibody syndrome with pulmonary embolism. CT scan of brain performed on 12/21/2018 normal. RECOMMENDATIONS: Flexeril 10 mg nightly Tylenol 650 mg every 8 hours [id number] for the next 3 days Observe. Hany North M.D., M.S.P.H. Hany North MD Dec 23, 2018 19:34
[2018-12-23 20:00] VITALS: BP 114/71
[2018-12-23] MEDS: Cyclobenzaprine 10mg Tab ORAL SCH (21:19)
--- NOTE | 2018-12-23 22:15 | Consultation ---
DATE OF CONSULTATION: 12/23/2018 NEUROLOGY CONSULTATION CONSULTING PHYSICIAN: Hany North M.D. REQUESTING PHYSICIAN: Sonu Pal M.D. HISTORY: Ms. Isamar Barker is a 28-year-old, right-handed, lady, who does have a past history of a fatty liver, antiphospholipid antibody syndrome, and prior deep venous thrombi; who came into the hospital for a one-week history of chest discomfort and a headache. She is supposed to be on chronic Coumadin therapy, but had run out of her Coumadin. On being evaluated in the emergency room at [facility], she was discovered to have pulmonary emboli and has since been restarted on the Coumadin preceded by Heparin. Her headache started approximately 1 week prior to admission. The headache was in the form of a pressure-like sensation felt in the occipital areas that then became more severe and spread to involve the frontotemporal regions of the scalp. The headache was a constant pressure-like headache for the first 4 days and then it started to become a little more intermittent than episodic, but when the headache would occur, it was of greater severity. The problem has continued and at this point in time, the headache is a little better than when she came, but is still quite bothersome. She denies any associated weakness on one side or the other, numbness on one side or the other, problems with speech, problems with language, problems with vision, or problems with her memory. However as per the chart, when she came in, she did complain of right ring finger numbness. In the past, she has had minor headaches that go away with simple analgesics, but nothing like what she is having right now. She did have a CT scan of the brain performed, which was relatively benign. PAST MEDICAL HISTORY: Significant for fatty liver, antiphospholipid antibody syndrome, and prior deep venous thrombi. FAMILY HISTORY: Nothing significant. PERSONAL HISTORY: Home: She lives at home with her children. 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 Habits: She denies the use of alcohol, tobacco, or illicit drugs MEDICATIONS: Meclizine p.r.n., heparin, warfarin, Pepcid, Colace, morphine sulfate, [place], DuoNeb inhaler, Tylenol, MiraLAX, Dulcolax, Zofran, and Benadryl. PHYSICAL EXAMINATION: GENERAL: She is a well-developed, well-nourished, slightly obese lady, lying in bed, in no acute distress. VITAL SIGNS: Pulse 70/minute and regular, blood pressure 105/67 mmHg, respirations 18/minute, and temperature 98 degrees Fahrenheit. HEAD: Normocephalic and atraumatic. EENT: Examination benign. NECK: No neck rigidity was observed. She did have a grade 2/4 cervical paraspinal muscle and trapezius spasm. SPINE: Thoracic and lumbosacral spine was benign NEUROLOGICAL EXAMINATION: MENTAL STATUS EXAMINATION: She was awake and alert. She was oriented to person, place, and time. She was able to recall 3/3 words immediately after 1 minute and after 3 minutes. She was able to remember Presidents, Trump and Obama, only. Her mathematical skills were good. Her visuospatial function was preserved. SPEECH: She had no dysarthria. LANGUAGE: She had no aphasia. CRANIAL NERVE EXAMINATION: II: The visual izaguirre were intact to confrontation testing. III, IV & : The external ocular movements were full and the pupils 3 mm in diameter, equal, round, regular, and reactive to light. V: She had normal facial sensations, and the temporales, masseters, and pterygoids functioned normally. VII: She had normal facial expressions and no facial asymmetry. VIII: She was able to hear well bilaterally and had no nystagmus. IX: The palate moved symmetrically on phonation. X: She had no hoarseness of voice. XI: The sternocleidomastoids and trapezii functioned normally. XII: The tongue was in the midline without any fasciculations or atrophy. MOTOR SYSTEM: The tone was normal in all four extremities. Examination of muscle mass revealed no focal wasting. Examination of power revealed G 5/5 power in all muscle groups tested. SENSORY EXAMINATION: She had intact sensations to pinprick, light touch, and graphesthesia. COORDINATION: She performed well on zjtvrx-zs-smcu and uhle-zr-tcib testing. On Romberg test, she swayed, but did not fall to one side or the other. REFLEXES: 1+ and bilaterally symmetrical at the biceps, triceps, brachioradialis, knees, and ankles. The plantar responses were flexor bilaterally. STANCE: She had a normal stance. GAIT: She had a normal gait. DIAGNOSTIC IMPRESSION: 1. Ms. Isamar Barker is a 28-year-old, right-handed, lady, who does have a past history of a fatty liver, antiphospholipid antibody syndrome, and prior deep venous thrombi, who came in to the hospital with a one-week history of chest discomfort and headache and was found to have pulmonary embolism. Since then, she has been treated with intravenous heparin and Coumadin. She feels more comfortable with regards to her chest, but still has headaches. 2. On neurological examination, at this time, she does have G 2/4 cervical paraspinal muscle and trapezius spasm and globally diminished reflexes. The rest of the neurological examination is benign. 3. Laboratory data obtained thus far have revealed an anemia with a hemoglobin of 9.2 G, chemistry panel with an alkaline phosphatase elevated to 126, and a normal TSH. When she came in, her INR was subtherapeutic at 1.3 and her urine HCG was negative. 4. The CT scan of the brain without contrast was reviewed and revealed no intracranial pathology. 5. The patient's history, neurological examination, laboratory data, and imaging studies are most consistent with a muscle contraction headache related to significant cervical paraspinal muscle and trapezius spasm. RECOMMENDATIONS: 1. Agree with management thus far. 2. The patient was given an explanation of the above-mentioned findings. 3. She will be started on Flexeril 10 mg at bedtime for the next 7 nights. 4. She will be started on Tylenol 650 mg every 8 hours around the clock for the next 3 days. 5. The patient will be observed closely and depending on how she fares over the next day or so, further recommendations will be given. Thank you for entrusting me with the care of Ms. Jonathon Barker. I shall follow her with you. Hany North M.D., M.S.P.H. DR: ARLETTE JOB#: [id number] JAMES
[2018-12-24] VITALS: BP 134/89
--- NOTE | 2018-12-24 01:33 | NUR ---
NURSE NOTES: Resting comfortably throughout the night. No significant change of condition. Will continue to monitor.
[2018-12-24 04:00] VITALS: BP 103/67
[2018-12-24] MEDS: Heparin 25,000u/D5W 500ml 500 ML IV SCH (04:45)
[2018-12-24 04:46] LABS: INR 3.6 (0.9-1.1)
--- NOTE | 2018-12-24 05:06 | NUR ---
NURSE NOTES: Notified pipeline about apTT result. Instructed to continue heparin on same rate and redraw aPPT tomorrow 12/25/18 at 4am. Orders made and carried out.
--- NOTE | 2018-12-24 07:05 | NUR ---
HAND-OFF: Report given to ANTONIO Hoyt. Patient is in stable condition. Plan of care endorsed.
--- NOTE | 2018-12-24 07:15 | NUR ---
NURSE NOTES: Received report from ANTONIO Solis. Patient in bed resting, no active s/s cardiac, respiratory distress noticed at this time. Patient AOx4, on room air, denies pain at this time. IV on left AC 20G, right hand 22G, asymptomatic, patent, intact. IV heparin running as prescribed rate 11.43ml/h, 6unit/kg/hr, next PTT scheduled for 0400 12/25/18. Bed in lowest position, side rails upx2, call light within reach. Will continue to monitor.
[2018-12-24 08:00] VITALS: BP 92/57
[2018-12-24] MEDS: Docusate 100mg cap ORAL SCH ×2 (08:17→20:57)
--- NOTE | 2018-12-24 09:13 | General Progress Note ---
Assessment/Plan Problem List: (1) Pulmonary embolism ICD Codes: I26.99 - Other pulmonary embolism without acute cor pulmonale SNOMED: 85721106 Qualifiers: Qualified Codes: I26.99 - Other pulmonary embolism without acute cor pulmonale (2) Subtherapeutic international normalized ratio (INR) ICD Codes: R79.1 - Abnormal coagulation profile SNOMED: 814428017, 568005982 (3) Microcytic anemia ICD Codes: D50.9 - Iron deficiency anemia, unspecified SNOMED: 987115609 (4) Antiphospholipid antibody positive ICD Codes: R76.0 - Raised antibody titer SNOMED: 712359299 (5) Headache ICD Codes: R51 - Headache SNOMED: 42246416 (6) Fatty liver ICD Codes: K76.0 - Fatty (change of) liver, not elsewhere classified SNOMED: 085824546 (7) Cervical paraspinal muscle spasm ICD Codes: M62.838 - Other muscle spasm SNOMED: 085031622 (8) Trapezius muscle spasm ICD Codes: M62.838 - Other muscle spasm SNOMED: 722201641061 Status: stable Assessment/Plan: 28 year old female, obese, with 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 1. PE in the setting of APL and subtheraputic INR. small filling defect. negative troponin x 2, no ekg changes, normal pro bnp, no hemodynamic compromise ie hypotension. -stop heparin ggt. continue monitoring ppt, hold coumadin. INR 3.6. Repeat INR before discharge -Echo: Echo: Mild pulm HTN, R ventricular systolic pressure 37 -patient counseled reg importance of taking her medications -Dietary consult for appropriate diet suitable for warfarin 2.Persistent headache. Given history of APS, suspect CVA vs TIA. however CT head negative. Neurology eval by Dr. North . Impression Cervical paraspinal and trapezius muscle spasms. -pain control -Antiemetics w/ zofran -Stop Meclezine -Started on Flexril for 7 days -Tylenol around the clock 3. obesity. Patient counselled on life style modifications ,diet, and exercise. 4. Microcytic Anemia. Iron panel.Per patient chronic and was told due to her antiphospholipid syndrome. Anemia panel consistent with severe iron deficiency anemia. Start ferrous sulphate 325 TID 5. Fattly liver. Weight loss advised. I spent 40 minutes on this encounter. 50% spent on counselling and care coordination. time of this note may not reflect time of encounter. Subjective Date patient seen: Dec 24, 2018 ROS Limited/Unobtainable: No Constitutional: Reports: other - +headache ; Denies: no symptoms, chills, diaphoresis, fever, malaise, weakness HEENT: Denies: no symptoms, eye pain, blurred vision, tearing, double vision, ear pain, ear discharge, nose pain, nose congestion, throat pain, throat swelling, mouth pain, mouth swelling, other Cardiovascular: Denies: no symptoms, chest pain, edema, irregular heart rate, lightheadedness, palpitations, syncope, other Respiratory: Denies: no symptoms, cough, orthopnea, shortness of breath, SOB with excertion, SOB at rest, sputum, stridor, wheezing, other Gastrointestinal/Abdominal: Denies: no symptoms, abdomen distended, abdominal pain, black stools, tarry stools, blood in stool, constipated, diarrhea, difficulty swallowing, nausea, poor appetite, poor fluid intake, rectal bleeding , vomiting, other Genitourinary: Denies: no symptoms, burning, discharge, frequency, flank pain, hematuria, incontinence, pain, urgency, other Neurologic/Psychiatric: Denies: no symptoms, anxiety, depressed, emotional problems, headache, numbness, paresthesia, pre-existing deficit, seizure, tingling, tremors, weakness, other Endocrine: Denies: no symptoms, excessive sweating, flushing, intolerance to cold, intolerance to heat, increased hunger, increased thirst, increased urine, unexplained weight gain, unexplained weight loss, other Hematologic/Lymphatic: Denies: no symptoms, anemia, easy bleeding, easy bruising, other Allergies: Coded Allergies: No Known Allergies (Unverified , 09/12/18) Subjective seen and examined receiving heparin ggt + coumadin for PE. INR 3.6 (on 5mg coumadin daily) evaluated by neurology for persistent headaches Objective Last 24 Hour Vital Signs Date Time Temp Pulse Resp B/P (MAP) Pulse Ox O2 Delivery O2 Flow Rate FiO2 12/24/18 08:00 97.9 66 20 92/57 (69) 100 12/24/18 07:51 76 18 95 Room Air 21 12/24/18 04:00 60 12/24/18 04:00 98.9 64 20 103/67 (79) 98 12/24/18 00:00 59 12/24/18 00:00 98.0 60 20 134/89 (104) 96 12/23/18 21:00 Room Air 12/23/18 20:00 98.0 80 18 114/71 (85) 100 12/23/18 20:00 81 12/23/18 16:00 67 12/23/18 16:00 98.2 71 18 118/67 (84) 99 12/23/18 12:00 79 12/23/18 12:00 98.0 69 18 105/67 (80) 99 Intake and Output 12/23/18 12/24/18 19:00 07:00 Intake Total 840 ml 188.59 ml Balance 840 ml 188.59 ml Intake Oral 840 ml 60 ml IV Total 128.59 ml # Voids 3 1 # Bowel Movements 1 Laboratory Tests 12/23/18 10:40: Iron Level 14L, Total Iron Binding Capacity 344, Percent Iron Saturation 4L, Unsaturated Iron Binding 330, Ferritin 11 12/24/18 04:00: Prothrombin Time 35.9H, Prothromb Time International Ratio 3.6H, Activated Partial Thromboplast Time 65H Echo: Mild pulm HTN, R ventricular systolic pressure 37 Height (Feet): 5 Height (Inches): 2.00 Weight (Pounds): 217 Objective General Appearance: no apparent distress, speaks full sentences. Obese HEENT: normocephalic, atraumatic, bilateral eye PERRL Neck: full range of motion, supple/symm/no masses, no jvd Respiratory: chest non-tender, lungs clear, normal breath sounds, no wheezing or rales Cardiovascular:regular rate, rhythm, no edema Gastrointestinal: normal bowel sounds, non tender, soft, non-distended, no guarding, no rebound Musculoskeletal: normal range of motion Neurologic: alert, oriented x3, responsive, motor strength/tone normal, no nystagmus Psychiatric: judgement/insight normal, memory normal, mood/affect normal, no suicidal/homicidal ideation skin: no ulcers or rashes Sonu Pal M.D. Dec 24, 2018 09:13
[2018-12-24 12:00] VITALS: BP 107/60
--- NOTE | 2018-12-24 14:16 | NUR ---
RD ASSESSMENT & RECOMMENDATIONS SEE CARE ACTIVITY FOR COMPLETE ASSESSMENT DAILY ESTIMATED NEEDS: Needs based on Obese cardiac, 61.7kg abw 25-30 kcals/kg 6589-9522 total kcals 1-1.2 g protein/kg 62-74 g total protein 25-30 mL/kg 3193-5619 total fluid mLs NUTRITION DIAGNOSIS: Decreased fat needs r/t obesity and h/o fatty liver as evidenced by pt w/ BMI 39- obese per guidelines, 194% [place] Body Weight. CURRENT DIET: Regular PO DIET RECOMMENDATIONS: REC DIET CHANGE TO --> LOW FAT DIET / Limit dark green vegetables ADDITIONAL RECOMMENDATIONS: 1) Obtain wt on standing scale 2) Rec diet change as above 3) Provided diet edu on Coumadin/ vit K foods + WT loss 4) Updated labs (Na low 12/22)
[2018-12-24] MEDS: Morphine Sulfate 2mg/ml Inj(IV/IM USE ONLY) IVP PRN ×2 (15:48→21:00)
[2018-12-24 16:00] VITALS: BP 108/75
--- NOTE | 2018-12-24 17:40 | Neurology Progress Note ---
Interim History Interim History Interim History Ms. Jonathon Barker feels significantly better today. The headache has gone away almost completely and she only feels some minimal tightness in the back of her neck. The neck tightness is also significantly better. She denies any new neurological symptoms. Review of Systems Neuro Review of Systems Benign. Objective Physical Exam Last Vital Signs Date Time Temp Pulse Resp B/P (MAP) Pulse Ox O2 Delivery O2 Flow Rate FiO2 12/24/18 16:00 97.0 72 21 108/75 (86) 100 12/24/18 09:00 Room Air 12/24/18 07:51 21 Laboratory Tests Test 12/24/18 04:00 Prothrombin Time 35.9 SEC (9.30-11.50) H Prothromb Time International Ratio 3.6 (0.9-1.1) H Activated Partial Thromboplast Time 65 SEC (23-33) H Neurologic Exam Objective PHYSICAL EXAMINATION: GENERAL: She is a well-developed, well-nourished, slightly obese lady , lying in bed, in no acute distress. HEAD: Normocephalic and atraumatic. EENT: Examination benign. NECK: No neck rigidity was observed. She did have a grade Trace/4 cervical paraspinal muscle and trapezius spasm. SPINE: Thoracic and lumbosacral spine was benign NEUROLOGICAL EXAMINATION: MENTAL STATUS EXAMINATION: She was awake and alert. She was oriented to person, place, and time. She was able to recall 3/3 words immediately after 1 minute and after 3 minutes. She was able to remember Presidents, Trump and Obama, only. Her mathematical skills were good. Her visuospatial function was preserved. SPEECH: She had no dysarthria. LANGUAGE: She had no aphasia. CRANIAL NERVE EXAMINATION: II: The visual izaguirre were intact to confrontation testing. III, IV & : The external ocular movements were full and the pupils 3 mm in diameter, equal, round, regular, and reactive to light. V: She had normal facial sensations, and the temporales, masseters, and pterygoids functioned normally. VII: She had normal facial expressions and no facial asymmetry. VIII: She was able to hear well bilaterally and had no nystagmus. IX: The palate moved symmetrically on phonation. X: She had no hoarseness of voice. XI: The sternocleidomastoids and trapezii functioned normally. XII: The tongue was in the midline without any fasciculations or atrophy. MOTOR SYSTEM: The tone was normal in all four extremities. Examination of muscle mass revealed no focal wasting. Examination of power revealed G 5/5 power in all muscle groups tested. SENSORY EXAMINATION: She had intact sensations to pinprick, light touch, and graphesthesia. COORDINATION: She performed well on xtbmbf-bc-pwkr and jisf-ok-gazv testing. On Romberg test, she swayed, but did not fall to one side or the other. REFLEXES: 1+ and bilaterally symmetrical at the biceps, triceps, brachioradialis, knees, and ankles. The plantar responses were flexor bilaterally. STANCE: She had a normal stance. GAIT: She had a normal gait. Impression/Recommendations Diagnostic Impression 1. Ms. Isamar Barker is a 28-year-old, right-handed, lady, who does have a past history of a fatty liver, antiphospholipid antibody syndrome, and prior deep venous thrombi, who came in to the hospital with a one- week history of chest discomfort and headache and was found to have pulmonary embolism. Since then, she has been treated with intravenous heparin and Coumadin. Her chest discomfort had improved significantly but she was still having headaches. 2. She feels significantly better today. The headache is gone away almost completely and she only has some minimal neck tightness. She denies any new neurological symptoms. 3. On neurological examination, at this time, she does have minimal G trace/4 cervical paraspinal muscle and trapezius spasm and globally diminished reflexes. The rest of the neurological examination is benign. 4. Laboratory data obtained thus far have revealed an anemia with a hemoglobin of 9.2 G, chemistry panel with an alkaline phosphatase elevated to 126, and a normal TSH. When she came in, her INR was subtherapeutic at 1.3 and her urine HCG was negative. 5. The CT scan of the brain without contrast was reviewed and revealed no intracranial pathology. 6. The patient's history, neurological examination, laboratory data, and imaging studies are most consistent with a muscle contraction headache related to significant cervical paraspinal muscle and trapezius spasm. Her headache is significantly better today and a neck spasm has improved markedly. Recommendations 1. Continue present management. 2. The patient was given an explanation of the above-mentioned findings. 3. Finish 7-day course of Flexeril 10 mg at bedtime. 4. Finish 3-day course of Tylenol 650 mg every 8 hours around the clock. 5. Observe closely. Hany North M.D., M.S.P.H. Hany North MD Dec 24, 2018 17:40
--- NOTE | 2018-12-24 19:35 | NUR ---
HAND-OFF: Report given to ANTONIO Epstein.
--- NOTE | 2018-12-24 19:45 | NUR ---
NURSE NOTES: Received patient from ANTONIO Hoyt. Patient was resting in bed. AOx4, able to make needs known. No signs of distress. Patient complained of 10/10 headache pain. IV site checked, patent, intact, no signs of infiltration, erythemia, or bleeding. Patient ambulatory. Bed at lowest position, brakes on, siderails up x3, call light within reach. Will continue plan of care.
[2018-12-24 20:00] VITALS: BP 112/68
[2018-12-24] MEDS: Cyclobenzaprine 10mg Tab ORAL SCH (20:57)
[2018-12-25] VITALS: BP 105/66
--- NOTE | 2018-12-25 03:31 | NUR ---
NURSE NOTES: Patient is asleep lying semi-simon's; resting comfortably. No signs of acute distress or pain noted at this time.
[2018-12-25 04:00] VITALS: BP 104/66
[2018-12-25 07:30] LABS: INR 1.4 (0.9-1.1)
--- NOTE | 2018-12-25 07:43 | NUR ---
HAND-OFF: Report given to ANTONIO Castle. Patient is awake lying semi-simon's; resting comfortably. In stable condition.
--- NOTE | 2018-12-25 07:50 | NUR ---
NURSE NOTES: pt is in bed awake and talking. Pt food tray is at bedside, she said she will eat later. Pt on environmental monitoring technician no signs of cardiac or respiratory distress at this time. Pt bed is in lowest position and locked. Call light is within reach. Will continue to follow plans of care for this pt.
[2018-12-25 08:00] VITALS: BP 144/61
--- NOTE | 2018-12-25 09:33 | General Progress Note ---
Assessment/Plan Problem List: (1) Pulmonary embolism ICD Codes: I26.99 - Other pulmonary embolism without acute cor pulmonale SNOMED: 96758363 Qualifiers: Qualified Codes: I26.99 - Other pulmonary embolism without acute cor pulmonale (2) Subtherapeutic international normalized ratio (INR) ICD Codes: R79.1 - Abnormal coagulation profile SNOMED: 542505758, 334210557 (3) Microcytic anemia ICD Codes: D50.9 - Iron deficiency anemia, unspecified SNOMED: 741542583 (4) Antiphospholipid antibody positive ICD Codes: R76.0 - Raised antibody titer SNOMED: 949354930 (5) Headache ICD Codes: R51 - Headache SNOMED: 53712773 (6) Fatty liver ICD Codes: K76.0 - Fatty (change of) liver, not elsewhere classified SNOMED: 360663931 (7) Cervical paraspinal muscle spasm ICD Codes: M62.838 - Other muscle spasm SNOMED: 617169315 (8) Trapezius muscle spasm ICD Codes: M62.838 - Other muscle spasm SNOMED: 225805157104 Assessment/Plan: 28 year old female, obese, with 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 1. PE in the setting of APL and subtheraputic INR. small filling defect. negative troponin x 2, no ekg changes, normal pro bnp, no hemodynamic compromise ie hypotension. - labile INR--> hematology consult. 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 INR goal 2-3 -continue on lovenox 1.5mg/kg sq daily. Coumadin 5mg today and dose per pharmacy protocol -Echo: Echo: Mild pulm HTN, R ventricular systolic pressure 37 -patient counseled reg importance of taking her medications -Dietary consult for appropriate diet suitable for warfarin 2.Persistent headache. Given history of APS, suspect CVA vs TIA. however CT head negative. Neurology eval by Dr. North . Impression Cervical paraspinal and trapezius muscle spasms. -pain control -Antiemetics w/ zofran -Started on Flexril for 7 days -Tylenol around the clock 3. obesity. Patient counselled on life style modifications ,diet, and exercise. 4. Microcytic Anemia. Per patient chronic and was told due to her antiphospholipid syndrome. Anemia panel consistent with severe iron deficiency anemia. Started ferrous sulphate 325 TID 5. Fattly liver. Weight loss advised. I spent 40 minutes on this encounter. 50% spent on counselling and care coordination. time of this note may not reflect time of encounter. Subjective Date patient seen: Dec 25, 2018 ROS Limited/Unobtainable: No Constitutional: Denies: no symptoms, chills, diaphoresis, fever, malaise, weakness, other HEENT: Denies: no symptoms, eye pain, blurred vision, tearing, double vision, ear pain, ear discharge, nose pain, nose congestion, throat pain, throat swelling, mouth pain, mouth swelling, other Cardiovascular: Denies: no symptoms, chest pain, edema, irregular heart rate, lightheadedness, palpitations, syncope, other Respiratory: Denies: no symptoms, cough, orthopnea, shortness of breath, SOB with excertion, SOB at rest, sputum, stridor, wheezing, other Gastrointestinal/Abdominal: Denies: no symptoms, abdomen distended, abdominal pain, black stools, tarry stools, blood in stool, constipated, diarrhea, difficulty swallowing, nausea, poor appetite, poor fluid intake, rectal bleeding , vomiting, other Genitourinary: Denies: no symptoms, burning, discharge, frequency, flank pain, hematuria, incontinence, pain, urgency, other Neurologic/Psychiatric: Denies: no symptoms, anxiety, depressed, emotional problems, headache, numbness, paresthesia, pre-existing deficit, seizure, tingling, tremors, weakness, other Endocrine: Denies: no symptoms, excessive sweating, flushing, intolerance to cold, intolerance to heat, increased hunger, increased thirst, increased urine, unexplained weight gain, unexplained weight loss, other Hematologic/Lymphatic: Denies: no symptoms, anemia, easy bleeding, easy bruising, other Allergies: Coded Allergies: No Known Allergies (Unverified , 09/12/18) Subjective Headache better She remains in the hospital due to subtherapeutic INR and high risk for VTE Objective Last 24 Hour Vital Signs Date Time Temp Pulse Resp B/P (MAP) Pulse Ox O2 Delivery O2 Flow Rate FiO2 12/25/18 08:24 69 20 99 Room Air 21 12/25/18 04:00 63 12/25/18 04:00 96.8 70 18 104/66 (79) 99 12/25/18 00:00 97.9 63 18 105/66 (79) 98 12/25/18 00:00 62 12/24/18 21:00 Room Air 12/24/18 20:00 71 12/24/18 20:00 96.7 68 19 112/68 (83) 100 12/24/18 19:52 70 18 96 Room Air 21 12/24/18 16:00 79 12/24/18 16:00 97.0 72 21 108/75 (86) 100 12/24/18 12:00 65 12/24/18 12:00 97.7 64 21 107/60 (76) 100 Intake and Output 12/24/18 12/25/18 19:00 07:00 Intake Total 400 ml 240 ml Balance 400 ml 240 ml Intake Oral 400 ml 240 ml # Voids 2 2 Laboratory Tests 12/25/18 06:24: Prothrombin Time 14.5H, Prothromb Time International Ratio 1.4H Height (Feet): 5 Height (Inches): 2.00 Weight (Pounds): 215 Objective General Appearance: no apparent distress, speaks full sentences. Obese HEENT: normocephalic, atraumatic, bilateral eye PERRL Neck: full range of motion, supple/symm/no masses, no jvd Respiratory: chest non-tender, lungs clear, normal breath sounds, no wheezing or rales Cardiovascular:regular rate, rhythm, no edema Gastrointestinal: normal bowel sounds, non tender, soft, non-distended, no guarding, no rebound Musculoskeletal: normal range of motion Neurologic: alert, oriented x3, responsive, motor strength/tone normal, no nystagmus Psychiatric: judgement/insight normal, memory normal, mood/affect normal, no suicidal/homicidal ideation skin: no ulcers or rashes Sonu Pal M.D. Dec 25, 2018 09:33
--- NOTE | 2018-12-25 10:01 | Hematology/Onc Progress Note ---
Assessment/Plan Assessment/Plan Assessment/Plan: # Antiphospholipid antibody apparently she has had over 3 dvts in her leg before as well as PULMONARY EMBOLI at this admission 12/2018 --> prior admission, anticard ab was +++ --> Anticardiolipin IgM Ab at 14 --> continue on lovenox 1.5mg/kg sq daily --> coumadin to begin with inr goal 2-3 --> Current INR 3.6-->1.4 (may be labile due to lab error) have sent order to recheck INR/PT # Anemia of iron deficiency due to underlying chronic medical issues, multifactorial --> Anemia workup has been reviewed, rule out gi bleed. Ferritin 24-->12 --> No evidence of hemolysis is noted, peripheral smear has been reviewed. --> Hgb goal >7. Transfuse prn. --> IV iron had been given in the past, also has received blood trans 09/2018 --> agree to start PO IRON --> bone marrow biopsy is not indicated given the other more likely causes --> Hgb trend: 8.5-->7.4-->9-->9.2 # Leukopenia -- multiple etiologies could be related to underlying liver disease , medication-induced, infection versus viral syndrome --> Currently resolved --> peripheral smear has been ordered and does not show significant abnormalities --> Medications have been reviewed --> Continue to monitor for improvement, trend cbc --> Hep panel negative and HIV pending --> US abd: Fatty liver. Mild spinal ligaments. Hemangioma in the liver. Gallbladder polyp versus wall adherent stone --> reverse isolation if ANC is <2000 --> Give neupogen if ANC <1000 --> WBC trend: 4.4-->5-->5.2 # Thrombocytopenia - potential causes multifactorial, evaluate liver and viral etiologies to begin, also could be related to underlying medications patient has received. --> Hep panel negative and HIV pending --> US abd --> Fatty liver. Mild spinal ligaments. Hemangioma in the liver. Gb polyp versus wall adherent stone. --> CT abd --> No acute findings within the chest, abdomen or pelvis. Borderline splenomegaly. Liver hemangioma. --> Peripheral smear ordered to evaluate for blasts /schistocytes --> abx and other meds have been reviewed --> ok for ppx if plt >50k w/ either heparin or lovenox --> Plt trend: 161-->203 # Abd pain. GI is following, appreciate recs. --> Abdominal ultrasound reviewed, fatty liver. --> Abdominal pelvis CT reviewed, negative findings. # Elevated alk phosphatase # Hypokalemia --> replete with K po as needed # Dvt ppx with lovenox/coumadin Time note entered does not reflect time of patient examination. GREATLY APPRECIATE CONSULTATION. Subjective Constitutional: Denies: no symptoms, chills, fever, malaise, weakness, other Cardiovascular: Denies: no symptoms, chest pain, edema, irregular heart rate, lightheadedness, palpitations, syncope, other Gastrointestinal/Abdominal: Denies: no symptoms, abdomen distended, abdominal pain, black stools, tarry stools, blood in stool, constipated, diarrhea, difficulty swallowing, nausea, poor appetite, poor fluid intake, rectal bleeding , vomiting, other Genitourinary: Denies: no symptoms, burning, discharge, frequency, flank pain, hematuria, incontinence, pain, urgency, other Neurologic/Psychiatric: Denies: no symptoms, anxiety, depressed, emotional problems, headache, numbness, paresthesia, pre-existing deficit, seizure, tingling, tremors, weakness, other Endocrine: Denies: no symptoms, excessive sweating, flushing, intolerance to cold, intolerance to heat, increased hunger, increased thirst, increased urine, unexplained weight gain, unexplained weight loss, other Hematologic/Lymphatic: Denies: no symptoms, anemia, easy bleeding, easy bruising, adenopathy, other Allergies: Coded Allergies: No Known Allergies (Unverified , 09/12/18) Subjective 12/25: no events, inr 1.6, on coumadin, lovenox as well, no bleeding,will recheck inr Objective Objective Current Medications Medications (Trade) Dose Ordered Sig/Makayla Route PRN Reason Start Time Stop Time Status Last Admin Dose Admin Acetaminophen (Tylenol) 650 mg Q4H PRN ORAL Mild Pain (Pain Scale 1-3) 12/21/18 00:30 01/20/19 00:29 Acetaminophen (Tylenol) 650 mg Q4H PRN ORAL fever 12/21/18 00:30 01/20/19 00:29 Acetaminophen (Tylenol) 650 mg Q8HR ORAL 12/23/18 22:00 12/26/18 14:01 12/25/18 05:24 Acetaminophen/ Hydrocodone Bitart ([place] 10/325) 1 tab Q4H PRN ORAL severe pain 12/21/18 01:00 12/28/18 00:59 12/21/18 20:12 Acetaminophen/ Hydrocodone Bitart ([place] 5/325) 1 tab Q4H PRN ORAL Moderate Pain (Pain Scale 4-6) 12/21/18 01:00 12/28/18 00:59 12/21/18 08:55 Albuterol/ Ipratropium (Albuterol/ Ipratropium) 3 ml Q4H PRN HHN Shortness of Breath 12/21/18 00:30 12/26/18 00:29 Bisacodyl (Dulcolax) 10 mg DAILYPRN PRN RECTAL Constipation 12/21/18 00:30 01/20/19 00:29 Cyclobenzaprine HCl (Flexeril) 10 mg BEDTIME ORAL 12/23/18 21:00 01/22/19 20:59 12/24/18 20:57 Dextrose (Dextrose 50%) 25 ml Q30M PRN IV Hypoglycemia 12/21/18 00:30 01/20/19 00:29 Dextrose (Dextrose 50%) 50 ml Q30M PRN IV Hypoglycemia 12/21/18 00:30 01/20/19 00:29 Diphenhydramine HCl (Benadryl) 25 mg Q6H PRN ORAL Itching/Pruritis 12/21/18 00:30 01/20/19 00:29 12/24/18 22:29 Docusate Sodium (Colace) 100 mg EVERY 12 HOURS ORAL 12/21/18 09:00 01/20/19 08:59 12/24/18 20:57 Famotidine (Pepcid) 20 mg BID ORAL 12/21/18 09:00 01/20/19 08:59 12/24/18 17:59 Ferrous Sulfate (Feosol) 325 mg THREE TIMES A DAY ORAL 12/24/18 13:00 01/23/19 12:59 12/24/18 17:59 Morphine Sulfate (Morphine Sulfate) 2 mg Q4H PRN IVP breakthrough pain 12/21/18 04:30 12/28/18 00:29 12/24/18 21:00 Ondansetron HCl (Zofran) 4 mg Q6H PRN IVP Nausea & Vomiting 12/21/18 00:30 01/20/19 00:29 12/21/18 00:54 Polyethylene Glycol (Miralax) 17 gm DAILYPRN PRN ORAL Constipation 12/21/18 00:30 01/20/19 00:29 Warfarin Sodium (Coumadin per pharmacy) 1 ea DAILY PRN MISC Per rx protocol 12/21/18 13:15 01/20/19 13:14 Warfarin Sodium (Coumadin) 5 mg ONCE ORAL 12/25/18 17:00 12/25/18 18:00 Last 24 Hour Vital Signs Date Time Temp Pulse Resp B/P (MAP) Pulse Ox O2 Delivery O2 Flow Rate FiO2 12/25/18 08:24 69 20 99 Room Air 21 12/25/18 04:00 63 12/25/18 04:00 96.8 70 18 104/66 (79) 99 12/25/18 00:00 97.9 63 18 105/66 (79) 98 12/25/18 00:00 62 12/24/18 21:00 Room Air 12/24/18 20:00 71 12/24/18 20:00 96.7 68 19 112/68 (83) 100 12/24/18 19:52 70 18 96 Room Air 21 12/24/18 16:00 79 12/24/18 16:00 97.0 72 21 108/75 (86) 100 12/24/18 12:00 65 12/24/18 12:00 97.7 64 21 107/60 (76) 100 12/24/18 09:00 Room Air 12/24/18 08:00 60 12/24/18 08:00 97.9 66 20 92/57 (69) 100 12/24/18 07:51 76 18 95 Room Air 21 12/24/18 04:00 60 12/24/18 04:00 98.9 64 20 103/67 (79) 98 12/24/18 00:00 59 12/24/18 00:00 98.0 60 20 134/89 (104) 96 12/23/18 21:00 Room Air 12/23/18 20:00 98.0 80 18 114/71 (85) 100 12/23/18 20:00 81 12/23/18 16:00 67 12/23/18 16:00 98.2 71 18 118/67 (84) 99 12/23/18 12:00 79 12/23/18 12:00 98.0 69 18 105/67 (80) 99 Intake and Output 12/24/18 12/25/18 19:00 07:00 Intake Total 400 ml 240 ml Balance 400 ml 240 ml Intake Oral 400 ml 240 ml # Voids 2 2 Labs Test 12/22/18 10:10 12/23/18 04:05 12/23/18 10:40 12/24/18 04:00 Activated Partial Thromboplast Time 86 SEC (23-33) 66 SEC (23-33) 65 SEC (23-33) Prothrombin Time 19.4 SEC (9.30-11.50) 35.9 SEC (9.30-11.50) Prothromb Time International Ratio 1.9 (0.9-1.1) 3.6 (0.9-1.1) Iron Level 14 ug/dL (50-175) Total Iron Binding Capacity 344 ug/dL (250-450) Percent Iron Saturation 4 % (15-50) Unsaturated Iron Binding 330 ug/dL (112-346) Ferritin 11 NG/ML (8-388) Test 12/25/18 06:24 Prothrombin Time 14.5 SEC (9.30-11.50) Prothromb Time International Ratio 1.4 (0.9-1.1) Height (Feet): 5 Height (Inches): 2.00 Weight (Pounds): 215 Objective Gen: NAD, A+O x3 Pulm: decreased breath sounds b/l CV: rrr, no mgr Abd: soft, nt, nd Ext: no cce Ha Avila MD Dec 25, 2018 10:01
[2018-12-25 10:55] LABS: INR 1.4 (0.9-1.1)
[2018-12-25] MEDS: Docusate 100mg cap ORAL SCH ×2 (11:10→21:26)
[2018-12-25] MEDS: HYDROcodone/Acetamin 10/325 tab ORAL PRN (11:10)
[2018-12-25] MEDS: Enoxaparin 120 mg inj SUBQ SCH (11:12)
--- NOTE | 2018-12-25 11:47 | NUR ---
CASE MANAGEMENT:REVIEW 12/24/18 SI: PULMONARY EMBOLI 97.9 66 20 92/57 100% ON RA INR+3.6 IS: HOLDING COUMADIN IRON PO TID FLEXERIL PO QHS PEPCID PO BID NORCO PO Q4HRS PRN : TELEMETRY STATUS DCP: FROM HOME 12/25/18 SI: PULMONARY EMBOLI 96.8 70 18 104/66 99% ON RA INR+1.4 IS: COUMADIN 5MG PO X1 LOVENOX SQ QD IRON PO TID FLEXERIL PO QHS PEPCID PO BID NORCO PO Q4HRS PRN : TELEMETRY STATUS DCP: FROM HOME
[2018-12-25 12:00] VITALS: BP 117/49
--- NOTE | 2018-12-25 12:01 | NUR ---
NURSE NOTES: reported INR/PT to doctor Robbin. Doctor ordered to give Coumadin and to hold on to DC.
--- NOTE | 2018-12-25 15:16 | Diagnostic Imaging Report ---
APPROVED REPORT CPT Code: 80565 Present Symptoms Comments: PE Right leg pain BILATERAL: Imaging reveals a patent deep venous system bilaterally. There is no evidence of thrombus within the common femoral, superficial femoral, popliteal or tibial segments. The greater saphenous veins are within normal limits. Doppler indicates normal spontaneous flow within these segments.
[2018-12-25 16:00] VITALS: BP 106/60
[2018-12-25] MEDS ORDERED: Warfarin Sodium 5mg ORAL SCH ×2 (17:00)
[2018-12-25] MEDS: HYDROcodone/Acetamin 5/325 tab ORAL PRN (18:19)
--- NOTE | 2018-12-25 19:11 | Neurology Progress Note ---
Interim History Interim History Interim History Ms. Jonathon Barker feels very well. The headache has gone away almost completely and she only feels some minimal tightness in the back of her neck. The neck tightness is also significantly better. She denies any new neurological symptoms. She tells me that she may be going home soon. Review of Systems Neuro Review of Systems Benign. Objective Physical Exam Last Vital Signs Date Time Temp Pulse Resp B/P (MAP) Pulse Ox O2 Delivery O2 Flow Rate FiO2 12/25/18 16:00 79 12/25/18 16:00 97.9 23 106/60 (75) 99 12/25/18 09:00 Room Air Room Air 12/25/18 08:24 21 Laboratory Tests Test 12/25/18 06:24 12/25/18 10:30 Prothrombin Time 14.5 SEC (9.30-11.50) H 14.4 SEC (9.30-11.50) H Prothromb Time International Ratio 1.4 (0.9-1.1) H 1.4 (0.9-1.1) H Neurologic Exam Objective PHYSICAL EXAMINATION: GENERAL: She is a well-developed, well-nourished, slightly obese lady , lying in bed, in no acute distress. HEAD: Normocephalic and atraumatic. EENT: Examination benign. NECK: No neck rigidity was observed. She did have a grade Trace/4 cervical paraspinal muscle and trapezius spasm. SPINE: Thoracic and lumbosacral spine was benign NEUROLOGICAL EXAMINATION: MENTAL STATUS EXAMINATION: She was awake and alert. She was oriented to person, place, and time. She was able to recall 3/3 words immediately after 1 minute and after 3 minutes. She was able to remember Presidents, Trump and Obama, only. Her mathematical skills were good. Her visuospatial function was preserved. SPEECH: She had no dysarthria. LANGUAGE: She had no aphasia. CRANIAL NERVE EXAMINATION: II: The visual izaguirre were intact to confrontation testing. III, IV & : The external ocular movements were full and the pupils 3 mm in diameter, equal, round, regular, and reactive to light. V: She had normal facial sensations, and the temporales, masseters, and pterygoids functioned normally. VII: She had normal facial expressions and no facial asymmetry. VIII: She was able to hear well bilaterally and had no nystagmus. IX: The palate moved symmetrically on phonation. X: She had no hoarseness of voice. XI: The sternocleidomastoids and trapezii functioned normally. XII: The tongue was in the midline without any fasciculations or atrophy. MOTOR SYSTEM: The tone was normal in all four extremities. Examination of muscle mass revealed no focal wasting. Examination of power revealed G 5/5 power in all muscle groups tested. SENSORY EXAMINATION: She had intact sensations to pinprick, light touch, and graphesthesia. COORDINATION: She performed well on ybxxib-ls-wags and itqt-le-ipix testing. On Romberg test, she swayed, but did not fall to one side or the other. REFLEXES: 1+ and bilaterally symmetrical at the biceps, triceps, brachioradialis, knees, and ankles. The plantar responses were flexor bilaterally. STANCE: She had a normal stance. GAIT: She had a normal gait. Impression/Recommendations Diagnostic Impression 1. Ms. Isamar Barker is a 28-year-old, right-handed, lady, who does have a past history of a fatty liver, antiphospholipid antibody syndrome, and prior deep venous thrombi, who came in to the hospital with a one- week history of chest discomfort and headache and was found to have pulmonary embolism. Since then, she has been treated with intravenous heparin and Coumadin. Her chest discomfort had improved significantly but she was still having headaches. 2. She feels significantly better today. The headache is gone away almost completely and she only has some minimal neck tightness. She denies any new neurological symptoms. She may be going home in the near future. 3. On neurological examination, at this time, she does have minimal G trace/4 cervical paraspinal muscle and trapezius spasm and globally diminished reflexes. The rest of the neurological examination is benign. 4. Laboratory data obtained on my initial evaluation, revealed an anemia with a hemoglobin of 9.2 G, chemistry panel with an alkaline phosphatase elevated to 126, and a normal TSH. When she came in, her INR was subtherapeutic at 1.3 and her urine HCG was negative. 5. The CT scan of the brain without contrast was reviewed and revealed no intracranial pathology. 6. The patient's history, neurological examination, laboratory data, and imaging studies are most consistent with a muscle contraction headache related to significant cervical paraspinal muscle and trapezius spasm. Her headache is significantly better and the neck spasm has improved markedly. Recommendations 1. Continue present management. 2. Finish 7-day course of Flexeril 10 mg at bedtime. 3. Finish 3-day course of Tylenol 650 mg every 8 hours around the clock. 4. Observe closely. Hany North M.D., M.S.P.H. Hany North MD Dec 25, 2018 19:11
--- NOTE | 2018-12-25 19:42 | NUR ---
HAND-OFF: Report given to Tete/era pt in stable condition.
--- NOTE | 2018-12-25 19:48 | NUR ---
NURSE NOTES: Received patient from ANTONIO Castle. Patient alert and resting in bed comfortably. No signs of distress or complaints of pain. Patient's IV site checked, patent and intact, no erythemia, infiltration, or bleeding. Patient is ambulatory. Bed in lowest position, brakes on, call light within reach. Will continue with plan of care.
[2018-12-25 20:00] VITALS: BP 116/65
[2018-12-25] MEDS: Cyclobenzaprine 10mg Tab ORAL SCH (21:24)
--- NOTE | 2018-12-25 22:47 | NUR ---
NURSE NOTES: Received patient from ANTONIO Castle. Patient alert and laying in bed comfortably. Patient's IV site inspected, intact and patent, no signs of erythemia, infiltration, or blood. No signs of distress or complaints of pain. Will continue plan of care. Addendum: 12/25/18 at 2315 by Thania Thacker RN Wrong time.
[2018-12-26] VITALS: BP 132/83
--- NOTE | 2018-12-26 03:14 | NUR ---
NURSE NOTES: Patient is asleep, lying comfortably in bed. No signs of distress or pain noted. Bed is in lowest position, brakes on, call light within reach.
[2018-12-26 04:00] VITALS: BP 119/70
--- NOTE | 2018-12-26 05:48 | NUR ---
NURSE NOTES: Attempted to change IV access several times, but unsuccessful.
[2018-12-26 07:20] LABS: INR 1.3 (0.9-1.1)
--- NOTE | 2018-12-26 07:36 | NUR ---
HAND-OFF: Report given to ANTONIO Castle. Patient is asleep lying semi-simon's; resting comfortably. In stable condition.
--- NOTE | 2018-12-26 07:48 | NUR ---
NURSE NOTES: Pt. in bed awake and talking, food tray at bedside. Pt is not complaining of pain. Pt. is on youth nutritional monitor, no signs of cardiac or respiratory distress at this time. Bed is locked and in lowest position. Call light is within reach. Will continue to follow plan of care. Reported to Dr. Pal INR results 1.3, she states that pt can not be DC until INR is higher (2-3).
[2018-12-26 08:00] VITALS: BP 105/70
[2018-12-26] MEDS: Docusate 100mg cap ORAL SCH (08:58)
[2018-12-26] MEDS: Enoxaparin 120 mg inj SUBQ SCH (09:00)
--- NOTE | 2018-12-26 09:28 | Discharge Summary ---
Discharge Summary Hospital Course Date of Admission Dec 20, 2018 at 22:20 Date of Discharge 12/26/18 Admitting Diagnosis Pulmonary embolism HPI Isamar Barker is a 28 year old female who was admitted on Dec at 22:20 for Pulmonary Embolism Consultations Neurology: Dr. North Hematology: Dr. Avila Procedures CXR CTA pulmonary Venous duplex LE EKG Echocardiogram CT head Hospital Course 28 year old female, obese, with 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 1. PE in the setting of APL and subtheraputic INR. small filling defect. negative troponin x 2, no ekg changes, normal pro bnp, no hemodynamic compromise ie hypotension. - labile INR--> hematology consult. 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 She has Lovenox at home and knows how to inject. She has been instructed to inject 120mg daily, take coumadin 5mg daily. Follow up in INR clinic, stop Lovenox when INR> 2 ( between 2-3) -Echo: Echo: Mild pulm HTN, R ventricular systolic pressure 37 -patient counseled reg importance of taking her medications -Dietary consulted for appropriate diet suitable for warfarin 2.Persistent headache. Given history of APS, suspect CVA vs TIA. however CT head negative. Neurology eval by Dr. North . Impression Cervical paraspinal and trapezius muscle spasms. -pain control -Antiemetics w/ zofran -Started on Flexril for 7 days -Tylenol 650 Q8hr for 3 days 3. obesity. Patient counselled on life style modifications ,diet, and exercise. 4. Microcytic Anemia. Per patient chronic and was told due to her antiphospholipid syndrome. Anemia panel consistent with severe iron deficiency anemia. Started ferrous sulphate 325 TID 5. Fattly liver. Weight loss advised. today patient is feeling great. Headache is almost all gone and she's excited to be discharged. On exam: General Appearance: no apparent distress, speaks full sentences. Obese HEENT: normocephalic, atraumatic, bilateral eye PERRL Neck: full range of motion, supple/symm/no masses, no jvd Respiratory: chest non-tender, lungs clear, normal breath sounds, no wheezing or rales Cardiovascular:regular rate, rhythm, no edema Gastrointestinal: normal bowel sounds, non tender, soft, non-distended, no guarding, no rebound Musculoskeletal: normal range of motion Neurologic: alert, oriented x3, responsive, motor strength/tone normal, no nystagmus Psychiatric: judgement/insight normal, memory normal, mood/affect normal, no suicidal/homicidal ideation skin: no ulcers or rashes she will be discharged home. I spent 35 minutes on this encounter. Discharge Medications New Medications: Acetaminophen* (Acetaminophen 325MG Tablet*) 325 Mg Tablet 650 MG ORAL Q8HR for 2 Days, #6 TAB Cyclobenzaprine Hcl* (Flexeril*) 10 Mg Tablet 10 MG ORAL BEDTIME for 4 Days, #4 TAB Enoxaparin Sodium (Enoxaparin Sodium) 120 Mg/0.8 Ml Syringe 120 MG SUBQ DAILY for 7 Days, #7 ML Ferrous Sulfate (Feosol) 325 Mg Tablet 325 MG ORAL THREE TIMES A DAY for 30 Days, #90 TAB Warfarin Sod* (Coumadin*) 10 Mg Tablet 5 MG ORAL DAILY for 30 Days, #30 TAB 3 Refills Continued Medications: Warfarin Sod* (Warfarin Sod*) 5 Mg Tablet 5 MG ORAL DAILY, TAB Discharge Condition Upon Discharge: stable Discharge Disposition Patient was discharged to home Discharge Diagnoses: (1) Nonadherence to medication (2) Pulmonary embolism (3) Trapezius muscle spasm (4) Supratherapeutic INR (5) Headache (6) Iron deficiency anemia (7) Cervical paraspinal muscle spasm (8) Subtherapeutic international normalized ratio (INR) (9) Fatty liver Sonu Pal M.D. Dec 26, 2018 09:28
[2018-12-26] MEDS ORDERED: CYCLOBENZAPRINE10 MG ORAL (09:40)
[2018-12-26] MEDS ORDERED: FEOSOL325 MG ORAL (09:40)
[2018-12-26] MEDS ORDERED: ACETAMINOPHEN325 M1 ORAL (09:40)
[2018-12-26] MEDS ORDERED: COUMADIN10 MG ORAL (09:40)
[2018-12-26] MEDS ORDERED: ENOXAPARIN120 MG/0.8 SUBQ (09:40)
--- NOTE | 2018-12-26 09:42 | Discharge Instructions ---
Discharge Instructions Discharge Instructions Resume Normal Activity?: Yes Activity: resume normal activities Follow Up Orders Follow up in INR clinic. Take Coumadin 5mg daily. Lovenox 128 mg daily injections until INR between 2-3. For Congestive Heart Failure Reminder Report to your physician any weight gain of 5 pounds or more in one week. Sonu Pal M.D. Dec 26, 2018 09:42
--- NOTE | 2018-12-26 10:38 | Neurology Progress Note ---
Interim History Interim History Interim History Ms. Jonathon Barker feels very well. She continues to be headache-free. The neck tightness is also significantly better. She denies any new neurological symptoms. She tells me that plans are to go home soon. Review of Systems Neuro Review of Systems Benign. Objective Physical Exam Last Vital Signs Date Time Temp Pulse Resp B/P (MAP) Pulse Ox O2 Delivery O2 Flow Rate FiO2 12/26/18 09:09 71 20 97 Room Air 21 12/26/18 08:00 97.8 105/70 (82) Laboratory Tests Test 12/26/18 06:18 Prothrombin Time 13.6 SEC (9.30-11.50) H Prothromb Time International Ratio 1.3 (0.9-1.1) H Neurologic Exam Objective PHYSICAL EXAMINATION: GENERAL: She is a well-developed, well-nourished, slightly obese lady , lying in bed, in no acute distress. HEAD: Normocephalic and atraumatic. EENT: Examination benign. NECK: No neck rigidity was observed. She did have a grade Trace/4 cervical paraspinal muscle and trapezius spasm. SPINE: Thoracic and lumbosacral spine was benign NEUROLOGICAL EXAMINATION: MENTAL STATUS EXAMINATION: She was awake and alert. She was oriented to person, place, and time. She was able to recall 3/3 words immediately after 1 minute and after 3 minutes. She was able to remember Presidents, Trump and Obama, only. Her mathematical skills were good. Her visuospatial function was preserved. SPEECH: She had no dysarthria. LANGUAGE: She had no aphasia. CRANIAL NERVE EXAMINATION: II: The visual izaguirre were intact to confrontation testing. III, IV & : The external ocular movements were full and the pupils 3 mm in diameter, equal, round, regular, and reactive to light. V: She had normal facial sensations, and the temporales, masseters, and pterygoids functioned normally. VII: She had normal facial expressions and no facial asymmetry. VIII: She was able to hear well bilaterally and had no nystagmus. IX: The palate moved symmetrically on phonation. X: She had no hoarseness of voice. XI: The sternocleidomastoids and trapezii functioned normally. XII: The tongue was in the midline without any fasciculations or atrophy. MOTOR SYSTEM: The tone was normal in all four extremities. Examination of muscle mass revealed no focal wasting. Examination of power revealed G 5/5 power in all muscle groups tested. SENSORY EXAMINATION: She had intact sensations to pinprick, light touch, and graphesthesia. COORDINATION: She performed well on elqxeh-lj-iwzh and gori-iq-scuz testing. On Romberg test, she swayed, but did not fall to one side or the other. REFLEXES: 1+ and bilaterally symmetrical at the biceps, triceps, brachioradialis, knees, and ankles. The plantar responses were flexor bilaterally. STANCE: She had a normal stance. GAIT: She had a normal gait. Impression/Recommendations Diagnostic Impression 1. Ms. Isamar Barker is a 28-year-old, right-handed, lady, who does have a past history of a fatty liver, antiphospholipid antibody syndrome, and prior deep venous thrombi, who came in to the hospital with a one- week history of chest discomfort and headache and was found to have pulmonary embolism. Since then, she has been treated with intravenous heparin and Coumadin. Her chest discomfort had improved significantly but she was still having headaches. 2. She feels very well. She continues to be headache-free. The neck tightness is also significantly better. She denies any new neurological symptoms. She tells me that plans are to go home soon. 3. On neurological examination, at this time, she does have minimal G trace/4 cervical paraspinal muscle and trapezius spasm and globally diminished reflexes. The rest of the neurological examination is benign. 4. Laboratory data obtained on my initial evaluation, revealed an anemia with a hemoglobin of 9.2 G, chemistry panel with an alkaline phosphatase elevated to 126, and a normal TSH. When she came in, her INR was subtherapeutic at 1.3 and her urine HCG was negative. 5. The CT scan of the brain without contrast was reviewed and revealed no intracranial pathology. 6. The patient's history, neurological examination, laboratory data, and imaging studies are most consistent with a muscle contraction headache related to significant cervical paraspinal muscle and trapezius spasm. Her headache has resolved and the neck spasm has improved markedly. Recommendations 1. Continue present management. 2. Finish 7-day course of Flexeril 10 mg at bedtime. 3. No further neurologic intervention needed. Hany North M.D., M.S.P.H. Hany North MD Dec 26, 2018 10:37
--- NOTE | 2018-12-26 11:32 | NUR ---
NURSE NOTES: Have questions on DC l/m for Dr Pal about instructions and medication for pt to take home.
--- NOTE | 2018-12-26 15:41 | Hematology/Onc Progress Note ---
Assessment/Plan Assessment/Plan Assessment/Plan: # Antiphospholipid antibody apparently she has had over 3 dvts in her leg before as well as PULMONARY EMBOLI at this admission 12/2018 --> prior admission, anticard ab was +++ --> Anticardiolipin IgM Ab at 14 --> continue on lovenox 1.5mg/kg sq daily --> coumadin to begin with inr goal 2-3 --> Current INR 3.6-->1.4 (is stable for discharge as has lovenox and coumadin and can take this at home) f/u with INR clinic in next week # Anemia of iron deficiency due to underlying chronic medical issues, multifactorial --> Anemia workup has been reviewed, rule out gi bleed. Ferritin 24-->12 --> No evidence of hemolysis is noted, peripheral smear has been reviewed. --> Hgb goal >7. Transfuse prn. --> IV iron had been given in the past, also has received blood trans 09/2018 --> agree to start PO IRON --> bone marrow biopsy is not indicated given the other more likely causes --> Hgb trend: 8.5-->7.4-->9-->9.2 # Leukopenia -- multiple etiologies could be related to underlying liver disease , medication-induced, infection versus viral syndrome --> Currently resolved --> peripheral smear has been ordered and does not show significant abnormalities --> Medications have been reviewed --> Continue to monitor for improvement, trend cbc --> Hep panel negative and HIV pending --> US abd: Fatty liver. Mild spinal ligaments. Hemangioma in the liver. Gallbladder polyp versus wall adherent stone --> reverse isolation if ANC is <2000 --> Give neupogen if ANC <1000 --> WBC trend: 4.4-->5-->5.2 # Thrombocytopenia - potential causes multifactorial, evaluate liver and viral etiologies to begin, also could be related to underlying medications patient has received. --> Hep panel negative and HIV pending --> US abd --> Fatty liver. Mild spinal ligaments. Hemangioma in the liver. Gb polyp versus wall adherent stone. --> CT abd --> No acute findings within the chest, abdomen or pelvis. Borderline splenomegaly. Liver hemangioma. --> Peripheral smear ordered to evaluate for blasts /schistocytes --> abx and other meds have been reviewed --> ok for ppx if plt >50k w/ either heparin or lovenox --> Plt trend: 161-->203 # Abd pain. GI is following, appreciate recs. --> Abdominal ultrasound reviewed, fatty liver. --> Abdominal pelvis CT reviewed, negative findings. # Elevated alk phosphatase # Hypokalemia --> replete with K po as needed # Dvt ppx with lovenox/coumadin Time note entered does not reflect time of patient examination. GREATLY APPRECIATE CONSULTATION. Subjective Allergies: Coded Allergies: No Known Allergies (Unverified , 09/12/18) Subjective 12/25: no events, inr 1.6, on coumadin, lovenox as well, no bleeding,will recheck inr 12/26: awake and alert, no acute events, dc w/ lovenex and coumadin Objective Objective Last 24 Hour Vital Signs Date Time Temp Pulse Resp B/P (MAP) Pulse Ox O2 Delivery O2 Flow Rate FiO2 12/26/18 09:09 71 20 97 Room Air 21 12/26/18 09:00 Room Air Room Air 12/26/18 08:00 85 12/26/18 08:00 97.8 98 18 105/70 (82) 98 12/26/18 04:00 98.6 69 18 119/70 (86) 99 12/26/18 04:00 73 12/26/18 00:00 98.3 65 18 132/83 (99) 99 12/26/18 00:00 65 12/25/18 23:00 72 18 95 Room Air 21 12/25/18 21:00 Room Air Room Air 12/25/18 20:00 97.7 75 18 116/65 (82) 97 12/25/18 20:00 77 12/25/18 16:00 79 12/25/18 16:00 97.9 73 23 106/60 (75) 99 12/25/18 12:00 67 12/25/18 12:00 97.7 77 20 117/49 (71) 93 12/25/18 09:00 Room Air Room Air 12/25/18 08:24 69 20 99 Room Air 21 12/25/18 08:00 97.5 54 21 144/61 (88) 95 12/25/18 08:00 66 12/25/18 04:00 63 12/25/18 04:00 96.8 70 18 104/66 (79) 99 12/25/18 00:00 97.9 63 18 105/66 (79) 98 12/25/18 00:00 62 12/24/18 21:00 Room Air 12/24/18 20:00 71 12/24/18 20:00 96.7 68 19 112/68 (83) 100 12/24/18 19:52 70 18 96 Room Air 21 12/24/18 16:00 79 12/24/18 16:00 97.0 72 21 108/75 (86) 100 Intake and Output 12/25/18 12/26/18 19:00 07:00 Intake Total 240 ml Balance 240 ml Intake Oral 240 ml # Voids 4 2 Labs Test 12/24/18 04:00 12/25/18 06:24 12/25/18 10:30 12/26/18 06:18 Prothrombin Time 35.9 SEC (9.30-11.50) 14.5 SEC (9.30-11.50) 14.4 SEC (9.30-11.50) 13.6 SEC (9.30-11.50) Prothromb Time International Ratio 3.6 (0.9-1.1) 1.4 (0.9-1.1) 1.4 (0.9-1.1) 1.3 (0.9-1.1) Activated Partial Thromboplast Time 65 SEC (23-33) Height (Feet): 5 Height (Inches): 2.00 Weight (Pounds): 215 Objective Gen: NAD, A+O x3 Pulm: decreased breath sounds b/l CV: rrr, no mgr Abd: soft, nt, nd Ext: no cce Ha Avila MD Dec 26, 2018 15:41
[2018-12-26] MEDS ORDERED: Warfarin Sodium 10mg ORAL SCH (17:00)
--- NOTE | 2018-12-26 18:52 | NUR ---
NURSE NOTES: Pt left via private vehicle with sister. Pt left in stable condition. child monitor was taken off, no signs of cardiac or respiratory distress at this time. IV was discontinued no signs of bleeding noted. Pt was advised to Follow up with INR clinic and has appt. tomorrow 12/27 240pm. Dc instructions were reviewed with pt and family member 2 times. Pt was prescribed Lovenox and knows how to administer to herself. No need for H/H nurse to teach. Medications were reviewed with pt and sister. Pt knows why each medication is given for side effects and how long to take them for. Pt is also aware that she is a high risk for bleeding so she will be careful with her daily activities. Pt knows that she needs to be compliant with taking medication. she knows that LOvenox is to be taken for the next 7 days as per doctor's instructions. Pt knows she needs to follow special diet low. Medication prescriptions were sent to pt's favorite pharmacy as per pt's request, pt is aware of that since she requested this. Reminded pt that she is to seek medical attention if she starts bleeding.
== END 2018-12-26 13:54 | disposition home or self-care (01) | DRG 134 ==
LOC: EMR 22:19 → 2E 22:20 → EDBEDREQ 23:03
DX: I26.99 Other pulmonary embolism without acute cor pulmonale (principal); R07.9 Chest pain, unspecified; E66.9 Obesity, unspecified; Z91.14 Patient's other noncompliance with medication regimen; G44.89 Other headache syndrome; Z79.01 Long term (current) use of anticoagulants; Z86.718 Personal history of other venous thrombosis and embolism; D50.9 Iron deficiency anemia, unspecified; M62.838 Other muscle spasm
CPT/HCPCS: 36415; 70450; 71045; 71275; 80048; 80053; 81025; 82550; 82553; 82728; 83540; 83550; 83735; 83880; 84443; 84484; 84703; 85025; 85610; 85730; 93306; 93970; 94664; 96374; 96375; 99285; J2405; J2765

== ENCOUNTER 2019-03-25 21:31 | Emergency (ER) | payer SELFPAY ==
[~2019-03-25] VITALS: Ht 167.6 cm; Wt 90.7 kg
[~2019-03-25 21:31] MED LIST changes: +ACETAMINOPHEN325 M1 ORAL; +COUMADIN10 MG ORAL; +CYCLOBENZAPRINE10 MG ORAL; +ENOXAPARIN120 MG/0.8 SUBQ; +FEOSOL325 MG ORAL
--- NOTE | 2019-03-25 21:35 | NUR ---
ED Nurse Note: Pt ambulated to ED from home c/o generalized body pain with cough and congestion for days, denies N/V/D or fever. Pt is A&Ox4, VSS,
--- NOTE | 2019-03-25 22:05 | NUR ---
ER DISCHARGE NOTE: Patient is cleared to be discharged per ERMD, pt is aox4, on room air, with stable vital signs. pt was given dc and prescription instructions, pt was able to verbalize understanding, pt id band removed. pt is able to ambulate with steady gait. pt took all belongings.
[2019-03-25] MEDS ORDERED: TYLENOL EXTRA500 MG ORAL (22:06)
[2019-03-25] MEDS ORDERED: TAMIFLU75 MG ORAL (22:06)
[2019-03-25 22:40] VITALS: BP 119/78
--- NOTE | 2019-03-26 03:09 | Emergency Room Report ---
History of Present Illness General Chief Complaint: Pain Source: Patient Present Illness HPI 29-year-old female presents ED for evaluation. Complaining of body aches, chills, headache and cough x1 day. Cough is productive with yellowish phlegm. Afebrile in triage. Pain is dull, 9 out of 10, nonradiating. Denies sick contacts or recent travel. No other aggravating relieving factors. Denies any other associated symptoms Allergies: Coded Allergies: No Known Allergies (Unverified , 09/12/18) Patient History Past Medical History: GERD Past Surgical History: none Pertinent Family History: none Social History: Denies: smoking, alcohol use, drug use Last Menstrual Period: 03/22/19 Now: No : 5 Para: 5 Immunizations: UTD Reviewed Nursing Documentation: PMH: Agreed; PSxH: Agreed Nursing Documentation-PMH Past Medical History: No History, Except For Hx Cardiac Problems: Yes - antiphospholipid syndrome Hx Hypertension: No Hx Pacemaker: No Hx Asthma: No Hx COPD: No Hx Diabetes: No Hx Cancer: No Hx Gastrointestinal Problems: Yes - gastritis Hx Dialysis: No Hx Neurological Problems: No Hx Cerebrovascular Accident: No Hx Seizures: No Review of Systems All Other Systems: negative except mentioned in HPI Physical Exam Vital Signs Date Time Temp Pulse Resp B/P (MAP) Pulse Ox O2 Delivery O2 Flow Rate FiO2 03/25/19 21:35 97.9 81 18 119/78 (92) 98 Room Air Sp02 EP Interpretation: reviewed, normal General Appearance: no apparent distress, alert, GCS 15, non-toxic Head: normocephalic, atraumatic Eyes: bilateral eye normal inspection, bilateral eye PERRL ENT: hearing grossly normal, normal pharynx, no angioedema, normal voice Neck: full range of motion, supple/symm/no masses Respiratory: chest non-tender, lungs clear, normal breath sounds, speaking full sentences Cardiovascular #1: regular rate, rhythm, no edema Cardiovascular #2: 2+ carotid (R), 2+ carotid (L), 2+ radial (R), 2+ radial (L) , 2+ dorsalis pedis (R), 2+ dorsalis pedis (L) Gastrointestinal: normal bowel sounds, non tender, soft, non-distended, no guarding, no rebound Rectal: deferred Genitourinary: normal inspection, no CVA tenderness Musculoskeletal: back normal, normal range of motion, gait/station normal, non- tender Neurologic: alert, motor strength/tone normal, oriented x3, sensory intact, responsive, speech normal Psychiatric: judgement/insight normal, memory normal, mood/affect normal, no suicidal/homicidal ideation Reflexes: 3+ bicep (R), 3+ bicep (L), 3+ tricep (R), 3+ tricep (L), 3+ knee (R) , 3+ knee (L) Lymphatic: no adenopathy Medical Decision Making Diagnostic Impression: Primary Impression: Flu-like symptoms ER Course Hospital Course 29 yo F presents with bodyaches, cough, chills Differential diagnoses include: URI, pharyngitis, otitis media, influenza Clinical course Patient placed on stretcher. After initial history physical exam reveals a young female in no acute distress. Bilateral TM unremarkable, no pharyngeal erythema. Lungs clear. No CVA tenderness. Given tylenol in ED. Clinical findings consistent with influenza. Given that I will treat her with Tamiflu Discussed findings with patient. Will discharge to home. i'll provide referrals Diagnosis - influenza-like symptoms Stable and discharged home with prescriptions for tamiflu, tylenol. drink plenty of fluids. Instructed to followup with PMD. Return to ED if symptoms recur or worsen Last Vital Signs Date Time Temp Pulse Resp B/P (MAP) Pulse Ox O2 Delivery O2 Flow Rate FiO2 03/25/19 21:35 97.9 81 18 119/78 (92) 98 Room Air Status: improved Disposition: HOME, SELF-CARE Condition: Stable Scripts Acetaminophen* (TYLENOL EXTRA STRENGTH*) 500 Mg Tablet 500 MG ORAL Q8H PRN for Prn Headache/Temp > 101, #30 TAB 0 Refills Prov: Stanford Prado MD 03/25/19 Oseltamivir Phosphate (Tamiflu) 75 Mg Capsule 75 MG ORAL TWICE A DAY for 5 Days, CAP Prov: Stanford Prado MD 03/25/19 Referrals: [facility] Patient Instructions: Influenza, Adult, [id number] Stanford Prado MD Mar 26, 2019 03:09
== END 2019-03-25 22:05 | disposition home or self-care (01) ==
LOC: EMR 22:05
DX: R05 Cough (principal); R51 Headache; K21.9 Gastro-esophageal reflux disease without esophagitis
CPT/HCPCS: 99282

== ENCOUNTER 2019-04-21 20:32 | Emergency (ER) | payer MEDICAID ==
[~2019-04-21] VITALS: Ht 157.5 cm; Wt 99.8 kg
[~2019-04-21 20:32] MED LIST changes: +TAMIFLU75 MG ORAL; +TYLENOL EXTRA500 MG ORAL
--- NOTE | 2019-04-21 20:50 | NUR ---
ED Nurse Note: Recieved pt from home, here with c/o lower back to left flank pain at 10/10 x 1 day, pt denies cp, sob, or any other complaints, denies dysuria and urine is juanita colored, pt gowned and placed on cardiac monitoirng, iv line placed and labs drawn, will resume care as ordered and closely monitor, pt has hx of PE with no s/ s at this time.
[2019-04-21] MEDS ORDERED: Morphine Sulfate 4mg/ml Inj (IV USE ONLY) IVP ONE (21:15)
--- NOTE | 2019-04-21 21:16 | Emergency Room Report ---
History of Present Illness General Chief Complaint: Pain Source: Patient Present Illness HPI This 29-year-old female with a history of thromboembolic event with previous PE. She is on warfarin. She presents with chief complaint of body pain. Onset for last 2 to 3 days. She is hurting all over. She also has bumps on her neck. Denies any fever but felt warm. Has chills. Pain is 9 out of 10. Worse with movement. No nausea no vomiting. No bleeding. Nothing made it better. Movement made it worse. She also has coughing and productive of phlegm. Allergies: Coded Allergies: No Known Allergies (Unverified , 09/12/18) Patient History Past Medical History: see triage record, old chart reviewed Past Surgical History: other Pertinent Family History: none Social History: Denies: smoking Last Menstrual Period: 04/21/19 Now: No Immunizations: other Reviewed Nursing Documentation: PMH: Agreed; PSxH: Agreed Nursing Documentation-PMH Past Medical History: No History, Except For Hx Cardiac Problems: Yes - antiphospholipid syndrome, BLOOD CLOT Hx Hypertension: No Hx Pacemaker: No Hx Asthma: No Hx COPD: No Hx Diabetes: No Hx Cancer: No Hx Gastrointestinal Problems: Yes - gastritis Hx Dialysis: No Hx Neurological Problems: No Hx Cerebrovascular Accident: No Hx Seizures: No Review of Systems Constitutional: Reports: chills Eye: Denies: eye pain, blurred vision ENT: Denies: ear pain, nose congestion, throat swelling Respiratory: Reports: cough, sputum; Denies: shortness of breath Cardiovascular: Reports: chest pain; Denies: palpitations Gastrointestinal: Reports: abdominal pain; Denies: diarrhea, nausea, vomiting Musculoskeletal: Reports: back pain; Denies: joint pain Skin: Denies: rash Neurological: Denies: headache, numbness Endocrine: Denies: increased thirst, increased urine Hematologic/Lymphatic: Denies: easy bruising All Other Systems: negative except mentioned in HPI Physical Exam Vital Signs Date Time Temp Pulse Resp B/P (MAP) Pulse Ox O2 Delivery O2 Flow Rate FiO2 04/21/19 20:37 99.0 91 14 111/67 (82) 98 Room Air Vitals unremarkable Sp02 EP Interpretation: reviewed, normal General Appearance: well appearing, no apparent distress, alert, obese Head: normocephalic, atraumatic Eyes: bilateral eye PERRL, bilateral eye EOMI ENT: hearing grossly normal, normal pharynx Neck: full range of motion, supple, no meningismus Respiratory: chest non-tender, lungs clear, normal breath sounds Cardiovascular #1: regular rate, rhythm, no murmur Gastrointestinal: normal bowel sounds, non tender, no mass, no organomegaly, no bruit, non-distended Musculoskeletal: back normal, normal range of motion, gait/station normal, tender - Diffuse pain with palpation of her back Psychiatric: mood/affect normal Medical Decision Making Diagnostic Impression: Primary Impression: Flu-like symptoms Additional Impressions: UTI (urinary tract infection) Qualified Codes: N30.00 - Acute cystitis without hematuria Body aches ER Course Patient with generalized body pain. She does have escobedo with possible pyelonephritis. Labs unremarkable. She looks well here. Better now. Will discharge home. Last Vital Signs Date Time Temp Pulse Resp B/P (MAP) Pulse Ox O2 Delivery O2 Flow Rate FiO2 04/21/19 20:37 99.0 91 14 111/67 (82) 98 Room Air Status: improved Disposition: HOME, SELF-CARE Condition: Stable Scripts Cephalexin* (KEFLEX*) 500 Mg Capsule 500 MG ORAL TID, #21 CAP Prov: Kojo Mitchell MD 04/21/19 Tramadol Hcl* (ULTRAM*) 50 Mg Tablet 50 MG ORAL Q6H PRN for For Pain, #12 TAB 0 Refills Prov: oKjo Mitchell MD 04/21/19 Additional Instructions: Increase fluids. Take your warfarin. Follow-up with your doctor in 7 days but return if worse. Kojo Mitchell MD Apr 21, 2019 21:16
[2019-04-21 21:30] VITALS: BP 119/71
[2019-04-21 21:40] LABS: APPEARANCE,URINE SLIGHTLY CLOUDY; BILIRUBIN, URINE NEGATIVE (NEGATIVE); GLUCOSE, URINE (UA) NEGATIVE (NEGATIVE); KETONES,URINE 1+ (NEGATIVE); LEUKOCYTE ESTERASE ,URINE 1+ (NEGATIVE); NITRITE,URINE NEGATIVE (NEGATIVE); PH,URINE 5 (4.5-8.0); PROTEIN,URINE 2+ (NEGATIVE); UROBILINOGEN,URINE NORMAL MG/DL (0.0-1.0)
[2019-04-21 21:42] LABS: COLOR,URINE YELLOW
[2019-04-21 21:44] LABS: BASOPHILS % (AUTO) 1.3 % (0.0-2.0); EOSINOPHILS % (AUTO) 2.6 % (0.0-3.0); HEMATOCRIT 30.8 % (37.0-47.0); LYMPHOCYTES % (AUTO) 28.3 % (20.0-45.0); MEAN CORPUSCULAR VOLUME 72 FL (80-99); MONOCYTES % (AUTO) 4.3 % (1.0-10.0); NEUTROPHILS % (AUTO) 63.6 % (45.0-75.0); PLATELET COUNT 243 K/UL (150-450); RED BLOOD COUNT 4.29 M/UL (4.20-5.40); RED CELL DISTRIBUTION WIDTH 12.8 % (11.6-14.8); WHITE BLOOD COUNT 7.2 K/UL (4.8-10.8)
[2019-04-21 21:53] LABS: INR 1.3 (0.9-1.1)
[2019-04-21 21:54] LABS: ANION GAP 10 mmol/L (5-15); BLOOD UREA NITROGEN 15 mg/dL (7-18); CALCIUM 8.5 MG/DL (8.5-10.1); CARBON DIOXIDE 23 MMOL/L (21-32); CHLORIDE 106 MMOL/L (98-107); CREATININE 0.8 MG/DL (0.55-1.30); POTASSIUM 4.5 MMOL/L (3.5-5.1); SODIUM 139 MMOL/L (136-145)
[2019-04-21] MEDS ORDERED: traMADol 50mg tab ORAL ONE (22:00)
[2019-04-21] MEDS ORDERED: TRAMADOL HCL50 MG ORAL (22:11)
[2019-04-21] MEDS ORDERED: CEPHALEXIN500 MG ORAL (22:11)
[2019-04-21] MEDS ORDERED: cefTRIAXone 1 GM in NS 55 ML IVPB ONE (22:15)
[2019-04-21 22:35] VITALS: BP 126/74
--- NOTE | 2019-04-21 22:45 | NUR ---
ER DISCHARGE NOTE: Patient is cleared to be discharged per ERMD, pt is aox4, on room air, with stable vital signs. pt was given dc and prescription instructions, pt was able to verbalize understanding, pt id band and iv site removed without complications. pt is able to ambulate with steady gait. pt took all belongings.
[2019-04-21 22:50] VITALS: BP 126/74
== END 2019-04-21 22:50 | disposition home or self-care (01) ==
LOC: EMR 21:04
DX: R52 Pain, unspecified (principal); N30.00 Acute cystitis without hematuria; Z79.01 Long term (current) use of anticoagulants; Z86.711 Personal history of pulmonary embolism; R05 Cough; E66.9 Obesity, unspecified; Z68.41 Body mass index [BMI] 40.0-44.9, adult
CPT/HCPCS: 36415; 80048; 81001; 81025; 85025; 85610; 87086; 96361; 96365; 96375; J0696; J2270; J2405; Z7502; 99284

== ENCOUNTER 2019-05-20 20:56 | Emergency (ER) | payer MEDICAID ==
[~2019-05-20] VITALS: Ht 157.5 cm; Wt 99.8 kg
[~2019-05-20 20:56] MED LIST changes: +CEPHALEXIN500 MG ORAL; +TRAMADOL HCL50 MG ORAL
--- NOTE | 2019-05-20 21:16 | NUR ---
ED Nurse Note: PT WALKED IN TO ED C/O UPPER LEFT ABD PAIN RADIATING TO BACK X2DAYS. PT DENIES NVD, REPORTS WORSENING PAIN WHEN EATING. PT DOES NOT PRESENT WITH FEVER. VSS, VERENA. ERMD AT BEDSIDE. WILL CONTINUE TO MONITOR PATIENT.
[2019-05-20 21:28] VITALS: BP 119/68
[2019-05-20] MEDS ORDERED: PRILOSEC OTC20 MG ORAL (21:34)
--- NOTE | 2019-05-20 21:34 | Emergency Room Report ---
History of Present Illness General Chief Complaint: Abdominal Pain Source: Patient Present Illness HPI This is a 29-year-old female with history of pulmonary Amy made on Coumadin. She presents with complaint of epigastric and left upper quadrant pain. This is been a chronic issue for a long time. Worse when she eats. Is been worse in the last week. She said pain rating to her back. No urinary complaint. No nausea no vomiting. No fever chills. Pain is achy in nature. 7 out of 10. No shortness of breath or chest pain. Allergies: Coded Allergies: No Known Allergies (Unverified , 09/12/18) Patient History Past Medical History: see triage record, old chart reviewed Past Surgical History: other Pertinent Family History: none Social History: Denies: smoking Last Menstrual Period: 05/20/19 Now: No Immunizations: other Reviewed Nursing Documentation: PMH: Agreed; PSxH: Agreed Nursing Documentation-PMH Past Medical History: No Stated History Hx Cardiac Problems: Yes - antiphospholipid syndrome, BLOOD CLOT Hx Hypertension: No Hx Pacemaker: No Hx Asthma: No Hx COPD: No Hx Diabetes: No Hx Cancer: No Hx Gastrointestinal Problems: Yes - gastritis Hx Dialysis: No Hx Neurological Problems: No Hx Cerebrovascular Accident: No Hx Seizures: No Review of Systems Eye: Denies: eye pain, blurred vision ENT: Denies: ear pain, nose congestion, throat swelling Respiratory: Denies: cough, shortness of breath Cardiovascular: Denies: chest pain, palpitations Gastrointestinal: Reports: abdominal pain; Denies: diarrhea, nausea, vomiting Musculoskeletal: Denies: back pain, joint pain Skin: Denies: rash Neurological: Denies: headache, numbness Endocrine: Denies: increased thirst, increased urine Hematologic/Lymphatic: Denies: easy bruising All Other Systems: negative except mentioned in HPI Physical Exam Vital Signs Date Time Temp Pulse Resp B/P (MAP) Pulse Ox O2 Delivery O2 Flow Rate FiO2 05/20/19 21:11 97.5 76 14 111/71 (84) 98 Room Air 05/20/19 21:28 98 Vitals normal Sp02 EP Interpretation: reviewed, normal General Appearance: well appearing, no apparent distress, alert Head: normocephalic, atraumatic Eyes: bilateral eye PERRL, bilateral eye EOMI ENT: hearing grossly normal, normal pharynx Neck: full range of motion, supple, no meningismus Respiratory: chest non-tender, lungs clear, normal breath sounds Cardiovascular #1: regular rate, rhythm, no murmur Gastrointestinal: normal bowel sounds, non tender, no mass, no organomegaly, no bruit, non-distended Musculoskeletal: back normal, normal range of motion, gait/station normal Psychiatric: mood/affect normal Medical Decision Making Diagnostic Impression: Primary Impression: Gastritis Qualified Codes: K29.00 - Acute gastritis without bleeding ER Course Patient with epigastric and left upper quadrant pain. This is most likely a peptic ulcer disease. She is no pain now. Abdominal exam is benign. I see no evidence any obstruction or acute abdomen. Will discharge home. Last Vital Signs Date Time Temp Pulse Resp B/P (MAP) Pulse Ox O2 Delivery O2 Flow Rate FiO2 05/20/19 21:28 71 16 Room Air 98 05/20/19 21:11 97.5 111/71 (84) 98 Status: unchanged Disposition: HOME, SELF-CARE Condition: Stable Scripts Omeprazole Magnesium (PRILOSEC OTC) 20 Mg Tablet. 20 MG ORAL DAILY, #30 TAB Prov: Kojo Mitchell MD 05/20/19 Referrals: [facility] (PCP) Additional Instructions: Follow-up with in 7 days. If symptoms continue, you may need a referral to see a it infrastructure architect for endoscopy. Return if symptoms worsen. Kojo Mitchell MD May 20, 2019 21:34
[2019-05-20 21:50] VITALS: BP 119/68
--- NOTE | 2019-05-20 21:50 | NUR ---
ER DISCHARGE NOTE: Patient is cleared to be discharged per ERMD, pt is aox4, on room air, with stable vital signs. pt was given dc and prescription instructions, pt was able to verbalize understanding, pt id band removed without complications. pt is able to ambulate with steady gait. pt took all belongings.
== END 2019-05-20 21:50 | disposition home or self-care (01) ==
LOC: EMR 21:29
DX: K29.00 Acute gastritis without bleeding (principal)
CPT/HCPCS: 99282

== ENCOUNTER 2019-06-09 16:45 | Emergency (ER) | payer MEDICAID ==
[~2019-06-09] VITALS: Ht 157.5 cm; Wt 99.8 kg
[~2019-06-09 16:45] MED LIST changes: +PRILOSEC OTC20 MG ORAL
[2019-06-09 17:00] VITALS: BP 131/82
--- NOTE | 2019-06-09 17:00 | NUR ---
ED Nurse Note: Patient walked in to ED from home c/o chest tightness radiating to her right ear since today. Pt has history of pulmonary embolus. Stated that she is taking coumadin. Not in any distress. Afebrile. Pt plaecd on campus monitor.
--- NOTE | 2019-06-09 17:05 | NUR ---
ED Nurse Note: IV line established. Blood and urine specimen collected and sent to lab.
[2019-06-09] MEDS ORDERED: Omnipaque 350 100ml vial INJ PRN (17:15)
[2019-06-09] MEDS ORDERED: Morphine Sulfate 4mg/ml Inj (IV USE ONLY) IVP ONE ×2 (17:15→18:15)
[2019-06-09 17:57] LABS: BASOPHILS % (AUTO) 1.8 % (0.0-2.0); EOSINOPHILS % (AUTO) 3.6 % (0.0-3.0); HEMATOCRIT 31.1 % (37.0-47.0); HEMOGLOBIN 9.3 G/DL (12.0-16.0); LYMPHOCYTES % (AUTO) 28.3 % (20.0-45.0); MEAN CORPUSCULAR VOLUME 65 FL (80-99); MONOCYTES % (AUTO) 5.8 % (1.0-10.0); NEUTROPHILS % (AUTO) 60.5 % (45.0-75.0); PLATELET COUNT 275 K/UL (150-450); RED BLOOD COUNT 4.75 M/UL (4.20-5.40); RED CELL DISTRIBUTION WIDTH 16.7 % (11.6-14.8); WHITE BLOOD COUNT 5.8 K/UL (4.8-10.8)
[2019-06-09 18:17] LABS: ANION GAP 18 mmol/L (5-15); BLOOD UREA NITROGEN 17 mg/dL (7-18); CALCIUM 9.5 MG/DL (8.5-10.1); CARBON DIOXIDE 17 MMOL/L (21-32); CHLORIDE 107 MMOL/L (98-107); CREATININE 0.9 MG/DL (0.55-1.30); POTASSIUM 4.6 MMOL/L (3.5-5.1); SODIUM 142 MMOL/L (136-145)
[2019-06-09 18:24] LABS: INR 3.2 (0.9-1.1)
--- NOTE | 2019-06-09 18:28 | NUR ---
ED Nurse Note: Patient was taken for CT via gurney, accompanied by a tech.
[2019-06-09 18:30] LABS: ALANINE AMINOTRANSFERASE 34 U/L (12-78); ALBUMIN 3.8 G/DL (3.4-5.0); ALBUMIN/GLOBULIN RATIO 0.9 (1.0-2.7); ALKALINE PHOSPHATASE 134 U/L (46-116); ASPARTATE AMINO TRANSFERASE 28 U/L (15-37); BILIRUBIN,TOTAL 0.3 MG/DL (0.2-1.0)
--- NOTE | 2019-06-09 19:05 | NUR ---
HAND-OFF: Report given to Ashlie ALVAREZ. Endorsed plan of care.
--- NOTE | 2019-06-09 19:11 | Diagnostic Imaging Report ---
Indication: Chest pain Technique: Continuous helical transaxial imaging of the chest was obtained from the thoracic inlet to the upper abdomen during rapid intravenous contrast administration. Arterial phase of enhancement obtained. Coronal 2-D reformats were also obtained and maximum intensity projection images in multiple planes. Study obtained in a Siemens sensation [address] Automatic Exposure Control was utilized. Total Dose length Product (DLP): 401.[address] Dose Index Volume (CTDIvol): 130.3 mGy Comparison: None Findings: The pulmonary artery is well opacified and shows no filling defects. There is no adenopathy, pleural or pericardial effusions are identified. There is no aortic dissection or aneurysm identified within the chest. The lungs are clear. Visualized part of the upper abdomen demonstrates an incidental well-circumscribed approximate 3 cm hypodensity in the right lobe of the liver. This is not adequately characterize but may be a hemangioma given the suggestion of globular peripheral enhancement. Suggest confirmation on the repeat CT or MRI with dynamic intravenous contrast with delayed images or ultrasound evaluation. There is a rounded sclerotic T8 focus lesion. As is likely a bone island. IMPRESSION: No evidence of pulmonary embolus, aortic dissection or aneurysm. Incidental probable hemangioma in the right lobe of the liver. Suggest confirmation with ultrasound. Sclerotic focus at T8 vertebra. Nonspecific but may be a bone island. [facility] has communicated the preliminary results to the Emergency Department. Their findings are largely concordant with this report. The CT scanner at [facility] is accredited by the [employer] and the scans are performed using dose optimization techniques as appropriate to a performed exam including Automatic Exposure control.
[2019-06-09] MEDS ORDERED: TYLENOL EXTRA500 MG ORAL ×2 (19:46)
[2019-06-09 19:50] VITALS: BP 131/82
--- NOTE | 2019-06-09 19:50 | NUR ---
ER DISCHARGE NOTE: Patient is cleared to be discharged per ERMD, pt is aox4, on room air, with stable vital signs. pt was given dc and prescription instructions, pt was able to verbalize understanding, pt id band and iv site removed without complications. pt is able to ambulate with steady gait. pt took all belongings.ED
--- NOTE | 2019-06-09 20:33 | Emergency Room Report ---
History of Present Illness General Chief Complaint: Chest Pain Source: Patient Present Illness HPI 29-year-old female presents ED complaining of chest pain x1 day. Right-sided, sharp, 9 out of 10, nonradiating. Denies shortness of breath. Notes history of PE and DVT. States she is compliant with her Coumadin. Denies cough. Denies fevers or chills. No other aggravating relieving factors. Denies any other associated symptoms Allergies: Coded Allergies: No Known Allergies (Unverified , 09/12/18) Patient History Past Medical History: other - DVT/PE Past Surgical History: none Pertinent Family History: none Social History: Denies: smoking, alcohol use, drug use Last Menstrual Period: 05/11/2019 Now: No Immunizations: UTD Reviewed Nursing Documentation: PMH: Agreed; PSxH: Agreed Nursing Documentation-PMH Hx Hypertension: No Hx Pacemaker: No Hx Asthma: No Hx COPD: No Hx Diabetes: No Hx Cancer: No Hx Gastrointestinal Problems: Yes - gastritis Hx Dialysis: No Hx Neurological Problems: No Hx Cerebrovascular Accident: No Hx Seizures: No Review of Systems All Other Systems: negative except mentioned in HPI Physical Exam Vital Signs Date Time Temp Pulse Resp B/P (MAP) Pulse Ox O2 Delivery O2 Flow Rate FiO2 06/09/19 16:52 98.2 94 24 88 Room Air 06/09/19 17:00 131/82 Sp02 EP Interpretation: reviewed, normal General Appearance: no apparent distress, alert, GCS 15, non-toxic Head: normocephalic, atraumatic Eyes: bilateral eye normal inspection, bilateral eye PERRL ENT: hearing grossly normal, normal pharynx, no angioedema, normal voice Neck: full range of motion, supple/symm/no masses Respiratory: chest non-tender, lungs clear, normal breath sounds, speaking full sentences Cardiovascular #1: regular rate, rhythm, no edema Cardiovascular #2: 2+ carotid (R), 2+ carotid (L), 2+ radial (R), 2+ radial (L) , 2+ dorsalis pedis (R), 2+ dorsalis pedis (L) Gastrointestinal: normal bowel sounds, non tender, soft, non-distended, no guarding, no rebound Rectal: deferred Genitourinary: normal inspection, no CVA tenderness Musculoskeletal: back normal, normal range of motion, gait/station normal, non- tender Neurologic: alert, motor strength/tone normal, oriented x3, sensory intact, responsive, speech normal Psychiatric: judgement/insight normal, memory normal, mood/affect normal, no suicidal/homicidal ideation Reflexes: 3+ bicep (R), 3+ bicep (L), 3+ tricep (R), 3+ tricep (L), 3+ knee (R) , 3+ knee (L) Skin: no rash Lymphatic: no adenopathy Medical Decision Making Diagnostic Impression: Primary Impression: Chest pain Qualified Codes: R07.9 - Chest pain, unspecified ER Course Hospital Course 29-year-old F presents ED complaining of chest pain. h/o PE Differential diagnoses include: PE, MS/unstable angina, contusion, muscle strain Clinical course Patient placed on stretcher. After initial history and physical I ordered labs , EKG, pain meds, CTA chest labs reviewed- all electrolytes normal, troponins negative, no leukocytosis, hemoglobin/hematocrit stable EKG - NSR, no acute ischemic changes interpreted by me CTA chest no evidence of PE I discussed findings with patient. Vitals stable. Labs unremarkable. CTA negative for PE. Will discharge home. Encourage patient to be compliant with her Coumadin. Safe for discharge and close outpatient follow-up. States she has a PMD I. I feel this is a highly complex case requiring extensive working including EKG/Rhythm strip, Xray/CT/US, Blood/urine lab work, repeat exams while in ED, and administration of strong opiates/narcotics for pain control, admission to hospital or close patient follow up. Diagnosis - chest pain Stable and discharged to home. Instructed to followup with PMD. Return to ED if symptoms recur or worsen Labs Test 06/09/19 17:03 06/09/19 17:05 Urine HCG, Qualitative Negative (NEGATIVE) White Blood Count 5.8 K/UL (4.8-10.8) Red Blood Count 4.75 M/UL (4.20-5.40) Hemoglobin 9.3 G/DL (12.0-16.0) Hematocrit 31.1 % (37.0-47.0) Mean Corpuscular Volume 65 FL (80-99) Mean Corpuscular Hemoglobin 19.5 PG (27.0-31.0) Mean Corpuscular Hemoglobin Concent 29.8 G/DL (32.0-36.0) Red Cell Distribution Width 16.7 % (11.6-14.8) Platelet Count 275 K/UL (150-450) Mean Platelet Volume 10.8 FL (6.5-10.1) Neutrophils (%) (Auto) 60.5 % (45.0-75.0) Lymphocytes (%) (Auto) 28.3 % (20.0-45.0) Monocytes (%) (Auto) 5.8 % (1.0-10.0) Eosinophils (%) (Auto) 3.6 % (0.0-3.0) Basophils (%) (Auto) 1.8 % (0.0-2.0) Prothrombin Time 31.6 SEC (9.30-11.50) Prothromb Time International Ratio 3.2 (0.9-1.1) Activated Partial Thromboplast Time 50 SEC (23-33) Sodium Level 142 MMOL/L (136-145) Potassium Level 4.6 MMOL/L (3.5-5.1) Chloride Level 107 MMOL/L (98-107) Carbon Dioxide Level 17 MMOL/L (21-32) Anion Gap 18 mmol/L (5-15) Blood Urea Nitrogen 17 mg/dL (7-18) Creatinine 0.9 MG/DL (0.55-1.30) Estimat Glomerular Filtration Rate > 60 mL/min (>60) Glucose Level 90 MG/DL (74-106) Calcium Level 9.5 MG/DL (8.5-10.1) Total Bilirubin 0.3 MG/DL (0.2-1.0) Aspartate Amino Transf (AST/SGOT) 28 U/L (15-37) Alanine Aminotransferase (ALT/SGPT) 34 U/L (12-78) Alkaline Phosphatase 134 U/L (46-116) Troponin I 0.011 ng/mL (0.000-0.056) Pro-B-Type Natriuretic Peptide 27 pg/mL (0-125) Total Protein 7.9 G/DL (6.4-8.2) Albumin 3.8 G/DL (3.4-5.0) Globulin 4.1 g/dL Albumin/Globulin Ratio 0.9 (1.0-2.7) Human Chorionic Gonadotropin, Qual Negative (NEGATIVE) EKG Diagnostic Results Rate: normal Rhythm: NSR ST Segments: no acute changes ASA given to the pt in ED: No Rhythm Strip Diag. Results EP Interpretation: yes Rhythm: NSR, no PVC's, no ectopy CT/MRI/US Diagnostic Results CT/MRI/US Diagnostic Results : Imaging Test Ordered: CTA Chest Impression Impression: -No pulmonary embolism. -Appearance on axial series 5 image 58 in the right upper lobe pulmonary artery of possible PE is artifactual, due to volume averaging with adjacent small right suprahilar node. -No findings to suggest right ventricular strain. -No acute abnormality definitively seen. -Recommend outpatient MRI abdomen without and with IV contrast to further characterize intermediate attenuation hepatic 3.3 cm focus in the right lobe, not well characterized on this single phase study. - T8 vertebral body 0.8 cm focal mildly sclerotic finding is likely incidental and benign but not characterized on this study, recommend outpatient MRI spine without and with IV contrast to further characterize. -Small hiatal hernia. Last Vital Signs Date Time Temp Pulse Resp B/P (MAP) Pulse Ox O2 Delivery O2 Flow Rate FiO2 06/09/19 19:50 98.2 94 24 131/82 88 Room Air Disposition: HOME, SELF-CARE Condition: Stable Scripts Acetaminophen* (TYLENOL EXTRA STRENGTH*) 500 Mg Tablet 500 MG ORAL Q8H PRN for Prn Headache/Temp > 101, #30 TAB 0 Refills Prov: Stanford Prado MD 06/09/19 Referrals: [facility] ([facility]P) Patient Instructions: Nonspecific Chest Pain Additional Instructions: continue taking your INR. followup with your PMD Stanford Prado MD Jun 09, 2019 20:33
== END 2019-06-09 19:50 | disposition home or self-care (01) ==
LOC: EMR 17:05
DX: R07.9 Chest pain, unspecified (principal); Z86.718 Personal history of other venous thrombosis and embolism; Z86.711 Personal history of pulmonary embolism; Z79.01 Long term (current) use of anticoagulants
CPT/HCPCS: 36415; 71275; 80053; 81025; 83880; 84484; 84703; 85025; 85610; 85730; 93005; 96361; 96374; 96376; J2270; J7030; Q9967; Z7502; 99284

== ENCOUNTER 2019-06-18 19:11 | Emergency (ER) | payer MEDICAID, OTHER ==
[~2019-06-18] VITALS: Ht 157.5 cm; Wt 99.8 kg
[2019-06-18 19:30] VITALS: BP 133/69
--- NOTE | 2019-06-18 19:30 | NUR ---
ED Nurse Note: Pt walked into ED from home for c/o r hand pain and swelling x 2 days but worse today. Pt is aaox4, no cardiac or respiratory distress noted. Swelling to R hand noted.
--- NOTE | 2019-06-18 19:32 | NUR ---
ED Nurse Note: Pt denies any trauma to R hand.
--- NOTE | 2019-06-18 20:02 | Emergency Room Report ---
History of Present Illness General Chief Complaint: Pain Source: Patient Present Illness HPI 29-year-old female with no significant medical history here complaining of sudden onset of right hand swelling x1 day. Patient denies any fall or injury. Minimal swelling noted. No bony tenderness noted. Patient rates the pain 7 out of 10 with radiation to right wrist. Denies any tingling numbness. Phalen sign is positive. Has not taken medication for symptom relief. Denies at this time. Allergies: Coded Allergies: No Known Allergies (Unverified , 09/12/18) Patient History Past Medical History: see triage record Past Surgical History: none Pertinent Family History: none Now: No Immunizations: UTD Reviewed Nursing Documentation: PMH: Agreed; PSxH: Agreed Nursing Documentation-PMH Past Medical History: No History, Except For Hx Hypertension: No Hx Pacemaker: No Hx Asthma: No Hx COPD: No Hx Diabetes: No Hx Cancer: No Hx Gastrointestinal Problems: Yes - gastritis Hx Dialysis: No Hx Neurological Problems: No Hx Cerebrovascular Accident: No Hx Seizures: No Review of Systems All Other Systems: negative except mentioned in HPI Physical Exam Vital Signs Date Time Temp Pulse Resp B/P (MAP) Pulse Ox O2 Delivery O2 Flow Rate FiO2 06/18/19 19:19 98.2 100 20 133/69 (90) 98 Room Air Sp02 EP Interpretation: reviewed, normal General Appearance: no apparent distress, alert, GCS 15, non-toxic Head: normocephalic, atraumatic Eyes: bilateral eye normal inspection, bilateral eye PERRL ENT: hearing grossly normal, normal pharynx, no angioedema, normal voice Neck: full range of motion, supple/symm/no masses Respiratory: chest non-tender, lungs clear, normal breath sounds, no rhonchi, no retraction, speaking full sentences Cardiovascular #1: regular rate, rhythm, no edema, no murmur Cardiovascular #2: 2+ radial (R), 2+ radial (L) Gastrointestinal: normal bowel sounds, non tender, soft, non-distended, no guarding, no rebound Genitourinary: no CVA tenderness Musculoskeletal: back normal, digits/nails normal, swelling - right hand Neurologic: alert, motor strength/tone normal, oriented x3, sensory intact, responsive, speech normal Psychiatric: judgement/insight normal, memory normal, mood/affect normal, no suicidal/homicidal ideation Skin: no rash Lymphatic: no adenopathy Medical Decision Making PA Attestation All my diagnosis and treatment plans were reviewed ad discussed with my supervising physician Dr. Prado Diagnostic Impression: Primary Impression: Carpal tunnel syndrome Additional Impression: Hand sprain ER Course 29-year-old female with no significant medical history here complaining of sudden onset of right hand swelling x1 day. Patient denies any fall or injury. Minimal swelling noted. No bony tenderness noted. Patient rates the pain 7 out of 10 with radiation to right wrist. Denies any tingling numbness. Phalen sign is positive. Has not taken medication for symptom relief. Denies at this time. Ddx considered but are not limited to: Hand sprain, hand sprain, hand fracture Vital signs: are WNL, pt. is afebrile H&PE are most consistent with : Carpal tunnel, hand sprain ORDERS: Hand x-ray, robaxin, voltaren gel, motrin ED INTERVENTIONS: none DISCHARGE: At this time pt. is stable for d/c to home. Will provide printed patient care instructions, and any necessary prescriptions. Care plan and follow up instructions have been discussed with the patient prior to discharge. Follow-up with primary care provider, avoid stress physical activity, if worsening symptoms return to the emergency room Other X-Ray Diagnostic Results Other X-Ray Diagnostic Results : X-Ray ordered: hand xray # of Views/Limited Vs Complete: 3 View Indication: Swelling EP Interpretation: Yes PA Xray: Interpretation reviewed, by supervising MD, and agrees with findings. Interpretation: no dislocation, no soft tissue swelling, no fractures Impression: No acute disease Electronically Signed by: Connor Laguerre PA-C Last Vital Signs Date Time Temp Pulse Resp B/P (MAP) Pulse Ox O2 Delivery O2 Flow Rate FiO2 06/18/19 19:30 98.2 100 20 133/69 98 Room Air Disposition: HOME, SELF-CARE Condition: Stable Scripts Methocarbamol* (ROBAXIN-500*) 500 Mg Tablet 500 MG ORAL TID PRN for For Pain, #15 TAB 0 Refills Prov: Connor Brito 06/18/19 Diclofenac Sodium (VOLTAREN) 100 Gm Gel..gram. 2 GM TP TID, #100 GM Prov: Connor Brito 06/18/19 Ibuprofen* (MOTRIN*) 600 Mg Tablet 600 MG ORAL Q8H PRN for For Pain, #30 TAB 0 Refills Prov: Connor Brito 06/18/19 Patient Instructions: Carpal Tunnel Syndrome, [id number] Additional Instructions: Follow-up with primary care provider, take medication as directed, if worsening symptoms return to the emergency room Connor Brito Jun 18, 2019 20:02
[2019-06-18] MEDS ORDERED: VOLTAREN100 G1 TP (20:03)
[2019-06-18] MEDS ORDERED: ROBAXIN-500MG ORAL (20:03)
[2019-06-18] MEDS ORDERED: IBUPROFEN600 MG ORAL (20:03)
[2019-06-18 20:10] VITALS: BP 133/69
--- NOTE | 2019-06-19 10:16 | Diagnostic Imaging Report ---
Indication: Right hand pain Findings: 3 views of the right hand were obtained. Normal bony mineralization and alignment are demonstrated. No acute fractures, erosions, or periosteal reaction are seen. Soft tissues are unremarkable. Impression: No acute findings.
== END 2019-06-18 20:10 | disposition home or self-care (01) ==
LOC: EMR 20:00
DX: G56.01 Carpal tunnel syndrome, right upper limb (principal); S63.91XA Sprain of unspecified part of right wrist and hand, initial encounter; X58.XXXA Exposure to other specified factors, initial encounter
CPT/HCPCS: 73130; Z7502; 99283

== ENCOUNTER 2019-07-11 18:36 | Emergency (ER) | payer OTHER ==
[~2019-07-11] VITALS: Ht 157.5 cm; Wt 99.8 kg
[~2019-07-11 18:36] MED LIST changes: +IBUPROFEN600 MG ORAL; +ROBAXIN-500MG ORAL; +VOLTAREN100 G1 TP
[2019-07-11] MEDS ORDERED: Omnipaque 350 100ml vial INJ PRN (18:45)
[2019-07-11 18:56] VITALS: BP 98/71
--- NOTE | 2019-07-11 19:00 | NUR ---
ED Nurse Note: Patient walked in to ER from home due to chest pain on the left side which radiates to back of neck and started this morning. pt aao x4 and ambulatory. calm and cooperative but grimacing for chest pain. vss as documented and no SOB or labored breathing noted. pt is in gown and on lan/wan engineer.
--- NOTE | 2019-07-11 19:04 | NUR ---
ED Nurse Note: x-ray at bedside.
[2019-07-11 19:07] LABS: BASOPHILS % (AUTO) 1.3 % (0.0-2.0); EOSINOPHILS % (AUTO) 3.3 % (0.0-3.0); HEMATOCRIT 32.2 % (37.0-47.0); HEMOGLOBIN 9.4 G/DL (12.0-16.0); LYMPHOCYTES % (AUTO) 27.1 % (20.0-45.0); MEAN CORPUSCULAR VOLUME 65 FL (80-99); MONOCYTES % (AUTO) 3.3 % (1.0-10.0); PLATELET COUNT 200 K/UL (150-450); RED BLOOD COUNT 4.93 M/UL (4.20-5.40); RED CELL DISTRIBUTION WIDTH 15.9 % (11.6-14.8); WHITE BLOOD COUNT 6.7 K/UL (4.8-10.8)
--- NOTE | 2019-07-11 19:08 | NUR ---
HAND-OFF: Report given to ANTONIO Plaza. urine sample needs to be collected.
[2019-07-11 19:10] VITALS: BP 112/61
--- NOTE | 2019-07-11 19:10 | NUR ---
ED Nurse Note: Report received from Neil Erazo RN. Pt is resting in bed at this time. No acute distress noted. VSS. Urine sample obtained and sent to lab. Pt able to ambulate with steady gait.
--- NOTE | 2019-07-11 19:26 | Diagnostic Imaging Report ---
EXAM: XR Chest, 1 View CLINICAL HISTORY: PAIN TECHNIQUE: Frontal view of the chest. COMPARISON: 01/29/2019. FINDINGS: Lungs: Possible mild pulmonary vascular congestion. No focal consolidation. Pleural space: Unremarkable. No pneumothorax. Heart: Mild cardiomegaly. Mediastinum: Unremarkable. Bones/joints: Unremarkable. IMPRESSION: Possible mild pulmonary vascular congestion. No focal consolidation.
[2019-07-11 19:38] LABS: ANION GAP 9 mmol/L (5-15); BLOOD UREA NITROGEN 20 mg/dL (7-18); CALCIUM 9.2 MG/DL (8.5-10.1); CARBON DIOXIDE 23 MMOL/L (21-32); CHLORIDE 105 MMOL/L (98-107); CREATININE 0.9 MG/DL (0.55-1.30); POTASSIUM 4.2 MMOL/L (3.5-5.1); SODIUM 137 MMOL/L (136-145)
--- NOTE | 2019-07-11 19:44 | Emergency Room Report ---
History of Present Illness General Chief Complaint: Chest Pain Source: Patient Present Illness HPI 29-year-old female with history of pulmonary embolism currently taking warfarin , here complaining of 2 days of 10 out of 10 chest pain with radiation to back and posterior neck. Complains of shortness of breath. Denies any leg swelling , fever and chills or URI symptoms. Reports that she has not taken her warfarin today. Denies any tingling or numbness. Denies any headache and dizziness. Patient is morbidly obese, and immobile. Reports that she does not really move around. Denies any recent travel, cancer history. Denies nausea vomiting, abdominal pain diarrhea. Denies tobacco smoke and drug use. Allergies: Coded Allergies: No Known Allergies (Unverified , 09/12/18) COVID-19 Screening Contact w/high risk pt: No Recent Travel to affected area: No Experienced COVID-19 symptoms?: No Patient History Last Menstrual Period: June 24, 2019 Now: No Immunizations: UTD Reviewed Nursing Documentation: PMH: Agreed; PSxH: Agreed Nursing Documentation-PMH Past Medical History: No History, Except For Hx Hypertension: No Hx Pacemaker: No Hx Asthma: No Hx COPD: No Hx Diabetes: No Hx Cancer: No Hx Gastrointestinal Problems: Yes - gastritis Hx Dialysis: No Hx Neurological Problems: No Hx Cerebrovascular Accident: No Hx Seizures: No Review of Systems All Other Systems: negative except mentioned in HPI Physical Exam Vital Signs Date Time Temp Pulse Resp B/P (MAP) Pulse Ox O2 Delivery O2 Flow Rate FiO2 07/11/19 18:41 98.1 87 16 101/66 (78) 100 Room Air Sp02 EP Interpretation: reviewed, normal General Appearance: alert, GCS 15, non-toxic, mild distress Head: normocephalic, atraumatic Eyes: bilateral eye normal inspection, bilateral eye PERRL ENT: hearing grossly normal, normal pharynx, no angioedema, normal voice Neck: full range of motion, supple, no meningismus, supple/symm/no masses Respiratory: chest non-tender, lungs clear, normal breath sounds, no rhonchi, no retraction, no wheezing, speaking full sentences Cardiovascular #1: regular rate, rhythm, no edema, no murmur Gastrointestinal: normal bowel sounds, non tender, soft, non-distended, no guarding, no rebound Rectal: deferred Genitourinary: no CVA tenderness Musculoskeletal: back normal, no calf tenderness, pelvis stable Neurologic: alert, motor strength/tone normal, oriented x3, sensory intact, responsive, speech normal Psychiatric: judgement/insight normal, memory normal, mood/affect normal, no suicidal/homicidal ideation Skin: no rash Lymphatic: no adenopathy Medical Decision Making PA Attestation Diagnosis and treatment plans were reviewed and discussed with my supervising physician Dr. Scruggs Diagnostic Impression: Primary Impression: Chest pain ER Course 29-year-old female with history of pulmonary embolism currently taking warfarin , here complaining of 2 days of 10 out of 10 chest pain with radiation to back and posterior neck. Complains of shortness of breath. Denies any leg swelling , fever and chills or URI symptoms. Reports that she has not taken her warfarin today. Denies any tingling or numbness. Denies any headache and dizziness. Patient is morbidly obese, and immobile. Reports that she does not really move around. Denies any recent travel, cancer history. Denies nausea vomiting, abdominal pain diarrhea. Denies tobacco smoke and drug use. Ddx considered but are not limited to: [place], Angina, COPD, GERD, PE Vital signs: are WNL, pt. is afebrile H&PE are most consistent with chest pain ORDERS: EKG, Chest XR, cardiac labs(troponin, CBC, CMP, BNP), CTA chest, warfarin ED INTERVENTIONS: Tylenol, warfarin 5mg PO DISCHARGE: At this time pt. is stable for d/c to home. Will provide printed patient care instructions, and any necessary prescriptions. Care plan and follow up instructions have been discussed with the patient prior to discharge. Follow-up primary doctor, if worsening symptoms return to the emergency room. Patient reports that she has not taking 5 mg of warfarin every day as her primary doctor wants to change the medication and change her regimen to 5 mg daily, patient has an appointment with primary July. EKG Diagnostic Results Rate: normal Rhythm: NSR ST Segments: no acute changes Other Impression No acute ST changes Chest X-Ray Diagnostic Results Chest X-Ray Diagnostic Results : Chest X-Ray Ordered: Yes # of Views/Limited/Complete: 1 View Indication: Chest Pain EP Interpretation: Yes NATIVIDAD Xray: Interpretation reviewed, by supervising MD, and agrees with findings. Interpretation: no consolidation, no effusion, no pneumothorax Impression: No acute disease Electronically Signed by: Connor Guzmán Text EXAM: XR Chest, 1 View CLINICAL HISTORY: PAIN TECHNIQUE: Frontal view of the chest. COMPARISON: 01/29/2019. FINDINGS: Lungs: Possible mild pulmonary vascular congestion. No focal consolidation. Pleural space: Unremarkable. No pneumothorax. Heart: Mild cardiomegaly. Mediastinum: Unremarkable. Bones/joints: Unremarkable. IMPRESSION: Possible mild pulmonary vascular congestion. No focal consolidation. CT/MRI/US Diagnostic Results CT/MRI/US Diagnostic Results : Imaging Test Ordered: CTA chest with contrast Impression COMPARISON: 06/09/2019. FINDINGS: Pulmonary arteries: No PE or aortic dissection. Aorta: No acute findings. No thoracic aortic dissection. Lungs: No focal consolidation. Pleural space: Unremarkable. No significant effusion. No pneumothorax. Heart: Unremarkable. Mediastinum: Small hiatal hernia. Bones/joints: No acute fracture. Soft tissues: Unremarkable. Lymph nodes: Unremarkable. IMPRESSION: 1. No PE or aortic dissection. 2. No focal consolidation. Last Vital Signs Date Time Temp Pulse Resp B/P (MAP) Pulse Ox O2 Delivery O2 Flow Rate FiO2 07/11/19 19:10 98.0 80 21 112/61 98 Room Air Disposition: HOME, SELF-CARE Condition: Stable Scripts Omeprazole (OMEPRAZOLE) 20 Mg Capsule.dr 20 MG ORAL DAILY, #30 CAP Prov: Connor Brito 07/11/19 Acetaminophen* (TYLENOL EXTRA STRENGTH*) 500 Mg Tablet 500 MG ORAL Q8H PRN for Prn Headache/Temp > 101, #30 TAB 0 Refills Prov: Connor Brito 07/11/19 Warfarin Sod* (WARFARIN SOD*) 5 Mg Tablet 5 MG ORAL DAILY for 30 Days, #30 TAB Prov: Connor Brito 07/11/19 Patient Instructions: Nonspecific Chest Pain Additional Instructions: Take medication as directed, follow-up primary care provider, if worsening symptoms return to emergency room Connor Brito Jul 11, 2019 19:44
[2019-07-11 19:49] LABS: ALANINE AMINOTRANSFERASE 76 U/L (12-78); ALBUMIN 4.2 G/DL (3.4-5.0); ALKALINE PHOSPHATASE 141 U/L (46-116); ASPARTATE AMINO TRANSFERASE 38 U/L (15-37); BILIRUBIN,TOTAL 0.2 MG/DL (0.2-1.0)
[2019-07-11] MEDS ORDERED: OMEPRAZOLE20 M2 ORAL (20:28)
[2019-07-11] MEDS ORDERED: WARFARIN SODIUM5 MG ORAL (20:28)
[2019-07-11] MEDS ORDERED: TYLENOL EXTRA500 MG ORAL (20:28)
[2019-07-11] MEDS ORDERED: Warfarin Sodium 5mg ORAL ONE (20:30)
--- NOTE | 2019-07-11 20:31 | Diagnostic Imaging Report ---
EXAM: CT Angiography Chest With Intravenous Contrast CLINICAL HISTORY: Chest pain. PE TECHNIQUE: Axial computed tomographic angiography images of the chest with intravenous contrast. CTDI is 11 mGy and DLP is 419 mGy-cm. One or more of the following dose reduction techniques were used: automated exposure control, adjustment of the mA and/or kV according to patient size, use of iterative reconstruction technique. MIP reconstructed images were created and reviewed. COMPARISON: 06/09/2019. FINDINGS: Pulmonary arteries: No PE or aortic dissection. Aorta: No acute findings. No thoracic aortic dissection. Lungs: No focal consolidation. Pleural space: Unremarkable. No significant effusion. No pneumothorax. Heart: Unremarkable. Mediastinum: Small hiatal hernia. Bones/joints: No acute fracture. Soft tissues: Unremarkable. Lymph nodes: Unremarkable. IMPRESSION: 1. No PE or aortic dissection. 2. No focal consolidation.
[2019-07-11 21:00] VITALS: BP 122/88
== END 2019-07-11 21:00 | disposition home or self-care (01) ==
LOC: EMR 19:35
DX: R07.9 Chest pain, unspecified (principal); R06.02 Shortness of breath; Z86.711 Personal history of pulmonary embolism; Z79.01 Long term (current) use of anticoagulants; E66.01 Morbid (severe) obesity due to excess calories; Z68.41 Body mass index [BMI] 40.0-44.9, adult
CPT/HCPCS: 36415; 71045; 71275; 80053; 80307; 81025; 83880; 84484; 85025; 85610; 85730; 93005; Q9967; Z7502; 99284

== ENCOUNTER 2019-07-19 14:49 | Emergency (ER) | payer OTHER ==
[~2019-07-19] VITALS: Ht 157.5 cm; Wt 99.8 kg
[~2019-07-19 14:49] MED LIST changes: +OMEPRAZOLE20 M2 ORAL
[2019-07-19 15:20] VITALS: BP 130/90
--- NOTE | 2019-07-19 15:30 | NUR ---
ER Nurse Note: Pt walked in c/o chest pain that radiates to the whole body since 07/18. Pt stated it numbness and tingling as well. Per pt, pt is seeing black spots, no trauma to eyes, head, chest. Pt denies n/v, shortness of breath. Pt stated she was in the ED for similar problems recently. Blood drawn, EKG completed, urine collected and chest xray taken; awaiting results. All safety measures met; will continue to montior.
--- NOTE | 2019-07-19 15:45 | Diagnostic Imaging Report ---
EXAM: XR Chest, 1 View CLINICAL HISTORY: PAIN TECHNIQUE: Frontal view of the chest. COMPARISON: Chest x-ray and CT chest dated 07/11/19 FINDINGS: Lungs: Unremarkable. The lungs appear clear. No focal consolidation. Pleural space: Unremarkable. The costophrenic angles are sharp. No visible pneumothorax. Heart: Unremarkable. No cardiomegaly. Mediastinum: Unremarkable. Bones/joints: Unremarkable. IMPRESSION: No acute findings.
[2019-07-19 15:55] LABS: BASOPHILS % (AUTO) 1.4 % (0.0-2.0); EOSINOPHILS % (AUTO) 3.2 % (0.0-3.0); HEMATOCRIT 32.4 % (37.0-47.0); LYMPHOCYTES % (AUTO) 24.8 % (20.0-45.0); MEAN CORPUSCULAR VOLUME 66 FL (80-99); MONOCYTES % (AUTO) 3.6 % (1.0-10.0); PLATELET COUNT 250 K/UL (150-450); RED CELL DISTRIBUTION WIDTH 15.1 % (11.6-14.8); WHITE BLOOD COUNT 6.3 K/UL (4.8-10.8)
[2019-07-19 15:57] LABS: APPEARANCE,URINE SLIGHTLY CLOUDY; BILIRUBIN, URINE NEGATIVE (NEGATIVE); COLOR,URINE RED; GLUCOSE, URINE (UA) NEGATIVE (NEGATIVE); KETONES,URINE 1+ (NEGATIVE); LEUKOCYTE ESTERASE ,URINE 2+ (NEGATIVE); NITRITE,URINE NEGATIVE (NEGATIVE); PH,URINE 5 (4.5-8.0); PROTEIN,URINE 4+ (NEGATIVE); UROBILINOGEN,URINE NORMAL MG/DL (0.0-1.0)
[2019-07-19 16:13] LABS: ANION GAP 15 mmol/L (5-15); BLOOD UREA NITROGEN 16 mg/dL (7-18); CALCIUM 9.3 MG/DL (8.5-10.1); CARBON DIOXIDE 19 MMOL/L (21-32); CHLORIDE 104 MMOL/L (98-107); CREATININE 0.8 MG/DL (0.55-1.30); POTASSIUM 3.9 MMOL/L (3.5-5.1); SODIUM 137 MMOL/L (136-145)
[2019-07-19 16:18] LABS: ALANINE AMINOTRANSFERASE 47 U/L (12-78); ALKALINE PHOSPHATASE 130 U/L (46-116); ASPARTATE AMINO TRANSFERASE 34 U/L (15-37); BILIRUBIN,TOTAL 0.1 MG/DL (0.2-1.0)
--- NOTE | 2019-07-19 16:28 | Emergency Room Report ---
History of Present Illness General Chief Complaint: Chest Pain Present Illness HPI 29-year-old female with history of pulmonary embolism currently on warfarin and anemia currently taking ferrous sulfate as well as anxiety here complaining of sudden onset of chest pain, tingling sensation hands and seeing spots while driving earlier today. Denies any dizziness, headache, syncope. Denies any tobacco smoke, drug use, alcohol intake. Patient was seen [facility] 1 week ago for similar symptoms. Complete blood work was done, CTA was within normal limits. Patient reports that she is compliant with taking her warfarin and ferrous sulfate. Denies any vaginal bleeding. Denies any urinary symptoms, abdominal pain, nausea vomiting, diarrhea. Denies any shortness of breath, chest pain, fever and chills. Patient sitting comfortably with stable vital signs. Allergies: Coded Allergies: No Known Allergies (Unverified , 09/12/18) COVID-19 Screening Contact w/high risk pt: No Recent Travel to affected area: No Experienced COVID-19 symptoms?: No Patient History Past Medical History: see triage record Past Surgical History: none Pertinent Family History: none Now: No Immunizations: UTD Reviewed Nursing Documentation: PMH: Agreed; PSxH: Agreed Nursing Documentation-PMH Hx Hypertension: No Hx Pacemaker: No Hx Asthma: No Hx COPD: No Hx Diabetes: No Hx Cancer: No Hx Gastrointestinal Problems: Yes - gastritis Hx Dialysis: No Hx Neurological Problems: No Hx Cerebrovascular Accident: No Hx Seizures: No Review of Systems All Other Systems: negative except mentioned in HPI Physical Exam Vital Signs Date Time Temp Pulse Resp B/P (MAP) Pulse Ox O2 Delivery O2 Flow Rate FiO2 07/19/19 14:58 98.2 85 16 130/90 (103) 97 Room Air Sp02 EP Interpretation: reviewed, normal General Appearance: no apparent distress, alert, GCS 15, non-toxic Head: normocephalic, atraumatic Eyes: bilateral eye normal inspection, bilateral eye PERRL ENT: hearing grossly normal, normal pharynx, no angioedema, normal voice Neck: supple Respiratory: chest non-tender, lungs clear, normal breath sounds, no rhonchi Cardiovascular #1: regular rate, rhythm, no murmur Gastrointestinal: soft, no mass Genitourinary: no CVA tenderness Musculoskeletal: back normal, no calf tenderness Neurologic: alert, oriented Psychiatric: normal inspection Skin: no rash Lymphatic: no adenopathy Medical Decision Making PA Attestation All diagnoses and treatment plans were reviewed and discussed with my supervising physician Dr. Bunch Diagnostic Impression: Primary Impression: Chest pain Additional Impressions: Anemia Anxiety UTI (urinary tract infection) ER Course 29-year-old female with history of pulmonary embolism currently on warfarin and anemia currently taking ferrous sulfate as well as anxiety here complaining of sudden onset of chest pain, tingling sensation hands and seeing spots while driving earlier today. Denies any dizziness, headache, syncope. Denies any tobacco smoke, drug use, alcohol intake. Patient was seen [facility] 1 week ago for similar symptoms. Complete blood work was done, CTA was within normal limits. Patient reports that she is compliant with taking her warfarin and ferrous sulfate. Denies any vaginal bleeding. Denies any urinary symptoms, abdominal pain, nausea vomiting, diarrhea. Denies any shortness of breath, chest pain, fever and chills. Patient sitting comfortably with stable vital signs. Ddx considered but are not limited to: [place], Angina, COPD, GERD, Vital signs: are WNL, pt. is afebrile H&PE are most consistent with anemia, chest pain, anxiety, incidental finding of UTI ORDERS: EKG, Chest XR, CBC, CMP, troponin, UA urine , Macrobid ED INTERVENTIONS: NS bolus DISCHARGE: At this time pt. is stable for d/c to home. Will provide printed patient care instructions, and any necessary prescriptions. Care plan and follow up instructions have been discussed with the patient prior to discharge. Patient to continue taking ferrous sulfate also follow-up primary doctor, patient continue taking warfarin. If worsening symptoms return to emergency room. At this time no further imaging or blood work needed as patient was recently here [address] was recently done within normal limits. EKG Diagnostic Results Rate: normal Rhythm: NSR ST Segments: no acute changes Other Impression No acute ST changes Chest X-Ray Diagnostic Results Chest X-Ray Diagnostic Results : Chest X-Ray Ordered: Yes # of Views/Limited/Complete: 1 View Indication: Chest Pain EP Interpretation: Yes NATIVIDAD Xray: Interpretation reviewed, by supervising MD, and agrees with findings. Interpretation: no consolidation, no effusion, no pneumothorax Impression: No acute disease Electronically Signed by: Connor Laguerre PA-C Last Vital Signs Date Time Temp Pulse Resp B/P (MAP) Pulse Ox O2 Delivery O2 Flow Rate FiO2 4/4/20 15:20 85 16 Room Air 07/19/19 15:20 98.2 130/90 97 Disposition: HOME, SELF-CARE Condition: Stable Scripts Nitrofurantoin Monohyd/M-Cryst* (MACROBID 100 MG*) 100 Mg Capsule 100 MG ORAL EVERY 12 HOURS for 7 Days, #14 CAP Prov: Connor Brito 07/19/19 Referrals: NOT CHOSEN IPA/MD,REFERRING (PCP) Patient Instructions: Iron Deficiency Anemia, Adult, Nonspecific Chest Pain, Urinary Tract Infection, [id number] Additional Instructions: Follow-up with your primary care doctor, increase oral hydration, if worsening symptoms return to the emergency room Connor Brito Jul 19, 2019 16:28
[2019-07-19] MEDS ORDERED: NITROFURANTOIN100 M2 ORAL (16:38)
[2019-07-19 16:50] VITALS: BP 134/84
--- NOTE | 2019-07-19 16:50 | NUR ---
ED Nurse Note: All orders completed per ER PA. Pt cleared by health care Provider for discharge. DC instructions/prescription was given and explained to pt and verbalized understanding of teachings. All medical deviecs such as ID band and IV removed; site clean and bandaged. Pt is AAO x4, ambulatory and left with all personal belongings.
== END 2019-07-19 16:50 | disposition home or self-care (01) ==
LOC: EMR 15:25
DX: R07.9 Chest pain, unspecified (principal); D64.9 Anemia, unspecified; F41.9 Anxiety disorder, unspecified; N39.0 Urinary tract infection, site not specified; Z86.711 Personal history of pulmonary embolism; Z79.01 Long term (current) use of anticoagulants
CPT/HCPCS: 36415; 71045; 80053; 81003; 81025; 84484; 85025; 93005; 96360; Z7502; 99284

== ENCOUNTER 2019-10-29 18:35 | Emergency (ER) | payer OTHER ==
[~2019-10-29] VITALS: Ht 157.5 cm; Wt 99.8 kg
[~2019-10-29 18:35] MED LIST changes: +NITROFURANTOIN100 M2 ORAL
[2019-10-29 19:00] VITALS: BP 114/76
[2019-10-29] MEDS ORDERED: Morphine Sulfate 2mg/ml Inj(IV/IM USE ONLY) IVP ONE (19:45)
[2019-10-29 19:51] LABS: BASOPHILS % (AUTO) 1.3 % (0.0-2.0); EOSINOPHILS % (AUTO) 3.3 % (0.0-3.0); HEMATOCRIT 37.6 % (37.0-47.0); HEMOGLOBIN 11.9 G/DL (12.0-16.0); LYMPHOCYTES % (AUTO) 19.8 % (20.0-45.0); MEAN CORPUSCULAR VOLUME 80 FL (80-99); MONOCYTES % (AUTO) 4.4 % (1.0-10.0); NEUTROPHILS % (AUTO) 71.2 % (45.0-75.0); PLATELET COUNT 287 K/UL (150-450); RED BLOOD COUNT 4.72 M/UL (4.20-5.40); RED CELL DISTRIBUTION WIDTH 15.1 % (11.6-14.8); WHITE BLOOD COUNT 7.5 K/UL (4.8-10.8)
[2019-10-29 19:53] LABS: APPEARANCE,URINE SLIGHTLY CLOUDY; BILIRUBIN, URINE NEGATIVE (NEGATIVE); COLOR,URINE PALE YELLOW; GLUCOSE, URINE (UA) NEGATIVE (NEGATIVE); KETONES,URINE 1+ (NEGATIVE); LEUKOCYTE ESTERASE ,URINE 1+ (NEGATIVE); NITRITE,URINE NEGATIVE (NEGATIVE); PH,URINE 7 (4.5-8.0); PROTEIN,URINE NEGATIVE (NEGATIVE); UROBILINOGEN,URINE 1 MG/DL (0.0-1.0)
[2019-10-29 19:59] LABS: ANION GAP 9 mmol/L (5-15); BLOOD UREA NITROGEN 11 mg/dL (7-18); CALCIUM 8.7 MG/DL (8.5-10.1); CARBON DIOXIDE 27 MMOL/L (21-32); CHLORIDE 105 MMOL/L (98-107); CREATININE 0.9 MG/DL (0.55-1.30); POTASSIUM 4.3 MMOL/L (3.5-5.1); SODIUM 141 MMOL/L (136-145)
[2019-10-29 20:05] LABS: INR 3.7 (0.9-1.1); PARTIAL THROMBOPLASTIN TIME 50 SEC (23-33)
[2019-10-29 20:15] LABS: ALANINE AMINOTRANSFERASE 29 U/L (12-78); ALBUMIN 4.1 G/DL (3.4-5.0); ALBUMIN/GLOBULIN RATIO 1.1 (1.0-2.7); ALKALINE PHOSPHATASE 141 U/L (46-116); ASPARTATE AMINO TRANSFERASE 22 U/L (15-37); BILIRUBIN,TOTAL 0.2 MG/DL (0.2-1.0); CKMB 0.7 NG/ML (0.0-3.6); FERRITIN 7 NG/ML (8-388)
--- NOTE | 2019-10-29 20:50 | Emergency Room Report ---
History of Present Illness General Chief Complaint: Chest Pain Source: Patient Present Illness HPI 29-year-old female with history of PE currently on warfarin here complaining few days of chest pain and shortness of breath. Reports that she came in contact with someone who tested positive for COVID and she came in contact with that person 3 days ago. Patient has not been following up with child care lead teacher for her recurrences of chest pain. Patient has been taking warfarin. Denies any pleuritic chest pain. Denies abdominal pain, headache and dizziness, fever and chills, diarrhea. Complains of minimal right ear pain x2 days. Denies any sore throat, loss of taste and smell. Vital signs are within normal limits. Has not taken medication for symptom relief. Denies . 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 Patient History Past Medical History: see triage record Past Surgical History: none Pertinent Family History: none Now: No Immunizations: UTD Reviewed Nursing Documentation: PMH: Agreed; PSxH: Agreed Nursing Documentation-PMH Past Medical History: No History, Except For Hx Hypertension: No Hx Pacemaker: No Hx Asthma: No Hx COPD: No Hx Diabetes: No Hx Cancer: No Hx Gastrointestinal Problems: Yes - gastritis Hx Dialysis: No Hx Neurological Problems: No Hx Cerebrovascular Accident: No Hx Seizures: No Review of Systems All Other Systems: negative except mentioned in HPI Physical Exam Vital Signs Date Time Temp Pulse Resp B/P (MAP) Pulse Ox O2 Delivery O2 Flow Rate FiO2 10/29/19 18:52 97.2 91 20 108/81 (90) 100 Room Air Sp02 EP Interpretation: reviewed, normal General Appearance: no apparent distress, alert, GCS 15, non-toxic Head: normocephalic, atraumatic Eyes: bilateral eye normal inspection, bilateral eye PERRL ENT: hearing grossly normal, normal pharynx, no angioedema, normal voice, other - Right TM bulging Neck: full range of motion, supple/symm/no masses Respiratory: chest non-tender, lungs clear, normal breath sounds, no rhonchi, no respiratory distress, no retraction, no wheezing, speaking full sentences Cardiovascular #1: regular rate, rhythm, no edema, no murmur Gastrointestinal: normal bowel sounds, non tender, soft, non-distended, no guarding, no rebound Rectal: deferred Genitourinary: no CVA tenderness Musculoskeletal: back normal Neurologic: alert, oriented Psychiatric: normal inspection, judgement/insight normal Skin: no rash Lymphatic: no adenopathy Medical Decision Making PA Attestation All my diagnosis and treatment plans were reviewed ad discussed with my supervising physician Dr. Barber Diagnostic Impression: Primary Impression: Chest pain Additional Impressions: Exposure to COVID-19 virus Otitis media UTI (urinary tract infection) ER Course 29-year-old female with history of PE currently on warfarin here complaining few days of chest pain and shortness of breath. Reports that she came in contact with someone who tested positive for COVID and she came in contact with that person 3 days ago. Patient has not been following up with child care lead teacher for her recurrences of chest pain. Patient has been taking warfarin. Denies any pleuritic chest pain. Denies abdominal pain, headache and dizziness, fever and chills, diarrhea. Complains of minimal right ear pain x2 days. Denies any sore throat, loss of taste and smell. Vital signs are within normal limits. Has not taken medication for symptom relief. Denies . Ddx considered but are not limited to: [place], Angina, COPD, GERD,, coronavirus Vital signs: are WNL, pt. is afebrile H&PE are most consistent with chest pain unspecified, UTI, otitis media ORDERS: EKG, Chest XR, ER sepsis order set, LDH, d-dimer, CRP and ferritin, Augmentin, Tylenol, rapid covert testing was negative ED INTERVENTIONS: NS bolus, morphine DISCHARGE: At this time pt. is stable for d/c to home. Will provide printed patient care instructions, and any necessary prescriptions. Care plan and follow up instructions have been discussed with the patient prior to discharge. Take medication as directed, follow-up with your primary care provider for referral to child care lead teacher due to your recurrences of chest pain, if worsening symptoms return to the emergency room EKG Diagnostic Results Rate: normal Rhythm: NSR ST Segments: no acute changes Other Impression No acute ST changes Chest X-Ray Diagnostic Results Chest X-Ray Diagnostic Results : Chest X-Ray Ordered: Yes # of Views/Limited/Complete: 1 View Indication: Chest Pain EP Interpretation: Yes NATIVIDAD Xray: Interpretation reviewed, by supervising MD, and agrees with findings. Interpretation: no consolidation, no effusion, no pneumothorax Impression: No acute disease Electronically Signed by: Connor Laguerre PA-C Last Vital Signs Date Time Temp Pulse Resp B/P (MAP) Pulse Ox O2 Delivery O2 Flow Rate FiO2 10/29/19 18:52 97.2 91 20 108/81 (90) 100 Room Air Disposition: HOME, SELF-CARE Condition: Stable Scripts Acetaminophen* (TYLENOL EXTRA STRENGTH*) 500 Mg Tablet 500 MG ORAL Q8H PRN for Prn Headache/Temp > 101, #30 TAB 0 Refills Prov: Connor Brito 10/29/19 Amoxicillin/Potassium Clav 875-125* (AUGMENTIN 875-125 TABLET*) 1 Each Tablet 1 TAB ORAL TWICE A DAY for 10 Days, #20 TAB Prov: Connor Brito 10/29/19 Referrals: NON PHYSICIAN (PCP) Patient Instructions: Nonspecific Chest Pain, Otitis Media, Adult Additional Instructions: Take medication as directed, follow with your primary care provider, you to be referred to a child care lead teacher, if worsening symptoms return to the emergency room Connor Brito Oct 29, 2019 20:50
[2019-10-29] MEDS ORDERED: AUGMENTIN 875-1 EAC1 ORAL (20:52)
[2019-10-29] MEDS ORDERED: TYLENOL EXTRA500 MG ORAL (20:52)
[2019-10-29 21:00] VITALS: BP 125/81
--- NOTE | 2019-10-30 13:16 | Diagnostic Imaging Report ---
Indication: Shortness of breath Technique: One view of the chest Comparison: none Findings: Lungs and pleural spaces are clear. Heart size is normal. No significant change Impression: No acute process
--- NOTE | 2019-10-31 02:41 | Emergency Room Report ---
Physical Exam Vital Signs Date Time Temp Pulse Resp B/P (MAP) Pulse Ox O2 Delivery O2 Flow Rate FiO2 10/29/19 18:52 97.2 91 20 108/81 (90) 100 Room Air 10/29/19 19:00 99 Medical Decision Making Diagnostic Impression: Primary Impression: Chest pain Additional Impressions: Exposure to COVID-19 virus Otitis media UTI (urinary tract infection) ER Course Receive notification from microbiology lab of a preliminary positive blood culture. Gram-positive cocci in clusters were seen on sample taken 10/29/2019. I was able to reach the patient by telephone. She stated that she was feeling much better since her ER visit and she has been taking the Augmentin as prescribed. I instructed her to proceed to an emergency department for repeat blood cultures to further evaluate for bacteremia. She stated that she would. I provided the contact information for our emergency department should she require further information. Patient verbalized understanding of this treatment plan. Last Vital Signs Date Time Temp Pulse Resp B/P (MAP) Pulse Ox O2 Delivery O2 Flow Rate FiO2 10/29/19 21:00 98.2 72 18 125/81 99 Room Air 99 Disposition: HOME, SELF-CARE Condition: Stable Scripts Acetaminophen* (TYLENOL EXTRA STRENGTH*) 500 Mg Tablet 500 MG ORAL Q8H PRN for Prn Headache/Temp > 101, #30 TAB 0 Refills Prov: Connor Brito 10/29/19 Amoxicillin/Potassium Clav 875-125* (AUGMENTIN 875-125 TABLET*) 1 Each Tablet 1 TAB ORAL TWICE A DAY for 10 Days, #20 TAB Prov: Connor Brito 10/29/19 Referrals: NON PHYSICIAN (PCP) Patient Instructions: Nonspecific Chest Pain, Otitis Media, Adult Additional Instructions: Take medication as directed, follow with your primary care provider, you to be referred to a lot porter, if worsening symptoms return to the emergency room Seamus Gaffney MD Oct 31, 2019 02:41
== END 2019-10-29 21:00 | disposition home or self-care (01) ==
LOC: EMR 19:25
DX: R07.9 Chest pain, unspecified (principal); Z20.828 Contact with and (suspected) exposure to other viral communicable diseases; Z79.01 Long term (current) use of anticoagulants; Z86.711 Personal history of pulmonary embolism; N39.0 Urinary tract infection, site not specified; H66.91 Otitis media, unspecified, right ear
CPT/HCPCS: 36415; 71045; 80053; 81003; 82553; 82728; 83605; 83615; 83880; 84484; 85025; 85379; 85610; 85730; 86140; 87040; 87086; 87181; 93005; 96361; 96374; 96375; J2270; J2405; J7030; U0002; Z7502; 99284

== ENCOUNTER 2019-10-31 10:34 | Inpatient (IN) | payer OTHER ==
[~2019-10-31] VITALS: Ht 157.5 cm; Wt 99.8 kg
[~2019-10-31 10:34] MED LIST changes: +AUGMENTIN 875-1 EAC1 ORAL
[2019-10-31] MEDS ORDERED: fentaNYL 100 mcg/2 mL IV ONE (11:00)
--- NOTE | 2019-10-31 11:03 | Emergency Room Report ---
History of Present Illness General Chief Complaint: Abnormal Labs Source: Patient Present Illness HPI Patient is a 29-year-old female past medical history of PE on warfarin, obesity , arthritis and chronic anemia who presents to the ER for abnormal test results. Patient states that she was here 2 days ago complaining of left-sided chest pain and headache. She states that she also want to be tested for watson virus because she was exposed to people who tested positive for COVID-19. She states that she tested -2 days ago. Patient states that her headache is not sudden onset and not the worst headache of her life. She denies any blurry vision, slurred speech or focal weakness. Patient also complains of left-sided chest pressure that is been present for the past several days and radiates towards her left shoulder. She denies any recent travel. She denies any family history of early cardiovascular disease. She denies any abdominal pain nausea or vomiting. Patient complains of bruises to her anterior thighs but does not recall any specific trauma. Allergies: Coded Allergies: No Known Allergies (Unverified , 09/12/18) COVID-19 Screening Contact w/high risk pt: Yes Recent Travel to affected area: No Experienced COVID-19 symptoms?: No COVID-19 Testing performed VOLLEYBALL PLAYER: No Patient History Last Menstrual Period: 11/08/2019 Now: No Reviewed Nursing Documentation: PMH: Agreed; PSxH: Agreed Nursing Documentation-PMH Hx Hypertension: No Hx Pacemaker: No Hx Asthma: No Hx COPD: No Hx Diabetes: No Hx Cancer: No Hx Gastrointestinal Problems: Yes - gastritis Hx Dialysis: No Hx Neurological Problems: No Hx Cerebrovascular Accident: No Hx Seizures: No Review of Systems All Other Systems: negative except mentioned in HPI Physical Exam Vital Signs Date Time Temp Pulse Resp B/P (MAP) Pulse Ox O2 Delivery O2 Flow Rate FiO2 10/31/19 10:44 98.4 90 18 140/89 (106) 99 Room Air Sp02 EP Interpretation: reviewed, normal General Appearance: no apparent distress, alert, GCS 15, non-toxic Head: normocephalic, atraumatic Eyes: bilateral eye normal inspection, bilateral eye PERRL ENT: hearing grossly normal, normal pharynx, no angioedema, normal voice Neck: full range of motion, supple/symm/no masses Respiratory: chest non-tender, lungs clear, normal breath sounds, speaking full sentences Cardiovascular #1: regular rate, rhythm, no edema Gastrointestinal: normal bowel sounds, non tender, soft, non-distended, no guarding, no rebound, overweight Rectal: deferred Genitourinary: no CVA tenderness Musculoskeletal: no calf tenderness 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 White count is normal patient is afebrile. New cultures have been sent. Patient given IV fluids as well as 2 g of cefepime. Patient's INR is therapeutic at 2.5. Troponin is negative x1. EKG demonstrates no acute cardiopulmonary pathology. Patient will be admitted for further treatment and evaluation. Laboratory Tests Test 10/31/19 10:56 10/31/19 11:10 Urine Color Pale yellow Urine Appearance Clear Urine pH 6 (4.5-8.0) Urine Specific [place] 1.010 (1.005-1.035) Urine Protein Negative (NEGATIVE) Urine Glucose (UA) Negative (NEGATIVE) Urine Ketones Negative (NEGATIVE) Urine Blood Negative (NEGATIVE) Urine Nitrite Negative (NEGATIVE) Urine Bilirubin Negative (NEGATIVE) Urine Urobilinogen Normal MG/DL (0.0-1.0) Urine Leukocyte Esterase 1+ (NEGATIVE) H Urine RBC 0-2 /HPF (0 - 2) Urine WBC 2-4 /HPF (0 - 2) Urine Squamous Epithelial Cells Moderate /LPF (NONE/OCC) H Urine Bacteria Occasional /HPF (NONE) White Blood Count 5.8 K/UL (4.8-10.8) Red Blood Count 4.79 M/UL (4.20-5.40) Hemoglobin 12.1 G/DL (12.0-16.0) Hematocrit 38.5 % (37.0-47.0) Mean Corpuscular Volume 80 FL (80-99) Mean Corpuscular Hemoglobin 25.2 PG (27.0-31.0) L Mean Corpuscular Hemoglobin Concent 31.3 G/DL (32.0-36.0) L Red Cell Distribution Width 14.0 % (11.6-14.8) Platelet Count 223 K/UL (150-450) Mean Platelet Volume 8.7 FL (6.5-10.1) Neutrophils (%) (Auto) 70.0 % (45.0-75.0) Lymphocytes (%) (Auto) 22.1 % (20.0-45.0) Monocytes (%) (Auto) 3.5 % (1.0-10.0) Eosinophils (%) (Auto) 3.2 % (0.0-3.0) H Basophils (%) (Auto) 1.2 % (0.0-2.0) Prothrombin Time 25.4 SEC (9.30-11.50) H Prothrombin Time INR 2.5 (0.9-1.1) H Activated Partial Thromboplast Time 41 SEC (23-33) H D-Dimer < 0.19 mg/L FEU Sodium Level 139 MMOL/L (136-145) Potassium Level 4.1 MMOL/L (3.5-5.1) Chloride Level 104 MMOL/L (98-107) Carbon Dioxide Level 23 MMOL/L (21-32) Anion Gap 12 mmol/L (5-15) Blood Urea Nitrogen 15 mg/dL (7-18) Creatinine 0.8 MG/DL (0.55-1.30) Estimated Glomerular Filtration Rate > 60 mL/min (>60) Glucose Level 84 MG/DL (74-106) Lactic Acid Level 0.90 mmol/L (0.4-2.0) Calcium Level 8.7 MG/DL (8.5-10.1) Magnesium Level 2.0 MG/DL (1.8-2.4) Total Bilirubin 0.3 MG/DL (0.2-1.0) Aspartate Amino Transferase (AST) 28 U/L (15-37) Alanine Aminotransferase (ALT) 27 U/L (12-78) Alkaline Phosphatase 130 U/L (46-116) H Troponin I 0.000 ng/mL (0.000-0.056) Total Protein 8.3 G/DL (6.4-8.2) H Albumin 4.4 G/DL (3.4-5.0) Globulin 3.9 g/dL Albumin/Globulin Ratio 1.1 (1.0-2.7) Human Chorionic Gonadotropin, Qual Negative (NEGATIVE) EKG Diagnostic Results EKG Time: 11:03 EP Interpretation: Alondra Barber MD Rate: normal - 86 bpm Rhythm: NSR ST Segments: no acute changes ASA given to the pt in ED: No Chest X-Ray Diagnostic Results Chest X-Ray Diagnostic Results : Chest X-Ray Ordered: Yes # of Views/Limited/Complete: 1 View Indication: Chest Pain EP Interpretation: Yes Interpretation: no consolidation, no effusion, no pneumothorax, no acute cardiopulmonary disease Impression: No acute disease Electronically Signed by: Alondra Barber MD Last Vital Signs Date Time Temp Pulse Resp B/P (MAP) Pulse Ox O2 Delivery O2 Flow Rate FiO2 10/31/19 10:44 98.4 90 18 140/89 (106) 99 Room Air Disposition: ADMITTED INPATIENT Condition: Critical Physician Consult: Dr. Varghese MD at 1221pm Referrals: NOT CHOSEN DAVID/,REFERRING (PCP) Alondra Barber M.D. Oct 31, 2019 11:03
[2019-10-31 11:21] LABS: APPEARANCE,URINE CLEAR; BILIRUBIN, URINE NEGATIVE (NEGATIVE); COLOR,URINE PALE YELLOW; GLUCOSE, URINE (UA) NEGATIVE (NEGATIVE); KETONES,URINE NEGATIVE (NEGATIVE); LEUKOCYTE ESTERASE ,URINE 1+ (NEGATIVE); NITRITE,URINE NEGATIVE (NEGATIVE); PH,URINE 6 (4.5-8.0); PROTEIN,URINE NEGATIVE (NEGATIVE); UROBILINOGEN,URINE NORMAL MG/DL (0.0-1.0)
[2019-10-31 11:28] LABS: BASOPHILS % (AUTO) 1.2 % (0.0-2.0); EOSINOPHILS % (AUTO) 3.2 % (0.0-3.0); HEMATOCRIT 38.5 % (37.0-47.0); HEMOGLOBIN 12.1 G/DL (12.0-16.0); LYMPHOCYTES % (AUTO) 22.1 % (20.0-45.0); MEAN CORPUSCULAR VOLUME 80 FL (80-99); MONOCYTES % (AUTO) 3.5 % (1.0-10.0); PLATELET COUNT 223 K/UL (150-450); RED BLOOD COUNT 4.79 M/UL (4.20-5.40); WHITE BLOOD COUNT 5.8 K/UL (4.8-10.8)
[2019-10-31 11:30] VITALS: BP 129/87
--- NOTE | 2019-10-31 11:30 | NUR ---
ED Nurse Note: Pt was in ER a few days ago and was told today to come back to ER due to blood cultures. Pt has CP that radiates to L arm. Pt is alert and orx4, ambulatory. Pt is set up on monitor. IV estblished.
--- NOTE | 2019-10-31 11:32 | Diagnostic Imaging Report ---
Indication: Chest pain Technique: XRAY Chest 1v Comparison: 10/29/2019 Findings: Heart size and mediastinal contours are within normal limits for AP technique. There is no focal airspace consolidation, pneumothorax or pleural effusion. Osseous structures demonstrate no acute abnormality. Impression: No radiographic evidence of acute cardiopulmonary disease. No significant interval change compared to exam 10/29/2019
[2019-10-31 11:43] LABS: ANION GAP 12 mmol/L (5-15); BLOOD UREA NITROGEN 15 mg/dL (7-18); CALCIUM 8.7 MG/DL (8.5-10.1); CARBON DIOXIDE 23 MMOL/L (21-32); CHLORIDE 104 MMOL/L (98-107); CREATININE 0.8 MG/DL (0.55-1.30); POTASSIUM 4.1 MMOL/L (3.5-5.1); SODIUM 139 MMOL/L (136-145)
[2019-10-31 11:44] LABS: INR 2.5 (0.9-1.1)
[2019-10-31 11:47] LABS: ALANINE AMINOTRANSFERASE 27 U/L (12-78); ALBUMIN 4.4 G/DL (3.4-5.0); ALBUMIN/GLOBULIN RATIO 1.1 (1.0-2.7); ALKALINE PHOSPHATASE 130 U/L (46-116); ASPARTATE AMINO TRANSFERASE 28 U/L (15-37); BILIRUBIN,TOTAL 0.3 MG/DL (0.2-1.0)
[2019-10-31] MEDS ORDERED: Cefepime HCl 2 GM in D5W 55 ML IVPB ONE (12:15)
--- NOTE | 2019-10-31 12:19 | Diagnostic Imaging Report ---
Indication: Headache Technique: Continuous helical CT scanning of the head was performed utilizing automated exposure control without intravenous contrast material. Axial and coronal reconstructions were obtained. Comparison: Noncontrast CT of the head 12/21/2018; MRI of the brain 09/13/2018 CT dose: Total DLP 1072.2 mGycm; CTDI vol 53.4 mGy Findings: There is no acute intracranial hemorrhage, mass effect or cortical edema. There is no shift of midline structures. The ventricles, cisterns and sulci are within normal limits for age and stable compared to the prior exam. Visualized mastoid air cells and paranasal sinuses are unremarkable. No focal lesions of the bony calvarium or soft tissues of the scalp are seen. Impression: No evidence of acute intracranial hemorrhage, mass effect or cortical edema. MRI may be obtained for more sensitive evaluation as clinically indicated. The CT scanner at [facility] is accredited by the [employer] and the scans are performed using protocols designed to limit radiation exposure to as low as reasonably achievable to attain images of sufficient resolution adequate for diagnostic evaluation.
[2019-10-31] MEDS ORDERED: Morphine Sulfate 4mg/ml Inj (IV USE ONLY) IVP ONE (14:00)
[2019-10-31 14:33] VITALS: BP 132/86
--- NOTE | 2019-10-31 14:33 | NUR ---
ED Nurse Note: Report given to Radha ALVAREZ.
--- NOTE | 2019-10-31 14:40 | NUR ---
ED Nurse Note: Pt transferred to MS floor with all belongings. Pt has no acute distress.
--- NOTE | 2019-10-31 15:00 | NUR ---
NURSE NOTES: RECEIVED PATIENT A/A/OX4, AMBULATORY. ADMISSION PROFILE RENDERED. PERSONAL BELONGINGS NOTED. IV ACCESS PATENT AND INTACT. NO ACUTE CARDIO-RESP DISTRESS NOTED. SIDERAILS ARE UP X3. CALL LIGHT WITHIN REACH. BRAKES ARE ENGAGED. BED LOCK @ ALL TIMES. WILL CONT TO MONITOR.
--- NOTE | 2019-10-31 15:02 | NUR ---
CHARGE NURSE NOTE: Received patient from ER. Alert,oriented x4, complains of generalized pain 12/24. Dx:Bacteremia.Pt states "med. which ER gave me did not work". at the pt's bed. CN asked him to put adm. orders. said that as a primary doctor should put adm. orders. was called, message left.
[2019-10-31 15:05] VITALS: BP 119/71
[2019-10-31] MEDS: Morphine Sulfate 2mg/ml Inj(IV/IM USE ONLY) IVP PRN ×2 (16:22→20:38)
[2019-10-31] MEDS: D5 1/2NS 1,000 ML IV SCH (17:30)
[2019-10-31] MEDS ORDERED: Warfarin Sodium 5mg ORAL SCH (18:00)
--- NOTE | 2019-10-31 19:02 | NUR ---
HAND-OFF: Report given to Gustavo.
--- NOTE | 2019-10-31 19:29 | Consultation ---
DATE OF CONSULTATION: 10/31/2019 PULMONARY CONSULTATION CONSULTING PHYSICIAN: Rohan Medrano MD. HISTORY OF PRESENT ILLNESS: This is a 29-year-old female with a history of pulmonary embolism on chronic Coumadin therapy. She came to the hospital because she was told that she has an abnormal blood test. The patient is unclear about her history. She also reports a diffuse headache. Per review of microbiological testing, I am unable to determine any abnormalities on urinalysis. However, I note that on 10/31/2019, gram-positive alon was seen on blood culture. These may represent contamination. However, this is at this point undetermined. The patient herself states she is feeling well and she has no leukocytosis. PAST MEDICAL HISTORY: As discussed above for pulmonary embolism, chronic Coumadin therapy, obesity, degenerative arthritis, and chronic anemia. HOME MEDICATIONS: Reviewed and reconciled in the chart. REVIEW OF SYSTEMS: Denies any headaches, hematemesis, melena, or hematochezia. PHYSICAL EXAMINATION: GENERAL: Reveals a 29-year-old obese female. VITAL SIGNS: Blood pressure 140/80, heart rate 84, respirations . She is afebrile. HEENT: Unremarkable. LUNGS: Clear breath sounds. ABDOMEN: Soft. EXTREMITIES: There is no edema. LABORATORY DATA: Lab testing is unremarkable except as discussed above. INR is 2.5. Urinalysis negative. IMPRESSION: 1. Bacteremia, suspect contamination. 2. Chronic Coumadin therapy. 3. History of PE, on Coumadin. DISCUSSION: Admit to the hospital. Coumadin therapy per pharmacy. ID consult noted. We will follow as patient service specialist. Roahn Medrano M.D. DR: EMIGDIO JOB#: [id number] CC:
[2019-10-31 20:00] VITALS: BP 116/71
[2019-10-31] MEDS ORDERED: Vancomycin 1.5gm/NS Premix IVPB SCH (20:00)
[2019-11-01] VITALS: BP 138/90
--- NOTE | 2019-11-01 03:06 | NUR ---
NURSE NOTES: Received report from [place] SOTO. The patient is alert and oriented x4 and does not seen to be in any acute distress with Resp even and unlabored and the bilateral lungs sounds clear on auscultation. She can ambulate to the bathroom without any difficulty. She has a R. arm 22 g that is patent and asymptomatic. The bed in low level and call light within easy reach. will continue to monitor progress.
--- NOTE | 2019-11-01 03:10 | NUR ---
The patient in about 30 minute after infusion of her antibiotic Vancomycin complained of having itchiness on her face and tightness on her throat. The Resp is still even and unlabored. Dr woodall was called and Vancomycin was discontinued as indicated. Benadryl 25 mg Po was ordered q8 hrs as indicated. Will continue to monitor
[2019-11-01 04:00] VITALS: BP 110/65
[2019-11-01] MEDS: Morphine Sulfate 2mg/ml Inj(IV/IM USE ONLY) IVP PRN ×4 (04:38→21:37)
[2019-11-01 07:24] LABS: INR 1.9 (0.9-1.1)
[2019-11-01 07:26] LABS: BASOPHILS % (AUTO) 1.2 % (0.0-2.0); HEMATOCRIT 34.6 % (37.0-47.0); HEMOGLOBIN 10.7 G/DL (12.0-16.0); LYMPHOCYTES % (AUTO) 28.4 % (20.0-45.0); MEAN CORPUSCULAR VOLUME 80 FL (80-99); MONOCYTES % (AUTO) 6.6 % (1.0-10.0); NEUTROPHILS % (AUTO) 59.8 % (45.0-75.0); PLATELET COUNT 234 K/UL (150-450); WHITE BLOOD COUNT 5.4 K/UL (4.8-10.8)
--- NOTE | 2019-11-01 07:29 | NUR ---
NURSE NOTES: Report received from ANTONIO Chen. Patient awake in bed, alert and oriented x 4, no SOB noted, bed in lowest position with alarm on and breaks engaged, IV line on right hand patent and intact, on room air, denies any pain or discomfort at this time, will continue to monitor for changes and proceed with plan of care. Call light within reach.
[2019-11-01 07:44] LABS: ALANINE AMINOTRANSFERASE 37 U/L (12-78); ALBUMIN 3.7 G/DL (3.4-5.0); ALKALINE PHOSPHATASE 111 U/L (46-116); ANION GAP 8 mmol/L (5-15); ASPARTATE AMINO TRANSFERASE 32 U/L (15-37); BILIRUBIN,TOTAL 0.3 MG/DL (0.2-1.0); BLOOD UREA NITROGEN 9 mg/dL (7-18); CALCIUM 8.5 MG/DL (8.5-10.1); CARBON DIOXIDE 25 MMOL/L (21-32); CHLORIDE 107 MMOL/L (98-107); CREATININE 0.8 MG/DL (0.55-1.30); POTASSIUM 4.2 MMOL/L (3.5-5.1); SODIUM 140 MMOL/L (136-145)
--- NOTE | 2019-11-01 07:52 | NUR ---
HAND-OFF: Report given to Berna ALVAREZ.
[2019-11-01 08:00] VITALS: BP 118/69
--- NOTE | 2019-11-01 11:45 | History and Physical Report ---
DATE OF ADMISSION: 10/31/2019 DATE AND TIME SEEN: 11/01/2019 at 9 a.m. CONSULTANTS: 1. Rohan Medrano MD. 2. Reji Avila MD. 3. Marilyn Palm MD. CHIEF COMPLAINT: Weakness, general pain, sepsis. BRIEF HISTORY: This is a 29-year-old female, who lives at home, presents with increased weakness and general pain, came to [facility], diagnosed with sepsis with blood culture positive history and admitted to medical floor. Currently, calm in bed. No complaint other than slight general pain. PAST MEDICAL HISTORY: PE, is on Coumadin. PAST SURGICAL HISTORY: None. ALLERGIES: Denies. MEDICATIONS: Include warfarin, diphenhydramine, vancomycin, Zofran, cefepime. SOCIAL HISTORY: No smoking. No alcohol. No intravenous drug abuse. FAMILY HISTORY: Noncontributory. PHYSICAL EXAMINATION: GENERAL: Calm in bed, oriented x3, no acute distress. VITAL SIGNS: Temperature is 97 degrees, pulse 69, respirations 17, blood pressure 118/69. CARDIOVASCULAR: S1, S2. No murmur. LUNGS: Distant and clear. ABDOMEN: Bowel sounds positive. Nontender. Nondistended. EXTREMITIES: No cyanosis, clubbing, or edema. NEUROLOGIC: The patient moves all extremities, slightly weak. LABORATORY AND DIAGNOSTIC DATA: Labs at this time show hemoglobin and hematocrit 10/34, otherwise CBC is normal. BMP is normal. Troponin 0.00. INR is 1.9, PTT is 44. Urinalysis show 1+ leukocyte esterase. ASSESSMENT: Weakness, general pain, UTI, sepsis, anemia. PLAN: Antibiotics per Infectious Disease. PT and dietary followup. CBC and BMP in the morning. Resume home medications. Hematology evaluation. Ernie Kwong D.O. DR: ADRIANNE JOB#: [id number] CC:
[2019-11-01 12:00] VITALS: BP 101/66
[2019-11-01] MEDS: D5 1/2NS 1,000 ML IV SCH (12:25)
--- NOTE | 2019-11-01 13:32 | Pulmonology Progress Note ---
Subjective Interval Events: Doing well Constitutional: Reports: no symptoms HEENT: Repors: no symptoms Respiratory: Reports: no symptoms Cardiovascular: Reports: no symptoms Gastrointestinal/Abdominal: Reports: no symptoms Allergies: Coded Allergies: VANCOMYCIN (Verified Allergy, Mild, facial swelling, erythema, 11/01/19) Objective Last 24 Hour Vital Signs Date Time Temp Pulse Resp B/P (MAP) Pulse Ox O2 Delivery O2 Flow Rate FiO2 11/01/19 12:00 97.9 66 17 101/66 (78) 99 11/01/19 11:23 97.9 11/01/19 09:00 Room Air 11/01/19 08:00 97.8 69 17 118/69 (85) 99 11/01/19 04:00 97.7 65 16 110/65 (80) 100 11/01/19 00:00 97.2 84 18 138/90 (106) 100 10/31/19 21:00 Room Air 10/31/19 20:00 98.1 71 20 116/71 (86) 100 10/31/19 15:09 Room Air 10/31/19 15:05 97.7 67 18 119/71 (87) 100 10/31/19 15:04 Room Air 10/31/19 14:40 98.0 76 16 115/65 99 Room Air 10/31/19 14:33 98.4 81 16 132/86 99 Room Air 10/31/19 14:26 98.4 Intake and Output 10/31/19 11/01/19 19:00 07:00 Intake Total 50 ml 1000 ml Balance 50 ml 1000 ml Intake Oral 0 ml 350 ml IV Total 50 ml 650 ml # Voids 1 2 General Appearance: no acute distress HEENT: normocephalic Respiratory: chest wall non-tender, lungs clear Cardiovascular: normal peripheral pulses Abdomen: normal bowel sounds Microbiology Date/Time Source Procedure Growth Status 10/31/19 10:56 Urine,Ureter/Kidney Urine Culture - Preliminary NO GROWTH Resulted Laboratory Tests 11/01/19 06:50: White Blood Count 5.4, Red Blood Count 4.30, Hemoglobin 10.7L, Hematocrit 34.6L , Mean Corpuscular Volume 80, Mean Corpuscular Hemoglobin 24.8L, Mean Corpuscular Hemoglobin Concent 30.9L, Red Cell Distribution Width 14.0, Platelet Count 234, Mean Platelet Volume 9.0, Neutrophils (%) (Auto) 59.8, Lymphocytes (%) (Auto) 28.4, Monocytes (%) (Auto) 6.6, Eosinophils (%) (Auto) 4.0H, Basophils (%) (Auto) 1.2, Prothrombin Time 20.4H, Prothromb Time International Ratio 1.9H, Activated Partial Thromboplast Time 44H, Sodium Level 140, Potassium Level 4.2, Chloride Level 107, Carbon Dioxide Level 25, Anion Gap 8, Blood Urea Nitrogen 9, Creatinine 0.8, Estimat Glomerular Filtration Rate > 60, Glucose Level 84, Calcium Level 8.5, Total Bilirubin 0.3, Aspartate Amino Transf (AST/SGOT) 32, Alanine Aminotransferase (ALT/SGPT) 37, Alkaline Phosphatase 111, Total Protein 7.3, Albumin 3.7, Globulin 3.6, Albumin/Globulin Ratio 1.0 Current Medications Medications (Trade) Dose Ordered Sig/Makayla Route PRN Reason Start Time Stop Time Status Last Admin Dose Admin Bisacodyl (Dulcolax) 10 mg BIDPRN PRN RECTAL Constipation 11/01/19 13:00 01/30/20 12:59 Dextrose/Sodium Chloride 1,000 ml @ 50 mls/hr Q20H IV 10/31/19 15:45 11/30/19 15:44 11/01/19 12:25 Diphenhydramine HCl (Benadryl) 25 mg Q6H PRN ORAL Itching 11/01/19 03:45 12/01/19 03:44 Docusate Sodium (Colace) 100 mg TWICE A DAY ORAL 11/01/19 18:00 12/01/19 17:59 Morphine Sulfate (Morphine Sulfate) 2 mg Q4H PRN IVP Severe Pain (Pain Scale 7-10) 10/31/19 15:45 11/07/19 15:44 11/01/19 10:53 Ondansetron HCl (Zofran) 4 mg Q6H PRN IVP Nausea & Vomiting 10/31/19 18:00 11/30/19 17:59 11/01/19 02:17 Warfarin Sodium (Coumadin) 5 mg COUMADIN ORAL 11/01/19 17:00 11/06/19 16:59 Assessment/Plan Assessment/Plan IMPRESSION: 1. Bacteremia, suspect contamination. 2. Chronic Coumadin therapy. 3. History of PE, on Coumadin. DISCUSSION: Coumadin therapy per pharmacy. ID consult noted. OK to dc home Herbert Young Omar Syed MD Nov 01, 2019 13:32
--- NOTE | 2019-11-01 15:40 | NUR ---
CASE MANAGEMENT:INITIAL REVIEW 29 YR OLD FEMALE WALKED IN TO ED FROM HOME CC;ABNORMAL LABS SI;BACTEREMIA. HEADACHE. POSITIVE BLOOD CULTURE ( RESULT FROM PRIOR ED VISIT). 98.4 90 18 140/89 98% ON RA ALK PHOS 130 TOTAL PROTEIN 8.3 UA+ LEUKOCYTE ESTERASE, SQUAMOUS EPITH CELLS IS;FENTANYL CITRATE IV IVF NS BOLUS CEFEPIME IV MORPHINE IV ADMITTED TO MED SURG 10/31/19 @ 1532 MED SURG STATUS DCP; FROM HOME
[2019-11-01 16:00] VITALS: BP 117/66
[2019-11-01] MEDS ORDERED: Warfarin Sodium 5mg ORAL SCH (17:00)
[2019-11-01] MEDS: Docusate 100mg cap ORAL SCH (17:55)
--- NOTE | 2019-11-01 18:30 | Consultation ---
DATE OF CONSULTATION: 11/01/2019 INFECTIOUS DISEASE CONSULTATION REFERRING PHYSICIAN: Ernie Kwong D.O. REASON FOR CONSULTATION: Bacteremia. HISTORY OF PRESENTING ILLNESS: This is a 29-year-old lady with history of pulmonary embolism, who was found to have bacteremia and was asked to come into the hospital. An infectious disease consultation has been obtained for antibiotics. She received IV vancomycin last night and now has some facial swelling and redness that has improved with Benadryl. PAST MEDICAL HISTORY: 1. History of pulmonary embolism. 2. Obesity. 3. Arthritis. 4. Anemia. SOCIAL HISTORY: She does not smoke, drink, or use drugs. FAMILY HISTORY: Positive for cancer in her grandmother. REVIEW OF SYSTEMS: RESPIRATORY: No fever or chills. No cough. No shortness of breath. CARDIAC: No chest pain. No palpitation. No dizziness. No syncope. GASTROINTESTINAL: She has nausea. No vomiting. No abdominal pain or diarrhea. MEDICATIONS: As an inpatient, she is on warfarin, Benadryl, morphine, Zofran. ALLERGIES: No known drug allergies, but she had a reaction to IV vancomycin. PHYSICAL EXAMINATION: VITAL SIGNS: Temperature of 97.8. T-max of 98.4, pulse of 69, respiratory rate 17, blood pressure 118/69, O2 sat of 99% on room air. HEENT: Pupils equally reactive to light and accommodation. Mouth appears clean without thrush. NECK: Supple. No adenopathy. No JVD. CARDIOVASCULAR: Regular rate and rhythm. No murmurs. LUNGS: Clear to auscultation bilaterally. No crackles. No wheezes. ABDOMEN: Soft, nontender. No organomegaly. EXTREMITIES: No cyanosis, no clubbing, no edema. SKIN: No rash noted. LABORATORY AND DIAGNOSTIC DATA: White count 5.4, hemoglobin 10.7, hematocrit 34.6, MCV 80, platelet count 224 with neutrophils of 59%. Sodium 140, potassium 4.2, chloride 107, bicarb 25, BUN 9, creatinine 0.8, glucose 84, calcium 8.5. Total bilirubin 0.3, AST 32, ALT 37, alkaline phosphatase 111, total protein 7.3, albumin 3.7. Beta-HCG negative. UA is showing 2-4 white cells. Urine cultures are negative. Chest x-ray was unremarkable. CT head showing no acute hemorrhage, mass effect, or edema. Her previous admission blood culture grew diphtheroids and Staphylococcus hemolyticus. COVID-19 test was negative on 10/29/2019. ASSESSMENT: This is a 29-year-old lady with history of pulmonary embolism, who comes in and is found to have: 1. Bacteremia with Staphylococcus haemolyticus and diphtheroids, appears to be a contaminant. 2. COVID-19 test was negative. 3. She had a vancomycin allergic reaction that is resolving. PLAN: 1. Continue off antibiotics. 2. Okay for discharge from ID perspective. I would like to thank Dr. Ernie Kwong for this consultation. Marilyn Palm M.D. DR: REYMUNDO JOB#: [id number] CC: Ernie Kwong D.O.
--- NOTE | 2019-11-01 19:10 | NUR ---
NURSE NOTES: RECEIVED PATIENT FROM ANTONIO PERRIN. PATIENT IS AWAKE, AAOX4, ON ROOM AIR, NO RESPIRATORY DISTRESS NOTED. PATIENT C/O LOWER ABDOMEN PAIN. ABDOMEN IS ROUND AND LARGE UPON ASSESSMENT. PIV ON RIGHT HAND 22G INTACT AND PATENT, RUNNING D51/2 NS @50ML/HR. BED IS LOCKED AND LOW, BED ALARMS ACTIVE, SIDE RAILS UPX2, AND CALL LIGHT IS WITHIN REACH. WILL CONTINUE TO MONITOR.
--- NOTE | 2019-11-01 19:46 | NUR ---
HAND-OFF: Report given to ANTONIO Cardona.
[2019-11-01 20:00] VITALS: BP 112/66
[2019-11-02] VITALS: BP 99/56
--- NOTE | 2019-11-02 07:20 | NUR ---
NURSE NOTES: Received patient in bed,awake, alert and oriented x4. Not in respiratory/cardiac distress. Patient complains of mild abdominal pain but denies nausea or vomiting. No allergic reaction from vancomycin. Patient denies itching or discomfort on her tongue.No blood in the urine per patient. Bed is in lowest position and locked. IVF is running, no s/s of infiltration on right hand IV. Call light and personnel items within reach. Will continue plan of care.
[2019-11-02] MEDS: Morphine Sulfate 2mg/ml Inj(IV/IM USE ONLY) IVP PRN (07:59)
[2019-11-02] MEDS: D5 1/2NS 1,000 ML IV SCH (07:59)
[2019-11-02 08:00] VITALS: BP 121/60
[2019-11-02] MEDS: Docusate 100mg cap ORAL SCH (08:02)
--- NOTE | 2019-11-02 08:27 | NUR ---
HAND-OFF: Report given to ANTONIO Soto.
--- NOTE | 2019-11-02 08:30 | Pulmonology Progress Note ---
Subjective Interval Events: Doing well Constitutional: Reports: no symptoms HEENT: Repors: no symptoms Respiratory: Reports: no symptoms Cardiovascular: Reports: no symptoms Gastrointestinal/Abdominal: Reports: no symptoms Allergies: Coded Allergies: VANCOMYCIN (Verified Allergy, Mild, facial swelling, erythema, 11/01/19) Objective Last 24 Hour Vital Signs Date Time Temp Pulse Resp B/P (MAP) Pulse Ox O2 Delivery O2 Flow Rate FiO2 11/02/19 00:00 97.9 62 17 99/56 (70) 99 11/01/19 21:00 Room Air 11/01/19 20:00 98.1 60 17 112/66 (81) 100 11/01/19 16:25 97.9 11/01/19 16:00 97.9 71 18 117/66 (83) 100 11/01/19 12:00 97.9 66 17 101/66 (78) 99 11/01/19 09:00 Room Air Intake and Output 11/01/19 11/02/19 19:00 07:00 Intake Total 1300 ml Balance 1300 ml Intake Oral 800 ml IV Total 500 ml # Voids 4 3 General Appearance: no acute distress HEENT: normocephalic Respiratory: chest wall non-tender, lungs clear Cardiovascular: normal peripheral pulses Abdomen: normal bowel sounds Microbiology Date/Time Source Procedure Growth Status 10/31/19 11:22 Blood Blood Culture - Preliminary NO GROWTH AFTER 24 HOURS Resulted 10/31/19 11:07 Blood Blood Culture - Preliminary NO GROWTH AFTER 24 HOURS Resulted 10/31/19 10:56 Urine,Ureter/Kidney Urine Culture - Preliminary NO GROWTH AFTER 24 HOURS Resulted Laboratory Tests 11/02/19 08:10: White Blood Count [Pending], Red Blood Count [Pending], Hemoglobin [Pending], Hematocrit [Pending], Mean Corpuscular Volume [Pending], Mean Corpuscular Hemoglobin [Pending], Mean Corpuscular Hemoglobin Concent [Pending], Red Cell Distribution Width [Pending], Platelet Count [Pending], Mean Platelet Volume [ Pending], Neutrophils (%) (Auto) [Pending], Lymphocytes (%) (Auto) [Pending], Monocytes (%) (Auto) [Pending], Eosinophils (%) (Auto) [Pending], Basophils (%) (Auto) [Pending], Sodium Level [Pending], Potassium Level [Pending], Chloride Level [Pending], Carbon Dioxide Level [Pending], Blood Urea Nitrogen [Pending], Creatinine [Pending], Estimat Glomerular Filtration Rate [Pending], Glucose Level [Pending], Calcium Level [Pending], Vancomycin Level Trough [Pending] Current Medications Medications (Trade) Dose Ordered Sig/Makayla Route PRN Reason Start Time Stop Time Status Last Admin Dose Admin Bisacodyl (Dulcolax) 10 mg BIDPRN PRN RECTAL Constipation 11/01/19 13:00 01/30/20 12:59 Dextrose/Sodium Chloride 1,000 ml @ 50 mls/hr Q20H IV 10/31/19 15:45 11/30/19 15:44 11/02/19 07:59 Diphenhydramine HCl (Benadryl) 25 mg Q6H PRN ORAL Itching 11/01/19 03:45 12/01/19 03:44 11/01/19 21:37 Docusate Sodium (Colace) 100 mg TWICE A DAY ORAL 11/01/19 18:00 12/01/19 17:59 11/02/19 08:02 Morphine Sulfate (Morphine Sulfate) 2 mg Q4H PRN IVP Severe Pain (Pain Scale 7-10) 10/31/19 15:45 11/07/19 15:44 11/02/19 07:59 Ondansetron HCl (Zofran) 4 mg Q6H PRN IVP Nausea & Vomiting 10/31/19 18:00 11/30/19 17:59 11/01/19 02:17 Warfarin Sodium (Coumadin) 5 mg COUMADIN ORAL 11/01/19 17:00 11/06/19 16:59 11/01/19 17:56 Assessment/Plan Assessment/Plan IMPRESSION: 1. Bacteremia, suspect contamination. 2. Chronic Coumadin therapy. 3. History of PE, on Coumadin. DISCUSSION: Coumadin therapy per pharmacy. ID consult noted. OK to dc home Herbert Young Omar Syed MD Nov 02, 2019 08:30
[2019-11-02 08:44] LABS: BASOPHILS % (AUTO) 1.2 % (0.0-2.0); EOSINOPHILS % (AUTO) 4.8 % (0.0-3.0); HEMATOCRIT 36.8 % (37.0-47.0); HEMOGLOBIN 11.4 G/DL (12.0-16.0); LYMPHOCYTES % (AUTO) 28.7 % (20.0-45.0); MEAN CORPUSCULAR VOLUME 80 FL (80-99); MONOCYTES % (AUTO) 6.5 % (1.0-10.0); NEUTROPHILS % (AUTO) 58.7 % (45.0-75.0); PLATELET COUNT 225 K/UL (150-450); RED BLOOD COUNT 4.59 M/UL (4.20-5.40); RED CELL DISTRIBUTION WIDTH 14.1 % (11.6-14.8); WHITE BLOOD COUNT 4.3 K/UL (4.8-10.8)
[2019-11-02 08:53] LABS: ANION GAP 9 mmol/L (5-15); BLOOD UREA NITROGEN 7 mg/dL (7-18); CARBON DIOXIDE 26 MMOL/L (21-32); CHLORIDE 106 MMOL/L (98-107); CREATININE 0.9 MG/DL (0.55-1.30); POTASSIUM 3.7 MMOL/L (3.5-5.1); SODIUM 141 MMOL/L (136-145)
--- NOTE | 2019-11-02 08:57 | Consultation ---
History of Present Illness General Chief Complaint: Abnormal Labs Present Illness Allergies: Coded Allergies: VANCOMYCIN (Verified Allergy, Mild, facial swelling, erythema, 11/01/19) Medication History Scheduled Amoxicillin/Potassium Clav 875-125* (Augmentin 875-125 Tablet*), 1 TAB ORAL TWICE A DAY Warfarin Sod* (Warfarin Sod*), 5 MG ORAL DAILY, (Reported) Scheduled PRN Acetaminophen* (Tylenol Extra Strength*), 500 MG ORAL Q8H PRN for Prn Headache/ Temp > 101 Discontinued Medications Acetaminophen* (Tylenol Extra Strength*), 500 MG ORAL Q8H PRN for Prn Headache/ Temp > 101 Discontinued Reason: Therapy completed Diclofenac Sodium (Voltaren), 2 GM TP TID Discontinued Reason: Therapy completed Ibuprofen (Motrin), 600 MG ORAL Q8H PRN for For Pain Discontinued Reason: Therapy completed Methocarbamol* (Robaxin-500*), 500 MG ORAL TID PRN for For Pain Discontinued Reason: Therapy completed Nitrofurantoin Monohyd/M-Cryst* (Macrobid 100 Mg*), 100 MG ORAL EVERY 12 HOURS Discontinued Reason: Therapy completed Omeprazole (Omeprazole), 20 MG ORAL DAILY Discontinued Reason: Therapy completed Warfarin Sod* (Warfarin Sod*), 5 MG ORAL DAILY Discontinued Reason: Therapy completed Patient History Healthcare decision maker Resuscitation status Advanced Directive on File Physical Exam Last 24 Hour Vital Signs Date Time Temp Pulse Resp B/P (MAP) Pulse Ox O2 Delivery O2 Flow Rate FiO2 11/02/19 00:00 97.9 62 17 99/56 (70) 99 11/01/19 21:00 Room Air 11/01/19 20:00 98.1 60 17 112/66 (81) 100 11/01/19 16:25 97.9 11/01/19 16:00 97.9 71 18 117/66 (83) 100 11/01/19 12:00 97.9 66 17 101/66 (78) 99 11/01/19 09:00 Room Air Intake and Output 11/01/19 11/02/19 19:00 07:00 Intake Total 1300 ml Balance 1300 ml Intake Oral 800 ml IV Total 500 ml # Voids 4 3 Laboratory Tests Test 11/02/19 08:10 White Blood Count 4.3 K/UL (4.8-10.8) L Red Blood Count 4.59 M/UL (4.20-5.40) Hemoglobin 11.4 G/DL (12.0-16.0) L Hematocrit 36.8 % (37.0-47.0) L Mean Corpuscular Volume 80 FL (80-99) Mean Corpuscular Hemoglobin 24.8 PG (27.0-31.0) L Mean Corpuscular Hemoglobin Concent 30.9 G/DL (32.0-36.0) L Red Cell Distribution Width 14.1 % (11.6-14.8) Platelet Count 225 K/UL (150-450) Mean Platelet Volume 9.0 FL (6.5-10.1) Neutrophils (%) (Auto) 58.7 % (45.0-75.0) Lymphocytes (%) (Auto) 28.7 % (20.0-45.0) Monocytes (%) (Auto) 6.5 % (1.0-10.0) Eosinophils (%) (Auto) 4.8 % (0.0-3.0) H Basophils (%) (Auto) 1.2 % (0.0-2.0) Sodium Level Pending Potassium Level Pending Chloride Level Pending Carbon Dioxide Level Pending Blood Urea Nitrogen Pending Creatinine Pending Estimat Glomerular Filtration Rate Pending Glucose Level Pending Calcium Level Pending Vancomycin Level Trough Pending Height (Feet): 5 Height (Inches): 2.00 Weight (Pounds): 220 Medications Current Medications Medications (Trade) Dose Ordered Sig/Makayla Route PRN Reason Start Time Stop Time Status Last Admin Dose Admin Bisacodyl (Dulcolax) 10 mg BIDPRN PRN RECTAL Constipation 11/01/19 13:00 01/30/20 12:59 Dextrose/Sodium Chloride 1,000 ml @ 50 mls/hr Q20H IV 10/31/19 15:45 11/30/19 15:44 11/02/19 07:59 Diphenhydramine HCl (Benadryl) 25 mg Q6H PRN ORAL Itching 11/01/19 03:45 12/01/19 03:44 11/01/19 21:37 Docusate Sodium (Colace) 100 mg TWICE A DAY ORAL 11/01/19 18:00 12/01/19 17:59 11/02/19 08:02 Morphine Sulfate (Morphine Sulfate) 2 mg Q4H PRN IVP Severe Pain (Pain Scale 7-10) 10/31/19 15:45 11/07/19 15:44 11/02/19 07:59 Ondansetron HCl (Zofran) 4 mg Q6H PRN IVP Nausea & Vomiting 10/31/19 18:00 11/30/19 17:59 11/01/19 02:17 Warfarin Sodium (Coumadin) 5 mg COUMADIN ORAL 11/01/19 17:00 11/06/19 16:59 11/01/19 17:56 Assessment/Plan Assessment/Plan: Hematology Consultation REQ MD: Ernie Kwong DOS 11/02/2019 RFC: anemia eval ID 29-year-old female past medical history of PE on warfarin, obesity, arthritis and chronic anemia who presents to the ER for abnormal test results. Patient states that she was here 2 days ago complaining of left-sided chest pain and headache. She states that she also want to be tested for watson virus because she was exposed to people who tested positive for COVID-19. She states that she tested -2 days ago. Patient states that her headache is not sudden onset and not the worst headache of her life. She denies any blurry vision, slurred speech or focal weakness. Patient also complains of left-sided chest pressure that is been present for the past several days and radiates towards her left shoulder. She denies any recent travel. She denies any family history of early cardiovascular disease. She denies any abdominal pain nausea or vomiting. Patient complains of bruises to her anterior thighs but does not recall any specific trauma. Reviewed business information consultant notes. Allergies: No Known Allergies (Unverified , 09/12/18) COVID-19 Screening Contact w/high risk pt: Yes Recent Travel to affected area: No Experienced COVID-19 symptoms?: No COVID-19 Testing performed BINDERY PRODUCTION MANAGER: No Patient History Last Menstrual Period: 11/08/2019 Now: No Reviewed Nursing Documentation: PMH: Agreed; PSxH: Agreed Nursing Documentation-PMH Hx Hypertension: No Hx Pacemaker: No Hx Asthma: No Hx COPD: No Hx Diabetes: No Hx Cancer: No Hx Gastrointestinal Problems: Yes - gastritis Hx Dialysis: No Hx Neurological Problems: No Hx Cerebrovascular Accident: No Hx Seizures: No Review of Systems All Other Systems: negative except mentioned in HPI Physical Exam Vitals: reviewed, normal General: no apparent distress, alert, GCS 15, non-toxic HEENT: hearing grossly normal, normal pharynx, no angioedema, normal voice Resp: chest non-tender, lungs clear CV: regular rate, rhythm, no edema GI: normal bowel sounds, non tender, soft, non-distended Rectal: deferred Genitourinary: no CVA tenderness Musculoskeletal: no calf tenderness Neuro: pad extractor tender III-XII nml as tested Psychiatric: no suicidal/homicidal ideation Skin: small scattered ecchymosis to her anterior thighs Lymphatic: no adenopathy Labs: noted Imaging: reviewed Assessment and Recs # Pulmonary embolism with hx of being on coumadin --> has seen pulm --> per pulm recs, inr goal 2-3 --> no bleeding at this time --> continue on coumadin # Anemia r/o gi bleed and iron deficiency --> hgb 12-->10.7 # Chest pain --> r/o acs # Headache --> tylenol prn # Positive blood culture -->per id is a contaminant # Dvt ppx coumadin Appreciate consultation and dw Ha Luna MD Nov 02, 2019 08:57
--- NOTE | 2019-11-02 09:29 | General Progress Note ---
Assessment/Plan Problem List: (1) Weak ICD Codes: R53.1 - Weakness SNOMED: 41545545 (2) Anemia ICD Codes: D64.9 - Anemia, unspecified SNOMED: 323424274 (3) Hx pulmonary embolism ICD Codes: Z86.711 - Personal history of pulmonary embolism SNOMED: 849334085 Status: stable, progressing Assessment/Plan: pulm id cleared dc if clear by heme Subjective Constitutional: Reports: weakness Allergies: Coded Allergies: VANCOMYCIN (Verified Allergy, Mild, facial swelling, erythema, 11/01/19) All Systems: reviewed and negative except above Subjective calm in bed Objective Last 24 Hour Vital Signs Date Time Temp Pulse Resp B/P (MAP) Pulse Ox O2 Delivery O2 Flow Rate FiO2 11/02/19 09:00 Room Air 11/02/19 08:00 98.1 66 18 121/60 (80) 99 11/02/19 00:00 97.9 62 17 99/56 (70) 99 11/01/19 21:00 Room Air 11/01/19 20:00 98.1 60 17 112/66 (81) 100 11/01/19 16:25 97.9 11/01/19 16:00 97.9 71 18 117/66 (83) 100 11/01/19 12:00 97.9 66 17 101/66 (78) 99 Intake and Output 11/01/19 11/02/19 19:00 07:00 Intake Total 1300 ml Balance 1300 ml Intake Oral 800 ml IV Total 500 ml # Voids 4 3 Laboratory Tests 11/02/19 08:10: White Blood Count 4.3L, Red Blood Count 4.59, Hemoglobin 11.4L, Hematocrit 36.8L , Mean Corpuscular Volume 80, Mean Corpuscular Hemoglobin 24.8L, Mean Corpuscular Hemoglobin Concent 30.9L, Red Cell Distribution Width 14.1, Platelet Count 225, Mean Platelet Volume 9.0, Neutrophils (%) (Auto) 58.7, Lymphocytes (%) (Auto) 28.7, Monocytes (%) (Auto) 6.5, Eosinophils (%) (Auto) 4.8H, Basophils (%) (Auto) 1.2, Sodium Level 141, Potassium Level 3.7, Chloride Level 106, Carbon Dioxide Level 26, Anion Gap 9, Blood Urea Nitrogen 7, Creatinine 0.9, Estimat Glomerular Filtration Rate > 60, Glucose Level 89, Calcium Level 9.0, Vancomycin Level Trough 1.9L Height (Feet): 5 Height (Inches): 2.00 Weight (Pounds): 220 General Appearance: alert EENT: normal ENT inspection Neck: non-tender Cardiovascular: normal peripheral pulses, normal rate, regular rhythm Respiratory/Chest: chest wall non-tender, lungs clear, normal breath sounds Abdomen: normal bowel sounds, non tender, soft Extremities: normal inspection Edema: no edema noted Arm (L), no edema noted Arm (R), no edema noted Leg (L), no edema noted Leg (R), no edema noted Pedal (L), no edema noted Pedal (R), no edema noted Generalized Neurologic: responsive, motor weakness Skin: normal pigmentation, warm/dry Ernie Kwong DO Nov 02, 2019 09:29
--- NOTE | 2019-11-02 09:41 | NUR ---
NURSE NOTES: RN left message to Dr. Avila if patient is clear for discharge per Dr. Kwong's order.
--- NOTE | 2019-11-02 10:03 | NUR ---
NURSE NOTES: RN spoke to Dr. Avila,per Dr. avila patient is clear to be discharged from Hematology standpoint.
--- NOTE | 2019-11-02 10:05 | NUR ---
NURSE NOTES: RN clarified with Dr. Kwong about discharge meds. Dr. Kwong said ok to d/c with home meds.
--- NOTE | 2019-11-02 10:13 | NUR ---
RD ASSESSMENT & RECOMMENDATIONS SEE CARE ACTIVITY FOR COMPLETE ASSESSMENT DAILY ESTIMATED NEEDS: Needs based on Obese cardiac, 62.7kg abw 25-30 kcals/kg 6387-3351 total kcals 1-1.2 g protein/kg 63-75 g total protein 25-30 mL/kg 7732-5526 total fluid mLs NUTRITION DIAGNOSIS: Decreased fat needs r/t obesity as evidenced by pt w/ BMI 40 morbidly obese per guidelines, 202% [place] Body Weight. CURRENT DIET: CLD PO DIET RECOMMENDATIONS: LOW FAT DIET / Limit dark green vegetables ADDITIONAL RECOMMENDATIONS: 1) Obtain wt on standing scale 2) Advance diet as able 3) Diet edu as able . .
--- NOTE | 2019-11-02 10:30 | NUR ---
NURSE NOTES: Patient is going to contact with her family for a ride and will let RN know.
--- NOTE | 2019-11-02 11:29 | NUR ---
PT Note PT murphy completed; patient is independent in all mobility and gait without any AD. Patient was instructed to increase ambulation progressively and as tolerated. Patient was also instructed to perform HEP's. Patient verbalized his understanding. Patient does not require any further PT treatments at this time. Addendum: 11/02/19 at 1130 by YAJAIRA MARTELL PT Amended: Links added.
--- NOTE | 2019-11-02 11:30 | NUR ---
NURSE NOTES: Patient is still waiting for her ride.
[2019-11-02 12:00] VITALS: BP 125/74
--- NOTE | 2019-11-02 13:00 | NUR ---
NURSE NOTES: Patient discharged to home accompanied by family in private car. Prior to discharge,patient's condition was stable. Denies pain or discomfort. Not in respiratory/cardiac distress. V/S stable. Afebrile. No s/s of UTI. IV and ID were removed. No s/s of infection on IV removal site. Pressure dressing applied on IV removal site. Discharge instruction given to the patient and patient is aware when to seek medical attention. Patient will follow up with her primary doctor. All belongings accounted for. No missing items. Staff escorted patient to the car.
--- NOTE | 2019-11-03 16:15 | Discharge Summary ---
Discharge Summary Discharge Summary _ DATE OF ADMISSION: 10/31/2019 DATE OF DISCHARGE: 11/02/2019 DISCHARGED BY: Dr. Kwong REASON FOR ADMISSION: 29 years old female with past medical history of DVT left lower extremity, PE, chronically on Coumadin, obesity, arthritis, chronic anemia, presented to emergency department for positive blood cultures 2 days ago drawn in ED. Upon evaluation vital signs were stable. Patient was complaining of chest pain and headache . upon evaluation vital signs were stable. CT of the head revealed no evidence of acute intracranial bleeding or mass- effect. Chest x-ray revealed no evidence of acute cardiopulmonary pathology. Laboratory work-up revealed no leukocytosis, stable hemoglobin, hematocrit and platelet count. Stable electrolytes ,renal parameters ,LFT. Lactic acid 0.9. Troponin negative. D-dimer 0.19. INR therapeutic 2.5. Urinalysis revealed no evidence of urinary tract infection. EKG showed sinus rhythm, no acute ischemic changes. Patient was in the ED 2 days ago. At that time rapid COVID test was negative. Blood culture came back with Staph haemolyticus and Diphtheroids. Blood cultures were drawn again. Patient was afebrile, no leukocytosis. Patient received IV fluids, empiric antibiotic and admitted for further management. CONSULTANTS: pulmonary Dr. Medrano ID specialist Dr. Palm bean snapper/oncologist Dr Avila [facility]: Patient admitted to medical surgical floor . Patient was on IV fluids and antibiotic as per ID recommendation. Blood culture came back negative . Urine culture came back negative. Patient had no fever and no leukocytosis. Infectious disease specialist recommended keep patient off antibiotic and monitor closely. Prior bacteremia with a Staph haemolyticus and Diphtheroids appeared to be a contaminant. Hemoglobin and hematocrit were closely monitored with goal to keep hemoglobin above 7. Prior to discharge hemoglobin 11.4, hematocrit 36.8. Supportive care provided. Bowel regimen instituted. Pain management was addressed as needed. Patient clinically stabilized and was ready for discharge. FINAL DIAGNOSES: Suspected COVID-19 -ruled out Bacteremia, likely contamination Chronic anticoagulation History of PE and DVT DISCHARGE MEDICATIONS: See Medication Reconciliation list. DISCHARGE INSTRUCTIONS: Patient was discharged home . Follow-up with a primary care provider in 1 week. I have been assigned to dictate discharge summary for this account. I was not involved in the patient's management. Sondra Jay NP Nov 03, 2019 16:15
--- NOTE | 2019-11-04 09:52 | NUR ---
*-* INSURANCE *-* ALL CLINICALS AND REVIEWS HAVE BEEN FAXED TO: ERIC Bender #[phone] fax#[phone] Addendum: 11/04/19 at 1547 by BETH TORRES CM ERIC Bender ref#[id number] #[phone] fax#[phone] D/C Summary
--- NOTE | 2019-11-13 00:11 | Coder Physician Query ---
Clarification is required for compliance, coding accuracy, and to reflect severity of illness for this patient Dear Dr. DHRUV STAPLETON Date: 11/12/19 Valuation Consultant/CDS' Name: Key PRATIK Patient was complaining of chest pain and headache . upon evaluation vital signs were stable. CT of the head revealed no evidence of acute intracranial bleeding or mass- effect. Chest x-ray revealed no evidence of acute cardiopulmonary pathology. Laboratory work-up revealed no leukocytosis, stable hemoglobin, hematocrit and platelet count. Stable electrolytes ,renal parameters ,LFT. Lactic acid 0.9. Troponin negative. D-dimer 0.19. INR therapeutic 2.5. Urinalysis revealed no evidence of urinary tract infection. EKG showed sinus rhythm, no acute ischemic changes. ER Physician: Patient also complains of left-sided chest pressure that is been present for the past several days and radiates towards her left shoulder. FINAL DIAGNOSES: Suspected COVID-19 -ruled out Bacteremia, likely contamination Chronic anticoagulation History of PE and DVT Please document the suspected etiology of Chest Pain: [] Acute Coronary Syndrome [] Anxiety [] Costochondritis [] Pneumothorax [] GERD/Esophagitis [] Pulmonary embolism [] Other: [] Unable to determine Physician signature Date Please also document in your Progress Notes and/or Discharge Summary and indicate if the condition was present on admission. JAMES
== END 2019-11-02 12:44 | disposition home or self-care (01) | DRG 203 ==
LOC: EMR 10:54 → 4E 12:08 → EDBEDREQ 13:32
DX: R07.9 Chest pain, unspecified (principal); R53.1 Weakness; R51 Headache; E66.9 Obesity, unspecified; Z68.41 Body mass index [BMI] 40.0-44.9, adult; Z86.711 Personal history of pulmonary embolism; Z79.01 Long term (current) use of anticoagulants; M19.90 Unspecified osteoarthritis, unspecified site; D64.9 Anemia, unspecified; Z88.1 Allergy status to other antibiotic agents; Z86.718 Personal history of other venous thrombosis and embolism
CPT/HCPCS: 36415; 70450; 71045; 80048; 80053; 80202; 81003; 83605; 83735; 84484; 84703; 85025; 85379; 85610; 85730; 87040; 87086; 93005; 96361; 96365; 96375; 97803; 99285; J2405; J7030

== ENCOUNTER 2019-11-21 16:13 | Emergency (ER) | payer OTHER ==
[~2019-11-21] VITALS: Ht 157.5 cm; Wt 99.8 kg
--- NOTE | 2019-11-21 17:40 | Emergency Room Report ---
History of Present Illness General Chief Complaint: Headache Present Illness HPI 29 YO female presents to the ED c/o 01/23 in severity posterior generalized WELCH, Body aches, Urinary frequency, and Right upper quadrant abdominal pain x 2 days. She denies N/V. She denies fevers or chills. She denies hematuria or dysuria. She denies constipation or diarrhea. Pt. denies acute onset of her WELCH. She denies visual or auditory changes or symptoms. She denies neck pain / stiffness. She denies trauma or fall. She reports taking Warfarin 5mg daily due to having PE 2 mos. ago. Pt. reports she only has two days left and needs a refill as she cant get to her doctor for refill until next . Pt. reports last blood work done 1 month ago. She denies CP, SOB, dyspnea or palpitations. She denies dizziness or imbalance. She denies photophobia. She denies paresthesias, weakness or loss of gross motor movements. She denies difficulty with speech or swallowing. She denies . She denies hx of gallbladder issues. Allergies: Coded Allergies: VANCOMYCIN (Verified Allergy, Mild, facial swelling, erythema, 11/01/19) COVID-19 Screening Contact w/high risk pt: No Recent Travel to affected area: No Experienced COVID-19 symptoms?: No COVID-19 Testing performed CERTIFIED TUMOR REGISTRAR: No Patient History Past Medical History: see triage record Past Surgical History: none Pertinent Family History: none Last Menstrual Period: 2 DAYS AGO Now: No : 5 Para: 5 Reviewed Nursing Documentation: PMH: Agreed; PSxH: Agreed Nursing Documentation-PMH Hx Cardiac Problems: No - ANTIPHOSPHOLIPID SYNDROME Hx Hypertension: No Hx Pacemaker: No Hx Asthma: No Hx COPD: No Hx Diabetes: No Hx Cancer: No Hx Gastrointestinal Problems: Yes - GASTRITIS Hx Dialysis: No Hx Neurological Problems: No Hx Cerebrovascular Accident: No Hx Seizures: No Review of Systems All Other Systems: negative except mentioned in HPI Physical Exam Vital Signs Date Time Temp Pulse Resp B/P (MAP) Pulse Ox O2 Delivery O2 Flow Rate FiO2 11/21/19 16:26 98.4 85 20 99 Room Air Sp02 EP Interpretation: reviewed, normal General Appearance: no apparent distress, alert, GCS 15, non-toxic Head: normocephalic, atraumatic Eyes: bilateral eye normal inspection, bilateral eye PERRL, bilateral eye EOMI , bilateral eye other - no photophobia ENT: hearing grossly normal, normal voice Neck: full range of motion, no meningismus, no bony tend, tender lateral - right trapezius ttp. Respiratory: lungs clear, normal breath sounds, speaking full sentences Cardiovascular #1: regular rate, rhythm Gastrointestinal: normal bowel sounds, soft, other - mild RUQ ttp, abdomen is soft, non-distented Rectal: deferred Genitourinary: normal inspection, no CVA tenderness Musculoskeletal: back normal, normal range of motion, gait/station normal, non- tender Neurologic: alert, motor strength/tone normal, oriented x3, sensory intact, responsive, speech normal, normal gait, no pronator, no focal defects, other - normal finger to nose, neg. rhomberg. Psychiatric: judgement/insight normal Skin: no rash, normal color Medical Decision Making PA Attestation Dr. Randolph is my supervising Physician whom patient management has been discussed with. Diagnostic Impression: Primary Impression: Headache Qualified Codes: R51 - Headache Additional Impression: Neck muscle spasm ER Course 29 YO female presents to the ED c/o 10 in severity posterior generalized WELCH, Body aches, Urinary frequency, and Right upper quadrant abdominal pain x 2 days. She denies N/V. She denies fevers or chills. She denies hematuria or dysuria. She denies constipation or diarrhea. Pt. denies acute onset of her WELCH. She denies visual or auditory changes or symptoms. She denies neck pain / stiffness. She denies trauma or fall. She reports taking Warfarin 5mg daily due to having PE 2 mos. ago. Pt. reports she only has two days left and needs a refill as she cant get to her doctor for refill until next . Pt. reports last blood work done 1 month ago. She denies CP, SOB, dyspnea or palpitations. She denies dizziness or imbalance. She denies photophobia. She denies paresthesias, weakness or loss of gross motor movements. She denies difficulty with speech or swallowing. She denies . She denies hx of gallbladder issues. Ddx considered but are not limited to UTI, acute appendicitis, diarrhea,UC, PUD , GE, pancreatitis, gallstone, ectopic , PID tubo-ovarian abscess, WELCH , migraine, thrombotic event, meningitis, intracranial bleed, stroke just to name a few.. Vital signs: are WNL, pt. is afebrile H&PE are most consistent with non-toxic in appearance, in no acute distress and does not exhibit any focal neurological deficits ORDERS: -CBC, CMP, LIPASE: Unremarkable other than hemoglobin of 10.6. -UA: Unremarkable -URINE HCG: Denies CP, Palpitations, LOC, AMS, dizziness, Changes in Vision, Sensation, paresthesias, or a sudden severe headache. ED INTERVENTIONS: -Tylenol PO - Reglan PO -Benadryl PO -- Upon re-evaluation pt. reports pain has improved significantly to 4/10 in severity- she describes mainly tightness in the right neck muscle. She continues to deny dizziness, imbalance or weakness. --An acute emergent condition has not been identified at this time, however given pt. hx and initial complaint pt. is d/c with very strict ED return precautions and close outpatient follow up instructions. DISCHARGE: At this time pt. is stable for d/c to home. Will provide printed patient care instructions, and any necessary prescriptions. Care plan and follow up instructions have been discussed with the patient prior to discharge. Labs Test 11/21/19 17:30 11/21/19 17:35 White Blood Count 6.2 K/UL (4.8-10.8) Red Blood Count 4.35 M/UL (4.20-5.40) Hemoglobin 10.6 G/DL (12.0-16.0) Hematocrit 33.9 % (37.0-47.0) Mean Corpuscular Volume 78 FL (80-99) Mean Corpuscular Hemoglobin 24.3 PG (27.0-31.0) Mean Corpuscular Hemoglobin Concent 31.3 G/DL (32.0-36.0) Red Cell Distribution Width 14.8 % (11.6-14.8) Platelet Count 257 K/UL (150-450) Mean Platelet Volume 10.6 FL (6.5-10.1) Neutrophils (%) (Auto) 68.8 % (45.0-75.0) Lymphocytes (%) (Auto) 21.9 % (20.0-45.0) Monocytes (%) (Auto) 5.0 % (1.0-10.0) Eosinophils (%) (Auto) 3.0 % (0.0-3.0) Basophils (%) (Auto) 1.3 % (0.0-2.0) Sodium Level 138 MMOL/L (136-145) Potassium Level 4.3 MMOL/L (3.5-5.1) Chloride Level 105 MMOL/L (98-107) Carbon Dioxide Level 26 MMOL/L (21-32) Anion Gap 8 mmol/L (5-15) Blood Urea Nitrogen 11 mg/dL (7-18) Creatinine 0.9 MG/DL (0.55-1.30) Estimat Glomerular Filtration Rate > 60 mL/min (>60) Glucose Level 89 MG/DL (74-106) Calcium Level 9.4 MG/DL (8.5-10.1) Total Bilirubin 0.3 MG/DL (0.2-1.0) Aspartate Amino Transf (AST/SGOT) 19 U/L (15-37) Alanine Aminotransferase (ALT/SGPT) 27 U/L (12-78) Alkaline Phosphatase 130 U/L (46-116) Total Protein 7.8 G/DL (6.4-8.2) Albumin 3.9 G/DL (3.4-5.0) Globulin 3.9 g/dL Albumin/Globulin Ratio 1.0 (1.0-2.7) Lipase 164 U/L (73-393) Urine Color Pale yellow Urine Appearance Clear Urine pH 7 (4.5-8.0) Urine Specific [place] 1.015 (1.005-1.035) Urine Protein Negative (NEGATIVE) Urine Glucose (UA) Negative (NEGATIVE) Urine Ketones Negative (NEGATIVE) Urine Blood Negative (NEGATIVE) Urine Nitrite Negative (NEGATIVE) Urine Bilirubin Negative (NEGATIVE) Urine Urobilinogen Normal MG/DL (0.0-1.0) Urine Leukocyte Esterase Negative (NEGATIVE) Urine HCG, Qualitative Negative (NEGATIVE) CT/MRI/US Diagnostic Results CT/MRI/US Diagnostic Results : Imaging Test Ordered: CT head No Contrast Impression " No evidence of acute fracture, hemorrhage, or intracranial process "--Per official radiology report- Please see report for specific details. Last Vital Signs Date Time Temp Pulse Resp B/P (MAP) Pulse Ox O2 Delivery O2 Flow Rate FiO2 11/21/19 16:26 98.4 85 20 99 Room Air Status: improved Disposition: HOME, SELF-CARE Condition: Stable Scripts Acetaminophen* (TYLENOL EXTRA STRENGTH*) 500 Mg Tablet 500 MG ORAL Q6H, #20 TAB 0 Refills Prov: Mariza Li 11/21/19 Methocarbamol* (ROBAXIN-750*) 750 Mg Tablet 750 MG PO QID, #28 TAB 0 Refills Prov: Mariza Li 11/21/19 Warfarin Sod* (WARFARIN SOD*) 5 Mg Tablet 5 MG ORAL DAILY for 5 Days, #5 TAB Prov: Mariza Li 11/21/19 Referrals: NON PHYSICIAN (PCP) Patient Instructions: General Headache Without Cause Additional Instructions: Take medications as directed. Follow up with a Primary Care Provider in 3-5 days, even if your symptoms have resolved. --Please review list of primary care clinics, if you do not already have a primary care provider FOLLOW UP FOR ROUTINE BLOOD WORK FOR ANTICOAGULANT WARFARIN Return sooner to ED if new symptoms occur, or current symptoms become worse. - Please note that this Emergency Department Report was dictated using [employer] security consultant technology software, occasionally this can lead to erroneous entry secondary to interpretation by the dictation equipment. Mariza Li Nov 21, 2019 17:40
[2019-11-21 17:49] LABS: APPEARANCE,URINE CLEAR; BILIRUBIN, URINE NEGATIVE (NEGATIVE); COLOR,URINE PALE YELLOW; GLUCOSE, URINE (UA) NEGATIVE (NEGATIVE); KETONES,URINE NEGATIVE (NEGATIVE); LEUKOCYTE ESTERASE ,URINE NEGATIVE (NEGATIVE); NITRITE,URINE NEGATIVE (NEGATIVE); PH,URINE 7 (4.5-8.0); PROTEIN,URINE NEGATIVE (NEGATIVE); UROBILINOGEN,URINE NORMAL MG/DL (0.0-1.0)
[2019-11-21 17:53] LABS: BASOPHILS % (AUTO) 1.3 % (0.0-2.0); HEMATOCRIT 33.9 % (37.0-47.0); HEMOGLOBIN 10.6 G/DL (12.0-16.0); LYMPHOCYTES % (AUTO) 21.9 % (20.0-45.0); MEAN CORPUSCULAR VOLUME 78 FL (80-99); NEUTROPHILS % (AUTO) 68.8 % (45.0-75.0); PLATELET COUNT 257 K/UL (150-450); RED BLOOD COUNT 4.35 M/UL (4.20-5.40); RED CELL DISTRIBUTION WIDTH 14.8 % (11.6-14.8); WHITE BLOOD COUNT 6.2 K/UL (4.8-10.8)
[2019-11-21 18:00] LABS: ANION GAP 8 mmol/L (5-15); BLOOD UREA NITROGEN 11 mg/dL (7-18); CALCIUM 9.4 MG/DL (8.5-10.1); CARBON DIOXIDE 26 MMOL/L (21-32); CHLORIDE 105 MMOL/L (98-107); CREATININE 0.9 MG/DL (0.55-1.30); POTASSIUM 4.3 MMOL/L (3.5-5.1); SODIUM 138 MMOL/L (136-145)
[2019-11-21 18:05] LABS: ALANINE AMINOTRANSFERASE 27 U/L (12-78); ALBUMIN 3.9 G/DL (3.4-5.0); ALKALINE PHOSPHATASE 130 U/L (46-116); ASPARTATE AMINO TRANSFERASE 19 U/L (15-37); BILIRUBIN,TOTAL 0.3 MG/DL (0.2-1.0)
[2019-11-21 18:11] VITALS: BP 140/70
--- NOTE | 2019-11-21 19:32 | Diagnostic Imaging Report ---
EXAM: CT Head Without Intravenous Contrast CLINICAL HISTORY: PAIN TECHNIQUE: Axial computed tomography images of the head/brain without intravenous contrast. CTDI is 53.4 mGy and DLP is 1018.8 mGy-cm. One or more of the following dose reduction techniques were used: automated exposure control, adjustment of the mA and/or kV according to patient size, use of iterative reconstruction technique. COMPARISON: No relevant prior studies available. FINDINGS: Brain: No hemorrhage. No edema. Ventricles: No ventriculomegaly. Bones/joints: No acute fracture. Soft tissues: Unremarkable. Sinuses: No acute sinusitis. Sinus retention cyst/polyps. Mastoid air cells: No mastoid effusion. IMPRESSION: No acute intracranial process.
[2019-11-21] MEDS ORDERED: ROBAXIN-750750 MG PO (20:07)
[2019-11-21] MEDS ORDERED: TYLENOL EXTRA500 MG ORAL (20:07)
[2019-11-21] MEDS ORDERED: WARFARIN SODIUM5 MG ORAL (20:07)
[2019-11-21 20:22] VITALS: BP 140/70
== END 2019-11-21 20:22 | disposition home or self-care (01) ==
LOC: EMR 16:43
DX: R51 Headache (principal); M62.838 Other muscle spasm; Z88.8 Allergy status to other drugs, medicaments and biological substances; Z79.01 Long term (current) use of anticoagulants
CPT/HCPCS: 36415; 70450; 80053; 81003; 81025; 83690; 85025; Z7502; 99284

== ENCOUNTER 2019-12-02 10:20 | Emergency (ER) | payer OTHER ==
[~2019-12-02] VITALS: Ht 157.5 cm; Wt 122.5 kg
[~2019-12-02 10:20] MED LIST changes: +ROBAXIN-750750 MG PO
--- NOTE | 2019-12-02 10:30 | NUR ---
ED Nurse Note: Patient c/o chest pain radiating to the back; patient ran out of COUMADIN and did not take meds for 5 days; Patient also c/o SOB. hx clots in the lungs per patient. Pt is A&Ox4, VSS, on RA, afebrile on triage. Placed on bed, hooked to monitor.
[2019-12-02] MEDS ORDERED: Ketorolac 30mg Inj IV ONE (10:45)
[2019-12-02] MEDS ORDERED: Omnipaque 350 100ml vial INJ PRN (10:45)
--- NOTE | 2019-12-02 10:45 | Emergency Room Report ---
History of Present Illness General Chief Complaint: Chest Pain Source: Patient, Medical Record Present Illness HPI Patient is a 29-year-old female past medical history of obesity, PE on warfarin and antiphospholipid syndrome who presents to the ER complaining of chest pain. Patient complains of generalized chest pain that began today. She states that she is been off of her warfarin for 5 days. She denies any fever or chills. She denies any recent travel. She denies any lower extremity pain or edema. She denies any abdominal pain nausea or vomiting. Allergies: Coded Allergies: VANCOMYCIN (Verified Allergy, Mild, facial swelling, erythema, 11/01/19) COVID-19 Screening Contact w/high risk pt: No Recent Travel to affected area: No Experienced COVID-19 symptoms?: No Patient History Reviewed Nursing Documentation: PMH: Agreed; PSxH: Agreed Nursing Documentation-PMH Past Medical History: No History, Except For Hx Cardiac Problems: No - ANTIPHOSPHOLIPID SYNDROME Hx Hypertension: No - "clots in the lungs" Hx Pacemaker: No Hx Asthma: No Hx COPD: No Hx Diabetes: No Hx Cancer: No Hx Gastrointestinal Problems: Yes - GASTRITIS Hx Dialysis: No Hx Neurological Problems: No Hx Cerebrovascular Accident: No Hx Seizures: No Review of Systems All Other Systems: negative except mentioned in HPI Physical Exam Sp02 EP Interpretation: reviewed, normal General Appearance: alert, GCS 15, non-toxic, mild distress Head: normocephalic, atraumatic Eyes: bilateral eye normal inspection, bilateral eye PERRL ENT: hearing grossly normal, normal pharynx, no angioedema, normal voice Neck: full range of motion, supple/symm/no masses Respiratory: chest non-tender, lungs clear, normal breath sounds, speaking full sentences Cardiovascular #1: regular rate, rhythm, no edema Gastrointestinal: normal bowel sounds, non tender, soft, non-distended, no guarding, no rebound, overweight Rectal: deferred Genitourinary: no CVA tenderness Musculoskeletal: normal range of motion, no calf tenderness, no lower extremity edema 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 Results Rhythm Strip Time: 11:08 EP Interpretation: yes - Alondra Barber MD Rate: 78 bpm Rhythm: NSR, no PVC's, no ectopy Chest X-Ray Diagnostic Results Chest X-Ray Diagnostic Results : Chest X-Ray Ordered: Yes # of Views/Limited/Complete: 1 View Indication: Chest Pain EP Interpretation: Yes Interpretation: no consolidation, no effusion, no pneumothorax Impression: No acute disease Electronically Signed by: MD Sunil Caceres Carmela M.D. Dec 02, 2019 10:45
--- NOTE | 2019-12-02 10:47 | NUR ---
ED Nurse Note: x-ray at bedside.
[2019-12-02 11:10] LABS: BASOPHILS % (AUTO) 0.8 % (0.0-2.0); HEMATOCRIT 37.2 % (37.0-47.0); HEMOGLOBIN 11.2 G/DL (12.0-16.0); MEAN CORPUSCULAR VOLUME 77 FL (80-99); NEUTROPHILS % (AUTO) 71.1 % (45.0-75.0); PLATELET COUNT 257 K/UL (150-450); RED BLOOD COUNT 4.85 M/UL (4.20-5.40); RED CELL DISTRIBUTION WIDTH 14.5 % (11.6-14.8)
[2019-12-02 11:15] VITALS: BP 121/75
[2019-12-02 11:28] LABS: ANION GAP 12 mmol/L (5-15); BLOOD UREA NITROGEN 11 mg/dL (7-18); CALCIUM 9.1 MG/DL (8.5-10.1); CARBON DIOXIDE 23 MMOL/L (21-32); CHLORIDE 102 MMOL/L (98-107); CREATININE 0.8 MG/DL (0.55-1.30); POTASSIUM 4.2 MMOL/L (3.5-5.1); SODIUM 137 MMOL/L (136-145)
[2019-12-02 11:29] LABS: INR 1.1 (0.9-1.1)
[2019-12-02 11:39] LABS: ALANINE AMINOTRANSFERASE 37 U/L (12-78); ALBUMIN 3.9 G/DL (3.4-5.0); ALKALINE PHOSPHATASE 130 U/L (46-116); ASPARTATE AMINO TRANSFERASE 26 U/L (15-37); BILIRUBIN,TOTAL 0.4 MG/DL (0.2-1.0)
[2019-12-02 12:02] LABS: APPEARANCE,URINE SLIGHTLY CLOUDY; COLOR,URINE PALE YELLOW
[2019-12-02 12:03] LABS: BILIRUBIN, URINE NEGATIVE (NEGATIVE); GLUCOSE, URINE (UA) NEGATIVE (NEGATIVE); KETONES,URINE NEGATIVE (NEGATIVE); LEUKOCYTE ESTERASE ,URINE 2+ (NEGATIVE); NITRITE,URINE NEGATIVE (NEGATIVE); PH,URINE 6 (4.5-8.0); PROTEIN,URINE NEGATIVE (NEGATIVE); UROBILINOGEN,URINE NORMAL MG/DL (0.0-1.0)
--- NOTE | 2019-12-02 13:10 | NUR ---
ED Nurse Note: pt was taken to CT on stable condition.
--- NOTE | 2019-12-02 14:14 | NUR ---
ED Nurse Note: pt complains of 10/10 abdominal pain on epigastric area. notified ERMD.
[2019-12-02] MEDS ORDERED: fentaNYL 100 mcg/2 mL IV ONE (14:15)
--- NOTE | 2019-12-02 15:06 | Diagnostic Imaging Report ---
ndication: Chest pain Technique: IV administration nonionic contrast. Spiral acquisitions obtained from the lung bases to the lung apices. Multiplanar and 3-D reconstructions were generated. Total dose length product 411 mGycm. CTDIvol(s) one, one, 3, 31, 11 mGy. Dose reduction achieved using automated exposure control Comparison: 07/11/2019 Findings: Pulmonary arteries are well-opacified. No intraluminal filling defects or other findings to suggest acute pulmonary embolus are demonstrated. Normal caliber pulmonary arteries. No evidence of right ventricular dilatation. The heart is upper normal in size. No evidence of thoracic aortic aneurysm or dissection. Normal caliber and branching anatomy of the great neck vessels. Proximal abdominal visceral vessels appear unremarkable. The lungs are clear. No infiltrates, effusions, masses, nodules, or congestion demonstrated. No mediastinal or hilar mass or adenopathy. Unremarkable esophagus. The thyroid is unremarkable. No axillary or chest wall mass or adenopathy. The included upper abdominal anatomy demonstrates a 3.7 cm low-attenuation lesion within the right hepatic lobe. This is been reported on previous exams, thought to represent a hemangioma. Sclerotic lesion within the T8 vertebral body has been evident previously. Impression: No evidence of acute pulmonary embolus or other acute thoracic pathology Unchanged right lobe liver lesion, not previously to represent a benign hemangioma Other incidental findings as noted The CT scanner at [facility] is accredited by the [employer] and the scans are performed using protocols designed to limit radiation exposure to as low as reasonably achievable to attain images of sufficient resolution adequate for diagnostic evaluation.
[2019-12-02] MEDS ORDERED: ACETAMINOPHEN500 M5 ORAL (15:32)
--- NOTE | 2019-12-02 16:04 | Diagnostic Imaging Report ---
Indication: Chest pain Technique: One view of the chest Comparison: 10/31/2019 Findings: Lungs and pleural spaces are clear. Heart size is normal. No significant change Impression: No acute process
[2019-12-02 16:07] VITALS: BP 124/78
== END 2019-12-02 16:07 | disposition home or self-care (01) ==
LOC: EMR 10:40
DX: R07.9 Chest pain, unspecified (principal); Z88.8 Allergy status to other drugs, medicaments and biological substances; Z86.711 Personal history of pulmonary embolism; Z79.01 Long term (current) use of anticoagulants; E66.3 Overweight; Z68.42 Body mass index [BMI] 45.0-49.9, adult
CPT/HCPCS: 36415; 71045; 71275; 80053; 80307; 81003; 83735; 83880; 84484; 84703; 85025; 85379; 85610; 85730; 93005; 96361; 96374; 96375; J1885; J3010; J7030; Q9967; Z7502; 99284

== ENCOUNTER 2020-02-16 17:48 | Emergency (ER) | payer OTHER ==
[~2020-02-16] VITALS: Ht 157.5 cm; Wt 95.3 kg
[~2020-02-16 17:48] MED LIST changes: +ACETAMINOPHEN500 M5 ORAL; +FERROUS SULFAT325 MG ORAL; +OMEPRAZOLE40 M1 ORAL
--- NOTE | 2020-02-16 18:41 | Emergency Room Report ---
History of Present Illness General Chief Complaint: Nausea, Vomiting, and Diarrhea Source: Patient Present Illness HPI 29-year-old female with a history of DVT on warfarin here with vomiting and diarrhea for 4 days. Patient says that she has been having epigastric abdominal pain and vomiting and has vomited 4 times today nonbilious nonbloody. Patient did say however that she noticed a small amount of blood streaked with her stool earlier today. Has been having a few episodes of diarrhea for the past several days. Pain is sharp in nature, located in the epigastric abdominal region. Takes Pepcid and otherwise has not taken any medication for her symptoms. No fevers, chills, chest pain, palpitation, shortness of breath, back pain, other abdominal pain, dysuria, hematuria. 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 Patient History Last Menstrual Period: 02/12/2020 Nursing Documentation-[facility] Past Medical History: No Stated History Hx Cardiac Problems: No - ANTIPHOSPHOLIPID SYNDROME Hx Hypertension: No - "clots in the lungs" Hx Pacemaker: No Hx Asthma: No Hx COPD: No Hx Diabetes: No Hx Cancer: No Hx Gastrointestinal Problems: Yes - GASTRITIS Hx Dialysis: No Hx Neurological Problems: No Hx Cerebrovascular Accident: No Hx Seizures: No Review of Systems All Other Systems: negative except mentioned in HPI Physical Exam Vital Signs Date Time Temp Pulse Resp B/P (MAP) Pulse Ox O2 Delivery O2 Flow Rate FiO2 02/16/20 17:50 97.3 93 18 138/112 (121) 99 Room Air Sp02 EP Interpretation: reviewed, normal General Appearance: no apparent distress, alert, non-toxic Head: normocephalic, atraumatic Eyes: bilateral eye normal inspection, bilateral eye PERRL ENT: hearing grossly normal, normal pharynx, no angioedema, normal voice Neck: full range of motion, supple/symm/no masses Respiratory: chest non-tender, lungs clear, normal breath sounds, speaking full sentences Cardiovascular #1: regular rate, rhythm, no edema Cardiovascular #2: 2+ carotid (R), 2+ carotid (L), 2+ radial (R), 2+ radial (L), 2+ dorsalis pedis (R), 2+ dorsalis pedis (L) Gastrointestinal: normal bowel sounds, non tender, soft, non-distended, no guarding, no rebound, other - Epigastric abdominal tenderness on palpation. No rebound or guarding. Negative Beverly sign, negative Rovsing sign Rectal: deferred Genitourinary: normal inspection, no CVA tenderness Musculoskeletal: back normal, normal range of motion, gait/station normal, non- tender Neurologic: alert, motor strength/tone normal, oriented x3, sensory intact, responsive, speech normal Psychiatric: judgement/insight normal, memory normal, mood/affect normal, no suicidal/homicidal ideation Lymphatic: no adenopathy Medical Decision Making Diagnostic Impression: Primary Impression: Gastritis Additional Impression: Nausea, vomiting, and diarrhea ER Course Laboratory Tests Test 02/16/20 18:27 02/16/20 19:20 White Blood Count 7.0 K/UL (4.8-10.8) Red Blood Count 4.40 M/UL (4.20-5.40) Hemoglobin 10.3 G/DL (12.0-16.0) L Hematocrit 33.1 % (37.0-47.0) L Mean Corpuscular Volume 75 FL (80-99) L Mean Corpuscular Hemoglobin 23.5 PG (27.0-31.0) L Mean Corpuscular Hemoglobin Concent 31.2 G/DL (32.0-36.0) L Red Cell Distribution Width 15.7 % (11.6-14.8) H Platelet Count 238 K/UL (150-450) Mean Platelet Volume 8.8 FL (6.5-10.1) Neutrophils (%) (Auto) 69.3 % (45.0-75.0) Lymphocytes (%) (Auto) 21.6 % (20.0-45.0) Monocytes (%) (Auto) 5.4 % (1.0-10.0) Eosinophils (%) (Auto) 2.4 % (0.0-3.0) Basophils (%) (Auto) 1.3 % (0.0-2.0) Prothrombin Time 16.8 SEC (9.30-11.50) H Prothrombin Time INR 1.6 (0.9-1.1) H Sodium Level 141 MMOL/L (136-145) Potassium Level 3.7 MMOL/L (3.5-5.1) Chloride Level 109 MMOL/L (98-107) H Carbon Dioxide Level 22 MMOL/L (21-32) Anion Gap 10 mmol/L (5-15) Blood Urea Nitrogen 11 mg/dL (7-18) Creatinine 0.9 MG/DL (0.55-1.30) Estimated Glomerular Filtration Rate > 60 mL/min (>60) Glucose Level 91 MG/DL (74-106) Calcium Level 8.3 MG/DL (8.5-10.1) L Total Bilirubin 0.2 MG/DL (0.2-1.0) Aspartate Amino Transferase (AST) 19 U/L (15-37) Alanine Aminotransferase (ALT) 33 U/L (12-78) Alkaline Phosphatase 149 U/L (46-116) H Total Protein 7.5 G/DL (6.4-8.2) Albumin 3.6 G/DL (3.4-5.0) Globulin 3.9 g/dL Albumin/Globulin Ratio 0.9 (1.0-2.7) L Lipase 196 U/L (73-393) Urine Color Pending Urine Appearance Pending Urine pH Pending Urine Specific [place] Pending Urine Protein Pending Urine Glucose (UA) Pending Urine Ketones Pending Urine Blood Pending Urine Nitrite Pending Urine Bilirubin Pending Urine Urobilinogen Pending Urine Leukocyte Esterase Pending Urine HCG, Qualitative Pending 29-year-old female here with epigastric abdominal pain and vomiting and diarrhea for several days. Patient was hemodynamically stable and neurovascular intact emergency department. She only had mild pain on palpation of her epigastric region without any right upper quadrant pain or Beverly sign or Rovsing sign. CBC and CMP were largely unremarkable. Patient takes warfarin for history of DVT. INR was subtherapeutic at 1.6. Patient says that she is going to follow- up with her primary care provider regarding her warfarin dosage. Urinalysis did not show any evidence of infection. She was given a GI cocktail, Zofran, morphine with good resolution of her pain. Given prescription for Tylenol and Zofran and told to follow-up with her primary care provider, or come back to the emergency department if she has any worsening of her symptoms. She expressed understanding was discharged. Last Vital Signs Date Time Temp Pulse Resp B/P (MAP) Pulse Ox O2 Delivery O2 Flow Rate FiO2 02/16/20 17:50 97.3 93 18 138/112 (121) 99 Room Air Scripts Acetaminophen* (ACETAMINOPHEN 325MG TABLET*) 325 Mg Tablet 650 MG ORAL Q4H PRN for For Pain, #20 TAB Prov: Dion Pedersen M.D. 02/16/20 Ondansetron Odt* (ZOFRAN ODT*) 8 Mg Tab.rapdis 8 MG ORAL Q6H PRN for Nausea & Vomiting, #12 TAB Prov: Dion Pedersen M.D. 02/16/20 Dion Pedersen M.D. Feb 16, 2020 18:41
[2020-02-16] MEDS ORDERED: Dicyclomine HCl 10mg/5ml oral soln ORAL ONE (18:45)
[2020-02-16] MEDS ORDERED: Mylanta II UD 30ml ORAL ONE (18:45)
[2020-02-16] MEDS ORDERED: Lidocaine 2% Visc 15ml soln ORAL ONE (18:45)
[2020-02-16 18:50] VITALS: BP 131/103
--- NOTE | 2020-02-16 18:50 | NUR ---
ED Nurse Note: Pt walked in from home c/o N/V and abd pain x 2 week. Pt reports blood in stool. Respirations even and unlabored on room air. Vitals stable as documented. A+Ox4, speaking in complete sentences.
[2020-02-16 18:55] LABS: ANION GAP 10 mmol/L (5-15); BLOOD UREA NITROGEN 11 mg/dL (7-18); CALCIUM 8.3 MG/DL (8.5-10.1); CARBON DIOXIDE 22 MMOL/L (21-32); CHLORIDE 109 MMOL/L (98-107); CREATININE 0.9 MG/DL (0.55-1.30); INR 1.6 (0.9-1.1); POTASSIUM 3.7 MMOL/L (3.5-5.1); SODIUM 141 MMOL/L (136-145)
[2020-02-16 18:57] LABS: BASOPHILS % (AUTO) 1.3 % (0.0-2.0); EOSINOPHILS % (AUTO) 2.4 % (0.0-3.0); HEMATOCRIT 33.1 % (37.0-47.0); HEMOGLOBIN 10.3 G/DL (12.0-16.0); LYMPHOCYTES % (AUTO) 21.6 % (20.0-45.0); MEAN CORPUSCULAR VOLUME 75 FL (80-99); MONOCYTES % (AUTO) 5.4 % (1.0-10.0); NEUTROPHILS % (AUTO) 69.3 % (45.0-75.0); PLATELET COUNT 238 K/UL (150-450); RED CELL DISTRIBUTION WIDTH 15.7 % (11.6-14.8)
[2020-02-16 18:59] LABS: ALANINE AMINOTRANSFERASE 33 U/L (12-78); ALBUMIN 3.6 G/DL (3.4-5.0); ALBUMIN/GLOBULIN RATIO 0.9 (1.0-2.7); ALKALINE PHOSPHATASE 149 U/L (46-116); ASPARTATE AMINO TRANSFERASE 19 U/L (15-37); BILIRUBIN,TOTAL 0.2 MG/DL (0.2-1.0)
--- NOTE | 2020-02-16 19:13 | NUR ---
ED Nurse Note: report given ANTONIO Mena
--- NOTE | 2020-02-16 19:23 | NUR ---
HAND-OFF: Report given to JEN ALVAREZ. Urine sent to lab
--- NOTE | 2020-02-16 19:25 | NUR ---
ED Nurse Note: Received pt from ANTONIO Mena. She is resting in bed. Will cont. to monitor. ERMD made aware pt is having severe pain.
[2020-02-16] MEDS ORDERED: Morphine Sulfate 4mg/ml Inj (IV USE ONLY) IVP ONE (20:15)
[2020-02-16] MEDS ORDERED: ZOFRAN ODT8 MG ORAL (20:33)
[2020-02-16] MEDS ORDERED: ACETAMINOPHEN325 M1 ORAL (20:33)
[2020-02-16 20:36] LABS: APPEARANCE,URINE CLOUDY; BILIRUBIN, URINE NEGATIVE (NEGATIVE); COLOR,URINE PALE YELLOW; GLUCOSE, URINE (UA) NEGATIVE (NEGATIVE); KETONES,URINE NEGATIVE (NEGATIVE); LEUKOCYTE ESTERASE ,URINE 1+ (NEGATIVE); NITRITE,URINE NEGATIVE (NEGATIVE); PH,URINE 6 (4.5-8.0); PROTEIN,URINE NEGATIVE (NEGATIVE); UROBILINOGEN,URINE NORMAL MG/DL (0.0-1.0)
[2020-02-16 20:39] VITALS: BP 129/78
== END 2020-02-16 20:35 | disposition home or self-care (01) ==
LOC: EMR 18:35
DX: K29.70 Gastritis, unspecified, without bleeding (principal); R11.2 Nausea with vomiting, unspecified; Z88.8 Allergy status to other drugs, medicaments and biological substances; Z86.718 Personal history of other venous thrombosis and embolism; Z79.01 Long term (current) use of anticoagulants; R19.7 Diarrhea, unspecified
CPT/HCPCS: 36415; 80053; 81003; 81025; 83690; 85025; 85610; 96361; 96374; 96375; J2270; J2405; J7030; S0028; Z7502; 99284

== ENCOUNTER 2020-05-08 00:27 | Emergency (ER) | payer OTHER ==
[~2020-05-08] VITALS: Ht 157.5 cm; Wt 95.7 kg
[~2020-05-08 00:27] MED LIST changes: +ZOFRAN ODT8 MG ORAL
--- NOTE | 2020-05-08 00:35 | NUR ---
ED Nurse Note: Patient walked into the ED with c/o back pain onset 2 days ago. Pain is 7/10, pain radiates from back to the front. Patient denies injury/ trauma, N/V/D, no SOB//CP. Patient stated mild urinary retention. PAtient is AAOX4 and ambulatory. VSS as dcumented
[2020-05-08 00:39] VITALS: BP 126/86
--- NOTE | 2020-05-08 00:39 | Emergency Room Report ---
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 She is taking Coumadin. She presents with chief complaint of back pain. Onset for last 2 days. Pain is to the mid thoracic area rating to the front. Worse with movement. Better with rest. Pain is 7 out of 10. Is taking Tylenol is not helping. No nausea no vomiting. No shortness of breath. No cough or congestion. Does state that she has some mild urinary frequency. No dysuria or discharge. Allergies: Coded Allergies: VANCOMYCIN (Verified Allergy, Mild, facial swelling, erythema, 11/01/19) COVID-19 Screening Contact w/high risk pt: No Recent Travel to affected area: No Experienced COVID-19 symptoms?: No COVID-19 Testing performed COMMERCIAL REAL ESTATE LENDER: No Patient History Past Medical History: see triage record, old chart reviewed Past Surgical History: none Pertinent Family History: none Social History: Denies: smoking Last Menstrual Period: 04/29/20 Now: No Immunizations: other Reviewed Nursing Documentation: PMH: Agreed; PSxH: Agreed Nursing Documentation-PMH Past Medical History: No History, Except For Hx Cardiac Problems: No - ANTIPHOSPHOLIPID SYNDROME Hx Hypertension: No - "clots in the lungs" Hx Pacemaker: No Hx Asthma: No Hx COPD: No Hx Diabetes: No Hx Cancer: No Hx Gastrointestinal Problems: Yes - GASTRITIS Hx Dialysis: No Hx Neurological Problems: No Hx Cerebrovascular Accident: No Hx Seizures: No Review of Systems Eye: Denies: eye pain, blurred vision ENT: Denies: ear pain, nose congestion, throat swelling Respiratory: Denies: cough, shortness of breath Cardiovascular: Denies: chest pain, palpitations Gastrointestinal: Denies: abdominal pain, diarrhea, nausea, vomiting Musculoskeletal: Reports: back pain; Denies: joint pain Skin: Denies: rash Neurological: Denies: headache, numbness Endocrine: Denies: increased thirst, increased urine Hematologic/Lymphatic: Denies: easy bruising All Other Systems: negative except mentioned in HPI Physical Exam Vital Signs Date Time Temp Pulse Resp B/P (MAP) Pulse Ox O2 Delivery O2 Flow Rate FiO2 05/08/20 00:29 98.1 80 18 126/86 (99) 99 Room Air Vitals normal Sp02 EP Interpretation: reviewed, normal General Appearance: well appearing, no apparent distress, alert Head: normocephalic, atraumatic Eyes: bilateral eye PERRL, bilateral eye EOMI ENT: hearing grossly normal, normal pharynx Neck: full range of motion, supple, no meningismus Respiratory: chest non-tender, lungs clear, normal breath sounds Cardiovascular #1: regular rate, rhythm, no murmur Gastrointestinal: normal bowel sounds, non tender, no mass, no organomegaly, no bruit, non-distended Musculoskeletal: back normal, normal range of motion, gait/station normal Psychiatric: mood/affect normal Medical Decision Making Diagnostic Impression: Primary Impression: UTI (urinary tract infection) Qualified Codes: N30.00 - Acute cystitis without hematuria Additional Impression: Back pain Qualified Codes: M54.6 - Pain in thoracic spine ER Course Patient presents with back pain. No evidence of cauda equina syndrome, spinal epidural abscess or neoplastic process. Pain is better controlled now. Will discharge home. Last Vital Signs Date Time Temp Pulse Resp B/P (MAP) Pulse Ox O2 Delivery O2 Flow Rate FiO2 05/08/20 00:29 98.1 80 18 126/86 (99) 99 Room Air Status: improved Disposition: HOME, SELF-CARE Condition: Stable Scripts Nitrofurantoin Monohyd/M-Cryst (Nitrofurantoin [place]-Mcr 100 mg) 100 Mg Capsule 100 MG ORAL Q12H, #14 CAP Prov: Kojo Mitchell MD 05/08/20 Hydrocodone/Acetaminophen 5-325* (HYDROCODONE/ACETAMINOPHEN 5-325*) 1 Each Tablet 1 TAB ORAL Q6H PRN for For Pain, #30 TAB 0 Refills Prov: Kojo Mitchell MD 05/08/20 Additional Instructions: Follow-up with your doctor in 7 days. Return if symptoms worsen. Kojo Mitchell MD May 08, 2020 00:39
--- NOTE | 2020-05-08 00:40 | NUR ---
ED Nurse Note: ERMD at bedside Urine sent to lab
[2020-05-08] MEDS ORDERED: HYDROcodone/Acetamin 5/325 tab ORAL ONE (00:45)
[2020-05-08 01:00] LABS: APPEARANCE,URINE SLIGHTLY CLOUDY; BILIRUBIN, URINE NEGATIVE (NEGATIVE); GLUCOSE, URINE (UA) NEGATIVE (NEGATIVE); KETONES,URINE NEGATIVE (NEGATIVE); LEUKOCYTE ESTERASE ,URINE 1+ (NEGATIVE); NITRITE,URINE NEGATIVE (NEGATIVE); PH,URINE 6 (4.5-8.0); PROTEIN,URINE NEGATIVE (NEGATIVE); UROBILINOGEN,URINE NORMAL MG/DL (0.0-1.0)
[2020-05-08 01:19] LABS: COLOR,URINE PALE YELLOW
[2020-05-08] MEDS ORDERED: HYDROCODON-ACE1 EA15 ORAL (01:32)
[2020-05-08] MEDS ORDERED: MACROBID100 MG ORAL (01:32)
[2020-05-08 01:41] VITALS: BP 126/86
== END 2020-05-08 01:42 | disposition home or self-care (01) ==
LOC: EMR 00:45
DX: N30.00 Acute cystitis without hematuria (principal); M54.6 Pain in thoracic spine; D68.61 Antiphospholipid syndrome; Z86.718 Personal history of other venous thrombosis and embolism; Z79.01 Long term (current) use of anticoagulants; Z88.1 Allergy status to other antibiotic agents
CPT/HCPCS: 81003; 87086; Z7502; 99283

== ENCOUNTER 2020-05-16 15:18 | Emergency (ER) | payer OTHER ==
[~2020-05-16] VITALS: Ht 154.9 cm; Wt 95.7 kg
[~2020-05-16 15:18] MED LIST changes: +HYDROCODON-ACE1 EA15 ORAL; +MACROBID100 MG ORAL
[2020-05-16 15:48] VITALS: BP 120/64
--- NOTE | 2020-05-16 15:49 | NUR ---
ED Nurse Note: c/o pain and swelling to right hand, bilat shoulder and under her eyes is swelling. this started yesterday and hasn't happened before. denies taking any new meds.
--- NOTE | 2020-05-16 15:52 | NUR ---
ED Nurse Note: pt has hx of fibro myalgia
[2020-05-16] MEDS ORDERED: MUCINEX600 MG PO (15:58)
[2020-05-16] MEDS ORDERED: 12 HOUR NASAL R15 ML NASAL (15:58)
[2020-05-16] MEDS ORDERED: ACETAMINOPHEN-1 EAC1 ORAL (15:58)
[2020-05-16] MEDS ORDERED: Morphine Sulfate 2mg/ml Inj(IV/IM USE ONLY) IM ONE (16:00)
[2020-05-16] MEDS ORDERED: Ketorolac 30mg Inj IM ONE (16:00)
--- NOTE | 2020-05-16 16:06 | Emergency Room Report ---
History of Present Illness General Chief Complaint: General Complaint Source: Patient Present Illness HPI Disclaimer: Please note that this report is being documented using [employer] technology. This can lead to erroneous entry secondary to incorrect interpretation by the dictating instrument. HPI: 30-year-old female history of antiphospholipid syndrome with prior PE/DVT currently on Coumadin, fibromyalgia, rheumatoid arthritis presents for evaluation of right wrist and hand pain as well as nasal congestion. Symptoms present for 1 to 2 days. She reports atraumatic pain in both hands describing as burning and tingling from the wrist upwards. She occasionally will have sharp pains in the upper extremities as well. This is somewhat consistent with her fibromyalgia pain. She is managed by rheumatology and hematology at [facility]. She has been using 600 mg ibuprofen without significant relief of her symptoms. Reported minor swelling. Denies trauma. Denies erythema or warmth. Pain is localized in the right hand though she states she will occasionally have pain in the right thumb. Patient also complaining of congestion and pressure over the left side of the nose and face. Reports increased pressure without significant rhinorrhea or sore throat. She feels the left side of her face is somewhat puffy. Denies pain with extraocular motion, changes in her vision, proptosis,. She has not taken any decongestants or other medications. Denies cough, shortness of breath, palpitations. Denies any chemical exposure. Denies history of allergies. No new medications or foods, or cleaning products PMH: Fibromyalgia, rheumatoid arthritis, antiphospholipid syndrome, prior PE/DVT PSH: Reviewed Allergies: Vancomycin Social Hx: Reviewed Allergies: Coded Allergies: VANCOMYCIN (Verified Allergy, Mild, facial swelling, erythema, 11/01/19) COVID-19 Screening Contact w/high risk pt: No Recent Travel to affected area: No Experienced COVID-19 symptoms?: No COVID-19 Testing performed BLUE LINE TRIMMER: No Patient History Now: No Nursing Documentation-PMH Hx Cardiac Problems: No - ANTIPHOSPHOLIPID SYNDROME Hx Hypertension: No - "clots in the lungs" Hx Pacemaker: No Hx Asthma: No Hx COPD: No Hx Diabetes: No Hx Cancer: No Hx Gastrointestinal Problems: Yes - GASTRITIS Hx Dialysis: No Hx Neurological Problems: No - arthrities Hx Cerebrovascular Accident: No Hx Seizures: No Review of Systems All Other Systems: negative except mentioned in HPI Physical Exam Vital Signs Date Time Temp Pulse Resp B/P (MAP) Pulse Ox O2 Delivery O2 Flow Rate FiO2 05/16/20 15:37 98.2 94 18 120/64 (82) 97 Room Air General: Awake and alert, no acute distress HEENT: NC/AT. EOMI. PERRLA. No proptosis. No conjunctival injection. There is tenderness palpation over the left frontal maxillary sinuses. Nasal turbines are somewhat edematous and erythematous. No pharyngeal edema or erythema or exudate noted. Speaking full sentences. No stridor. Tolerating secretions without difficulty. Cardiovascular: RRR. S1 and S2 normal. No murmur appreciated Resp: Normal work of breathing. No cough, wheezing or crackles appreciated Abdomen: Abdomen is soft, nondistended. Nontender Skin: Intact. No abrasions, laceration or rash over the exposed skin MSK: Normal tone and bulk. Moving all extremities. No obvious deformity. Very minor swelling over the thenar eminences bilaterally. Full range of motion on flexion extension of all digits. Pain with percussion of the right median nerve distribution area. Tinel positive right side. Neuro: Awake and alert. Mentating appropriately. Sensation intact in all digits of the hands bilaterally. Medical Decision Making Diagnostic Impression: Primary Impression: Carpal tunnel syndrome, bilateral Additional Impression: Sinusitis ER Course 30-year-old female presenting for evaluation of sinus pressure and hand pain. Most consistent with carpal tunnel syndrome, peripheral neuropathy or rheumatoid arthritis/fibromyalgia though I believe that she does have elements of median nerve compression and patient was placed in a splint treated with pain medication. We will continue NSAIDs and add medication for breakthrough pain. She will be referred to her surgical services director and manager of marketing to [place] for further work-up and care. Regarding her sinus congestion. She appears to have an acute sinusitis. Given the short duration of symptoms likely viral we will hold off on antibiotics at this point. Will prescribe decongestants and follow- up with PMD. Vital signs otherwise stable patient nontoxic-appearing. Do not believe she requires emergent labs or imaging at this time. No other signs of distress. Discussed return precautions. She understands and agrees with this treatment plan. Last Vital Signs Date Time Temp Pulse Resp B/P (MAP) Pulse Ox O2 Delivery O2 Flow Rate FiO2 05/16/20 15:48 98.2 20 120/64 97 Room Air 05/16/20 15:44 89 Disposition: HOME, SELF-CARE Condition: Stable Scripts Acetaminophen With Codeine (T#3) (TYLENOL #3 TAB*) Y Tab 1 TAB ORAL Q8H PRN for For Pain for 3 Days, #10 TAB Prov: Seamus Gaffney MD 05/16/20 Guaifenesin (Mucinex) 600 Mg Tab.er.12h 600 MG PO BID for 5 Days, #20 TAB Prov: Seamus Gaffney MD 05/16/20 Oxymetazoline Hcl* (12 HOUR NASAL RELIEF*) 15 Ml [place] 1 SPRAY NASAL TWICE A DAY for 3 Days, #1 SPRAY Prov: Seamus Gaffney MD 05/16/20 Referrals: [facility] Kesha De Dios. [facility] Patient Instructions: Peripheral Neuropathy Additional Instructions: Follow-up with your surgical services director and manager of marketing [facility] to discuss today's emergency department visit. Take the medications as prescribed. Wear the splint to help with your wrist pain. Please follow-up with your primary care doctor in the next 1 to 3 days to discuss this emergency department visit and for reevaluation. If you have any new or worsening symptoms please return to the emergency department for reevaluation. Please note that this report is being documented using [employer] technology. This can lead to erroneous entry secondary to incorrect interpretation by the dictating instrument. Seamus Gaffney MD May 16, 2020 16:06
--- NOTE | 2020-05-16 16:15 | NUR ---
ED Nurse Note: placed right wrist splint on pt. education completed in regards to how it's used. pt stated she understood.
[2020-05-16 16:28] VITALS: BP 110/66
== END 2020-05-16 16:29 | disposition home or self-care (01) ==
LOC: EMR 15:49
DX: G56.03 Carpal tunnel syndrome, bilateral upper limbs (principal); J32.9 Chronic sinusitis, unspecified; Z88.1 Allergy status to other antibiotic agents
CPT/HCPCS: 96372; J1885; J2270; Z7502; 99283

== ENCOUNTER 2020-06-13 16:12 | Emergency (ER) | payer OTHER ==
[~2020-06-13] VITALS: Ht 157.5 cm; Wt 95.7 kg
[~2020-06-13 16:12] MED LIST changes: +12 HOUR NASAL R15 ML NASAL; +ACETAMINOPHEN-1 EAC1 ORAL; +MUCINEX600 MG PO
[2020-06-13 16:35] VITALS: BP 111/65
--- NOTE | 2020-06-13 16:40 | NUR ---
Patient presented to ER with headache (10), fatigue and abdominal pain x 4 days. No vomiting, no diarrhea but reports nausea. Medical hx: antiphospholipid syndrome- blood clots, arthritis, fibromyalgia and hx of COVID 19 in April 04. Allergy: Vancomycin- swelling in face Independently ambulatory Take Coumadin 5mg QD- hx of blood clots
--- NOTE | 2020-06-13 16:44 | Emergency Room Report ---
History of Present Illness General Chief Complaint: Abdominal Pain Source: Patient Present Illness HPI Disclaimer: Please note that this report is being documented using [employer] technology. This can lead to erroneous entry secondary to incorrect interpretation by the dictating instrument. HPI: 30-year-old female history of antiphospholipid syndrome with prior PE/DVT currently on Coumadin presents for multiple complaints. Patient reports abdominal pain in the left upper quadrant epigastric region for 4 days. Worse with eating. Better at rest. Denies vomiting but reports nausea. Denies diarrhea, fever or chills. Denies pain in the lower abdomen. LMP 2 weeks ago. Denies vaginal bleeding or vaginal discharge. She noted that today she also had some left-sided chest discomfort this morning when awakening that resolved. It was somewhat sharp but nonradiating. Also feels palpitations. Denies shortness of breath but states she feels a little bit tight. Has been compliant with her Coumadin therapy. PMH: Gastritis, PE/DVT, antiphospholipid syndrome PSH: Reviewed Allergies: Vancomycin Social Hx: Reviewed Allergies: Coded Allergies: VANCOMYCIN (Verified Allergy, Mild, facial swelling, erythema, 11/01/19) COVID-19 Screening Contact w/high risk pt: No Recent Travel to affected area: No Experienced COVID-19 symptoms?: No COVID-19 Testing performed SERVICE DISMANTLER: Yes COVID-19 Screening: Negative COVID-19 COVID-19 Testing Source: Job Patient History Last Menstrual Period: 15 days ago Now: No : 5 Para: 5 Nursing Documentation-PMH Past Medical History: No Stated History Hx Cardiac Problems: No - ANTIPHOSPHOLIPID SYNDROME Hx Hypertension: No - "clots in the lungs" Hx Pacemaker: No Hx Asthma: No Hx COPD: No Hx Diabetes: No Hx Cancer: No Hx Gastrointestinal Problems: Yes - GASTRITIS Hx Dialysis: No Hx Neurological Problems: No - arthrities Hx Cerebrovascular Accident: No Hx Seizures: No Review of Systems All Other Systems: negative except mentioned in HPI Physical Exam Vital Signs Date Time Temp Pulse Resp B/P (MAP) Pulse Ox O2 Delivery O2 Flow Rate FiO2 06/13/20 16:21 98.4 99 18 111/65 (80) 96 06/13/20 16:35 Room Air General: Awake and alert, no acute distress HEENT: NC/AT. EOMI. Cardiovascular: RRR. S1 and S2 normal. No murmur appreciated Resp: Normal work of breathing. No cough, wheezing or crackles appreciated Abdomen: Abdomen is soft, nondistended. Tenderness palpation in the epigastrium and left upper quadrant. No guarding. No peritoneal signs. Negative Beverly's. No rebound. No tenderness in lower abdomen. Skin: Intact. No abrasions, laceration or rash over the exposed skin MSK: Normal tone and bulk. Moving all extremities. No obvious deformity. Neuro: Awake and alert. Mentating appropriately. Medical Decision Making Diagnostic Impression: Primary Impression: Abdominal pain Additional Impressions: UTI (urinary tract infection) Hemangioendothelioma of liver ER Course 30-year-old female history of antiphospholipid syndrome with prior PE/DVT currently on Coumadin presenting with multiple complaints including abdominal pain, chest discomfort, palpitations, headache. Rest of stable vital signs. Pain is in the epigastrium. Concern for gastritis, gastroenteritis, pancreatitis, cholecystitis, PE, ACS, viral syndrome among others. EKG is nonischemic does not show signs of strain. INR is in therapeutic range. Labs including troponin are within normal limits. Urinalysis concerning for acute urinary tract infection. Given the patient concern of chest pain and prior history of CTA was ordered. No PE or other intrathoracic pathology identified. CT of the abdomen redemonstrates a hemangioma and spinal changes but no acute intra-abdominal injury identified. Patient will be treated for UTI with antibiotics and prescribe Zofran. She will continue her antacids. Stable for outpatient follow-up. Will follow up with PMD and return with new or worsening symptoms. Laboratory Tests Test 06/13/20 16:35 06/13/20 16:40 Urine Color Pale yellow Urine Appearance Slightly cloudy Urine pH 6 (4.5-8.0) Urine Specific [place] 1.020 (1.005-1.035) Urine Protein 1+ (NEGATIVE) H Urine Glucose (UA) Negative (NEGATIVE) Urine Ketones Negative (NEGATIVE) Urine Blood Negative (NEGATIVE) Urine Nitrite Negative (NEGATIVE) Urine Bilirubin Negative (NEGATIVE) Urine Urobilinogen Normal MG/DL (0.0-1.0) Urine Leukocyte Esterase 1+ (NEGATIVE) H Urine RBC 0-2 /HPF (0 - 2) Urine WBC 10-15 /HPF (0 - 2) H Urine Squamous Epithelial Cells Moderate /LPF (NONE/OCC) H Urine Bacteria Moderate /HPF (NONE) H Urine HCG, Qualitative Negative (NEGATIVE) White Blood Count 6.7 K/UL (4.8-10.8) Red Blood Count 4.25 M/UL (4.20-5.40) Hemoglobin 9.1 G/DL (12.0-16.0) L Hematocrit 29.3 % (37.0-47.0) L Mean Corpuscular Volume 69 FL (80-99) L Mean Corpuscular Hemoglobin 21.5 PG (27.0-31.0) L Mean Corpuscular Hemoglobin Concent 31.1 G/DL (32.0-36.0) L Red Cell Distribution Width 16.2 % (11.6-14.8) H Platelet Count 297 K/UL (150-450) Mean Platelet Volume 8.5 FL (6.5-10.1) Neutrophils (%) (Auto) 63.0 % (45.0-75.0) Lymphocytes (%) (Auto) 24.5 % (20.0-45.0) Monocytes (%) (Auto) 7.5 % (1.0-10.0) Eosinophils (%) (Auto) 3.3 % (0.0-3.0) H Basophils (%) (Auto) 1.6 % (0.0-2.0) Prothrombin Time 29.4 SEC (9.30-11.50) H Prothrombin Time INR 2.9 (0.9-1.1) H Activated Partial Thromboplast Time 37 SEC (23-33) H Sodium Level 139 MMOL/L (136-145) Potassium Level 3.6 MMOL/L (3.5-5.1) Chloride Level 104 MMOL/L (98-107) Carbon Dioxide Level 25 MMOL/L (21-32) Blood Urea Nitrogen 14 mg/dL (7-18) Creatinine 0.9 MG/DL (0.55-1.30) Estimated Glomerular Filtration Rate > 60 mL/min (>60) Glucose Level 94 MG/DL (74-106) Calcium Level 9.3 MG/DL (8.5-10.1) Total Bilirubin 0.1 MG/DL (0.2-1.0) L Aspartate Amino Transferase (AST) 14 U/L (15-37) L Alanine Aminotransferase (ALT) 19 U/L (12-78) Alkaline Phosphatase 131 U/L (46-116) H Troponin I 0.000 ng/mL (0.000-0.056) Total Protein 7.7 G/DL (6.4-8.2) Albumin 4.1 G/DL (3.4-5.0) Globulin 3.6 g/dL Albumin/Globulin Ratio 1.1 (1.0-2.7) Lipase 257 U/L (73-393) EKG Diagnostic Results Troponin ordered: Yes When was troponin ordered?: Jun 13, 2020 EKG Time: 16:40 Rate: normal Rhythm: NSR ST Segments: no acute changes Other Impression Sinus rhythm, normal axis, normal intervals, no ST segment changes. Rhythm Strip Diag. Results Rhythm Strip Time: 16:40 EP Interpretation: yes Rate: 80s Rhythm: NSR, no PVC's, no ectopy Last Vital Signs Date Time Temp Pulse Resp B/P (MAP) Pulse Ox O2 Delivery O2 Flow Rate FiO2 06/13/20 16:35 99 16 Room Air 06/13/20 16:35 98.4 111/65 96 Disposition: HOME, SELF-CARE Condition: Stable Scripts Ondansetron Odt* (ZOFRAN ODT*) 8 Mg Tab.rapdis 8 MG ORAL Q6H PRN for Nausea & Vomiting, #12 TAB Prov: Seamus Gaffney MD 06/13/20 Cephalexin* (KEFLEX*) 500 Mg Capsule 500 MG ORAL EVERY 12 HOURS, #14 CAP 0 Refills Prov: Seamus Gaffney MD 06/13/20 Seamus Gaffney MD Jun 13, 2020 16:44
[2020-06-13] MEDS ORDERED: Dicyclomine HCl 10mg/5ml oral soln ORAL ONE (16:45)
[2020-06-13] MEDS ORDERED: Omnipaque 350 100ml vial INJ PRN (16:45)
[2020-06-13] MEDS ORDERED: Lidocaine 2% Visc 15ml soln ORAL ONE (16:45)
[2020-06-13] MEDS ORDERED: Morphine Sulfate 2mg/ml Inj(IV/IM USE ONLY) IVP ONE (16:45)
[2020-06-13] MEDS ORDERED: Mylanta II UD 30ml ORAL ONE (16:45)
[2020-06-13 16:56] LABS: INR 2.9 (0.9-1.1)
[2020-06-13 16:57] LABS: APPEARANCE,URINE SLIGHTLY CLOUDY; BILIRUBIN, URINE NEGATIVE (NEGATIVE); COLOR,URINE PALE YELLOW; GLUCOSE, URINE (UA) NEGATIVE (NEGATIVE); KETONES,URINE NEGATIVE (NEGATIVE); LEUKOCYTE ESTERASE ,URINE 1+ (NEGATIVE); NITRITE,URINE NEGATIVE (NEGATIVE); PH,URINE 6 (4.5-8.0); PROTEIN,URINE 1+ (NEGATIVE); UROBILINOGEN,URINE NORMAL MG/DL (0.0-1.0)
[2020-06-13 16:59] LABS: BASOPHILS % (AUTO) 1.6 % (0.0-2.0); EOSINOPHILS % (AUTO) 3.3 % (0.0-3.0); HEMATOCRIT 29.3 % (37.0-47.0); HEMOGLOBIN 9.1 G/DL (12.0-16.0); LYMPHOCYTES % (AUTO) 24.5 % (20.0-45.0); MEAN CORPUSCULAR VOLUME 69 FL (80-99); MONOCYTES % (AUTO) 7.5 % (1.0-10.0); PLATELET COUNT 297 K/UL (150-450); RED BLOOD COUNT 4.25 M/UL (4.20-5.40); RED CELL DISTRIBUTION WIDTH 16.2 % (11.6-14.8); WHITE BLOOD COUNT 6.7 K/UL (4.8-10.8)
[2020-06-13 17:09] LABS: ALANINE AMINOTRANSFERASE 19 U/L (12-78); ALBUMIN 4.1 G/DL (3.4-5.0); ALBUMIN/GLOBULIN RATIO 1.1 (1.0-2.7); ALKALINE PHOSPHATASE 131 U/L (46-116); ASPARTATE AMINO TRANSFERASE 14 U/L (15-37); BILIRUBIN,TOTAL 0.1 MG/DL (0.2-1.0); BLOOD UREA NITROGEN 14 mg/dL (7-18); CALCIUM 9.3 MG/DL (8.5-10.1); CARBON DIOXIDE 25 MMOL/L (21-32); CHLORIDE 104 MMOL/L (98-107); CREATININE 0.9 MG/DL (0.55-1.30); POTASSIUM 3.6 MMOL/L (3.5-5.1); SODIUM 139 MMOL/L (136-145)
[2020-06-13] MEDS ORDERED: cefTRIAXone 1 GM in NS 55 ML IVPB ONE (17:30)
--- NOTE | 2020-06-13 18:08 | Diagnostic Imaging Report ---
EXAM: CT Angiography Chest With Intravenous Contrast CLINICAL HISTORY: CP TECHNIQUE: Axial computed tomographic angiography images of the chest with intravenous contrast. CTDI is 84.90 mGy and DLP is 362.80 mGy-cm. One or more of the following dose reduction techniques were used: automated exposure control, adjustment of the mA and/or kV according to patient size, use of iterative reconstruction technique. MIP reconstructed images were created and reviewed. Coronal and sagittal reformatted images were created and reviewed. COMPARISON: 18 2020 FINDINGS: Pulmonary arteries: No pulmonary embolism. Aorta: No acute findings. No thoracic aortic aneurysm. Lungs: Unremarkable. No mass. No consolidation. Pleural space: Unremarkable. No significant effusion. No pneumothorax. Heart: Unremarkable. No cardiomegaly. No significant pericardial effusion. No evidence of RV dysfunction. Bones/joints: No acute fracture. No dislocation. Soft tissues: Unremarkable. Lymph nodes: Unremarkable. No enlarged lymph nodes. Other findings: For abdominal findings, please see dedicated imaging report from the same date. IMPRESSION: 1. For abdominal findings, please see dedicated imaging report from the same date. 2. No pulmonary embolism. 3. No acute abnormality definitively identified to account for patient presentation.
--- NOTE | 2020-06-13 18:12 | Diagnostic Imaging Report ---
EXAM: CT Abdomen and Pelvis Without Intravenous Contrast CLINICAL HISTORY: ABD PAIN TECHNIQUE: Axial computed tomography images of the abdomen and pelvis without intravenous contrast. CTDI is 12.80 mGy and DLP is 727.40 mGy-cm. One or more of the following dose reduction techniques were used: automated exposure control, adjustment of the mA and/or kV according to patient size, use of iterative reconstruction technique. Coronal and sagittal reformatted images were created and reviewed. COMPARISON: 11/09/18 FINDINGS: Lung bases: Unremarkable. No mass. No consolidation. ABDOMEN: Liver: Unchanged hepatic segment benign hemangioma measures 3 cm, no further follow-up required in the absence of specific clinical concern. Otherwise unremarkable liver. Gallbladder and bile ducts: Unremarkable. No calcified stones. No ductal dilation. Pancreas: Unremarkable. No ductal dilation. Spleen: Unremarkable. No splenomegaly. Adrenals: Unremarkable. No mass. Kidneys and ureters: Unremarkable. No obstructing stones. No hydronephrosis. Stomach and bowel: Unremarkable. No obstruction. No mucosal thickening. PELVIS: Appendix: No findings to suggest acute appendicitis. Bladder: Unremarkable. No stones. Reproductive: Unremarkable as visualized. ABDOMEN and PELVIS: Intraperitoneal space: Unremarkable. No free air. No significant fluid collection. Bones/joints: Unchanged T8 sclerotic 0.9 cm focus since prior study, likely benign given stability over time. Otherwise unremarkable bones. No acute fracture. No dislocation. Soft tissues: Unremarkable. Vasculature: Unremarkable. No abdominal aortic aneurysm. Lymph nodes: Unremarkable. No enlarged lymph nodes. Other findings: For chest findings, please see dedicated imaging report from the same date. IMPRESSION: 1. For chest findings, please see dedicated imaging report from the same date. 2. No acute abnormality definitively identified to account for patient presentation. 3. Unchanged hepatic segment benign hemangioma measures 3 cm, no further follow-up required in the absence of specific clinical concern. 4. Unchanged T8 sclerotic focus likely benign given stability over time. 5. Otherwise unremarkable study.
[2020-06-13] MEDS ORDERED: CEPHALEXIN500 MG ORAL (18:18)
[2020-06-13] MEDS ORDERED: ZOFRAN ODT8 MG ORAL (18:18)
[2020-06-13 18:36] VITALS: BP 115/60
== END 2020-06-13 18:37 | disposition home or self-care (01) ==
LOC: EMR 17:24
DX: N39.0 Urinary tract infection, site not specified (principal); D37.6 Neoplasm of uncertain behavior of liver, gallbladder and bile ducts; Z79.01 Long term (current) use of anticoagulants; Z86.711 Personal history of pulmonary embolism; Z86.718 Personal history of other venous thrombosis and embolism; Z88.8 Allergy status to other drugs, medicaments and biological substances
CPT/HCPCS: 36415; 71275; 74176; 80053; 81003; 81025; 83690; 84484; 85025; 85610; 85730; 87086; 93005; 96365; 96375; J0696; J2270; J2405; Q9967; Z7502; 99284

== ENCOUNTER 2020-06-28 07:43 | Emergency (ER) | payer OTHER ==
[~2020-06-28] VITALS: Ht 157.5 cm; Wt 95.3 kg
[2020-06-28 07:56] VITALS: BP 147/90
[2020-06-28] MEDS ORDERED: Morphine Sulfate 4mg/ml Inj (IV USE ONLY) IVP ONE (08:00)
[2020-06-28 08:33] LABS: ANION GAP 10 mmol/L (5-15); BLOOD UREA NITROGEN 16 mg/dL (7-18); CALCIUM 8.9 MG/DL (8.5-10.1); CARBON DIOXIDE 23 MMOL/L (21-32); CHLORIDE 106 MMOL/L (98-107); CREATININE 0.9 MG/DL (0.55-1.30); POTASSIUM 4.6 MMOL/L (3.5-5.1); SODIUM 139 MMOL/L (136-145)
[2020-06-28 08:40] LABS: ALANINE AMINOTRANSFERASE 23 U/L (12-78); ALBUMIN 3.9 G/DL (3.4-5.0); ALBUMIN/GLOBULIN RATIO 1.1 (1.0-2.7); ALKALINE PHOSPHATASE 135 U/L (46-116); ASPARTATE AMINO TRANSFERASE 21 U/L (15-37); BILIRUBIN,TOTAL 0.2 MG/DL (0.2-1.0)
--- NOTE | 2020-06-28 08:41 | Emergency Room Report ---
History of Present Illness General Chief Complaint: Chest Pain Source: Patient Present Illness HPI 30-year-old female presents complaining of chest pain. Started 4 days ago. History of PE. Ran out of Coumadin 5 days ago. Pain is sharp, 7 out of 10, nonradiating. Denies shortness of breath. Denies leg swelling. No other aggravating relieving factors. Denies any other associated symptoms Allergies: Coded Allergies: VANCOMYCIN (Verified Allergy, Mild, facial swelling, erythema, 11/01/19) COVID-19 Screening Contact w/high risk pt: No Recent Travel to affected area: No Experienced COVID-19 symptoms?: No COVID-19 Testing performed DIRECTOR OF PATIENT SAFETY: No Patient History Past Medical History: GERD, other - PE Past Surgical History: none Pertinent Family History: none Social History: Denies: smoking, alcohol use, drug use Last Menstrual Period: last month Now: No Immunizations: UTD Reviewed Nursing Documentation: PMH: Agreed; PSxH: Agreed Nursing Documentation-PMH Past Medical History: No History, Except For Hx Cardiac Problems: No - ANTIPHOSPHOLIPID SYNDROME, lupus, fibromyalgia Hx Hypertension: No - PE Hx Pacemaker: No Hx Asthma: No Hx COPD: No Hx Diabetes: No Hx Cancer: No Hx Gastrointestinal Problems: Yes - GASTRITIS Hx Dialysis: No Hx Neurological Problems: No - arthrities Hx Cerebrovascular Accident: No Hx Seizures: No Review of Systems All Other Systems: negative except mentioned in HPI Physical Exam Vital Signs Date Time Temp Pulse Resp B/P (MAP) Pulse Ox O2 Delivery O2 Flow Rate FiO2 06/28/20 07:50 97.2 99 20 147/90 (109) 100 Room Air 06/28/20 08:27 100 Sp02 EP Interpretation: reviewed, normal General Appearance: no apparent distress, alert, GCS 15, non-toxic Head: normocephalic, atraumatic Eyes: bilateral eye normal inspection, bilateral eye PERRL ENT: hearing grossly normal, normal pharynx, no angioedema, normal voice Neck: full range of motion, supple/symm/no masses Respiratory: chest non-tender, lungs clear, normal breath sounds, speaking full sentences Cardiovascular #1: regular rate, rhythm, no edema Cardiovascular #2: 2+ carotid (R), 2+ carotid (L), 2+ radial (R), 2+ radial (L), 2+ dorsalis pedis (R), 2+ dorsalis pedis (L) Gastrointestinal: normal bowel sounds, non tender, soft, non-distended, no guarding, no rebound Rectal: deferred Genitourinary: normal inspection, no CVA tenderness Musculoskeletal: back normal, normal range of motion, gait/station normal, non- tender Neurologic: alert, motor strength/tone normal, oriented x3, sensory intact, responsive, speech normal Psychiatric: judgement/insight normal, memory normal, mood/affect normal, no suicidal/homicidal ideation Reflexes: 3+ bicep (R), 3+ bicep (L), 3+ tricep (R), 3+ tricep (L), 3+ knee (R), 3+ knee (L) Lymphatic: no adenopathy Medical Decision Making Diagnostic Impression: Primary Impression: Nonadherence to medication Additional Impressions: Hx pulmonary embolism Chest wall pain ER Course Hospital Course 30-year-old female presents ED complaining of chest pain and history of PE. Not taking her Coumadin Differential diagnoses include: Rib fracture, TX/unstable angina, contusion, muscle strain Clinical course Patient placed on stretcher. After initial history and physical I ordered labs, EKG, Meds, CTA chest labs reviewed- all electrolytes normal, troponins negative, no leukocytosis, hemoglobin/hematocrit stable EKG -normal sinus rhythm no acute ischemic changes interpreted by me PA chest shows no evidence of PE On reevaluation pain appears more muscular. Patient given a refill of her Coumadin. On cures patient has received multiple narcotic prescriptions last was in April. Safe for discharge for close outpatient follow-up I. I feel this is a highly complex case requiring extensive working including EKG/Rhythm strip, Xray/CT/US, Blood/urine lab work, repeat exams while in ED, and administration of strong opiates/narcotics for pain control, admission to hospital or close patient follow up. Diagnosis -nonadherence to medication, history of pulmonary embolism, chest wall pain Stable and discharged to home. Instructed to followup with PMD. Return to ED if symptoms recur or worsen Laboratory Tests Test 06/28/20 08:14 06/28/20 10:13 White Blood Count 7.5 K/UL (4.8-10.8) Red Blood Count 4.06 M/UL (4.20-5.40) L Hemoglobin 8.1 G/DL (12.0-16.0) L Hematocrit 28.8 % (37.0-47.0) L Mean Corpuscular Volume 71 FL (80-99) L Mean Corpuscular Hemoglobin 19.9 PG (27.0-31.0) L Mean Corpuscular Hemoglobin Concent 28.0 G/DL (32.0-36.0) L Red Cell Distribution Width 14.5 % (11.6-14.8) Platelet Count 361 K/UL (150-450) Mean Platelet Volume 7.5 FL (6.5-10.1) Neutrophils (%) (Auto) 71.9 % (45.0-75.0) Lymphocytes (%) (Auto) 18.8 % (20.0-45.0) L Monocytes (%) (Auto) 4.9 % (1.0-10.0) Eosinophils (%) (Auto) 3.2 % (0.0-3.0) H Basophils (%) (Auto) 1.2 % (0.0-2.0) Prothrombin Time 11.3 SEC (9.30-11.50) Prothromb Time International Ratio 1.0 (0.9-1.1) Activated Partial Thromboplast Time 32 SEC (23-33) Sodium Level 139 MMOL/L (136-145) Potassium Level 4.6 MMOL/L (3.5-5.1) Chloride Level 106 MMOL/L (98-107) Carbon Dioxide Level 23 MMOL/L (21-32) Anion Gap 10 mmol/L (5-15) Blood Urea Nitrogen 16 mg/dL (7-18) Creatinine 0.9 MG/DL (0.55-1.30) Estimat Glomerular Filtration Rate > 60 mL/min (>60) Glucose Level 103 MG/DL (74-106) Calcium Level 8.9 MG/DL (8.5-10.1) Total Bilirubin 0.2 MG/DL (0.2-1.0) Aspartate Amino Transf (AST/SGOT) 21 U/L (15-37) Alanine Aminotransferase (ALT/SGPT) 23 U/L (12-78) Alkaline Phosphatase 135 U/L (46-116) H Troponin I 0.000 ng/mL (0.000-0.056) Total Protein 7.4 G/DL (6.4-8.2) Albumin 3.9 G/DL (3.4-5.0) Globulin 3.5 g/dL Albumin/Globulin Ratio 1.1 (1.0-2.7) Human Chorionic Gonadotropin, Qual Negative (NEGATIVE) Urine Color Pale yellow Urine Appearance Slightly cloudy Urine pH 7 (4.5-8.0) Urine Specific [place] 1.005 (1.005-1.035) Urine Protein 1+ (NEGATIVE) H Urine Glucose (UA) Negative (NEGATIVE) Urine Ketones Negative (NEGATIVE) Urine Blood 2+ (NEGATIVE) H Urine Nitrite Negative (NEGATIVE) Urine Bilirubin Negative (NEGATIVE) Urine Urobilinogen Normal MG/DL (0.0-1.0) Urine Leukocyte Esterase 1+ (NEGATIVE) H Urine RBC 0-2 /HPF (0 - 2) Urine WBC 2-4 /HPF (0 - 2) Urine Squamous Epithelial Cells Few /LPF (NONE/OCC) Urine Bacteria None /HPF (NONE) EKG Diagnostic Results Troponin ordered: Yes Rate: normal Rhythm: NSR ST Segments: no acute changes Rhythm Strip Diag. Results EP Interpretation: yes Rhythm: NSR, no PVC's, no ectopy CT/MRI/US Diagnostic Results CT/MRI/US Diagnostic Results : Imaging Test Ordered: CTA Chest Impression Procedure: CTA Chest w Contrast ndication: Chest pain Technique: IV administration nonionic contrast. Spiral acquisitions obtained from the lung bases to the lung apices. Multiplanar and 3-D reconstructions were generated on an integrated workstation. Total dose length product 401 mGycm. CTDIvol(s) one, 31, 12 mGy. Dose reduction achieved using automated exposure control Comparison: 06/13/2020 Findings: No intraluminal filling defects or other findings to suggest acute pulmonary embolism demonstrated. No evidence of right ventricular dilatation or pulmonary arterial dilatation. No evidence of thoracic aortic aneurysm or dissec tion. Normal caliber and branching anatomy of the great neck vessels and of the included abdominal visceral vessels. The lungs demonstrate subtle mosaic attenuation posteriorly, probably representing dependent atelectatic changes although other etiologies possible. No dense consolidation, masses, nodules, or effusions. The heart size is normal. No pericardial effusion. No mediastinal or hilar mass or adenopathy. There is the suggestion of a small sliding-type hiatal hernia and slight thickening of the distal esophageal wall, unchanged. The thyroid is unremarkable. No axillary or chest wall mass or adenopathy. Included upper abdominal anatomy demonstrates a 3.3 cm mass in segment 8 of the liver, unchanged from previous and multiple earlier exams and previously thought to represent a benign hemangioma. A subcentimeter low-attenuation lesion is also seen in the tip of the right hepatic lobe, likewise unchanged Impression: Negative for acute pulmonary embolus or other acute thoracic vascular pathology Subtle mosaic attenuation pattern of the dependent portions of both lungs, probably on the basis of dependent atelectasis. Other etiologies, including infectious etiologies, also possible, deemed less likely. The CT scanner at [facility] is accredited by the [employer] and the scans are performed using protocols designed to limit radiation exposure to as low as reasonably achievable to attain images of sufficient resolution adequate for diagnostic evaluation. Last Vital Signs Date Time Temp Pulse Resp B/P (MAP) Pulse Ox O2 Delivery O2 Flow Rate FiO2 06/28/20 08:27 89 19 Room Air 100 06/28/20 07:56 97.2 147/90 100 Status: improved Disposition: HOME, SELF-CARE Condition: Stable Scripts Warfarin Sod* (WARFARIN SOD*) 5 Mg Tablet 5 MG ORAL DAILY for Anticoagulant, #30 TAB Prov: Stanford Prado MD 06/28/20 Acetaminophen* (TYLENOL EXTRA STRENGTH*) 500 Mg Tablet 500 MG ORAL Q8H PRN for Prn Headache/Temp > 101, #30 TAB 0 Refills Prov: Stanford Prado MD 06/28/20 Referrals: [facility],REFERRING (PCP) Stanford Prado MD Jun 28, 2020 08:41
[2020-06-28 08:58] LABS: BASOPHILS % (AUTO) 1.2 % (0.0-2.0); EOSINOPHILS % (AUTO) 3.2 % (0.0-3.0); HEMATOCRIT 28.8 % (37.0-47.0); HEMOGLOBIN 8.1 G/DL (12.0-16.0); LYMPHOCYTES % (AUTO) 18.8 % (20.0-45.0); MEAN CORPUSCULAR VOLUME 71 FL (80-99); MONOCYTES % (AUTO) 4.9 % (1.0-10.0); NEUTROPHILS % (AUTO) 71.9 % (45.0-75.0); PLATELET COUNT 361 K/UL (150-450); RED BLOOD COUNT 4.06 M/UL (4.20-5.40); RED CELL DISTRIBUTION WIDTH 14.5 % (11.6-14.8); WHITE BLOOD COUNT 7.5 K/UL (4.8-10.8)
[2020-06-28 09:05] VITALS: BP 140/93
[2020-06-28] MEDS ORDERED: Ketorolac 30mg Inj IV ONE (09:45)
[2020-06-28 10:37] LABS: APPEARANCE,URINE SLIGHTLY CLOUDY; BILIRUBIN, URINE NEGATIVE (NEGATIVE); COLOR,URINE PALE YELLOW; GLUCOSE, URINE (UA) NEGATIVE (NEGATIVE); KETONES,URINE NEGATIVE (NEGATIVE); LEUKOCYTE ESTERASE ,URINE 1+ (NEGATIVE); NITRITE,URINE NEGATIVE (NEGATIVE); PH,URINE 7 (4.5-8.0); PROTEIN,URINE 1+ (NEGATIVE); UROBILINOGEN,URINE NORMAL MG/DL (0.0-1.0)
--- NOTE | 2020-06-28 10:45 | Diagnostic Imaging Report ---
ndication: Chest pain Technique: IV administration nonionic contrast. Spiral acquisitions obtained from the lung bases to the lung apices. Multiplanar and 3-D reconstructions were generated on an integrated workstation. Total dose length product 401 mGycm. CTDIvol(s) one, 31, 12 mGy. Dose reduction achieved using automated exposure control Comparison: 06/13/2020 Findings: No intraluminal filling defects or other findings to suggest acute pulmonary embolism demonstrated. No evidence of right ventricular dilatation or pulmonary arterial dilatation. No evidence of thoracic aortic aneurysm or dissection. Normal caliber and branching anatomy of the great neck vessels and of the included abdominal visceral vessels. The lungs demonstrate subtle mosaic attenuation posteriorly, probably representing dependent atelectatic changes although other etiologies possible. No dense consolidation, masses, nodules, or effusions. The heart size is normal. No pericardial effusion. No mediastinal or hilar mass or adenopathy. There is the suggestion of a small sliding-type hiatal hernia and slight thickening of the distal esophageal wall, unchanged. The thyroid is unremarkable. No axillary or chest wall mass or adenopathy. Included upper abdominal anatomy demonstrates a 3.3 cm mass in segment 8 of the liver, unchanged from previous and multiple earlier exams and previously thought to represent a benign hemangioma. A subcentimeter low-attenuation lesion is also seen in the tip of the right hepatic lobe, likewise unchanged Impression: Negative for acute pulmonary embolus or other acute thoracic vascular pathology Subtle mosaic attenuation pattern of the dependent portions of both lungs, probably on the basis of dependent atelectasis. Other etiologies, including infectious etiologies, also possible, deemed less likely. The CT scanner at [facility] is accredited by the [employer] and the scans are performed using protocols designed to limit radiation exposure to as low as reasonably achievable to attain images of sufficient resolution adequate for diagnostic evaluation.
[2020-06-28 10:54] VITALS: BP 127/62
[2020-06-28] MEDS ORDERED: WARFARIN SODIUM5 MG ORAL (10:58)
[2020-06-28] MEDS ORDERED: TYLENOL EXTRA500 MG ORAL (10:58)
--- NOTE | 2020-06-28 11:11 | NUR ---
ED Nurse Note: pt states WELCH & chest pain. pt states she stopped taking warfarin. pt denies cough/fever/sob/n/v/d. pt masked. iv placed, blood sent, ua sent. pt medicated per eMAR. Pt cleared by health care Provider for discharge. DC instructions/prescription was given and explained to pt and verbalized understanding of teachings. All medical deviecs such as ID band removed. Pt is AAO x4, ambulatory and left with all personal belongings.
--- NOTE | 2020-07-01 10:37 | Cardiology Report ---
APPROVED REPORT EKG Measurement Heart [id number] <Conclusion> Normal sinus rhythm Normal ECG
== END 2020-06-28 11:14 | disposition home or self-care (01) ==
LOC: EMR 08:09
DX: R07.9 Chest pain, unspecified (principal); Z86.711 Personal history of pulmonary embolism; Z91.14 Patient's other noncompliance with medication regimen; M79.7 Fibromyalgia; M19.90 Unspecified osteoarthritis, unspecified site; K21.9 Gastro-esophageal reflux disease without esophagitis; Z88.8 Allergy status to other drugs, medicaments and biological substances
CPT/HCPCS: 36415; 71275; 80053; 81003; 84484; 84703; 85025; 85610; 85730; 93005; 96374; 96375; J1885; J2270; J7040; Q9967; Z7502; 99284